=== PATIENT | male | born 1935 | race Caucasian/White ===

== ENCOUNTER 2017-06-04 10:44 | Inpatient (IN) | payer MEDICARE, OTHER ==
[~2017-06-04] VITALS: Ht 172.7 cm; Wt 92.5 kg
[~2017-06-04 10:44] MED LIST: ASPIRIN81 MG PO; ATENOLOL100 MG PO; ATENOLOL50 MG; ATORVASTATIN CA20 MG PO; BYSTOLIC10 MG PO; CARTIA XT180 MG PO; COUMADIN3 MG PO; DICLOFENAC PO; FINASTERIDE5 MG PO; FLUOXETINE HCL20 MG PO; HYDRALAZINE HCL25 MG PO; LISINOPRIL20 MG PO; PANTOPRAZOLE SO40 MG PO; SENEKOT PO; TAMSULOSIN HCL0.4 MG PO; TRIAMTERENE-HCTZ1 EA PO; VERAPAMIL ER240 MG PO
[2017-06-04] MEDS ORDERED: ALBUTEROL SULF 0.083% NEB SOLN 3 ML NEB NEB STA (10:45)
[2017-06-04] MEDS ORDERED: IPRATROPIUM BROMIDE 0.02% 2.5 ML NEB NEB STA (10:45)
--- OUTSIDE RECORDS SUMMARY | 2017-06-04 10:46 | XMS REPORT | Clinical Summary ---
Author Author LOVE [facility]We[facility] HospitalAcumatica Organization [facility] CenterRefinder by [facility] Address Unknown Phone Unavailable Care Team Providers Care Hydrostatic Tubing Tester Name Role Phone PCP Unavailable Allergies Active Allergy Reactions Severity Noted Date Comments Furosemide 01/22/2016 query Current Medications Prescription Sig. Disp. Refills Start End Date Status Date melatonin 3 mg Tab Take 1 tablet (3 mg 30 tablet 0 02/23/20 Active total) by mouth nightly. 16 nebivolol (BYSTOLIC) 5 MG Take 1 tablet (5 mg 30 tablet 0 02/22/20 Active tablet total) by mouth daily. 16 pantoprazole (PROTONIX) Take 1 tablet (40 mg 30 tablet 0 20 Active 40 MG tablet total) by mouth daily. 16 tamsulosin (FLOMAX) 0.4 Take 1 capsule (0.4 mg 30 capsule 0 20 Active mg Cp24 24 hr capsule total) by mouth daily. 16 aspirin 81 MG chewable Take 1 tablet (81 mg 30 tablet 0 20/20 12/ 20/20 tablet total) by mouth daily. 16 17 atorvastatin (LIPITOR) 20 Take 1 tablet (20 mg 30 tablet 0 02/22/20 2020 MG tablet total) by mouth daily. 16 17 diltiazem (CARDIZEM CD) Take 1 capsule (180 mg 30 capsule 0 20/20 12/20/20 180 MG 24 hr capsule total) by mouth daily. 16 17 finasteride (PROSCAR) 5 Take 1 tablet (5 mg 30 tablet 0 02/22/20 / 20/20 mg tablet total) by mouth daily. 16 17 fLUoxetine (PROZAC) 20 MG Take 1 capsule (20 mg 30 capsule 0 02/22/20 12/2020 capsule total) by mouth daily. 16 17 senna-docusate (SENOKOT Take 2 tablets by mouth 60 tablet 0 02/23/20 02/23/20 S) 8.6-50 mg per tablet daily before lunch. 16 17 triamterene-hydrochloroth Take 1 capsule by mouth 30 capsule 0 02/23/20 iazide (DYAZIDE) 37.5-25 daily. 16 17 mg per capsule Active Problems Problem Noted Date MARISELA (acute kidney injury) (FORMERLY [facility]) 02/09/2016 Leukocytosis 02/09/2016 Penile swelling 02/09/2016 Diabetes mellitus, type 2 (FORM[facility]LY [facility]) 01/29/2016 Hx of pulmonary embolus 01/26/2016 Atrial fibrillation ([facility]) 01/24/2016 Urinary tract infection 01/24/2016 ICH (intracerebral hemorrhage) (FORM[facility]LY [facility]) 01/22/2016 Social History Tobacco Use Types Packs/Day Years Used Date Never Smoker 1.5 15 Alcohol Use Drinks/Week oz/Week Comments No Sex Assigned at Date Recorded Not on file Last Filed Vital Signs Not on file Plan of Treatment Not on file Results Not on fileafter 06/03/2016
[2017-06-04] MEDS ORDERED: ALBUTEROL SULF 0.083% NEB SOLN 3 ML NEB NEB ONE (11:00)
[2017-06-04] MEDS ORDERED: BYSTOLIC10 MG PO (11:27)
[2017-06-04] MEDS ORDERED: GLIMEPIRIDE2 MG PO (11:27)
[2017-06-04] MEDS ORDERED: ASPIRIN 81 MG CHEW TAB PO ONE (11:30)
--- NOTE | 2017-06-04 11:43 | Diagnostic Imaging Report ---
EXAMINATION: CHEST SINGLE (PORTABLE) INDICATION: Shortness of breath. \S\ERMD ORDER \[id number] \S\1100 \S\Y COMPARISON: Chest CT dated 06/07/2016 FINDINGS: AP view TUBES and LINES: None. LUNGS: Lungs are well inflated. Left mid to inferior lung field opacification. Mild central vascular congestion. Questionable right lower lung field nodular density, measuring approximately 7 mm. PLEURA: No pneumothorax. HEART AND MEDIASTINUM: The cardiac silhouette is obscured. BONES AND SOFT TISSUES: No acute osseous lesion. Right humeral head anchor screw. Soft tissues are unremarkable. UPPER ABDOMEN: No free air under the diaphragm. IMPRESSION: Left mid to inferior lung field opacification, representing moderate size pleural effusion. Underlying atelectasis/pneumonia cannot be entirely excluded. Mild central vascular congestion. Questionable right lower lung field nodular density. Signed by: Dr. Ta Reynaga MD on 06/04/2017 11:39 AM
[2017-06-04 11:48] LABS: BASOPHILS # (AUTO) 0.1 (0.0-0.1); BASOPHILS % 0.5 % (0.0-1.0); EOSINOPHILS # (AUTO) 0.2 (0.0-0.4); HEMATOCRIT 44.2 % (38.2-49.6); HEMOGLOBIN 13.5 g/dL (14.0-18.0); LYMPHOCYTES # (AUTO) 2.5 (1.0-3.2); LYMPHOCYTES % 26.4 % (18.0-39.1); MEAN CORPUSCULAR HEMOGLOBIN 26.3 pg (28-32); MEAN CORPUSCULAR HGB CONC 30.5 g/dL (31-35); MONOCYTES # (AUTO) 0.7 (0.2-0.8); MONOCYTES % 7.7 % (4.4-11.3); NEUTROPHILS # (AUTO) 5.9 (2.1-6.9); PLATELET COUNT 146 x10e3/uL (140-360); RED BLOOD COUNT 5.14 x10e6/uL (4.3-5.7); RED CELL DISTRIBUTION WIDTH 15.9 % (11.7-14.4)
[2017-06-04 11:57] LABS: INR 1.33; PROTHROMBIN TIME 15.5 seconds (11.9-14.5)
[2017-06-04 12:00] LABS: ALANINE AMINOTRANSFERASE 12 IU/L (0-55); ALBUMIN 3.1 g/dL (3.5-5.0); ALBUMIN/GLOBULIN RATIO 0.5 (0.8-2.0); ALKALINE PHOSPHATASE 108 IU/L (40-150); ANION GAP 16.9 mmol/L (8-16); BLOOD UREA NITROGEN 43 mg/dL (7-26); BUN/CREATININE RATIO 20 (6-25); CALCIUM 9.5 mg/dL (8.4-10.2); CARBON DIOXIDE 25 mmol/L (22-29); CHLORIDE 99 mmol/L (98-107); CREATINE KINASE 51 IU/L (30-200); CREATININE, SERUM 2.18 mg/dL (0.72-1.25); EST GLOMERULAR FILTRATION RATE 29 ML/MIN (60-); GLUCOSE 201 mg/dL (74-118); MAGNESIUM 2.2 MG/DL (1.3-2.1); POTASSIUM 4.9 mmol/L (3.5-5.1); SODIUM 136 mmol/L (136-145)
[2017-06-04 12:19] LABS: ABG HCO3 25 mmol/L (23-28); ABG PCO2 38 mmHg (41-51); ABG PH 7.43 (7.31-7.41); ABG PO2 63 mmHg (80-105)
[2017-06-04 12:20] LABS: THYROID STIMULATING HORMONE 1.348 uIU/mL (0.350-4.940)
[2017-06-04 12:43] LABS: CLARITY,URINE CLEAR (CLEAR); COLOR,URINE YELLOW (YELLOW); LEUKOCYTE ESTERASE ,URINE NEGATIVE (NEGATIVE)
[2017-06-04 12:44] LABS: BILIRUBIN,URINE NEGATIVE (NEGATIVE); KETONES,URINE NEGATIVE (NEGATIVE); NITRITE,URINE NEGATIVE (NEGATIVE); PROTEIN,URINE DIPSTICK NEGATIVE (NEGATIVE); URINE UROBILINOGEN 0.2 mg/dL (0.2 - 1)
--- NOTE | 2017-06-04 13:17 | Diagnostic Imaging Report ---
EXAM: CT Chest WITHOUT contrast INDICATION: \S\r/o pna mass \S\[id number] \S\1222 COMPARISON: Chest x-ray of the same date. TECHNIQUE: Chest was scanned utilizing a multidetector helical scanner from the lung apex through the level of the adrenal glands without administration of IV contrast. Absence of intravenous contrast decreases sensitivity for detection of lymphadenopathy and vascular pathology. Coronal and sagittal reformations were obtained. Routine protocol was performed. IV CONTRAST: None COMPLICATIONS: None RADIATION DOSE: Total DLP: 562.04 mGy*cm Estimated effective dose: (DLP x 0.014 x size factor) mSv CTDIvol has been reviewed. It is below the limits set by the Radiation Protocol Committee (RPC). FINDINGS: LINES/ TUBES: None. LUNGS , PLEURA, AND AIRWAYS: Complex appearing left pleural effusion with septations and dense pleural line with adjacent consolidation. Trace right pleural effusion. Left lung multifocal areas of patchy groundglass opacification. Numerous right lower lobe lung nodules measuring up to 0.7 cm. HEART AND MEDIASTINUM: Heterogeneous thyroid gland. Mediastinal lymphadenopathy. For example the largest lymph node in the right paratracheal region measures 1.8 cm. There is also axillary lymphadenopathy, especially on the left side. Calcified left hilar lymph nodes. Heart is borderline enlarged. No pericardial effusion. Atherosclerotic calcification of aorta and coronary arteries. Main pulmonary artery measures 3.2 cm, suggestive of pulmonary hypertension. UPPER ABDOMEN: Hepatic and splenic calcified granulomas. Cholelithiasis. Partially imaged kidneys with bilateral cysts and left superior pole subcentimeter calculus. Conglomerate of periesophageal lymph nodes measuring up to 1.5 cm. There are multiple peripancreatic head lymph nodes as well as 1.5 cm portacaval lymph node (series 2, image 130). BONES: Right humeral head anchor screws. Degenerative changes of the bilateral shoulders, right more than left. SOFT TISSUES: Unremarkable. IMPRESSION: 1. Multifocal areas of right lung patchy groundglass opacification may represent infectious/inflammatory process or asymmetric pulmonary edema. 2. Moderate size complex left pleural effusion, suspicious for malignant effusion or empyema. There is atelectasis of the most of the left lower lobe with left lung volume loss. Left lower lobe pleura is hyperdense and thickened. 3. Numerous right lower lobe nodule nodules, suspicious for metastatic disease. 4. Mediastinal, left axillary, paraesophageal and abdominal lymphadenopathy, suspicious for metastatic disease. 5. Cholelithiasis without CT evidence of cholecystitis. Signed by: Dr. Ta Reynaga MD on 06/04/2017 1:14 PM
[2017-06-04] MEDS ORDERED: DEXTROSE 50% SYRINGE 50 ML IV PRN (14:30)
[2017-06-04] MEDS ORDERED: SODIUM CHLORIDE FLUSH 10 ML SYR INJ PRN (14:30)
--- OUTSIDE RECORDS SUMMARY | 2017-06-04 16:40 | XMS REPORT | Clinical Summary ---
Author Author LOVE PrefundiaSt[facility] Luke'[facility] Meridian Medical CenterTrustPoint International Organization [facility] HospitalFeuerlabsKind[facility] Address Unknown Phone Unavailable Care Team Providers Care Reimbursement Manager Name Role Phone PCP Unavailable Allergies Active [...] Noted Date MARISELA (acute kidney injury) (FORMERLY [facility]) 02/09/2016 Leukocytosis 02/09/2016 Penile swelling 02/09/2016 Diabetes mellitus, type 2 (FORM[facility]LY [facility]) 01/29/2016 Hx of pulmonary embolus 01/26/2016 Atrial fibrillation ([facility]) 01/24/2016 Urinary tract infection 01/24/2016 ICH (intracerebral hemorrhage) ([facility]LY [facility]) 01/22/2016 Social History Tobacco Use Types Packs/Day Years Used Date Never Smoker 1.5 15 Alcohol Use Drinks/Week oz/Week Comments No Sex Assigned at Date Recorded Not on file Last Filed Vital Signs Not on file Plan of Treatment Not on file Results Not on fileafter 06/03/2016
--- OUTSIDE RECORDS SUMMARY | 2017-06-04 16:40 | XMS REPORT ---
Author Author [facility] Address Unknown Phone Unavailable Care Team Providers Care Railway Switch Operator Name Role Phone RAMA SCHULZ Unavailable Unavailable Problems This patient has no known problems. Allergies, Adverse Reactions, Alerts This patient has no known allergies or adverse reactions. Medications This patient has no known medications. Results Test Description Test Time Test Comments Text Results Atomic Results Result Comments CT CHEST WO [place] [address] Patient Name: KANDI MENEZES MR #: [id number] : 1935 Age/Sex: 82/M Req #: [id number] Adm Physician: Ordered by: SHABANA SUBRAMANIAN PICKING BELT OPERATOR Report #: [id number] Location: ER Room/Bed: Procedure: [id number] CT/CT CHEST WO Exam Date: 06/04/17 Exam Time: 1222 REPORT STATUS: Signed EXAM: CT Chest WITHOUT contrast INDICATION : COMPARISON: Chest x-ray of the same date. TECHNIQUE: Chest was scanned utilizing a multidetector helical scanner from the lung apex through the level of the adrenal glands without administration of IV contrast. Absence of intravenous contrast decreases sensitivity for detection of lymphadenopathy and vascular pathology. Coronal and sagittal reformations were obtained. Routine protocol was performed. IV CONTRAST: None COMPLICATIONS: None RADIATION DOSE: Total DLP: 562.04 mGy*cm Estimated effective dose: (DLP x 0.014 x size factor) mSv CTDIvol has been reviewed. It is below the limits set by the Radiation Protocol Committee (RPC). FINDINGS: LINES/ TUBES: None. LUNGS , PLEURA, AND AIRWAYS: Complex appearing left pleural effusion with septations and dense pleural line with adjacent consolidation. Trace right pleural effusion. Left lung multifocal areas of patchy groundglass opacification. Numerous right lower lobe lung nodules measuring up to 0.7 cm. HEART AND MEDIASTINUM: Heterogeneous thyroid gland. Mediastinal lymphadenopathy. For example the largest lymph node in the right paratracheal region measures 1.8 cm. There is also axillary lymphadenopathy, especially on the left side. Calcified left hilar lymph nodes. Heart is borderline enlarged. No pericardial effusion. Atherosclerotic calcification of aorta and coronary arteries. Main pulmonary artery measures 3.2 cm, suggestive of pulmonary hypertension. UPPER ABDOMEN: Hepatic and splenic calcified granulomas. Cholelithiasis. Partially imaged kidneys with bilateral cysts and left superior pole subcentimeter calculus. Conglomerate of periesophageal lymph nodes measuring up to 1.5 cm. There are multiple peripancreatic head lymph nodes as well as 1.5 cm portacaval lymph node (series 2, image 130). BONES: Right humeral head anchor screws. Degenerative changes of the bilateral shoulders, right more than left. SOFT TISSUES: Unremarkable. IMPRESSION: 1. Multifocal areas of right lung patchy groundglass opacification may represent infectious/inflammatory process or asymmetric pulmonary edema. 2. Moderate size complex left pleural effusion, suspicious for malignant effusion or empyema. There is atelectasis of the most of the left lower lobe with left lung volume loss. Left lower lobe pleura is hyperdense and thickened. 3. Numerous right lower lobe nodule nodules, suspicious for metastatic disease. 4. Mediastinal, left axillary, paraesophageal and abdominal lymphadenopathy, suspicious for metastatic disease. 5. Cholelithiasis without CT evidence of cholecystitis. Signed by: Dr. Ta Choudhury MD on 06/04/2017 1:14 PM Dictated By: TA CHOUDHURY MD 1314 Transcribed By : BRINA on 06/04/17 1314 COPY TO: SHABANA SUBRAMANIAN NP CHEST SINGLE (PORTABLE) [place] [address] Patient Name: KANDI MENEZES MR #: [id number] : 1935 Age/Sex: 82/M Req #: [id number] [facility] Physician: Ordered by: SHABANA SUBRAMANIAN PICKING BELT OPERATOR Report #: [id number] Location: ER Room/Bed: Procedure: [id number] DX/CHEST SINGLE (PORTABLE) Exam Date: 06/04/17 Exam Time: 1100 REPORT STATUS: Signed EXAMINATION: CHEST SINGLE (PORTABLE) INDICATION: Shortness of breath. COMPARISON: Chest CT dated 06/07/2016 FINDINGS: AP view TUBES and LINES: None. LUNGS: Lungs are well inflated. Left mid to inferior lung field opacification. Mild central vascular congestion. Questionable right lower lung field nodular density, measuring approximately 7 mm. PLEURA: No pneumothorax. HEART AND MEDIASTINUM: The cardiac silhouette is obscured. BONES AND SOFT TISSUES: No acute osseous lesion. Right humeral head anchor screw. Soft tissues are unremarkable. UPPER ABDOMEN: No free air under the diaphragm. IMPRESSION: Left mid to inferior lung field opacification, representing moderate size pleural effusion. Underlying atelectasis/pneumonia cannot be entirely excluded. Mild central vascular congestion. Questionable right lower lung field nodular density. Signed by: Dr. Ta Choudhury MD on 06/04/2017 11:39 AM Dictated By: TA CHOUDHURY MD 1653 COPY TO: SHABANA SUBRAMANIAN PICKING BELT OPERATOR
[2017-06-04 17:31] VITALS: BP 110/65
[2017-06-04] MEDS: INSULIN REGULAR, HUMAN 100 UNIT/1 ML 3ML VIAL SQ SCH ×2 (17:45→21:14)
[2017-06-04 18:00] VITALS: BP 110/65
[2017-06-04] MEDS ORDERED: SODIUM CHLORIDE 0.9% 250ML 250 ML ONE (18:17)
[2017-06-04] MEDS: PIPERACILLIN/TAZO 2.25 GM 50 ML IV SCH (18:38)
[2017-06-04 19:05] LABS: CREATINE KINASE MB 2.8 ng/mL (0-5.0)
[2017-06-04 19:47] VITALS: BP 110/65
[2017-06-04 20:52] VITALS: BP 103/64
[2017-06-04 21:17] VITALS: BP 103/64
[2017-06-05] VITALS (7 sets, daily range): BP systolic 98–130; BP diastolic 58–70
[2017-06-05] MEDS: PIPERACILLIN/TAZO 2.25 GM 50 ML IV SCH ×5 (00:11→23:02)
[2017-06-05] MEDS: GLIMEPIRIDE 2 MG TAB PO SCH (07:30)
[2017-06-05] MEDS: INSULIN REGULAR, HUMAN 100 UNIT/1 ML 3ML VIAL SQ SCH ×4 (07:30→20:26)
[2017-06-05 07:34] LABS: CREATINE KINASE 40 IU/L (30-200)
[2017-06-05] MEDS: NEBIVOLOL 10 MG TAB PO SCH (09:00)
[2017-06-05] MEDS: TRIAMTERENE/HCTZ 37.5-25 MG TAB PO SCH (09:00)
[2017-06-05] MEDS: FLUOXETINE HCL 20 MG CAP PO SCH (09:00)
[2017-06-05] MEDS: ASPIRIN 81 MG CHEW TAB PO SCH (09:00)
[2017-06-05] MEDS: DILTIAZEM HCL 180 MG CAP CD PO SCH (09:00)
[2017-06-05] MEDS: TAMSULOSIN HCL 0.4 MG CAP PO SCH (09:00)
[2017-06-05] MEDS: PANTOPRAZOLE SOD 40 MG TABEC PO SCH (09:00)
[2017-06-05] MEDS: FINASTERIDE 5 MG TAB PO SCH (09:00)
[2017-06-05] MEDS ORDERED: FENTANYL CITRATE/PF 100MCG/2 ML INJ ONE (13:58)
[2017-06-05] MEDS ORDERED: MIDAZOLAM HCL 2 MG/2 ML VIAL ONE (13:59)
[2017-06-05 14:29] LABS: BODY FLUID APPEARANCE TURBID; BODY FLUID COLOR RED; BODY FLUID TYPE PLEURAL
--- NOTE | 2017-06-05 15:06 | Diagnostic Imaging Report ---
Ultrasound-guided Thoracentesis 06/05/2017 Pre-Procedure Diagnosis: Left pleural effusion Post-procedure Diagnosis:Left pleural effusion Director Of Media: Lopez Navarro Sewer Builder: None Sedation: None. 1% lidocaine local anesthesia. Estimate blood loss: <5 mL Blood administered: None Complications: None Implants/Grafts: None Specimen: 400 mL green, bloody fluid. Procedure: Informed consent was obtained and the patient positioned in a sitting position in the ultrasound suite. A timeout was performed, followed by preliminary ultrasound of the chest. The back was prepped and draped in standard sterile fashion. Using real-time ultrasound guidance a 7-Nepali one-step centesis needle was advanced into the left thoracic cavity. An image was stored in the electronic medical record. 400 mL green, bloody fluid was aspirated. At the end of the procedure the catheter was removed and a sterile dressing applied. The patient tolerated the procedure well. No complications. Findings: Extensively loculated left pleural effusion with pleural thickening. Blue-tinged raised, firm lesion at the right aspect of the back measuring about 3 cm in diameter. This lesion was discussed with the patient and family. Impression: 1. Successful ultrasound-guided left thoracentesis with removal of 400 mL of fluid. Samples were submitted for evaluation if requested by the referring clinician. 2. The pleural effusion is heavily loculated, limiting fluid aspiration. This report was generated with voice-recognition technology. Errors in bottle filler can occur. Please interpret accordingly and contact a radiologist if there are any questions regarding the report. Signed by: Dr. Les Navarro M.D. on 06/05/2017 3:02 PM
--- NOTE | 2017-06-05 15:06 | Diagnostic Imaging Report ---
PROCEDURE:CHEST XRAY POST PROCEDURE TECHNIQUE:Upright AP chest INDICATION:Left thoracentesis COMPARISON:Patients [facility], US, US GUIDANCE FOR THORACENTESIS, 06/05/2017, 13:53. Patients [facility], DX, CHEST SINGLE (PORTABLE), 06/04/2017, 12:06. FINDINGS: See conclusion. CONCLUSION: 1. Interval left thoracentesis with decreased left pleural effusion. No pneumothorax. 2. Persistent loculated left pleural effusion, with associated leftward mediastinal shift in keeping with left lung atelectasis. Left marginal thoracic cavity pleural thickening. 3. Large calcified left hilar lymph node. Enlarged monalisa and superior mediastinum in keeping with lymphadenopathy. 4. Normal heart size for technique. Dictated by: Les Navarro M.D. on 06/05/2017 at 15:07 Electronically approved by: Les Navarro M.D. on 06/05/2017 at 15:07
--- NOTE | 2017-06-05 15:06 | Diagnostic Imaging Report ---
Ultrasound-guided Thoracentesis 06/05/2017 Pre-Procedure Diagnosis: Left pleural effusion Post-procedure Diagnosis:Left pleural effusion Paper Sales Representative: Lopez Navarro Residence Manager: None Sedation: None. 1% lidocaine local anesthesia. Estimate blood loss: <5 mL Blood administered: None Complications: None Implants/Grafts: None Specimen: 400 mL green, bloody fluid. Procedure: Informed consent was obtained and the patient positioned in a sitting position in the ultrasound suite. A timeout was performed, followed by preliminary ultrasound of the chest. The back was prepped and draped in standard sterile fashion. Using real-time ultrasound guidance a 7-Georgian one-step centesis needle was advanced into the left thoracic cavity. An image was stored in the electronic medical record. 400 mL green, bloody fluid was aspirated. At the end of the procedure the catheter was removed and a sterile dressing applied. The patient tolerated the procedure well. No complications. Findings: Extensively loculated left pleural effusion with pleural thickening. Blue-tinged raised, firm lesion at the right aspect of the back measuring about 3 cm in diameter. This lesion was discussed with the patient and family. Impression: 1. Successful ultrasound-guided left thoracentesis with removal of 400 mL of fluid. Samples were submitted for evaluation if requested by the referring clinician. 2. The pleural effusion is heavily loculated, limiting fluid aspiration. This report was generated with voice-recognition technology. Errors in feather drying machine operator can occur. Please interpret accordingly and contact a radiologist if there are any questions regarding the report. Signed by: Dr. Les Navarro M.D. on 06/05/2017 3:02 PM
[2017-06-05 15:45] LABS: RBC,BODY FLUID 30492 cells/uL; WBC,BODY FLUID 0 cells/uL
--- NOTE | 2017-06-05 15:58 | Consultation ---
DATE OF CONSULTATION: June 05, 2017 PULMONARY CONSULTATION REASON FOR CONSULTATION: Abnormal CT of the chest. HPI: Mr. Smiley is an 82-year-old male who was admitted by Dr. Zambrano with the complaint of shortness of breath for 3 days. Daughter is at the bedside, and she told me the patient had an episode of choking a week ago, and since then he was having increasing cough. Lately, she noticed that his oxygen saturation at home is 82% to 85%, so she was very concerned. The patient is a lifelong nonsmoker. However, he has a history of multiple pulmonary emboli 2 years ago. The pulmonary embolism probably was provoked as he was immobile after his 's and was not doing much. He was started on anticoagulation. However, he had an intracranial hemorrhage, and the anticoagulation was stopped. He is just on aspirin now. He has bilateral pedal edema. She told me the patient sees Dr. Nowak as an outpatient. In the record here, the patient had a cath last year on the 01 of July. Patient had both right and left heart cath with the pulmonary wedge pressure of 26 and mean PA pressure of 27. However, the index was preserved at 2.2 L. Left heart catheterization shows 50% proximal LAD stenosis. I do not see an LV-gram in the report. He reports dyspnea on exertion off and on. REVIEW OF SYSTEMS GENERAL: Denies any fever or chills since this problem has happened. HEAD: Denies any head trauma or head injury. ENT: Denies any earache, nosebleed or throat pain. CVS: Denies any chest pain. RESPIRATORY: Shortness of breath. GI: Denies any nausea or vomiting. OTHER: The rest of the review of systems are negative except as in HPI. PAST MEDICAL HISTORY 1. Pulmonary embolism that was diagnosed more than 2 years ago and was likely provoked as he was immobile and not on anticoagulation because of history of intracranial hemorrhage. Currently is on aspirin and has IVC filter. 2. Total knee replacement bilateral. 3. Hypertension. PHYSICAL EXAMINATION VITALS: Temperature 97.6, pulse of 76, blood pressure 114/70. Respiratory rate of 18. O2 sat 96% on room air. SKIN: Warm and dry. GENERAL: He is an elderly male, not in any obvious distress. HEENT: Head is atraumatic and normocephalic. Pupils are reactive. NECK: Supple. CHEST: Decreased air entry on the left side and crackles on the bases. HEART: S1, S2 audible. ABDOMEN: Soft, nontender, nondistended. EXTREMITIES: Bilateral pedal edema 3 to 4+ extending up to the knees. NEUROLOGIC: Awake, alert, oriented. No focal neurological deficit. LABS: White count of 9000, hemoglobin 13.5, platelets 146. Chemistry: Cardiac enzymes have been normal. Sodium 136, potassium 4.9. Creatinine was 2.18. BNP 145. Lactic acid was 29.7 on admission and went down to 19.5. INR is 1.33. CT of the chest: I have reviewed the images. It is showing evidence of large left-sided pleural effusion and atelectasis, possible pneumonia. Mediastinal lymph nodes are enlarged. Paratracheal, subcarinal and hilar lymph nodes are enlarged. Areas of patchy ground glass areas on the right side. ASSESSMENT AND PLAN: Mr. Guadarrama is an 82-year-old male who presented with shortness of breath and large left-sided pleural effusion. CT interestingly showing mediastinal lymphadenopathy, atelectasis and possibility of pneumonia. Given the history of choking and aspiration, all these findings can suggest pneumonia on top of possible fluid overload and decompensated heart failure. The wedge pressure on the last cath was 26, signifying some diastolic dysfunction, all this accompanied with chronic kidney disease and no acute worsening as last creatinine last year was 2.38. IMPRESSION 1. Aspiration pneumonitis along with possible fluid overload and possibility of decompensated heart failure. 2. Lifelong nonsmoker. 3. Chronic kidney disease. 4. History of pulmonary embolism, according to the daughter multiple. Has inferior vena cava filter. Not a candidate for anticoagulation because of history of intracranial hemorrhage. PLAN 1. Thoracentesis has been planned. I will send off LDH, protein, cell count, glucose, pH. 2. Continue the patient on IV Zosyn for possible aspiration pneumonitis. 3. I will start the patient on IV Lasix 40 mg IV for 2 to 3 days. 4. Patient will need a repeat CT chest in 2 to 3 months to document resolution of mediastinal lymph nodes. If persists, may need biopsy of the lymph nodes. This was discussed in detail with patient's daughter at bedside. Job#: [id number]
[2017-06-05] MEDS: ATORVASTATIN 20 MG TAB PO SCH (20:42)
[2017-06-06] VITALS (8 sets, daily range): BP systolic 91–125; BP diastolic 57–80
[2017-06-06] MEDS: PIPERACILLIN/TAZO 2.25 GM 50 ML IV SCH ×3 (05:02→17:37)
[2017-06-06 06:47] LABS: BASOPHILS % 0.5 % (0.0-1.0); EOSINOPHILS # (AUTO) 0.1 (0.0-0.4); EOSINOPHILS % 1.2 % (0.0-6.0); HEMATOCRIT 37.1 % (38.2-49.6); HEMOGLOBIN 11.6 g/dL (14.0-18.0); LYMPHOCYTES # (AUTO) 1.9 (1.0-3.2); LYMPHOCYTES % 23.4 % (18.0-39.1); MEAN CORPUSCULAR HEMOGLOBIN 26.7 pg (28-32); MEAN CORPUSCULAR HGB CONC 31.3 g/dL (31-35); MEAN CORPUSCULAR VOLUME 85.3 fL (81-99); MONOCYTES # (AUTO) 0.9 (0.2-0.8); MONOCYTES % 10.8 % (4.4-11.3); NEUTROPHILS # (AUTO) 5.2 (2.1-6.9); NEUTROPHILS % 63.7 % (38.7-80.0); PLATELET COUNT 218 x10e3/uL (140-360); RED BLOOD COUNT 4.35 x10e6/uL (4.3-5.7)
[2017-06-06 07:20] LABS: ANION GAP 12.3 mmol/L (8-16); CALCIUM 8.7 mg/dL (8.4-10.2); CREATININE, SERUM 1.84 mg/dL (0.72-1.25); POTASSIUM 4.3 mmol/L (3.5-5.1)
[2017-06-06] MEDS: INSULIN REGULAR, HUMAN 100 UNIT/1 ML 3ML VIAL SQ SCH ×4 (07:30→21:00)
[2017-06-06] MEDS: FUROSEMIDE INJ 10 MG/ML 4 ML VIAL IV SCH (10:46)
[2017-06-06] MEDS: NEBIVOLOL 10 MG TAB PO SCH (10:46)
[2017-06-06] MEDS: ASPIRIN 81 MG CHEW TAB PO SCH (10:46)
[2017-06-06] MEDS: GLIMEPIRIDE 2 MG TAB PO SCH (10:46)
[2017-06-06] MEDS: FINASTERIDE 5 MG TAB PO SCH (10:48)
[2017-06-06] MEDS: TRIAMTERENE/HCTZ 37.5-25 MG TAB PO SCH (10:48)
[2017-06-06] MEDS: PANTOPRAZOLE SOD 40 MG TABEC PO SCH (10:48)
[2017-06-06] MEDS: DILTIAZEM HCL 180 MG CAP CD PO SCH (10:48)
[2017-06-06] MEDS: TAMSULOSIN HCL 0.4 MG CAP PO SCH (10:48)
[2017-06-06] MEDS: FLUOXETINE HCL 20 MG CAP PO SCH (10:48)
[2017-06-06] MEDS ORDERED: SODIUM CHLORIDE 0.9% 250ML 250 ML ONE (17:26)
[2017-06-06] MEDS: ATORVASTATIN 20 MG TAB PO SCH (21:00)
[2017-06-07] VITALS: BP 125/59
[2017-06-07] MEDS: PIPERACILLIN/TAZO 2.25 GM 50 ML IV SCH ×4 (00:40→18:08)
[2017-06-07 04:00] VITALS: BP 93/60
[2017-06-07] MEDS: INSULIN REGULAR, HUMAN 100 UNIT/1 ML 3ML VIAL SQ SCH ×4 (07:30→21:00)
[2017-06-07 09:00] VITALS: BP 111/63
[2017-06-07] MEDS: ASPIRIN 81 MG CHEW TAB PO SCH (09:00)
[2017-06-07 09:13] VITALS: BP 111/63
[2017-06-07] MEDS: NEBIVOLOL 10 MG TAB PO SCH (10:31)
[2017-06-07 13:03] VITALS: BP 116/69
[2017-06-07] MEDS ORDERED: LIDOCAINE HCL 4% 50 ML BTL ONE (14:34)
[2017-06-07] MEDS ORDERED: OXYMETAZOLINE HCL 0.05% NAS 1 SPRAY BTL ONE (14:34)
[2017-06-07] MEDS ORDERED: LIDOCAINE JELLY 2% 10ML URO-JET ONE (14:34)
[2017-06-07] MEDS ORDERED: EPINEPHRINE HCL INJ 1 MG/ML AMP ONE (14:38)
[2017-06-07] MEDS ORDERED: LIDOCAINE HCL 2% 30 ML TUBE ONE (14:38)
--- NOTE | 2017-06-07 15:52 | Diagnostic Imaging Report ---
PROCEDURE: A single AP view of the chest. COMPARISON: Patients [facility], DX, CHEST XRAY POST PROCEDURE, 06/05/2017, 15:25. INDICATIONS: Moderate left pleural effusion. Postprocedure. FINDINGS: See impression. IMPRESSION: 1. no significant interval change in loculated left pleural effusion and mild leftward mediastinal shift. Stable left lateral pleural thickening. 2. No pneumothorax is identified. 3. Stable calcified left hilar node. 4. Right lung is grossly clear. Cardiac silhouette is obscured. Matteo Lara M.D. Dictated by: Matteo Lara M.D. on 06/07/2017 at 15:52 Electronically approved by: Matteo Lara M.D. on 06/07/2017 at 15:52
--- NOTE | 2017-06-07 16:47 | Operative Report ---
DATE OF PROCEDURE: PROCEDURE PERFORMED: Bronchoscopy with transbronchial lung biopsy. PRE-PROCEDURE DIAGNOSIS 1. Left-sided pleural effusion. 2. Left lower lobe atelectasis. 3. Left-sided pleural thickening and mediastinal lymphadenopathy. POST-PROCEDURE DIAGNOSIS: Normal endobronchial airways, no endobronchial lesion. PROCEDURE DETAIL: Bronchoscope was advanced through the LMA. Tejal was identified. Both lungs were examined until segmental level. Right upper lobe, lower lobe and middle lobe were examined. They were within normal limits. Left upper lobe appeared normal. Left lower lobe segments appeared narrowed from external compression. No endobronchial lesion was seen. Transbronchial lung biopsy was done from left lower lobe. BAL was done from left lower lobe as well. Samples were sent for pathology, AFB, fungus, and Gram stain. Patient tolerated the procedure well. Post-procedure chest x-ray is pending. Job#: [id number] EV
[2017-06-07] MEDS: FUROSEMIDE INJ 10 MG/ML 4 ML VIAL IV SCH (18:07)
[2017-06-07] MEDS: GLIMEPIRIDE 2 MG TAB PO SCH (18:07)
[2017-06-07] MEDS: DILTIAZEM HCL 180 MG CAP CD PO SCH (18:07)
[2017-06-07] MEDS: PANTOPRAZOLE SOD 40 MG TABEC PO SCH (18:08)
[2017-06-07] MEDS: FINASTERIDE 5 MG TAB PO SCH (18:08)
[2017-06-07] MEDS: FLUOXETINE HCL 20 MG CAP PO SCH (18:08)
[2017-06-07] MEDS: TAMSULOSIN HCL 0.4 MG CAP PO SCH (18:08)
[2017-06-07] MEDS: TRIAMTERENE/HCTZ 37.5-25 MG TAB PO SCH (18:08)
[2017-06-07] MEDS ORDERED: PROPOFOL IV EMULSION 10 MG/ML 20 ML VIAL ONE (19:34)
[2017-06-07] MEDS ORDERED: LIDOCAINE HCL 2% LOCAL INJ 5 ML SDV VIAL INJ ONE (19:34)
[2017-06-07 20:00] VITALS: BP 100/62
[2017-06-07] MEDS: ATORVASTATIN 20 MG TAB PO SCH (21:46)
[2017-06-08] VITALS: BP 106/65
[2017-06-08] MEDS: PIPERACILLIN/TAZO 2.25 GM 50 ML IV SCH ×2 (00:04→06:50)
[2017-06-08 04:00] VITALS: BP 116/66
[2017-06-08] MEDS: INSULIN REGULAR, HUMAN 100 UNIT/1 ML 3ML VIAL SQ SCH (07:30)
[2017-06-08] MEDS: TRIAMTERENE/HCTZ 37.5-25 MG TAB PO SCH (08:50)
[2017-06-08] MEDS: FINASTERIDE 5 MG TAB PO SCH (08:50)
[2017-06-08] MEDS: NEBIVOLOL 10 MG TAB PO SCH (08:50)
[2017-06-08] MEDS: PANTOPRAZOLE SOD 40 MG TABEC PO SCH (08:50)
[2017-06-08] MEDS: FUROSEMIDE INJ 10 MG/ML 4 ML VIAL IV SCH (08:50)
[2017-06-08] MEDS: ASPIRIN 81 MG CHEW TAB PO SCH (08:50)
[2017-06-08] MEDS: TAMSULOSIN HCL 0.4 MG CAP PO SCH (08:50)
[2017-06-08] MEDS: FLUOXETINE HCL 20 MG CAP PO SCH (08:50)
[2017-06-08] MEDS: DILTIAZEM HCL 180 MG CAP CD PO SCH (08:50)
[2017-06-08] MEDS: GLIMEPIRIDE 2 MG TAB PO SCH (08:50)
[2017-06-08 09:11] VITALS: BP 117/68
[2017-06-08 10:32] VITALS: BP 117/68
== END 2017-06-08 10:54 | disposition home or self-care (01) | DRG 167 ==
LOC: ER 10:44 → ERHOLD 16:35 → IMCU 16:38 → OBSVTOIN 06-06 05:44 → MED/SURG 06-06 15:06
PROVIDERS: ADMIT Internal Medicine; ATTEND Internal Medicine
PROC: 0W9B3ZX Drainage of Left Pleural Cavity, Percutaneous Approach, Diagnostic (ICD-10-PCS; 2017-06-05)
PROC: 0B9B8ZX Drainage of Left Lower Lobe Bronchus, Via Natural or Artificial Opening Endoscopic, Diagnostic (ICD-10-PCS; principal; 2017-06-06)
PROC: 0BBJ8ZX Excision of Left Lower Lung Lobe, Via Natural or Artificial Opening Endoscopic, Diagnostic (ICD-10-PCS; 2017-06-06)
DX: J69.0 Pneumonitis due to inhalation of food and vomit (principal); J90 Pleural effusion, not elsewhere classified; N18.3 Chronic kidney disease, stage 3 (moderate); E11.9 Type 2 diabetes mellitus without complications; I12.9 Hypertensive chronic kidney disease with stage 1 through stage 4 chronic kidney disease, or unspecified chronic kidney disease; Z86.711 Personal history of pulmonary embolism; Z79.01 Long term (current) use of anticoagulants; F17.210 Nicotine dependence, cigarettes, uncomplicated; R59.0 Localized enlarged lymph nodes; I25.10 Atherosclerotic heart disease of native coronary artery without angina pectoris
CPT/HCPCS: 32555; 36415; 36600; 71045; 71250; 74470; 76000; 80048; 80053; 81001; 82150; 82550; 82553; 82805; 82945; 82948; 83605; 83615; 83735; 83880; 83986; 84157; 84443; 84478; 84484; 85025; 85610; 85730; 87040; 87070; 87086; 87102; 87116; 87186; 87205; 87206; 87335; 87400; 88112; 88304; 88305; 88313; 89051; 93005; 93306; 96372; 99284; G0378; J0171; J1940; J2001; J2250; J2543; J7050

== ENCOUNTER 2017-06-29 07:32 | Emergency (ER) | payer MEDICARE, OTHER ==
[~2017-06-29] VITALS: Ht 172.7 cm; Wt 92.5 kg
[~2017-06-29 07:32] MED LIST changes: +GLIMEPIRIDE2 MG PO
[2017-06-29] MEDS ORDERED: SODIUM CHLORIDE 0.9% 1000ML 1,000 ML IV STA (07:34)
[2017-06-29] MEDS ORDERED: ONDANSETRON HCL INJ 2 MG/ML VIAL IV STA (07:34)
--- OUTSIDE RECORDS SUMMARY | 2017-06-29 07:35 | XMS REPORT | Continuity of Care Document ---
Author Author [facility] Organization [facility] Address [address] [place] [address] Phone Unavailable Care Team Providers Care Credit Control Manager Name Role Phone IRASEMA EGAN MD PCP Insurance Providers Guarantor Kandi Smiley Address [address] [place] [address] Email NONE Payer [facility] Policy Number [id number] Subscriber's Name Kandi Smiley Relationship 18 Self / Same As Patient Group Number [id number] Group Name [facility] Effective Date 11 Payer Medicare A & B Policy Number [id number] Subscriber's Name Kandi Smiley Relationship 18 Self / Same As Patient Group Number [id number] Group Name [facility] Effective Date 00 Advance Directives Directive Response Recorded Date/Time Does the patient have an advance directive? No 06/04/17 5:55pm If yes, is advance directive on file with [facility]? No 06/04/17 5:55pm If not on file with [facility] will patient provide a copy? No 06/04/17 5:55pm Do you have a Directive to Physician? No 06/04/17 12:46pm Do you have a Medical Power of [place]? No 06/04/17 12:46pm Do you have an out of hospital Do Not Resuscitate Order? No 06/04/17 12:46pm Do you have any special needs we should be aware of? No 06/04/17 12:46pm Do you have a support person here with you today? Yes 06/04/17 12:46pm Did patient receive Notice of Privacy Practices? Yes 06/04/17 12:46pm Did patient receive patient rights and responsibilities? Yes 06/04/17 12:46pm Problems No problem information available. Medications Current Home Medications Medication Dose Units Route Directions Days Qty Instructions Start Date Aspirin 81 Mg Tab.chew 81 Mg Oral Daily Atorvastatin Calcium 20 Mg Tablet 20 Mg Oral Today At 9:00PM Diltiazem Hcl (Cartia Xt) 180 Mg Cap.er.24h 180 Mg Oral Daily Finasteride 5 Mg Tablet 5 Mg Oral Daily 30 Tab Fluoxetine Hcl 20 Mg Capsule 20 Mg Oral Daily 30 Cap Glimepiride 2 Mg Tablet 2 Mg Oral Daily Nebivolol Hcl (Bystolic) 10 Mg Tablet 5 Mg Oral Daily Pantoprazole Sodium (Protonix) 40 Mg Tablet.dr 40 Mg Oral Daily Tamsulosin Hcl 0.4 Mg Cap.er.24h 0.4 Mg Oral Daily Triamterene/Hctz (Triamterene-Hctz 37.5-25 Mg Tb) 1 Ea Tab 1 Each Oral Daily Past Home Medications Medication Directions Ordered Status Atenolol 50 Mg Tablet, Twice A Day Discontinued Atenolol 100 Mg Tablet, 100 Mg Oral Twice A Day Discontinued Atorvastatin Calcium 20 Mg Tablet, 20 Mg Oral Qhs Discontinued Diclofenac Er , 100 Mg Oral Twice A Day Discontinued Hydralazine Hcl 25 Mg Tab, 25 Mg Oral Four Times Daily Discontinued Lisinopril (Prinavil / Zestril) 20 Mg Tablet, 20 Mg Oral Daily Discontinued Nebivolol Hcl (Bystolic) 10 Mg Tablet, 10 Mg Oral Daily Discontinued Senekot , 8.6-50 Mg Oral Daily Discontinued Verapamil Hcl (Verapamil Er) 240 Mg Tabsr, 240 Mg Oral Twice A Day Discontinued Warfarin Sodium (Coumadin*) 3 Mg Tablet, 3 Mg Oral Today At 5:00PM Discontinued Social History Social History Problem Response Recorded Date/Time Onset Date Status Hx Psychiatric Problems No 06/04/2017 5:55pm Not Applicable Not Applicable Hx Substance Use Disorder No 06/04/2017 5:55pm Not Applicable Not Applicable Hx Alcohol Use No 06/04/2017 5:55pm Not Applicable Not Applicable Smoking Status Start Date Stop Date Never Smoker Hospital Discharge Instructions No hospital discharge instruction information available. Plan of Care Discharge Date 06/08/17 10:54am Disposition HOME, SELF-CARE Instructions/Education Provided Pleural Effusion Prescriptions See Medication Section Referrals IRASEMA EGAN MD (Internal Medicine) Order Date: 3 Weeks Entered Date: 06/08/2017 10:37am Address: [address] [place] [id number] CATALINA EVANS MD (Pulmonary) Order Date: 3 Weeks Entered Date: 06/08/2017 10:37am Address: [address] [place] [id number] Additional Instructions/Education FOLLOW UP WITH DR EVANS IN 4 WEEKS DIABETIC DIET TO CONTINUE ACTIVITY TOLERATED FOLLOW UP WITH DR EGAN IN 3 TO 4 WEEKS Functional Status Query Response Date Recorded Assistive Devices Straight Cane Rolling Walker June 04, 2017 6:00pm Ambulation Ability Independent June 04, 2017 6:00pm Toileting Ability Minimum Assistance June 06, 2017 6:20pm Allergies, Adverse Reactions, Alerts Allergen Type Severity Reaction Status Last Updated No Known Drug Allergies Allergy Unknown Active 06/04/17 Immunizations No immunization information available. Vital Signs Acute Vital Signs Vital Response Date/Time Temperature (Fahrenheit) 97.0 degrees F (97.6 - 99.5) 06/08/2017 10:32am Pulse Pulse Rate (adult) 80 bpm (60 - 90) 06/08/2017 10:32am Respiratory Rate 20 bpm (12 - 24) 06/08/2017 10:32am Blood Pressure 117/68 mm Hg 06/08/2017 10:32am Height 5 ft 8 in 06/04/2017 5:32pm Weight 204.01 lb 06/06/2017 8:13am Body Mass Index 31.0 kg/m^2 06/06/2017 8:13am Results Laboratory Results Test Name Result Units Flags Reference Collection Date/Time Result Date/ Time Comments White Blood Count 8.13 x10e3/uL 4.8-10.8 06/06/2017 6:15am 06/06/2017 6 :58am Red Blood Count 4.35 x10e6/uL 4.3-5.7 06/06/2017 6:15am 06/06/2017 6: 58am Hemoglobin 11.6 g/dL L 14.0-18.0 06/06/2017 6:15am 06/06/2017 6:58am Hematocrit 37.1 % L 38.2-49.6 06/06/2017 6:15am 06/06/2017 6:58am Mean Corpuscular Volume 85.3 fL 81-99 06/06/2017 6:15am 06/06/2017 6: 58am Mean Corpuscular Hemoglobin 26.7 pg L 28-32 06/06/2017 6:15am 2017 6:58am Mean Corpuscular Hemoglobin Concent 31.3 g/dL 31-35 06/06/2017 6:15am 06/06/2017 6:58am Red Cell Distribution Width 16.0 % H 11.7-14.4 06/06/2017 6:15am 2017 6:58am Platelet Count 218 x10e3/uL 140-360 06/06/2017 6:15am 06/06/2017 6: 58am Neutrophils (%) (Auto) 63.7 % 38.7-80.0 06/06/2017 6:15am 06/06/2017 6: 58am Lymphocytes (%) (Auto) 23.4 % 18.0-39.1 06/06/2017 6:15am 06/06/2017 6: 58am Monocytes (%) (Auto) 10.8 % 4.4-11.3 06/06/2017 6:15am 06/06/2017 6: 58am Eosinophils (%) (Auto) 1.2 % 0.0-6.0 06/06/2017 6:15am 06/06/2017 6: 58am Basophils (%) (Auto) 0.5 % 0.0-1.0 06/06/2017 6:15am 06/06/2017 6:58am IM GRANULOCYTES % 0.4 % 0.0-1.0 06/06/2017 6:15am 06/06/2017 6:58am Neutrophils # (Auto) 5.2 2.1-6.9 06/06/2017 6:15am 06/06/2017 6:58am Lymphocytes # (Auto) 1.9 1.0-3.2 06/06/2017 6:15am 06/06/2017 6:58am Monocytes # (Auto) 0.9 H 0.2-0.8 06/06/2017 6:15am 06/06/2017 6:58am Eosinophils # (Auto) 0.1 0.0-0.4 06/06/2017 6:15am 06/06/2017 6:58am Basophils # (Auto) 0.0 0.0-0.1 06/06/2017 6:15am 06/06/2017 6:58am Absolute Immature Granulocyte (auto 0.03 x10e3/uL 0-0.1 06/06/2017 6: 15am 06/06/2017 6:58am Prothrombin Time 15.5 seconds H 11.9-14.5 06/04/2017 10:54am 06/04/2017 12:01pm Prothromb Time International Ratio 1.33 06/04/2017 10:54am 2017 12:01pm Oral Anticoagulant Therapy INR Values: 1. Low Intensity Therapy 1.5 - 2.0 2. Moderate Intensity Therapy 2.0 - 3.0 3. High Intensity Therapy(1) 2.5 - 3.5 4. High Intensity Therapy(2) 3.0 - 4.0 5. Panic Value INR > 5.0 Activated Partial Thromboplast Time 19.0 seconds L 23.8-35.5 06/04/2017 10:54am 06/04/2017 12:01pm Urine Color YELLOW YELLOW 06/04/2017 11:50am 06/04/2017 12:52pm Urine Clarity CLEAR CLEAR 06/04/2017 11:50am 06/04/2017 12:52pm Urine Specific [place] 1.010 1.010-1.025 06/04/2017 11:50am 2017 12:52pm Urine pH 5 5 - 7 06/04/2017 11:50am 06/04/2017 12:52pm Urine Leukocyte Esterase NEGATIVE NEGATIVE 06/04/2017 11:50am 2017 12:52pm Urine Nitrite NEGATIVE NEGATIVE 06/04/2017 11:50am 06/04/2017 12: 52pm Urine Protein NEGATIVE NEGATIVE 06/04/2017 11:50am 06/04/2017 12: 52pm Urine Glucose (UA) NEGATIVE NEGATIVE 06/04/2017 11:50am 06/04/2017 12 :52pm Urine Ketones NEGATIVE NEGATIVE 06/04/2017 11:50am 06/04/2017 12: 52pm Urine Urobilinogen 0.2 mg/dL 0.2 - 1 06/04/2017 11:50am 06/04/2017 12: 52pm Urine Bilirubin NEGATIVE NEGATIVE 06/04/2017 11:50am 06/04/2017 12: 52pm Urine Blood NEGATIVE NEGATIVE 06/04/2017 11:50am 06/04/2017 12:52pm Urine WBC NONE /HPF 0-5 06/04/2017 11:50am 06/04/2017 1:08pm Urine RBC NONE /HPF 0-5 06/04/2017 11:50am 06/04/2017 1:08pm Urine Bacteria NONE /HPF NONE 06/04/2017 11:50am 06/04/2017 1:08pm Urine Epithelial Cells NONE /LPF NONE 06/04/2017 11:50am 06/04/2017 1: 08pm Sodium Level 143 mmol/L # 136-145 06/06/2017 6:15am 06/06/2017 7:21am Potassium Level 4.3 mmol/L 3.5-5.1 06/06/2017 6:15am 06/06/2017 7:21am Chloride Level 105 mmol/L 98-107 06/06/2017 6:15am 06/06/2017 7:21am Influenza Virus Types A,B Antigen NEGATIVE NEGATIVE 06/04/2017 11: 43am 06/04/2017 12:53pm Carbon Dioxide Level 30 mmol/L H 22-06/06/2017 6:15am 06/06/2017 7: 21am Anion Gap 12.3 mmol/L 8-16 06/06/2017 6:15am 06/06/2017 7:21am Blood Urea Nitrogen 36 mg/dL H 7-06/06/2017 6:15am 06/06/2017 7:21am Creatinine 1.84 mg/dL H 0.72-1.25 06/06/2017 6:15am 06/06/2017 7:21am BUN/Creatinine Ratio 20 6-25 06/06/2017 6:15am 06/06/2017 7:21am Estimat Glomerular Filtration Rate 35 ML/MIN L 60- 06/06/2017 6:15am 05/2017 7:21am Ranges were taken from the National Kidney Disease Education Program and the National Kidney Foundation literature. Reference ranges: 60 or greater: Normal 16-59 (for 3 consecutive months): Chronic kidney disease 15 or less: Kidney failure Glucose Level 136 mg/dL H 74-118 06/06/2017 6:15am 06/06/2017 7:21am Calcium Level 8.7 mg/dL 8.4-10.2 06/06/2017 6:15am 06/06/2017 7:21am Bedside Glucose 137 mg/dL H 70-120 06/08/2017 7:55am 06/08/2017 10:36am Meter ID: [id number] Lactic Acid Level 19.5 MG/DL 4.5-19.8 06/04/2017 4:30pm 06/04/2017 4: 52pm Magnesium Level 2.2 MG/DL H 1.3-2.1 06/04/2017 10:54am 06/04/2017 12: 01pm Total Bilirubin 0.7 mg/dL 0.2-1.2 06/04/2017 10:54am 06/04/2017 12: 01pm Aspartate Amino Transf (AST/SGOT) 20 IU/L 5-34 06/04/2017 10:54am 06/04 12:01pm Alanine Aminotransferase (ALT/SGPT) 12 IU/L 0-55 06/04/2017 10:54am 03/2017 12:01pm Total Protein 9.4 g/dL H 6.5-8.1 06/04/2017 10:54am 06/04/2017 12:01pm Albumin 3.1 g/dL L 3.5-5.0 06/04/2017 10:54am 06/04/2017 12:01pm Globulin 6.3 g/dL H 2.3-3.5 06/04/2017 10:54am 06/04/2017 12:01pm Albumin/Globulin Ratio 0.5 L 0.8-2.0 06/04/2017 10:54am 06/04/2017 12: 01pm Alkaline Phosphatase 108 IU/L 40-150 06/04/2017 10:54am 06/04/2017 12: 01pm B-Type Natriuretic Peptide 145.0 pg/mL H 0-100 06/04/2017 11:00am 2017 12:27pm Creatine Kinase 40 IU/L 30-200 06/05/2017 6:30am 06/05/2017 7:40am Creatine Kinase MB 2.10 ng/mL 0-5.0 06/05/2017 6:30am 06/05/2017 7: 48am Troponin I < 0.001 ng/mL 0-0.300 06/05/2017 6:30am 06/05/2017 7:48am Thyroid Stimulating Hormone (TSH) 1.348 uIU/mL 0.350-4.940 06/04/2017 10 :54am 06/04/2017 12:27pm Body Fluid Type PLEURAL 06/05/2017 2:10pm 06/05/2017 2:29pm Body Fluid Color RED 06/05/2017 2:10pm 06/05/2017 2:29pm Body Fluid Appearance TURBID 06/05/2017 2:10pm 06/05/2017 2:29pm Body Fluid WBC 0 cells/uL 06/05/2017 2:10pm 06/05/2017 3:47pm Body Fluid RBC 59203 cells/uL 06/05/2017 2:10pm 06/05/2017 3:47pm Body Fluid Comment SEE COMMENT 06/05/2017 2:10pm 06/05/2017 3:47pm BF CELL COUNT SHOWED 0 WBC , THEREFORE PHYLLIS DIFF NOT PERFORMED Body Fluid Glucose 84 mg/dL 06/05/2017 2:10pm 06/05/2017 3:32pm Body Fluid Total Protein 3.6 g/dL 06/05/2017 2:10pm 06/05/2017 3: 34pm Body Fluid Lactate Dehydrogenase 707 IU/L 06/05/2017 2:10pm 2017 3:34pm No reference range has been established for this specimen type. Body Fluid Amylase 6 06/05/2017 2:12pm 06/06/2017 11:32am No reference range has been established for this specimen type. Arterial Blood pH 7.43 H 7.31-7.41 06/04/2017 11:55am 06/04/2017 12: 19pm Arterial Blood Partial Pressure CO2 38 mmHg L 41-51 06/04/2017 11:55am 06/04/2017 12:19pm Arterial Blood Partial Pressure O2 63 mmHg L 80-105 06/04/2017 11:55am 06/04/2017 12:19pm Arterial Blood HCO3 25 mmol/L 23-28 06/04/2017 11:55am 06/04/2017 12: 19pm Arterial Blood Base Excess 1.0 mmol/L -2 - 3 06/04/2017 11:55am 2017 12:19pm Arterial Blood Oxygen Saturation 93.0 % L 95-98 06/04/2017 11:55am 06/04 12:19pm Body Fluid pH 7.8 06/05/2017 2:10pm 06/07/2017 9:53am Reference Range: Not Estab. Disclaimer: This test was developed and its performance characteristics determined by [employer]. It has not been cleared or approved by the Food and Drug Administration. Testing performed by: [id number] [id number] Dir. Tor Navarro MD Microbiology Results Procedure Source Organism/Result Collection Date/Time Result Date/Time Result Status Urine Culture Urine,Random PROTEUS MIRABILIS 06/04/2017 11:50am 2017 7:45am Final Blood Culture Blood NO GROWTH AFTER 72 HOURS 11:00am 06/07/2017 11:12am Preliminary Procedures Procedure Status Date Provider(s) Bronchoscopy with biopsy Completed 06/07/17 CATALINA EVANS MD Computed tomography of chest without contrast Active 06/04/17 SHABANA SUBRAMANIAN NP Thoracentesis with ultrasound guidance Active 06/05/17 RAMA SCHULZ MD Encounters Encounter Location Arrival/Admit Date Discharge/Depart Date Attending Provider Discharged Inpatient [facility] 06/06/17 5:44am 06/08/17 10:54am IRASEMA EGAN MD
--- OUTSIDE RECORDS SUMMARY | 2017-06-29 07:35 | XMS REPORT | Clinical Summary ---
Author Author [facility] Hospital[facility] Organization [facility] Address Unknown Phone Unavailable Care Team Providers Care Booster Pump Oiler Name Role Phone PCP Unavailable Allergies Active [...] tablet (20 mg 30 tablet 0 02/22/20 20/20 MG tablet total) by mouth daily. 16 [...] Problem Noted Date MARISELA (acute kidney injury) ([facility]) 02/09/2016 Leukocytosis 02/09/2016 Penile swelling 02/09/2016 Diabetes mellitus, type 2 ([facility]) 01/29/2016 Hx of pulmonary embolus 01/26/2016 Atrial fibrillation ([facility]) 01/24/2016 Urinary tract infection 01/24/2016 ICH (intracerebral hemorrhage) ([facility]) 01/22/2016 Social History Tobacco Use Types Packs/Day Years Used Date Never Smoker 1.5 15 Alcohol Use Drinks/Week oz/Week Comments No Sex Assigned at Date Recorded Not on file Last Filed Vital Signs Not on file Plan of Treatment Not on file Results Not on fileafter 06/28/2016
[2017-06-29] MEDS ORDERED: ONDANSETRON HCL 4 MG ORAL DISINTEGRATING TAB ONE ×2 (07:59→10:29)
[2017-06-29] MEDS ORDERED: SODIUM CHLORIDE 0.9% 1000ML 1,000 ML ONE (08:00)
[2017-06-29 08:05] LABS: BASOPHILS % 0.4 % (0.0-1.0); EOSINOPHILS % 0.4 % (0.0-6.0); HEMATOCRIT 40.6 % (38.2-49.6); HEMOGLOBIN 13.1 g/dL (14.0-18.0); LYMPHOCYTES # (AUTO) 2.6 (1.0-3.2); LYMPHOCYTES % 25.9 % (18.0-39.1); MEAN CORPUSCULAR HEMOGLOBIN 26.6 pg (28-32); MEAN CORPUSCULAR HGB CONC 32.3 g/dL (31-35); MEAN CORPUSCULAR VOLUME 82.5 fL (81-99); MONOCYTES % 10.2 % (4.4-11.3); NEUTROPHILS # (AUTO) 6.3 (2.1-6.9); NEUTROPHILS % 62.8 % (38.7-80.0); PLATELET COUNT 197 x10e3/uL (140-360); RED BLOOD COUNT 4.92 x10e6/uL (4.3-5.7); RED CELL DISTRIBUTION WIDTH 16.9 % (11.7-14.4)
[2017-06-29 08:15] LABS: INR 1.31; PROTHROMBIN TIME 15.3 seconds (11.9-14.5)
[2017-06-29 08:16] LABS: PARTIAL THROMBOPLASTIN TIME 29.9 seconds (23.8-35.5)
[2017-06-29 08:32] LABS: ALANINE AMINOTRANSFERASE 13 IU/L (0-55); ALBUMIN 3.1 g/dL (3.5-5.0); ALBUMIN/GLOBULIN RATIO 0.5 (0.8-2.0); ALKALINE PHOSPHATASE 106 IU/L (40-150); ANION GAP 17.7 mmol/L (8-16); BLOOD UREA NITROGEN 43 mg/dL (7-26); BUN/CREATININE RATIO 20 (6-25); CALCIUM 9.4 mg/dL (8.4-10.2); CARBON DIOXIDE 22 mmol/L (22-29); CHLORIDE 102 mmol/L (98-107); CREATINE KINASE 58 IU/L (30-200); CREATININE, SERUM 2.15 mg/dL (0.72-1.25); EST GLOMERULAR FILTRATION RATE 30 ML/MIN (60-); GLUCOSE 152 mg/dL (74-118); POTASSIUM 4.7 mmol/L (3.5-5.1); SODIUM 137 mmol/L (136-145)
--- NOTE | 2017-06-29 09:42 | Diagnostic Imaging Report ---
PROCEDURE: CT CHEST ABDOMEN AND PELVIS WITHOUT CONTRAST CT scan of the chest abdomen and pelvis WITHOUT intravenous contrast, using standard protocol. TECHNIQUE: The chest was scanned utilizing a multidetector helical scanner from the apex to the level of the adrenal glands. No IV contrast was administered because of referring physician request. Coronal and sagittal multiplanar reformations were obtained. COMPARISON: 06/04/2017. INDICATIONS: POST FALL. HEMATOMA TO RIGHT FLANK. RULE OUT FRACTURE/BLEED FINDINGS: Lines/tubes: None. Lungs and Airways: Unchanged complex left pleural effusion with associated pleural thickening. No right pleural effusion. Multiple right lower lobe pulmonary nodules are unchanged. Patchy groundglass opacities in the left lung are also unchanged. Left hemithoracic volume loss. Patchy areas of hyperlucency in the right lung are unchanged and may reflect foci of air-trapping. Pleura: As above. Heart and mediastinum: Heterogeneous thyroid gland. Stable mediastinal lymphadenopathy. Large calcified left hilar lymph node complex is unchanged. No pericardial effusion. No ectasia or aneurysmal dilatation of the thoracic aorta. Atherosclerotic aortic arch and coronary artery calcifications. Pulmonary outflow tract at the upper limits of normal, measuring 3.3 cm in caliber. Soft tissues: Soft tissue stranding and muscular thickening along the right posterolateral thoracic wall. No organized hematoma. Enlarged bilateral lower cervical lymph nodes left greater than right unchanged. Abdomen/Pelvis: Hepatic and splenic calcified granulomata. Multiple renal cysts. No hydronephrosis. Enlarged paraesophageal lymph nodes are unchanged. Cholelithiasis without gallbladder wall thickening. Large bowel shows no distention or wall thickening. Scattered diverticula without evidence of diverticulitis. No small bowel dilatation to suggest obstruction. Duodenal diverticulum. No pelvic sidewall or retroperitoneal lymphadenopathy. Atherosclerotic calcification of the abdominal aorta and major branch vessels without aneurysmal dilatation. IVC filter in place with diminutive inferior vena cava. Urinary bladder is poorly distended but otherwise unremarkable. Lucency in the proximal left femoral diaphysis partially visualized and likely related to prior surgical hardware. No ascites. No pneumoperitoneum. Bones: Acute minimally displaced fracture of the posterolateral right 10th rib. Acute nondisplaced fracture of the right 11th rib at the costovertebral junction. Acute mildly displaced fracture of the right 12th rib at the costovertebral junction. Multilevel degenerative disc changes and facet arthropathy. IMPRESSION: Acute minimally displaced fractures of the posterior right 10th, 11th, and 12th ribs with associated soft tissue contusion. No pneumothorax, hemothorax, or organized hematoma. No hemoperitoneum or right retroperitoneal hematoma. Unchanged chronic left pleural effusion with associated pleural thickening, volume loss, and ipsilateral hilar and mediastinal lymphadenopathy. Unchanged right lower lobe pulmonary nodules. Cholelithiasis. For further details refer also to the report for CT scan of the chest 06/04/2017. Dictated by: Caden Glaser M.D. on 06/29/2017 at 9:44 Electronically approved by: Caden Glaser M.D. on 06/29/2017 at 9:44
--- NOTE | 2017-06-29 09:43 | Diagnostic Imaging Report ---
PROCEDURE: CT ABDOMEN AND PELVIS WITHOUT CONTRAST COMPARISON: None. INDICATIONS: POST FALL. HEMATOMA TO RIGHT FLANK. RULE OUT FRACTURE/BLEED FINDINGS: See impression IMPRESSION: For full dictated report refer to CT chest without contrast also 06/29/2017. Dictated by: Caden Glaser M.D. on 06/29/2017 at 9:45 Electronically approved by: Caden Glaser M.D. on 06/29/2017 at 9:45
--- NOTE | 2017-06-29 09:56 | Diagnostic Imaging Report ---
Exam: Head CT without contrast History: Trauma, fall Comparison studies: Head CT 01/22/2016. Technique: Axial images were obtained from the skull base to the vertex. Coronal and sagittal images reconstructed from the axial data. Intravenous contrast: None Findings: Scalp: No abnormalities. Bones: No fractures, blastic or lytic lesions. Brain sulci: Mildly prominent. Ventricles: Mild compensatory dilatation. No hydrocephalus. Previous periventricular hemorrhage has resolved. Extra-axial spaces: No masses, no fluid collection. Parenchyma: No mass, acute hemorrhage or acute cortical vascular insults. Previous left striatocapsular hemorrhage has resolved. A few scattered hypodensities in the supratentorial white matter are nonspecific but most compatible with chronic small vessel ischemic changes. Sellar/suprasellar region: No abnormalities. Craniocervical junction: Patent foramen magnum. No Chiari one malformation. Incidental findings: Atherosclerotic calcifications in the carotid siphons. Intraocular lens replacements related to previous scattered surgery. IMPRESSION: 1. No acute intracranial abnormalities. 2. Previous intracranial hemorrhage (acute in 2016) has resolved. 3. No other changes from the previous head CT 01/22/2016. 4. Unchanged mild generalized volume loss with mild chronic microvascular ischemic changes. Signed by: Dr. Caden Diana M.D. on 06/29/2017 9:52 AM
[2017-06-29] MEDS ORDERED: MORPHINE SULFATE 2 MG/ML SYR ONE (10:29)
[2017-06-29] MEDS ORDERED: MORPHINE SULFATE 4 MG/ML SYR IV PRN (10:30)
[2017-06-29] MEDS ORDERED: ONDANSETRON HCL 4 MG ORAL DISINTEGRATING TAB PO ONE (10:30)
[2017-06-29] MEDS ORDERED: MORPHINE SULFATE 2 MG/ML SYR IV SCH (10:30)
[2017-06-29 10:36] LABS: CLARITY,URINE CLEAR (CLEAR); COLOR,URINE YELLOW (YELLOW)
[2017-06-29 10:37] LABS: BILIRUBIN,URINE NEGATIVE (NEGATIVE); KETONES,URINE NEGATIVE (NEGATIVE); LEUKOCYTE ESTERASE ,URINE NEGATIVE (NEGATIVE); NITRITE,URINE NEGATIVE (NEGATIVE); PROTEIN,URINE DIPSTICK NEGATIVE (NEGATIVE); URINE UROBILINOGEN 0.2 mg/dL (0.2 - 1)
[2017-06-29 10:52] LABS: BACTERIA,URINE RARE /HPF; EPITHELIAL CELLS,URINE RARE /LPF; RBC,URINE 0-5 /HPF (0-5)
[2017-06-29] MEDS ORDERED: TYLENOL WITH C1 EACH PO (10:54)
[2017-06-29] MEDS ORDERED: ULTRAM50 MG PO (10:56)
== END 2017-06-29 11:58 | disposition home or self-care (01) ==
LOC: ER 07:32
DX: S22.41XA Multiple fractures of ribs, right side, initial encounter for closed fracture (principal); W01.0XXA Fall on same level from slipping, tripping and stumbling without subsequent striking against object, initial encounter; Y93.89 Activity, other specified; Y92.019 Unspecified place in single-family (private) house as the place of occurrence of the external cause; S20.211A Contusion of right front wall of thorax, initial encounter; S30.1XXA Contusion of abdominal wall, initial encounter
CPT/HCPCS: 36415; 70450; 71250; 74176; 80053; 81001; 82550; 82553; 83880; 84484; 85025; 85610; 85730; 93005; 99284; J2270; J7030

== ENCOUNTER 2018-03-20 10:06 | Inpatient (IN) | payer MEDICARE, OTHER ==
[~2018-03-20] VITALS: Ht 172.7 cm; Wt 98.4 kg
[~2018-03-20 10:06] MED LIST changes: +TYLENOL WITH C1 EACH PO; +ULTRAM50 MG PO
--- OUTSIDE RECORDS SUMMARY | 2018-03-20 10:07 | XMS REPORT | Clinical Summary ---
Author Author [facility] HospitalSports MatchMaker [facility] Organization [facility] Address Unknown Phone Unavailable Care Team Providers Care Auditing Manager Name Role Phone Sharpless PCP Allergies Comments Active Allergy Reactions Severity Noted Date query Furosemide 01/22/2016 Medications End Date Status Medication Sig Dispensed Refills Start Date Active melatonin 3 mg Tab Take 1 tablet 30 tablet 0 (3 mg total) 6 by mouth nightly. Active nebivolol (BYSTOLIC) 5 MG Take 1 tablet 30 tablet 0 tablet (5 mg total) 6 by mouth daily. Active pantoprazole (PROTONIX) Take 1 tablet 30 tablet 0 201 40 MG tablet (40 mg total) 6 by mouth daily. Active tamsulosin (FLOMAX) 0.4 Take 1 30 capsule 0 02/22/201 mg Cp24 24 hr capsule capsule (0.4 6 mg total) by mouth daily. Active Problems Problem Noted Date MARISELA (acute kidney injury) 02/09/2016 Leukocytosis 02/09/2016 Penile swelling 02/09/2016 Diabetes mellitus, type 2 01/29/2016 Hx of pulmonary embolus 01/26/2016 Atrial fibrillation 01/24/2016 Urinary tract infection 01/24/2016 ICH (intracerebral hemorrhage) 01/22/2016 Social History Date Tobacco Use Types Packs/Day Years Used Never Smoker 1.5 15 Alcohol Use Drinks/Week oz/Week Comments No Sex Assigned at Date Recorded Not on file Industry Job Start Date Occupation Not on file Not on file Not on file Travel End Travel History Travel Start No recent travel history available. Last Filed Vital Signs Not on file Plan of Treatment Not on file Results Not on fileafter 03/19/2017 Insurance Payer Benefit Subscriber ID Type Phone Address Plan / Group MEDICARE MEDICARE A xxxxxxxxxx Medicare B CIGNA - MGD CARE CIGNA xxxxxxxxxxx HMO/POS HMO/POS/OP EN ACCESS Advance Directives For more information, please contact: [facility] [address] [place] [address] Date Inactivated Comments Code Status Date Activated 02/24/2016 11:52 AM Full Code 02/01/2016 5:35 PM This code status was determined by: Patient 02/01/2016 5:35 PM Full Code 02/01/2016 5:32 PM This code status was determined by: Patient 02/01/2016 5:32 PM Full Code 01/22/2016 9:39 PM This code status was determined by: Patient
--- OUTSIDE RECORDS SUMMARY | 2018-03-20 10:08 | XMS REPORT | Continuity of Care Document ---
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 [facility] ACUTE RENAL FAILURE, CHEST PAIN, DYSPNEA Active 08/20/2015 [facility] SOB Active 08/20/2015 [facility] HTN (<span [id number]">Confirmed</span>) Resolved Problem 06/05/2016 [facility] Hyperlipemia Resolved Problem 06/05/2016 [facility] UNSPECIFIED KIDNEY FAILURE Active [facility] Medications Medication Details Route Status Patient Instructions Ordering Provider Order Date Source warfarin 3 mg oral tablet 3 mg=1 tab, PO, Daily, # 30 tab, 0 Refill(s) Active 08/25/2015 [facility] temazepam 15 mg oral capsule 15 mg=1 cap, PO, Bedtime, X 30 day, # 30 cap, 0 Refill(s) Active 08/25/2015 [facility] levofloxacin 750 mg oral tablet 750 mg=1 tab, PO, Daily, X 7 day, # 7 tab, 0 Refill(s) Active 08/25/2015 [facility] Nebulizer Mask Adult Misc/Other 1 ea, MISC, PRN, PRN As directed by physician, # 1 ea, 0 Refill(s) Active 08/25/2015 [facility] Nebulizer 1 ea, MISC, ONCALL, # 1 ea, 0 Refill(s) Active 08/25/2015 [facility] Albuterol 0.83 MG/ML Inhalant Solution 2.5 mg=3 mL, NEB, RQ4H, PRN as needed for shortness of breath, Pediatric Dosing, # 180 mL, 0 Refill(s) Active 08/25/2015 [facility] Atenolol 50 MG Oral Tablet 50 mg=1 tab, PO, BID, # 60 tab, 0 Refill(s) Active 08/25/2015 [facility] Coumadin 3 mg, 3 tab, Route: PO, Drug form: TAB, ONCE, Dosing Weight 94.2, kg, Start date: 08/24/15 13:35:00 CDT, Stop date: 08/24/15 13:35:00 CDTNotes: Nurse to ensure documentation of patient education per ant icoagulation policy. Avoid large intake of vitamin-K containing foods diet. (Same As: Coumadin) WASTE: F/P - P Waste Black; E - P Waste Black Inactive 08/24/2015 [facility] nitroglycerin 0.4 mg sublingual tablet 0.4 mg, 1 tab, Route: SL, Drug form: TAB, Q5Min, PRN Chest Pain, Start date: 08/23/15 21:11:00 CDT, Duration: 30 day, Stop date: 09/22/15 21:10:00 CDTNotes: (Same as:Nitroquick, Nitrostat) "Do Not Crush" Sublingual tablet No Longer Active 08/24/2015 [facility] atropine 0.5 mg, 5 mL, Route: IVP, Drug form: INJ, PRN, PRN Bradycardia, Start date: 08/23/15 21:10:00 CDT, Duration: 30 day, Stop date: 09/22/15 21:09:00 CDT No Longer Active 08/24/2015 [facility] Warfarin 3 mg, 3 tab, Route: PO, Drug form: TAB, Q5PM, Dosing Weight 94.2, kg, Start date: 08/23/15 17:00:00 CDT, Duration: 1 doses or times, Stop date: 08/23/15 17:00:00 CDTNotes: Nurse to ensure documentation of patient education per anticoagulation policy. Avoid large intake of vitamin-K containing foods diet. (Same As: Coumadin) WASTE: F/P - P Waste Black; E - P Waste Black Inactive 08/23/2015 [facility] Hydralazine Hydrochloride 25 MG Oral Tablet 25 mg, 1 tab, Route: PO, Drug form: TAB, Q4H, Dosing Weight 94.2, kg, PRN Elevated BP, Start date: 08/23/15 14:18:00 CDT, Duration: 30 day, Stop date: 09/22/15 14:17:00 CDTNotes: (Same as: Apresoline) May interfere w/enteral feedings Take With Food. No Longer Active 08/23/2015 [facility] Atenolol 50 MG Oral Tablet 50 mg, 1 tab, Route: PO, Drug form: TAB, BID, Dosing Weight 94.2, kg, Priority: NOW, Start date: 08/23/15 14:17:00 CDT, Duration: 30 day, Stop date: 09/22/15 9:00:00 CDTNotes: (Same As:Tenormin) No Longer Active 08/23/2015 [facility] Warfarin 7.5 mg, 1 tab, Route: PO, Drug form: TAB, Q5PM, Dosing Weight 94.2, kg, Start date: 08/22/15 17:00:00 CDT, Duration: 14 day, Stop date: 09/04/15 17:00:00 CDTNotes: Nurse to ensure documentation of patient education per anticoagulation policy. Avoid large intake of vitamin-K containing foods diet. WASTE: F/P - P Waste Black; E - P Waste Black (Same As: Coumadin) No Longer Active 08/22/2015 [facility] Lovenox 90 mg, 0.9 mL, Route: SUB-Q, Drug form: INJ, [id number], Dosing Weight 90.909, kg, Start date: 08/21/15 21:00:00 CDT, Duration: 30 day, Stop date: 09/19/15 21:00:00 CDTNotes: Nurse to ensure documentation of patient education per anticoagulation policy. (Same as: Lovenox) Inactive 08/22/2015 [facility] heparin additive 25,000 unit [18 unit/kg/hr] + Premix Diluent Dextrose 5% 500 mL 500 mL, Rate: 28.33 ml/hr, Infuse over: 17.6 hr, Route: IV, Dosing Weight 78.7 kg, Total Volume: 500 mL, Start date: 08/21/15 18:09:00 CDT, Duration: 30 day, Stop date: 09/20/15 18:08:00 CDT No Longer Active 08/21/2015 [facility] Heparin 80 unit/kg Bolus (Heparin Dosing Weight) Route: IVP, PRN, 6,300 unit, 6.3 mL, Drug form: INJ, PRN, Heparin Protocol, Start date: 08/21/15 18:09:00 CDT Stop date: 09/20/15 18:08:00 CDT, 30 day No Longer Active 08/21/2015 [facility] Heparin 40 unit/kg Bolus (Heparin Dosing Weight) Route: IVP, PRN, 3,100 unit, 3.1 mL, Drug form: INJ, PRN, Heparin Protocol, Start date: 08/21/15 18:09:00 CDT Stop date: 09/20/15 18:08:00 CDT, 30 day No Longer Active 08/21/2015 [facility] Heparin - one time bolus for DVT/PE Route: IV, Drug form: INJ, ONCE, Dosing Weight 90.909, kg, Priority: STAT, Start date: 08/21/15 17:59:00 CDT, Stop date: 08/21/15 17:59:00 CDT Inactive 08/21/2015 [facility] Heparin 80 unit/kg Bolus (Heparin Dosing Weight) Pharmacy To Manage, Route: IVP, PRN, Drug form: INJ, PRN, Heparin Protocol, Start date: 08/21/15 17:59:00 CDT Stop date: 09/20/15 17:58:00 CDT, 30 day Inactive 08/21/2015 [facility] Coumadin 7.5 mg, 1 tab, Route: PO, Drug form: TAB, Q5PM, Dosing Weight 90.909, kg, Start date: 08/21/15 17:00:00 CDT, Duration: 1 doses or times, Stop date: 08/21/15 17:00:00 CDTNotes: Nurse to ensure documentation of patient education per anticoagulation policy. Avoid large intake of vitamin-K containing foods diet. WASTE: F/P - P Waste Black; E - P Waste Black (Same As: Coumadin) Inactive 08/21/2015 [facility] Protonix 40 mg, 1 tab, Route: PO, Drug form: ECTAB, Before Dinner, Dosing Weight 90.909, kg, Start date: 08/21/15 16:30:00 CDT, Duration: 30 day, Stop date: 09/19/15 16:30:00 CDTNotes: Tablet should not be chewed or crushed. (Same as: Protonix) No Longer Active 08/21/2015 [facility] sodium chloride 0.9% 1000 ml INJ 1,000 mL 1,000 mL, Rate: 50 ml/hr, Infuse over: 20 hr, Route: IV, Dosing Weight 90.909 kg, Total Volume: 1,000, Start date: 08/21/15 15:00:00 CDT, Duration: 30 day, Stop date: 09/20/15 14:59:00 CDT No Longer Active 08/21/2015 [facility] Atenolol 100 MG Oral Tablet 100 mg, Route: PO, Drug form: TAB, BID, Dosing Weight 90.909, kg, Start date: 08/21/15 9:00:00 CDT, Duration: 30 day, Stop date: 09/19/15 21:00:00 CDT No Longer Active 08/21/2015 [facility] Verapamil 240 mg, 1 tab, Route: PO, Drug form: ERTAB, Daily, Dosing Weight 90.909, kg, Start date: 08/21/15 9:00:00 CDT, Duration: 30 day, Stop date: 09/19/15 9:00:00 CDTNotes: Do not crush or chew.; "Avoid grapefruit and grapefruit juice" (Same As: Calan SR, Isoptin SR) No Longer Active 08/21/2015 [facility] Lisinopril 20 mg, 1 tab, Route: PO, Drug form: TAB, Daily, Dosing Weight 90.909, kg, Start date: 08/21/15 9:00:00 CDT, Duration: 30 day, Stop date: 09/19/15 9:00:00 CDTNotes: (Same as: Prinivil, Zestril) No Longer Active 08/21/2015 [facility] Miralax 17 gm, 1 pkt, Route: PO, Drug form: PWDR, Daily, Dosing Weight 90.909, kg, Start date: 08/21/15 9:00:00 CDT, Duration: 30 day, Stop date: 09/19/15 9:00:00 CDTNotes: Dissolve in 8 oz of water or juice. (Same as: Miralax) No Longer Active 08/21/2015 [facility] Sodium Chloride 0.154 MEQ/ML Injectable Solution 1,000 mL, Rate: 100 ml/hr, Infuse over: 10 hr, Route: IV, Dosing Weight 90.909 kg, Total Volume: 1,000, Start date: 08/21/15 5:11:00 CDT, Duration: 1 doses or times, Stop date: 08/21/15 15:10:00 CDT Inactive 08/21/2015 [facility] Lactulose 1,000 ml, Route: SD, Drug Form: MUNIRA, Dosing Weight 90.909, kg, ONCE, PRN Constipation, Start date: 08/21/15 3:29:00 CDT, Duration: 1 doses or times, Stop date: Limited # of times, 300 mL lactulose + 70 0 mL waterNotes: Lactulose 300ml, Water for Irrigation 700ml - total [id number] Inactive 08/21/2015 [facility] Norepinephrine 8 mg, 8 mL, Rate: Titrate, Start Dose: 3 Milliunit/kg/min, Titration: to keep sbp greater than 90, Goal(s): controll b/p, Route: IV, Dosing Weight 90.909 kg, Total Volume: 250, Start date: 08/20/15 23:56:00 CDT, Duration: 30 day, Stop date: 09/19/15 2...Notes: Not for direct administration - DILUTE. Protect from light. (Same as:Levophed). Administer by either central venous catheter or peripherally-inserted central catheter (PICC) line. No Longer Active 08/21/2015 [facility] Flurazepam 30 mg, Route: PO, Drug form: CAP, Bedtime, Dosing Weight 90.909, kg, Start date: 08/20/15 21:00:00 CDT, Duration: 30 day, Stop date: 09/18/15 21:00:00 CDT Inactive 08/21/2015 [facility] Atenolol 100 MG Oral Tablet 100 mg, 2 tab, Route: PO, Drug form: TAB, BID, Dosing Weight 90.909, kg, Start date: 08/20/15 21:00:00 CDT, Duration: 30 day, Stop date: 09/19/15 9:00:00 CDTNotes: (Same As:Tenormin) Inactive 08/21/2015 [facility] Restoril 15 mg, 1 cap, Route: PO, Drug form: CAP, Bedtime, Start date: 08/20/15 21:00:00 CDT, Duration: 30 day, Stop date: 09/18/15 21:00:00 CDTNotes: (Same As: Restoril) No Longer Active 08/21/2015 [facility] Lasix 40 mg, 4 mL, Route: IVP, Drug form: INJ, ONCE, Dosing Weight 90.909, kg, Priority: NOW, Start date: 08/20/15 20:12:00 CDT, Stop date: 08/20/15 20:12:00 CDTNotes: (Same as: Lasix) MEDICATION WASTE Product Size: 40 mg Product Wasted: ___ mg Inactive 08/21/2015 [facility] Lovenox 60 mg, 0.6 mL, Route: SUB-Q, Drug form: INJ, ONCE, Dosing Weight 90.909, kg, Priority: STAT, Start date: 08/20/15 20:11:00 CDT, Stop date: 08/20/15 20:11:00 CDTNotes: Nurse to ensure documentation of patient education per anticoagulation policy. (Same as: Lovenox) Inactive 08/21/2015 [facility] Albuterol 0.83 MG/ML Inhalant Solution 2.49 mg, 3 mL, Route: NEB, Drug form: SOLN, RQ4H, Dosing Weight 90.909, kg, Start date: 08/20/15 19:00:00 CDT, Duration: 30 day, Stop date: 09/19/15 15:00:00 CDT, Pediatric DosingNotes: SEE RT DOCUMENTATION (Same as: Proventil) No Longer Active 08/21/2015 [facility] magnesium citrate 150 ml, Route: PO, Drug Form: LIQ, Dosing Weight 90.909, kg, Daily, PRN Constipation, Start date: 08/20/15 18:33:00 CDT, Duration: 30 day, Stop date: 09/19/15 18:32:00 CDTNotes: (Same as: Citrate of Magnesia) No Longer Active 08/20/2015 [facility] Milk of Magnesia 30 ml, Route: PO, Drug Form: SUSP, Dosing Weight 90.909, kg, Q6H, PRN Constipation, Start date: 08/20/15 18:33:00 CDT, Duration: 30 day, Stop date: 09/19/15 18:32:00 CDTNotes: (Same as: Milk of Magne mir, MOM) No Longer Active 08/20/2015 [facility] sodium chloride 0.9% 1000 ml INJ 1,000 mL 1,000 mL, Rate: 25 ml/hr, Infuse over: 40 hr, Route: IV, Dosing Weight 90.909 kg, Total Volume: 1,000, Start date: 08/20/15 18:05:00 CDT, Duration: 30 day, Stop date: 09/19/15 18:04:00 CDT Inactive 08/20/2015 [facility] Azithromycin 500 mg, Route: IVPB, [id number], Dosing Weight 90.909, kg, Priority: STAT, Start date: 08/20/15 17:08:00 CDT, Duration: 30 day, Stop date: 09/18/15 18:00:00 CDTNotes: (Same As: Zithromax IV) No Longer Active 08/20/2015 [facility] Ceftriaxone 1 gm, Route: IVPB, Q24H, Dosing Weight 90.909, kg, Priority: STAT, Start date: 08/20/15 17:08:00 CDT, Duration: 30 day, Stop date: 09/18/15 17:00:00 CDTNotes: (Same As: Rocephin). Use with 100 mL NS and infuse over 30 min MEDICATION WASTE Product Size: 1000 mg Product Wasted: ___ mg No Longer Active 08/20/2015 [facility] Albuterol 0.833 MG/ML / Ipratropium Caruthers 0.167 MG/ML Inhalant Solution [DuoNeb] 3 ml, Route: INHALATION, Drug Form: SOLN, Dosing Weight 90.909, kg, PRN, PRN Respiratory Protocol, Start date: 08/20/15 17:08:00 CDT, Duration: 30 day, Stop date: 09/19/15 17:07:00 CDTNotes: (Same as: Duoneb) No Longer Active 08/20/2015 [facility] Ondansetron 4 mg, 2 mL, Route: IVP, Drug form: INJ, Q6H, Dosing Weight 90.909, kg, PRN Nausea & Vomiting, Start date: 08/20/15 17:08:00 CDT, Duration: 30 day, Stop date: 09/19/15 17:07:00 CDTNotes: (Same as: Zofran) MEDICATION WASTE Product Size: 4 mg Product Wasted: ___ mg No Longer Active 08/20/2015 [facility] Docusate 100 mg, 1 cap, Route: PO, Drug form: CAP, BID, Dosing Weight 90.909, kg, PRN Constipation, Start date: 08/20/15 17:08:00 CDT, Duration: 30 day, Stop date: 09/19/15 17:07:00 CDTNotes: (Same as: Colace) (Do Not Crush) No Longer Active 08/20/2015 [facility] Morphine 2 mg, 1 mL, Route: IVP, Drug form: INJ, Q4H, Dosing Weight 90.909, kg, PRN Pain Score 7-10, Start date: 08/20/15 17:08:00 CDT, Duration: 30 day, Stop date: 09/19/15 17:07:00 CDTNotes: (Same as:MORPhine Sulfate) No Longer Active 08/20/2015 [facility] Acetaminophen 650 mg, 2 tab, Route: PLEURODESIS, Drug form: TAB, Q4H, Dosing Weight 90.909, kg, PRN Pain 1-3/Temp > 100.4 F, Start date: 08/20/15 17:08:00 CDT, Duration: 30 day, Stop date: 09/19/15 17:07:00 CDTNotes: Do not exceed 4 gm/day. (Same as: Tylenol) No Longer Active 08/20/2015 [facility] Enoxaparin 30 mg, 0.3 mL, Route: SUB-Q, Drug form: INJ, [id number], Dosing Weight 90.909, kg, Start date: 08/20/15 17:00:00 CDT, Duration: 30 day, Stop date: 09/18/15 17:00:00 CDTNotes: (Same as: Lovenox) Inactive 08/20/2015 [facility] Protonix 40 mg, PO, Daily, # 30 tab, 0 Refill(s) Active 08/20/2015 [facility] lisinopril 20 mg oral tablet 20 mg=1 tab, PO, Daily, # 30 tab, 0 Refill(s) No Longer Active 08/20/2015 [facility] Atenolol 100 MG Oral Tablet 100 mg=1 tab, PO, BID, 0 Refill(s) No Longer Active 08/20/2015 [facility] diclofenac sodium 100 mg oral tablet, extended release 100 mg=1 tab, PO, Daily, # 30 tab, 0 Refill(s) No Longer Active 08/20/2015 [facility] verapamil 240 mg oral tablet, extended release 240 mg=1 tab, PO, Daily, # 30 tab, 0 Refill(s) No Longer Active 08/20/2015 [facility] atorvastatin 20 mg oral tablet 20 mg=1 tab, PO, Bedtime, # 30 tab, 0 Refill(s) Active 08/20/2015 [facility] Saline Flush 0.9% 10 mL, Route: IVP, Drug Form: INJ, Dosing Weight 90.909, kg, PRN, PRN Line Flush, Start date: 08/20/15 14:16:00 CDT, Duration: 30 day, Stop date: 09/19/15 14:15:00 CDTNotes: (Same as: BD Posiflush) No Longer Active 08/20/2015 [facility] Allergies, Adverse Reactions, Alerts Substance Category Reaction Severity Reaction type Status Date Reported Comments Source Immunizations Immunization Date Given Site Status Last Updated Comments Source Results Order Name Results Value Reference Range Date Interpretation Comments Source HEMATOLOGY INR 2.50 0.85 - 1.17 08/25/2015 [facility] HEMATOLOGY PT 27.3 s 12.0 - 14.7 08/25/2015 [facility] HEMATOLOGY PT 26.9 s 12.0 - 14.7 08/24/2015 [facility] HEMATOLOGY INR 2.45 0.85 - 1.17 08/24/2015 [facility] CHEM PANEL B/C Ratio 22 6 - 25 08/23/2015 [facility] CHEM PANEL Globulin 4.2 g/dL 2.0 - 4.0 08/23/2015 [facility] CHEM PANEL A/G Ratio 0.8 0.7 - 1.6 08/23/2015 [facility] CHEM PANEL AGAP 15.5 meq/L 10.0 - 20.0 08/23/2015 [facility] CHEM PANEL Alk Phos 86 unit/L 39 - 136 08/23/2015 [facility] CHEM PANEL Bili Total 0.4 mg/dL 0.2 - 1.3 08/23/2015 [facility] CHEM PANEL eGFR 30 mL/min/1.73m2 08/23/2015 Result Comment: The eGFR is calculated using the CKD-EPI formula. In most young, healthy individuals the eGFR will be >90 mL/min/1.73m2. The eGFR declines with age. An eGFR of 60-89 may be normal in some populations, particularly the elderly, for whom the CKD-EPI formula has not been extensively validated. Use of the eGFR is not recommended in the following populations: Individuals with unstable creatinine concentrations, including patients and those with serious co-morbid conditions. Patients with extremes in muscle mass or diet. The data above are obtained from the National Kidney Disease Education Program (NKDEP) which additionally recommends that when the eGFR is used in patients with extremes of body mass index for purposes of drug dosing, the eGFR should be multiplied by the estimated BMI. [facility] CHEM PANEL Potassium Lvl 4.5 meq/L 3.5 - 5.1 08/23/2015 [facility] CHEM PANEL Chloride Lvl 108 meq/L 95 - 109 08/23/2015 [facility] CHEM PANEL CO2 22 meq/L 24 - 32 08/23/2015 [facility] CHEM PANEL BUN 44 mg/dL 7 - 22 08/23/2015 [facility] CHEM PANEL Creatinine Lvl 2.03 mg/dL 0.50 - 1.40 08/23/2015 [facility] CHEM PANEL Sodium Lvl 141 meq/L 135 - 145 08/23/2015 [facility] CHEM PANEL ALT 125 unit/L 0 - 65 08/23/2015 [facility] CHEM PANEL AST 46 unit/L 0 - 37 08/23/2015 [facility] CHEM PANEL Calcium Lvl 8.4 mg/dL 8.5 - 10.5 08/23/2015 [facility] CHEM PANEL Total Protein 7.5 g/dL 6.4 - 8.4 08/23/2015 [facility] CHEM PANEL Albumin Lvl 3.3 g/dL 3.5 - 5.0 08/23/2015 [facility] CHEM PANEL Glucose Lvl 184 mg/dL 70 - 99 08/23/2015 [facility] HEMATOLOGY PTT 87.2 s 22.9 - 35.8 08/23/2015 [facility] HEMATOLOGY Basophils # 0.1 K/CMM 0.0 - 0.2 08/23/2015 [facility] HEMATOLOGY Monocytes 8.8 % 2.0 - 12.0 08/23/2015 [facility] HEMATOLOGY Lymphocytes 32.4 % 20.0 - 40.0 08/23/2015 [facility] HEMATOLOGY Segs-Bands # 8.1 K/CMM 1.5 - 8.1 08/23/2015 [facility] HEMATOLOGY Segs 57.5 % 45.0 - 75.0 08/23/2015 [facility] HEMATOLOGY Basophils 0.6 % 0.0 - 1.0 08/23/2015 [facility] Eosinophils 0.7 % 0.0 - 4.0 08/23/2015 [facility] HEMATOLOGY Eosinophils # 0.1 K/CMM 0.0 - 0.5 08/23/2015 [facility] HEMATOLOGY Monocytes # 1.2 K/CMM 0.0 - 0.8 08/23/2015 [facility] HEMATOLOGY Lymphocytes # 4.6 K/CMM 1.0 - 5.5 08/23/2015 [facility] MCH 27.9 pg 27.0 - 31.0 08/23/2015 [facility] Platelet 129 K/CMM 133 - 450 08/23/2015 [facility] MCHC 31.4 g/dL 32.0 - 36.0 08/23/2015 [facility] MPV 9.4 fL 7.4 - 10.4 08/23/2015 [facility] RDW 15.4 % 11.5 - 14.5 08/23/2015 [facility] Hgb 15.6 g/dL 14.0 - 18.0 08/23/2015 [facility] WBC 14.1 K/CMM 3.7 - 10.4 08/23/2015 [facility] RBC 5.59 M/CMM 4.70 - 6.10 08/23/2015 [facility] Hct 49.6 % 42.0 - 54.0 08/23/2015 [facility] MCV 88.7 fL 80.0 - 94.0 08/23/2015 [facility] HEMATOLOGY INR 2.06 0.85 - 1.17 08/23/2015 [facility] HEMATOLOGY PT 23.5 s 12.0 - 14.7 08/23/2015 [facility] HEMATOLOGY PTT 68.3 s 22.9 - 35.8 08/23/2015 [facility] HEMATOLOGY PTT 103.1 s 22.9 - 35.8 08/22/2015 Result Comment: Critical Result(s) called to Alicia Mcclain at 08/22/2015 18:22 by Alicia Omer. Read back OK. [facility] CHEM PANEL eGFR 24 mL/min/1.73m2 08/22/2015 Result Comment: The eGFR is calculated using the CKD-EPI formula. In most young, healthy individuals the eGFR will be >90 mL/min/1.73m2. The eGFR declines with age. An eGFR of 60-89 may be normal in some populations, particularly the elderly, for whom the CKD-EPI formula has not been extensively validated. Use of the eGFR is not recommended in the following populations: Individuals with unstable creatinine concentrations, including patients and those with serious co-morbid conditions. Patients with extremes in muscle mass or diet. The data above are obtained from the National Kidney Disease Education Program (NKDEP) which additionally recommends that when the eGFR is used in patients with extremes of body mass index for purposes of drug dosing, the eGFR should be multiplied by the estimated BMI. [facility] CHEM PANEL Bili Total 0.3 mg/dL 0.2 - 1.3 08/22/2015 [facility] CHEM PANEL Alk Phos 82 unit/L 39 - 136 08/22/2015 [facility] CHEM PANEL Sodium Lvl 137 meq/L 135 - 145 08/22/2015 [facility] CHEM PANEL Potassium Lvl 4.4 meq/L 3.5 - 5.1 08/22/2015 [facility] CHEM PANEL BUN 47 mg/dL 7 - 22 08/22/2015 [facility] CHEM PANEL Creatinine Lvl 2.46 mg/dL 0.50 - 1.40 08/22/2015 [facility] CHEM PANEL Glucose Lvl 198 mg/dL 70 - 99 08/22/2015 [facility] CHEM PANEL Calcium Lvl 7.8 mg/dL 8.5 - 10.5 08/22/2015 [facility] CHEM PANEL B/C Ratio 19 6 - 25 08/22/2015 [facility] CHEM PANEL CO2 19 meq/L 24 - 32 08/22/2015 [facility] CHEM PANEL AGAP 14.4 meq/L 10.0 - 20.0 08/22/2015 [facility] CHEM PANEL Chloride Lvl 108 meq/L 95 - 109 08/22/2015 [facility] CHEM PANEL ALT 122 unit/L 0 - 65 08/22/2015 [facility] CHEM PANEL AST 93 unit/L 0 - 37 08/22/2015 [facility] CHEM PANEL Globulin 3.8 g/dL 2.0 - 4.0 08/22/2015 [facility] CHEM PANEL A/G Ratio 0.8 0.7 - 1.6 08/22/2015 [facility] CHEM PANEL Total Protein 6.7 g/dL 6.4 - 8.4 08/22/2015 [facility] CHEM PANEL Albumin Lvl 2.9 g/dL 3.5 - 5.0 08/22/2015 [facility] HEMATOLOGY Monocytes # 1.6 K/CMM 0.0 - 0.8 08/22/2015 [facility] Segs-Bands # 7.8 K/CMM 1.5 - 8.1 08/22/2015 [facility] Lymphocytes # 5.7 K/CMM 1.0 - 5.5 08/22/2015 [facility] HEMATOLOGY Basophils 0.9 % 0.0 - 1.0 08/22/2015 [facility] Basophils # 0.1 K/CMM 0.0 - 0.2 08/22/2015 [facility] HEMATOLOGY Eosinophils # 0.1 K/CMM 0.0 - 0.5 08/22/2015 [facility] Segs 50.9 % 45.0 - 75.0 08/22/2015 [facility] Eosinophils 0.5 % 0.0 - 4.0 08/22/2015 [facility] Monocytes 10.5 % 2.0 - 12.0 08/22/2015 [facility] Lymphocytes 37.2 % 20.0 - 40.0 08/22/2015 [facility] MPV 9.2 fL 7.4 - 10.4 08/22/2015 [facility] MCH 28.0 pg 27.0 - 31.0 08/22/2015 [facility] MCHC 31.4 g/dL 32.0 - 36.0 08/22/2015 [facility] RDW 15.3 % 11.5 - 14.5 08/22/2015 [facility] Platelet 107 K/CMM 133 - 450 08/22/2015 [facility] RBC 5.69 M/CMM 4.70 - 6.10 08/22/2015 [facility] Hgb 16.0 g/dL 14.0 - 18.0 08/22/2015 [facility] Hct 50.9 % 42.0 - 54.0 08/22/2015 [facility] MCV 89.4 fL 80.0 - 94.0 08/22/2015 [facility] WBC 15.3 K/CMM 3.7 - 10.4 08/22/2015 [facility] Chest 1view DX Chest 1view DX Study: Chest 1view DX Clinical Indication: Abnormal chest sounds Comparison: 08/21/2015 FINDINGS: Cardiac silhouette is mildly prominent. Mild right basilar atelectasis is seen. There is no pleural effusion or pneumothorax. Osseous structures are stable. IMPRESSION: No acute cardiopulmonary disease. SL: [id number] 08/22/2015 - - Read by: Tim Coppola MD Dictated Date/time: 08/22/15 07:27 Electronically Signed by: Tim Coppola MD 08/22/15 07:28 FINAL REPORT [facility] Basophils 0.3 % 0.0 - 1.0 08/22/2015 [facility] Eosinophils 0.1 % 0.0 - 4.0 08/22/2015 [facility] Lymphocytes # 4.7 K/CMM 1.0 - 5.5 08/22/2015 [facility] Segs-Bands # 11.5 K/CMM 1.5 - 8.1 08/22/2015 [facility] Monocytes # 1.8 K/CMM 0.0 - 0.8 08/22/2015 [facility] Basophils # 0.1 K/CMM 0.0 - 0.2 08/22/2015 [facility] Monocytes 9.8 % 2.0 - 12.0 08/22/2015 [facility] Lymphocytes 26.2 % 20.0 - 40.0 08/22/2015 [facility] Segs 63.6 % 45.0 - 75.0 08/22/2015 [facility] RDW 15.0 % 11.5 - 14.5 08/22/2015 [facility] [facility] [place] Platelet 148 K/CMM 133 - 450 08/22/2015 [facility] [place] MPV 9.2 fL 7.4 - 10.4 08/22/2015 [facility] [place] RBC 5.88 M/CMM 4.70 - 6.10 08/22/2015 [facility] [place] Hgb 16.4 g/dL 14.0 - 18.0 08/22/2015 [facility] [place] WBC 18.1 K/CMM 3.7 - 10.4 08/22/2015 [facility] [place] Hct 52.2 % 42.0 - 54.0 08/22/2015 [facility] [place] MCV 88.7 fL 80.0 - 94.0 08/22/2015 [facility] [place] MCHC 31.5 g/dL 32.0 - 36.0 08/22/2015 [facility] HEMATOLOGY MCH 27.9 pg 27.0 - 31.0 08/22/2015 [facility] Lung ventilation/perfusion scan NM Lung ventilation/perfusion scan NM Lung ventilation/perfusion scan NM CLINICAL HX: Dyspnea on exertion. COMPARISON: Chest x-ray 08/21/2015 TECHNIQUE: 10 millicuries of Xenon 133 were administered for the ventilation study and images obtained in the posterior projection. 6 millicuries of Technetium 99m MAA were administered for the perfusion study and images obtained in multiple projections. FINDINGS: Tracer activity is physiologic in distribution on the ventilation images. Normal ventilation is noted on the initial breath and equilibrium phases. There is no significant delay in washout of tracer. The perfusion images demonstrate multiple perfusion defects in both lungs. IMPRESSION: High probability for acute pulmonary emboli. NOTE: Findings telephoned to the unit nurse, Tammy, on 08/21/2015 1:01 PM CDT. SL: [id number] 08/21/2015 - - Read by: Roger Hoyt MD Dictated Date/time: 08/21/15 13:00 Electronically Signed by: Roger Hoyt MD 08/21/15 13:02 FINAL REPORT [facility] Chest 2 views DX Chest 2 views DX Chest 2 views DX CLINICAL HISTORY:Abnormal chest sounds COMPARISON: none FINDINGS: The lungs are poorly inflated. No infiltrate pleural effusion or pneumothorax otherwise. Heart size top normal. No overt congestive heart failure or pulmonary edema. Calcified lymph nodes are noted within the hilar regions. IMPRESSION: Hypoventilation, poor inspiration. No acute findings, otherwise. SL: [id number] 08/21/2015 - - Read by: Cornelio Gordon MD Dictated Date/time: 08/21/15 10:26 Electronically Signed by: Cornelio Gordon MD 08/21/15 10:27 FINAL REPORT [facility] BACTERIAL - SEROLOGY MRSA by PCR Negative (08/21/15 4:18 AM) 08/21/2015 [facility] Abdomen complete US Abdomen complete US Clinical Indication: Abnormal Lab tests- LFT; Comparison: None Gallbladder: Cholelithiasis. No pathologic wall thickening or para cholecystic fluid. Liver: Hepatic steatosis. No focal mass or duct dilatation. Pancreas: Mainly obscured. Common bile duct 3 mm, normal. Right kidney 13 x 5 x 5 cm. 5 cm and 1.1 cm cysts are noted. No hydronephrosis or solid lesion. Left kidney 12 x 5 x 5 cm. 3.4 and 3.6 cm cysts. No solid mass or hydronephrosis. Spleen 11 cm in length, normal. Aorta: No aneurysm seen. IVC: Visualized portions patent No ascites. IMPRESSION: Cholelithiasis without acute biliary finding or biliary ductal dilatation. Hepatic steatosis. SL: [id number] 08/21/2015 - - Read by: Cornelio Gordon MD Dictated Date/time: 08/21/15 09:27 Electronically Signed by: Cornelio Gordon MD 08/21/15 09:29 FINAL REPORT [facility] CARDIAC ENZYMES CK MB Index 3.7 0.0 - 2.5 08/21/2015 [facility] CARDIAC ENZYMES Total CK 101 unit/L 12 - 191 08/21/2015 [facility] CARDIAC ENZYMES Troponin-I 0.36 ng/mL 0.00 - 0.40 08/21/2015 [facility] CARDIAC ENZYMES CK MB 3.7 ng/mL 0.5 - 3.6 08/21/2015 [facility] CARDIAC ENZYMES BNP 1159 pg/mL <=100 pg/mL 08/21/2015 [facility] CHEM PANEL eGFR 20 mL/min/1.73m2 08/21/2015 Result Comment: The eGFR is calculated using the CKD-EPI formula. In most young, healthy individuals the eGFR will be >90 mL/min/1.73m2. The eGFR declines with age. An eGFR of 60-89 may be normal in some populations, particularly the elderly, for whom the CKD-EPI formula has not been extensively validated. Use of the eGFR is not recommended in the following populations: Individuals with unstable creatinine concentrations, including patients and those with serious co-morbid conditions. Patients with extremes in muscle mass or diet. The data above are obtained from the National Kidney Disease Education Program (NKDEP) which additionally recommends that when the eGFR is used in patients with extremes of body mass index for purposes of drug dosing, the eGFR should be multiplied by the estimated BMI. [facility] CHEM PANEL Calcium Lvl 8.4 mg/dL 8.5 - 10.5 08/21/2015 [facility] CHEM PANEL AST 85 unit/L 0 - 37 08/21/2015 [facility] CHEM PANEL Total Protein 8.4 g/dL 6.4 - 8.4 08/21/2015 [facility] CHEM PANEL Albumin Lvl 3.8 g/dL 3.5 - 5.0 08/21/2015 [facility] CHEM PANEL Alk Phos 103 unit/L 39 - 136 08/21/2015 [facility] CHEM PANEL Bili Total 0.7 mg/dL 0.2 - 1.3 08/21/2015 [facility] CHEM PANEL ALT 95 unit/L 0 - 65 08/21/2015 [facility] CHEM PANEL BUN 36 mg/dL 7 - 22 08/21/2015 [facility] CHEM PANEL Creatinine Lvl 2.92 mg/dL 0.50 - 1.40 08/21/2015 [facility] CHEM PANEL Chloride Lvl 107 meq/L 95 - 109 08/21/2015 [facility] CHEM PANEL CO2 23 meq/L 24 - 32 08/21/2015 [facility] CHEM PANEL Glucose Lvl 213 mg/dL 70 - 99 08/21/2015 [facility] CHEM PANEL Sodium Lvl 139 meq/L 135 - 145 08/21/2015 [facility] CHEM PANEL Potassium Lvl 4.9 meq/L 3.5 - 5.1 08/21/2015 [facility] CHEM PANEL A/G Ratio 0.8 0.7 - 1.6 08/21/2015 [facility] CHEM PANEL Globulin 4.6 g/dL 2.0 - 4.0 08/21/2015 [facility] CHEM PANEL B/C Ratio 12 6 - 25 08/21/2015 [facility] CHEM PANEL AGAP 13.9 meq/L 10.0 - 20.0 08/21/2015 [facility] CHEM PANEL Magnesium Lvl 2.8 mg/dL 1.8 - 2.4 08/21/2015 [facility] CHEM PANEL Phosphorus 2.2 mg/dL 2.5 - 4.5 08/21/2015 [facility] HEMATOLOGY RBC Morph Normal (08/21/15 3:55 AM) 08/21/2015 [facility] HEMATOLOGY Plt Morph Normal (08/21/15 3:55 AM) 08/21/2015 [facility] LIPIDS VLDL 36 08/21/2015 [facility] LIPIDS LDL (Calculated) 101 mg/dL <=99 mg/dL 08/21/2015 [facility] LIPIDS Trig 179 mg/dL <=149 mg/dL 08/21/2015 [facility] LIPIDS HDL 50 mg/dL >=61 mg/dL 08/21/2015 [facility] LIPIDS Chol 187 mg/dL <=199 mg/dL 08/21/2015 [facility] LIPIDS CHD Risk 3.74 4.00 - 7.30 08/21/2015 [facility] CARDIAC ENZYMES CK MB Index 3.2 0.0 - 2.5 08/21/2015 [facility] CARDIAC ENZYMES Troponin-I 0.32 ng/mL 0.00 - 0.40 08/21/2015 [facility] CARDIAC ENZYMES CK MB 3.5 ng/mL 0.5 - 3.6 08/21/2015 [facility] CARDIAC ENZYMES Total CK 110 unit/L 12 - 191 08/21/2015 [facility] Ext Lower Venous Doppler Bilat US Ext Lower Venous Doppler Bilat US Study: Ext Lower Venous Doppler Bilat US Age: 80 years y/o Male Clinical Indication: Pain, Limb; Comparison: None TECHNIQUE: Sonographic evaluation of the bilateral lower extremity veins was performed using high resolution B-mode imaging, along with pulse and color Doppler imaging. FINDINGS: Right lower extremity: The common femoral vein, femoral vein, popliteal vein and visualized posterior tibial/calf veins are patent. There is no echogenic debris to suggest deep venous thrombosis. The saphenofemoral junction is unremarkable. Left lower extremity: The common femoral vein, superficial femoral vein, popliteal vein and visualized posterior tibial/calf veins are examined. All vessels are patent with the exception of the left popliteal vein which is noncompressible and shows low- level internal echoes consistent with thrombosis. The saphenofemoral junction is unremarkable. IMPRESSION: 1. No evidence of deep vein thrombosis on the right. 2. Deep venous thrombosis involving the left popliteal vein. 3. Findings called to the floor. SL: [id number] 08/20/2015 - - Read by: Rolf Vanessa MD Dictated Date/time: 08/20/15 21:14 Electronically Signed by: Rolf Vanessa MD 08/20/15 21:22 FINAL REPORT [facility] CARDIAC ENZYMES CK MB Index 1.7 0.0 - 2.5 08/20/2015 [facility] CARDIAC ENZYMES Total CK 157 unit/L 12 - 191 08/20/2015 [facility] CARDIAC ENZYMES CK MB 2.7 ng/mL 0.5 - 3.6 08/20/2015 [facility] CARDIAC ENZYMES Troponin-I 0.07 ng/mL 0.00 - 0.40 08/20/2015 [facility] HEMATOLOGY Eosinophils # 0.2 K/CMM 0.0 - 0.5 08/20/2015 [facility] Chest 1view DX Chest 1view DX Chest 1view DX CLINICAL HISTORY:Chest pain COMPARISON: 04/01/2011 FINDINGS: Limited AP portable study. Lungs are reasonably well inflated. No consolidation, effusion or pneumothorax. Trachea is midline. Cardiomediastinal silhouette is within normal limits. No pulmonary edema. No significant bony abnormality is noted. Calcified lymph nodes in left hilum as before. IMPRESSION: No acute abnormality is noted in the chest. SL: [id number] 08/20/2015 - - Read by: Cornelio Gordon MD Dictated Date/time: 08/20/15 15:13 Electronically Signed by: Cornelio Gordon MD 08/20/15 15:13 FINAL REPORT [facility] Vital Signs Vital Sign Value Date Comments Source Heart Rate 64 08/25/2015 [facility] Systolic (mm Hg) 142 08/25/2015 [facility] Diastolic (mm Hg) 93 08/25/2015 [facility] Temperature Oral (F) 98.0 F 08/25/2015 [facility] Respitory Rate 18 08/25/2015 [facility] Systolic (mm Hg) 160 08/25/2015 [facility] Diastolic (mm Hg) 93 08/25/2015 [facility] Respitory Rate 18 08/25/2015 [facility] Heart Rate 74 08/25/2015 [facility] Temperature Oral (F) 97.9 F 08/25/2015 [facility] Respitory Rate 18 08/25/2015 [facility] Temperature Oral (F) 97.5 F 08/25/2015 [facility] Systolic (mm Hg) 149 08/25/2015 [facility] Diastolic (mm Hg) 90 08/25/2015 [facility] Heart Rate 61 08/25/2015 [facility] Weight 94.2 08/21/2015 [facility] Height 172.72 cm 08/21/2015 [facility] Weight 90.909 08/21/2015 [facility] BMI Calculated 30.47 08/21/2015 [facility] Height 172.72 cm 08/20/2015 [facility] Weight 90.909 08/20/2015 [facility] BMI Calculated 30.47 08/20/2015 [facility] Encounters Location Location Details Encounter Type Encounter Number Reason For Visit Attending Provider ADM Date DC Date Status Source [facility] [id number] Sandip Timo 08/20/2015 08/25/2015 [facility] [place] [facility] [id number] Miguel DesaiTommagopal 03/08/2016 04/07/2016 [facility] [place] [facility] [id number] Miguel DiTommaso 04/04/2016 05/04/2016 [facility] [place] [facility] [id number] Miguel DiTommaso 05/04/2016 06/03/2016 [facility] Procedures Procedure Code Date Perfomer Comments Source Arthroplasty of knee<sup>1</sup> 62425370 bilateral replacment [facility] Arthroplasty of knee<sup>1</sup> 91040052 bilateral replacment [facility] Arthroplasty of knee<sup>1</sup> [id number] bilateral replacment [facility]
--- OUTSIDE RECORDS SUMMARY | 2018-03-20 10:09 | XMS REPORT | Summary of Care ---
Author Author [facility] Address Unknown Phone Unavailable Encounter HQ Encntr_darius([place]) [id number] Date(s): 04/04/16 - 05/03/16 [facility] Discharge Disposition: Home or Self Care Attending Physician: Miguel Gonzalez MD Vital Signs No data available for this section Problem List Condition Effective Dates Status Health Status Informant HTN Resolved (hypertension)(Confi rmed) Hyperlipemia(Confirm Resolved ed) Allergies, Adverse Reactions, Alerts Substance Reaction Severity Status NKDA Active Medications No data available for this section Results No data available for this section Immunizations No data available for this section Procedures Procedure Date Related Diagnosis Body Site Arthroplasty of knee1 1bilateral replacment Social History Social History Type Response Smoking Status Never smoker; Previous treatment: None; Ready to change: No; Concerns about tobacco use in household: No; Exposure to Tobacco Smoke None; Cigarette Smoking Last 365 Days No; Reg Smoking Cessation Counseling No Assessment and Plan No data available for this section
--- OUTSIDE RECORDS SUMMARY | 2018-03-20 10:09 | XMS REPORT | Summary of Care ---
Author Author [facility] Address Unknown Phone Unavailable Encounter HQ Vicntr_darius([facility]) [id number] Date(s): 04/04/16 - 05/03/16 [facility] Discharge Disposition: Home or Self Care Attending [...]
--- OUTSIDE RECORDS SUMMARY | 2018-03-20 10:09 | XMS REPORT | Summary of Care ---
Author Author [facility] Address Unknown Phone Unavailable Encounter HQ Olga_darius([place]) [id number] Date(s): 03/08/16 - 04/06/16 [facility] Discharge Disposition: Home or Self Care Attending [...]
--- OUTSIDE RECORDS SUMMARY | 2018-03-20 10:09 | XMS REPORT | Summary of Care ---
Author Author [facility] Address Unknown Phone Unavailable Encounter HQ Omkarr_darius([facility]) [id number] Date(s): 05/04/16 - 06/02/16 [facility] Discharge Disposition: Home or Self Care Attending [...]
--- NOTE | 2018-03-20 10:15 | NUR ---
PATIENT CALLED FROM WAITING ROOM, NO RESPONSE
[2018-03-20 12:37] LABS: BASOPHILS # (AUTO) 0.1 (0.0-0.1); BASOPHILS % 0.5 % (0.0-1.0); EOSINOPHILS % 0.2 % (0.0-6.0); HEMATOCRIT 51.2 % (38.2-49.6); HEMOGLOBIN 16.8 g/dL (14.0-18.0); LYMPHOCYTES # (AUTO) 1.9 (1.0-3.2); LYMPHOCYTES % 14.4 % (18.0-39.1); MEAN CORPUSCULAR HEMOGLOBIN 28.9 pg (28-32); MEAN CORPUSCULAR HGB CONC 32.8 g/dL (31-35); MONOCYTES # (AUTO) 1.1 (0.2-0.8); MONOCYTES % 8.4 % (4.4-11.3); NEUTROPHILS # (AUTO) 9.9 (2.1-6.9); NEUTROPHILS % 74.7 % (38.7-80.0); PLATELET COUNT 167 x10e3/uL (140-360); RED BLOOD COUNT 5.82 x10e6/uL (4.3-5.7); RED CELL DISTRIBUTION WIDTH 19.9 % (11.7-14.4)
[2018-03-20 12:52] LABS: INR 1.09; PROTHROMBIN TIME 15.1 seconds (11.9-14.5)
[2018-03-20 12:53] LABS: PARTIAL THROMBOPLASTIN TIME 23.6 seconds (23.8-35.5)
[2018-03-20 12:58] LABS: ALBUMIN 3.6 g/dL (3.5-5.0); ANION GAP 19.5 mmol/L (8-16); CALCIUM 9.4 mg/dL (8.4-10.2); CREATININE, SERUM 2.34 mg/dL (0.72-1.25); POTASSIUM 4.5 mmol/L (3.5-5.1)
[2018-03-20 13:19] LABS: CREATINE KINASE MB 3.4 ng/mL (0-5.0)
[2018-03-20 13:28] LABS: PLATELET ESTIMATE ADEQUATE; RBC MORPHOLOGY COMMENT NORMAL
[2018-03-20 13:29] LABS: PLATELET MORPHOLOGY COMMENT FEW LARGE
[2018-03-20 13:30] LABS: ANISOCYTOSIS SLIGHT
[2018-03-20] MEDS ORDERED: SODIUM CHLORIDE 0.9% 1000ML 1,000 ML IV STA (13:39)
[2018-03-20] MEDS ORDERED: SODIUM CHLORIDE 0.9% 1000ML 1,000 ML ONE (13:43)
--- NOTE | 2018-03-20 14:39 | NUR ---
DR. SCHULZ IN TRIAGE FOR ASSESSMENT
[2018-03-20] MEDS ORDERED: VANCOMYCIN 1GM/NS 250 ML 250 ML IV ONE (14:45)
--- NOTE | 2018-03-20 15:15 | NUR ---
PT BACK TO ROOM 7 AT THIS TIME
--- NOTE | 2018-03-20 15:25 | NUR ---
ECHOVASCULAR AT BEDSIDE FOR L/E U/S AT THIS TIME
[2018-03-20 15:41] LABS: CLARITY,URINE CLEAR (CLEAR); COLOR,URINE YELLOW (YELLOW); LEUKOCYTE ESTERASE ,URINE NEGATIVE (NEGATIVE); NITRITE,URINE NEGATIVE (NEGATIVE); PROTEIN,URINE DIPSTICK NEGATIVE (NEGATIVE)
[2018-03-20 15:42] LABS: BILIRUBIN,URINE NEGATIVE (NEGATIVE); KETONES,URINE NEGATIVE (NEGATIVE); URINE UROBILINOGEN 0.2 mg/dL (0.2 - 1)
[2018-03-20 15:48] LABS: RBC,URINE 0-5 /HPF (0-5); WBC,URINE (MAN) 0-5 /HPF (0-5)
[2018-03-20 15:49] LABS: MUCUS,URINE FEW (RARE)
--- NOTE | 2018-03-20 16:08 | NUR ---
X-RAY AT BEDSIDE FOR IMAGING OF RT FOOT AT THIS TIME
--- NOTE | 2018-03-20 16:29 | Diagnostic Imaging Report ---
Exam: Right foot 3 views History: Pain, ulceration Comparison: None. Findings: Ulceration of the hallux. No osteomyelitis. Diffuse soft tissue swelling of the foot. Multifocal degenerative arthrosis of the foot. Dorsal and plantar calcaneal enthesophytes. Impression: Extensive soft tissue swelling. Hallux ulceration without osteomyelitis. Signed by: Dr. Sam Solares M.D. on 03/20/2018 4:25 PM
[2018-03-20] MEDS ORDERED: DEXTROSE 50% SYRINGE 50 ML IV PRN (17:00)
[2018-03-20] MEDS ORDERED: ONDANSETRON HCL INJ 2MG/ML 2ML 2 MG/ML VIAL IV PRN (17:00)
--- OUTSIDE RECORDS SUMMARY | 2018-03-20 17:12 | XMS REPORT | Clinical Summary ---
Author Author [facility] [employer] [facility] Address Unknown Phone Unavailable Care Team Providers Care Assistant Family Teacher Name Role Phone Sharpless PCP Allergies Comments [...] Advance Directives For more information, please contact: [facility] [address] [place] [address] Date Inactivated Comments Code Status Date Activated 02/24/2016 11:52 AM Full Code 02/01/2016 5:35 PM This code status was determined by: Patient 02/01/2016 5:35 PM Full Code 02/01/2016 5:32 PM This code status was determined by: Patient 02/01/2016 5:32 PM Full Code 01/22/2016 9:39 PM This code status was determined by: Patient
[2018-03-20] MEDS: SODIUM CHLORIDE 0.9% 1000ML 1,000 ML IV SCH ×2 (17:18→22:08)
[2018-03-20 20:36] VITALS: BP 120/67
--- NOTE | 2018-03-20 20:37 | NUR ---
Patient arrived on the unit as new admit from ED. Patient admitted to Rm 289 for dx of right foot cellulitis. Patient alert and oriented x3. Both legs and both feet with 4+ pitting edema. Both legs elevated with pillows. On IVF (NS @ 100ml/hr). Patient denies pain or discomfort. Right big toenail appear ripped with dried blood and covered with gauze and yuly bandage. Call esparza within reach. Will monitor closely.
[2018-03-20] MEDS: INSULIN REGULAR, HUMAN 100 UNIT/1 ML 3ML VIAL SQ SCH (22:06)
[2018-03-21] VITALS (7 sets, daily range): BP systolic 101–138; BP diastolic 56–82
[2018-03-21] MEDS: SODIUM CHLORIDE 0.9% 1000ML 1,000 ML IV SCH ×2 (04:50→17:30)
--- NOTE | 2018-03-21 05:15 | NUR ---
Dr. Zambrano came and visited patient. MD aware of patient condition. MD ordered to restart home medications. New consult orders were placed (Dr. Omalley - re: epistaxis, Dr. De La O - re: right big toenail problem). Patient resting in bed comfortably.
[2018-03-21] MEDS ORDERED: TRAMADOL HCL 50 MG TAB PO PRN (05:30)
[2018-03-21] MEDS ORDERED: ACETAMINOPHEN/CODEINE 300MG - 30MG TAB PO PRN (05:30)
[2018-03-21] MEDS ORDERED: CEFEPIME HCL 1 GM VIAL IV SCH (05:45)
[2018-03-21] MEDS ORDERED: CEFEPIME 1GM/NS 0.9% 50 ML 50 ML IV SCH (06:23)
--- NOTE | 2018-03-21 06:30 | NUR ---
Called and spoke with Dr. Dilip Omalley to inform him that he is newly consulted by Dr. Zambrano re: epistaxis. Dr. Omalley aware and will see patient today.
--- NOTE | 2018-03-21 06:34 | NUR ---
Called and spoke with answering service (Marc) to inform Dr. Tomer De La O that he is newly consulted to see patient re: Right Big toenail problem. Informed that ordering doctor was Dr. Zambrano.
[2018-03-21] MEDS: INSULIN REGULAR, HUMAN 100 UNIT/1 ML 3ML VIAL SQ SCH ×4 (07:30→21:00)
[2018-03-21] MEDS: FLUOXETINE HCL 20 MG CAP PO SCH (09:20)
[2018-03-21] MEDS: TRIAMTERENE/HCTZ 37.5-25 MG TAB PO SCH (09:20)
[2018-03-21] MEDS: FINASTERIDE 5 MG TAB PO SCH (09:20)
[2018-03-21] MEDS: PANTOPRAZOLE SOD 40 MG TABEC PO SCH (09:20)
[2018-03-21] MEDS: NEBIVOLOL 10 MG TAB PO SCH (09:20)
[2018-03-21] MEDS: GLIMEPIRIDE 2 MG TAB PO SCH (09:20)
[2018-03-21] MEDS: ASPIRIN 81 MG CHEW TAB PO SCH (09:20)
[2018-03-21] MEDS: TAMSULOSIN HCL 0.4 MG CAP PO SCH (09:20)
[2018-03-21] MEDS: DILTIAZEM HCL 180 MG CAP ER PO SCH (09:20)
[2018-03-21] MEDS: NEOMYCIN/POLYMYXIN/BACITRACIN 15 GM TUBE TOP SCH ×3 (10:26→22:01)
[2018-03-21] MEDS: VANCOMYCIN 1GM/NS 250 ML 250 ML IV SCH (10:26)
[2018-03-21] MEDS: SALINE 0.65% NAS SOLN 1 SPRAY BTL SCH ×4 (10:26→22:01)
--- NOTE | 2018-03-21 10:35 | Consultation ---
DATE OF CONSULTATION: March 21, 2018 HOSPITAL CONSULTATION HISTORY OF PRESENT ILLNESS: I was kindly asked to see this pleasant 83-year-old man for evaluation of left-sided epistaxis. Patient reports a roughly 2-week history of intermittent left-sided epistaxis, which he reports is related to a scab forming on the left side of his nose. The patient has symptoms of nasal congestion and removes the scab, and has subsequent bleeding. The bleeding only lasts for a few seconds and occurs several times per day. He has a history of nasal airway obstruction, which has been present for greater than 1 year, and has a roughly 2-month history of near daily Afrin nasal spray use, which he reports he stopped using 2-3 weeks ago. He is admitted for bleeding from his great toe. PAST MEDICAL HISTORY/PAST SURGICAL HISTORY: Otherwise reviewed in detail in the chart. PHYSICAL EXAMINATION HEENT: The tympanic membranes and external auditory canals are normal. Has a moderate nasal septal deviation, which he states the edema started as no significant edema of the nasal mucosa. He has fresh blood and clotted blood along the anterior portion of the left nasal septum. Pharyngeal examination shows no evidence of bleeding and no other clinically significant abnormalities. He has no palpable cervical adenopathy. ASSESSMENT 1. Left anterior nasal septum source for epistaxis. 2. Nasal septal deviation . 3. No evidence of coagulopathy. PLAN 1. Hardy nasal spray 2 puffs each side of the nose q.4 h. while awake. 2. Bacitracin ointment to each nostril t.i.d. I will continue to follow with you and consider silver nitrate and cautery of the nasal septum based on clinical course. Job#: [id number] DC
--- NOTE | 2018-03-21 19:15 | NUR ---
PATIENT IS RESTING IN BED- IN STABLE CONDITION WITH NO S/S OF RESPIRATORY DISTRESS. NO PAIN VOICED. IV FLUIDS INFUSING. DRESSING TO RIGHT GREAT TOE INTACT. BED ALARM ON. CALL LIGHT IS WITHIN REACH, INSTRUCTED TO CALL FOR ASSISTANCE NEEDED. REPORT GIVEN TO ONCOMING NURSE.
[2018-03-21] MEDS ORDERED: POVIDONE IODINE 10% 120 ML BTL EXT PRN (19:30)
--- NOTE | 2018-03-21 19:35 | NUR ---
PT IS RESTING IN BED. NO RESPIRATORY DISTRESS NOTED. BED IN LOWEST POSITION, LOCKED, BED ALARM ON, AND CALL LIGHT WITHIN REACH. WILL CONTINUE TO MONITOR.
--- NOTE | 2018-03-21 21:22 | Consultation ---
DATE OF CONSULTATION: CHIEF COMPLAINT AND HISTORY OF THE CHIEF COMPLAINT: Mr. Smiley is a most pleasant 83-year-old gentleman with pain, swelling, and bleeding in the right lower extremity, particularly severe on the right hallux. He stated this started 1 week ago and is still bleeding. Review of systems is otherwise negative. He has a history of diabetes. PREVIOUS MEDICAL HISTORY: He has a history of diabetes. MEDICATIONS: Well documented elsewhere within the chart. ALLERGIES: NO KNOWN DRUG ALLERGIES. PHYSICAL EVALUATION OF LOWER EXTREMITIES: VASCULAR STATUS: Patient has nonpalpable pedal pulses dorsalis pedis or posterior tibial. Skin temperature is cool to touch. NEUROLOGICAL: There is a loss of protective sensation on the plantar aspect of the foot. DERMATOLOGICAL: Onychomycosis x10 with the right hallux nail and contusion creating a chronic bleeding with diabetic ulceration, in need of debridement on the right lower extremity. The radiographs are negative for osteomyelitis, but do show extensive soft tissue edema and chronic ulceration. At this point, I would recommend continued IV antibiotics and a debridement of the right foot wound with total nail avulsion of the right foot. Betadine wet-to-dry on the right hallux in the interim. Job#: [id number]
[2018-03-21] MEDS: CEFEPIME 1GM/NS 0.9% 50 ML 50 ML IV SCH (22:01)
[2018-03-21] MEDS: ATORVASTATIN 20 MG TAB PO SCH (22:01)
[2018-03-22] VITALS (8 sets, daily range): BP systolic 101–111; BP diastolic 56–72
[2018-03-22] MEDS: SODIUM CHLORIDE 0.9% 1000ML 1,000 ML IV SCH (03:54)
--- NOTE | 2018-03-22 05:59 | NUR ---
PER DR EGAN SALINE LOCK PT.
[2018-03-22] MEDS: SALINE 0.65% NAS SOLN 1 SPRAY BTL SCH ×5 (06:00→22:13)
--- NOTE | 2018-03-22 07:16 | NUR ---
PATIENT IS AWAKE AND IN STABLE CONDITION WITH NO S/S OF RESPIRATORY DISTRESS. NO PAIN VOICED. RIGHT GREAT TOE OPEN TO AIR. REDNESS NOTED TO BILATERAL BUTTOCK AREA- ALL OF AREA IS BLANCHABLE. CALL LIGHT IS WITHIN REACH, INSTRUCTED TO CALL FOR ASSISTANCE NEEDED. BED ALARM APPLIED.
[2018-03-22] MEDS: INSULIN REGULAR, HUMAN 100 UNIT/1 ML 3ML VIAL SQ SCH ×4 (07:30→21:00)
--- NOTE | 2018-03-22 07:56 | NUR ---
CALL PLACED OUT TO DR. PEDRAZA TO CLARIFY DIET ORDER FOR PATIENT. PATIENT IS SCHEDULE TO HAVE PROCEDURE TODAY WITH DR. PEDRAZA. AWAITING CALLBACK.
--- NOTE | 2018-03-22 08:53 | NUR ---
CALLED DOWN TO THE OR TO SEE IF PATIENT IS SCHEDULED TO HAVE PROCEDURE IN THE OPERATING ROOM OR AT BEDSIDE AND TO CLARIFY DIET ORDER. [facility] RN WAS NOTIFIED BY RN IN THE OR THAT THE PROCEDURE WAS RESCHEDULED FOR TOMORROW.
[2018-03-22] MEDS: NEOMYCIN/POLYMYXIN/BACITRACIN 15 GM TUBE TOP SCH ×3 (09:17→22:13)
[2018-03-22] MEDS: CEFEPIME 1GM/NS 0.9% 50 ML 50 ML IV SCH ×2 (09:17→22:13)
[2018-03-22] MEDS: FINASTERIDE 5 MG TAB PO SCH (09:54)
[2018-03-22] MEDS: TAMSULOSIN HCL 0.4 MG CAP PO SCH (09:54)
[2018-03-22] MEDS: TRIAMTERENE/HCTZ 37.5-25 MG TAB PO SCH (09:54)
[2018-03-22] MEDS: PANTOPRAZOLE SOD 40 MG TABEC PO SCH (09:54)
[2018-03-22] MEDS: FLUOXETINE HCL 20 MG CAP PO SCH (09:54)
[2018-03-22] MEDS: NEBIVOLOL 10 MG TAB PO SCH (09:55)
[2018-03-22] MEDS: DILTIAZEM HCL 180 MG CAP ER PO SCH (09:55)
[2018-03-22] MEDS: GLIMEPIRIDE 2 MG TAB PO SCH (09:55)
[2018-03-22] MEDS: ASPIRIN 81 MG CHEW TAB PO SCH (09:55)
[2018-03-22] MEDS: VANCOMYCIN 1GM/NS 250 ML 250 ML IV SCH (10:21)
--- NOTE | 2018-03-22 11:26 | NUR ---
DR. PEDRAZA ON THE UNIT- SPOKE TO DR. PEDRAZA REGARDING PATIENT'S PROCEDURE. PROCEDURE HAS BEEN RESCHEDULED FOR TOMORROW. PATIENT TO BE NPO AFTER MIDNIGHT. PER DR. PEDRAZA, PATIENT IS ABLE TO TAKE BP MEDICATION IN THE MORNING TOMORROW, 03/23/18- ALL OTHER MEDICATIONS ARE TO BE HELD UNTIL AFTER THE PROCEDURE.
--- NOTE | 2018-03-22 13:49 | Progress Note ---
DATE: Patient's condition today is basically unchanged. There is improved reduction in cellulitis of the right lower extremity due to IV antibiotics. There continues bleeding and draining mycotic infected right hallux nail. The remaining nails are also mycotic, but not ulcerated or traumatized. The patient's review of systems and previous medical history are otherwise well documented elsewhere in the chart and unchanged. He is resting and sitting comfortably today. Communicative with his caregiver at his bedside. I recommend deeper debridement of the right hallux ulcer with electrocautery of arterial bleed or venous oozing in the morning. Total nail avulsion will be performed as well. Patient consented appropriately, and is to remain n.p.o. midnight tonight. Job#: [id number] LYNN
--- NOTE | 2018-03-22 16:31 | NUR ---
WOUND CARE CONSULTATION - INITIAL EVALUATION Patient Admitted to ER for bleeding of right halux >1wk on ambulation. Dr De La O DPM on board for care of Right Hallux. Pending Debridement and Nail Evulsion for tomorrow. Betadine and Dressing PRN. Patient on IV ABX ( Vancomycin) for Right Foot Cellulitis. LABS: WBC13.21 HGB16.8 HCT51.2 NEUT%74.7 GSV020 ALB3.6 WOUND CARE CONSULTED FOR ATIF GLUTEAL REDNESS VISIT: - Patent Calm in bed with family at bedside, AAOX3. -Patient unable to recall how his toe began to worsen or how it started. -Patient in bed, Ambulates to restroom PRN. - Noted BLE Edema +3. Unable to palpate pedal pulses. - States good appetite. on ADA Diet - Able to turn self. Walker at bedside. -Diapered - Son at bedside states has history of diaper rashes due to incontinence. - Ángel Score 19 IMPRESSION: 1. Bilateral Gluteal - Discoloration consistent to prior adult diaper rash. Skin intact but can benefit from good barrier cream. 2. Right Hallux - Ingrown toenail with Diagnosed Cellulitis by Dr. De La O. RECOMMENDATION: 1. Bilateral Gluteal - - Wash area with mild soap and water then pat dry thoroughly. - Lantiseptic Cream twice a day and PRN Soiling 2. Right Hallux - Continue Betadine Dressings as Prescribed by Dr. De La O DPM. Thank you for the consultation. Addendum: 03/22/18 at 1645 by Carmine Borden RN Amended: Links added.
[2018-03-22] MEDS: LANOLIN 4.5 OZ OINT TP SCH (17:56)
--- NOTE | 2018-03-22 19:05 | NUR ---
PATIENT IS IN STABLE CONDITION WITH NO S/S OF RESPIRATORY DISTRESS. NO PAIN VOICED. BETADINE DRESSING APPLIED TO RIGHT GREAT TOE; WOUND CARE PROVIDED TO BILATERAL BUTTOCKS AND CREAM APPLIED. PATIENT TURNED ON HIS RIGHT SIDE. GRANDSONS PRESENT IN ROOM. BED ALARM ON. CALL LIGHT IS WITHIN REACH, INSTRUCTED TO CALL FOR ASSISTANCE NEEDED. REPORT GIVEN TO ONCOMING NURSE.
--- NOTE | 2018-03-22 19:26 | NUR ---
PT IS RESTING IN BED VISITING WITH HIS GRANDSONS. NO RESPIRATORY DISTRESS NOTED. BED IN LOWEST POSITION, LOCKED, BED ALARM ON, AND CALL LIGHT WITHIN REACH. WILL CONTINUE TO MONITOR.
[2018-03-22] MEDS: ATORVASTATIN 20 MG TAB PO SCH (22:13)
[2018-03-23] VITALS: BP 110/75
[2018-03-23 04:00] VITALS: BP 101/64
[2018-03-23] MEDS: SALINE 0.65% NAS SOLN 1 SPRAY BTL SCH ×2 (05:51→12:00)
[2018-03-23 06:11] LABS: HEMATOCRIT 44.1 % (38.2-49.6); HEMOGLOBIN 14.2 g/dL (14.0-18.0); MEAN CORPUSCULAR HEMOGLOBIN 28.3 pg (28-32); MEAN CORPUSCULAR HGB CONC 32.2 g/dL (31-35); PLATELET COUNT 131 x10e3/uL (140-360); RED BLOOD COUNT 5.01 x10e6/uL (4.3-5.7); RED CELL DISTRIBUTION WIDTH 19.5 % (11.7-14.4)
[2018-03-23 06:30] LABS: CALCIUM 8.7 mg/dL (8.4-10.2); CREATININE, SERUM 1.56 mg/dL (0.72-1.25)
[2018-03-23] MEDS: INSULIN REGULAR, HUMAN 100 UNIT/1 ML 3ML VIAL SQ SCH ×2 (07:30→12:01)
[2018-03-23 08:29] VITALS: BP 119/80
[2018-03-23] MEDS: CEFEPIME 1GM/NS 0.9% 50 ML 50 ML IV SCH (08:35)
[2018-03-23 09:00] VITALS: BP 119/80
--- NOTE | 2018-03-23 09:00 | NUR ---
Pt received resting in bed with family at bedside. Noted with right foot great toe wound with dressing clean, dry and intact. Pt for NPO for Removal & debridement of the affected area. Alert and oriented x4. Oriented to staff and surroundings. Encouraged to press call esparza if help needed. Call esparza within reach. All meds given as ordered. Will monitor
[2018-03-23] MEDS ORDERED: BACITRACIN 50,000 UNIT VIAL ONE (09:49)
[2018-03-23] MEDS ORDERED: LIDOCAINE HCL 2% LOCAL INJ 5 ML SDV VIAL INJ ONE (10:21)
[2018-03-23] MEDS ORDERED: ONDANSETRON HCL INJ 2MG/ML 2ML 2 MG/ML VIAL ONE (10:21)
[2018-03-23] MEDS ORDERED: DESFLURANE 240 ML BTL INH ONE (10:21)
[2018-03-23] MEDS ORDERED: PROPOFOL IV EMULSION 10 MG/ML 20 ML VIAL ONE (10:21)
[2018-03-23 10:26] LABS: ANISOCYTOSIS SLIGHT; EOSINOPHILS % (MANUAL) 1 % (0-7); LYMPHOCYTES % (MANUAL) 23 % (19-48); METAMYELOCYTES % (MANUAL) 1 % (0-0); MONOCYTES % (MANUAL) 2 % (3.4-9.0); NEUTROPHILS % (MANUAL) 73 % (40-74); PLATELET ESTIMATE SLIGHTLY DECREASED; PLATELET MORPHOLOGY COMMENT NORMAL; RBC MORPHOLOGY COMMENT NORMAL
--- NOTE | 2018-03-23 11:15 | NUR ---
Pt returned from OR. Right foot great toenail removed. Emotional support given. Call esparza within reach. Will monitor
[2018-03-23 11:47] VITALS: BP 111/67
[2018-03-23] MEDS ORDERED: NEOSTIGMINE 1 MG/ML 10ML VIAL ONE (11:57)
[2018-03-23] MEDS: PANTOPRAZOLE SOD 40 MG TABEC PO SCH (12:00)
[2018-03-23] MEDS: VANCOMYCIN 1GM/NS 250 ML 250 ML IV SCH (12:00)
[2018-03-23] MEDS: TAMSULOSIN HCL 0.4 MG CAP PO SCH (12:00)
[2018-03-23] MEDS: LANOLIN 4.5 OZ OINT TP SCH (12:00)
[2018-03-23] MEDS: ASPIRIN 81 MG CHEW TAB PO SCH (12:00)
[2018-03-23] MEDS: NEOMYCIN/POLYMYXIN/BACITRACIN 15 GM TUBE TOP SCH (12:00)
[2018-03-23] MEDS: FLUOXETINE HCL 20 MG CAP PO SCH (12:00)
[2018-03-23] MEDS: GLIMEPIRIDE 2 MG TAB PO SCH (12:00)
[2018-03-23] MEDS: FINASTERIDE 5 MG TAB PO SCH (12:01)
[2018-03-23] MEDS ORDERED: LEVAQUIN500 MG PO (14:17)
--- NOTE | 2018-03-23 15:13 | NUR ---
Pt and family given discharge instructions regarding meds, diet, activities, and follow up appointment. Pt left unit in wheelchair to son's car
--- NOTE | 2018-03-23 15:24 | NUR ---
PT LIVES WITH SUPPORTIVE HAS A ROLLING WALKER PCP DR Randolph EGAN IMM SIGNED AND ON CHART COPY TO PT
[2018-03-23] MEDS ORDERED: FENTANYL CITRATE/PF 100MCG/2 ML INJ ONE (16:09)
--- NOTE | 2018-03-25 22:57 | Operative Report ---
DATE OF PROCEDURE: March 23, 2018 PREOPERATIVE DIAGNOSES: 1. Chronic ulceration, distal aspect of the right hallux. 2. Dystrophic traumatized right hallux nail. 3. Deep tissue bleeder, right foot. POSTOPERATIVE DIAGNOSES: 1. Chronic ulceration, distal aspect of the right hallux. 2. Dystrophic traumatized right hallux nail. 3. Deep tissue bleeder, right foot. TITLE OF THE OPERATIONS: 1. Debridement of the wound on the right hallux, full thickness, through skin and subcutaneous tissue. 2. Total nail avulsion of the right hallux. 3. Electrocautery of deep tissue bleeder. PROCEDURE IN DETAIL: The patient was taken to the operating room in a mildly sedated state and placed upon the operating room table in supine position. Following induction of general anesthetic, the right lower extremity was elevated to 60 degrees to exsanguinate before inflating the pneumatic thigh tourniquet to 350 mmHg to good hemostasis. Right lower extremity was placed upon the operating room table prior to performing the following procedure: PROCEDURE #1: Avulsion of the nail, right foot. Utilizing a [place] elevator and a hemostat, the dystrophic right hallux nail was completely avulsed. Underlying tissue included a large diabetic ulceration which was debrided full thickness through skin, subcutaneous tissue, and muscle on the dorsal aspect of the right foot. After debridement and irrigation with copious amounts of sterile bacitracin solution, electrocautery was performed of the deep bleeder which had been bleeding for several weeks according to the patient. The area was then dressed with appropriate mildly compressive dressings utilizing a nonadhesive gauze and Bactroban ointment. Patient tolerated the procedure well. Release of pneumatic thigh tourniquet showed a normal hyperemic flush to all digits of the right foot, and the patient left the operating room with vital signs stable, in apparent satisfactory condition after having tolerated both the anesthetic and procedure very well. He is okay to discharge home after returning to his room pending evaluation and release by his other consultants and medical doctor. He is placed on Levaquin 500 mg p.o. after his last dose of IV antibiotic today postoperatively. Job#: [id number]
== END 2018-03-23 15:12 | disposition home or self-care (01) | DRG 854 ==
LOC: ER 10:06 → ERHOLD 16:46 → MED/SURG3 20:23
PROVIDERS: ADMIT Internal Medicine; ATTEND Internal Medicine
PROC: 0HDRXZZ Extraction of Toe Nail, External Approach (ICD-10-PCS; 2018-03-23)
PROC: 0J5Q0ZZ Destruction of Right Foot Subcutaneous Tissue and Fascia, Open Approach (ICD-10-PCS; 2018-03-23)
PROC: 0KBV0ZZ Excision of Right Foot Muscle, Open Approach (ICD-10-PCS; principal; 2018-03-23 09:58)
DX: A41.9 Sepsis, unspecified organism (principal); L97.516 Non-pressure chronic ulcer of other part of right foot with bone involvement without evidence of necrosis; E11.69 Type 2 diabetes mellitus with other specified complication; E11.621 Type 2 diabetes mellitus with foot ulcer; Z79.4 Long term (current) use of insulin; R04.0 Epistaxis; J34.2 Deviated nasal septum; Z86.73 Personal history of transient ischemic attack (TIA), and cerebral infarction without residual deficits; I12.9 Hypertensive chronic kidney disease with stage 1 through stage 4 chronic kidney disease, or unspecified chronic kidney disease; E11.22 Type 2 diabetes mellitus with diabetic chronic kidney disease; N18.3 Chronic kidney disease, stage 3 (moderate); I48.91 Unspecified atrial fibrillation
CPT/HCPCS: 36415; 80048; 80053; 80202; 81001; 82550; 82553; 82948; 83605; 83880; 84484; 85007; 85025; 85027; 85610; 85730; 87040; 87102; 87206; 93005; 93926; 99284; J0692; J2001; J2405; J2710; J3370; J7030

== ENCOUNTER 2018-04-01 12:31 | Inpatient (IN) | payer MEDICARE, OTHER ==
[~2018-04-01] VITALS: Ht 172.7 cm; Wt 90.8 kg
[~2018-04-01 12:31] MED LIST changes: +LEVAQUIN500 MG PO
--- OUTSIDE RECORDS SUMMARY | 2018-04-01 12:34 | XMS REPORT | Clinical Summary ---
Author Author LOVE [employer] AnalyticsE[facility] CenterSD[facility] [employer] [facility] Organization [facility] Address Unknown Phone Unavailable Care Team Providers Care Signalman Name Role Phone Sharpless PCP Allergies Comments [...] Not on file Results Not on fileafter 03/31/2017 Insurance Payer Benefit Subscriber ID Type Phone Address Plan / Group MEDICARE MEDICARE A xxxxxxxxxx Medicare B CIGNA - MGD CARE CIGNA xxxxxxxxxxx HMO/POS HMO/POS/OP EN ACCESS Advance Directives For more information, please contact: [facility] [address] [place] [address] Date Inactivated Comments Code Status Date Activated 02/24/2016 11:52 AM Full Code 02/01/2016 5:35 PM This code status was determined by: Patient 02/01/2016 5:35 PM Full Code 02/01/2016 5:32 PM This code status was determined by: Patient 02/01/2016 5:32 PM Full Code 01/22/2016 9:39 PM This code status was determined by: Patient
[2018-04-01 14:20] LABS: BASOPHILS # (AUTO) 0.1 (0.0-0.1); BASOPHILS % 0.6 % (0.0-1.0); EOSINOPHILS # (AUTO) 0.1 (0.0-0.4); EOSINOPHILS % 0.6 % (0.0-6.0); HEMATOCRIT 46.7 % (38.2-49.6); HEMOGLOBIN 16.2 g/dL (14.0-18.0); LYMPHOCYTES # (AUTO) 1.8 (1.0-3.2); LYMPHOCYTES % 17.3 % (18.0-39.1); MEAN CORPUSCULAR HEMOGLOBIN 30.5 pg (28-32); MEAN CORPUSCULAR HGB CONC 34.7 g/dL (31-35); MEAN CORPUSCULAR VOLUME 87.9 fL (81-99); MONOCYTES # (AUTO) 0.9 (0.2-0.8); MONOCYTES % 8.3 % (4.4-11.3); NEUTROPHILS # (AUTO) 7.7 (2.1-6.9); NEUTROPHILS % 71.9 % (38.7-80.0); PLATELET COUNT 141 x10e3/uL (140-360); RED BLOOD COUNT 5.31 x10e6/uL (4.3-5.7); RED CELL DISTRIBUTION WIDTH 20.5 % (11.7-14.4)
[2018-04-01 14:25] LABS: INR 1.07; PARTIAL THROMBOPLASTIN TIME 24.5 seconds (23.8-35.5); PROTHROMBIN TIME 14.9 seconds (11.9-14.5)
[2018-04-01 14:34] LABS: ALBUMIN 3.6 g/dL (3.5-5.0); ALBUMIN/GLOBULIN RATIO 1.1 (0.8-2.0); ANION GAP 20.1 mmol/L (8-16); CALCIUM 9.5 mg/dL (8.4-10.2); CREATININE, SERUM 1.78 mg/dL (0.72-1.25); POTASSIUM 4.1 mmol/L (3.5-5.1)
[2018-04-01 14:41] LABS: CREATINE KINASE MB 1.6 ng/mL (0-5.0)
[2018-04-01] MEDS ORDERED: SODIUM CHLORIDE FLUSH 10 ML SYR INJ PRN (17:00)
[2018-04-01] MEDS ORDERED: DEXTROSE 50% SYRINGE 50 ML IV PRN (17:15)
--- OUTSIDE RECORDS SUMMARY | 2018-04-01 17:18 | XMS REPORT | Clinical Summary ---
Author Author [employer] [facility] Organization [facility] Address Unknown Phone Unavailable Care Team Providers Care Geology Teacher Name Role Phone Sharpless PCP Allergies [...] Advance Directives For more information, please contact: [facility] [address] [place] [address] Date Inactivated Comments Code Status Date Activated 02/24/2016 11:52 AM Full Code 02/01/2016 5:35 PM This code status was determined by: Patient 02/01/2016 5:35 PM Full Code 02/01/2016 5:32 PM This code status was determined by: Patient 02/01/2016 5:32 PM Full Code 01/22/2016 9:39 PM This code status was determined by: Patient
--- NOTE | 2018-04-01 19:18 | Diagnostic Imaging Report ---
[id number] EXAMINATION: 2 view chest x-ray INDICATION: Shortness of breath. COMPARISON: Chest CT dated 06/29/2017 FINDINGS: PA and lateral views TUBES and LINES: None. LUNGS and PLEURA: Lungs are well inflated. Left lower lung field opacification. Calcified left hilar lymph nodes. Right lung is clear. PLEURA: No pleural effusion or pneumothorax. HEART AND MEDIASTINUM: The cardiomediastinal silhouette is unremarkable. BONES AND SOFT TISSUES: No acute osseous lesion. Right humeral head anchor screws. Soft tissues are unremarkable. UPPER ABDOMEN: No free air under the diaphragm. IMPRESSION: Left lower lung field opacification, representing moderate size pleural effusion. Underlying atelectasis/infiltrate cannot be excluded. Signed by: Dr. aT Reynaga MD on 04/01/2018 7:15 PM
[2018-04-01 20:09] VITALS: BP 108/67
[2018-04-01] MEDS: INSULIN REGULAR, HUMAN 100 UNIT/1 ML 3ML VIAL SQ SCH (20:52)
[2018-04-01 22:37] VITALS: BP 108/67
[2018-04-02] VITALS (8 sets, daily range): BP systolic 112–135; BP diastolic 58–86
[2018-04-02] MEDS ORDERED: ACETAMINOPHEN/CODEINE 300MG - 30MG TAB PO PRN (04:30)
[2018-04-02] MEDS ORDERED: TRAMADOL HCL 50 MG TAB PO PRN (04:30)
[2018-04-02 05:18] LABS: BASOPHILS % 0.5 % (0.0-1.0); EOSINOPHILS # (AUTO) 0.1 (0.0-0.4); EOSINOPHILS % 0.9 % (0.0-6.0); HEMATOCRIT 41.9 % (38.2-49.6); HEMOGLOBIN 15.2 g/dL (14.0-18.0); LYMPHOCYTES % 23.2 % (18.0-39.1); MEAN CORPUSCULAR HEMOGLOBIN 31.1 pg (28-32); MEAN CORPUSCULAR HGB CONC 36.3 g/dL (31-35); MEAN CORPUSCULAR VOLUME 85.7 fL (81-99); MONOCYTES # (AUTO) 0.8 (0.2-0.8); MONOCYTES % 8.6 % (4.4-11.3); NEUTROPHILS # (AUTO) 5.7 (2.1-6.9); NEUTROPHILS % 65.2 % (38.7-80.0); PLATELET COUNT 123 x10e3/uL (140-360); RED BLOOD COUNT 4.89 x10e6/uL (4.3-5.7); RED CELL DISTRIBUTION WIDTH 20.2 % (11.7-14.4)
[2018-04-02 05:42] LABS: ANION GAP 18.4 mmol/L (8-16); CALCIUM 9.1 mg/dL (8.4-10.2); CREATININE, SERUM 1.76 mg/dL (0.72-1.25); POTASSIUM 4.4 mmol/L (3.5-5.1)
[2018-04-02] MEDS: FUROSEMIDE INJ 10 MG/ML 4 ML VIAL IV SCH ×3 (09:33→16:43)
[2018-04-02] MEDS: TAMSULOSIN HCL 0.4 MG CAP PO SCH (09:33)
[2018-04-02] MEDS: DILTIAZEM HCL 180 MG CAP ER PO SCH (09:33)
[2018-04-02] MEDS: PANTOPRAZOLE SOD 40 MG TABEC PO SCH (09:33)
[2018-04-02] MEDS: TRIAMTERENE/HCTZ 37.5-25 MG TAB PO SCH (09:33)
[2018-04-02] MEDS: GLIMEPIRIDE 2 MG TAB PO SCH (09:33)
[2018-04-02] MEDS: INSULIN REGULAR, HUMAN 100 UNIT/1 ML 3ML VIAL SQ SCH ×4 (09:33→21:00)
[2018-04-02] MEDS: FINASTERIDE 5 MG TAB PO SCH (09:33)
[2018-04-02] MEDS: NEBIVOLOL 10 MG TAB PO SCH (09:33)
[2018-04-02] MEDS: ASPIRIN 81 MG CHEW TAB PO SCH (09:33)
[2018-04-02] MEDS: LEVOFLOXACIN 500 MG TAB PO SCH (09:33)
[2018-04-02] MEDS: FLUOXETINE HCL 20 MG CAP PO SCH (09:34)
--- NOTE | 2018-04-02 09:40 | Diagnostic Imaging Report ---
Examination: Thoracic ultrasound. Clinical indication: Left pleural effusion. Comparison examination: 04/01/2018 chest radiograph; CT chest without contrast 06/29/2017 Findings: Sonographic evaluation of the left hemithorax shows no sizable simple pleural effusion. Impression: No simple left pleural effusion amenable to ultrasound-guided thoracentesis. Given patient history of complex left pleural effusion/empyema seen on CT scan of the chest 06/29/2017, repeat CT scan of the chest may be considered for further evaluation. Signed by: Dr. Caden Glaser M.D. on 04/02/2018 9:36 AM
--- NOTE | 2018-04-02 13:06 | Consultation ---
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 He has had an IVC filter placed and total knee replacements, right and left. NO KNOWN ALLERGIES. His medications include aspirin, Tylenol No. 3, Lipitor, Cardizem, finasteride, fluoxetine, Amaryl, Bystolic, Flomax, Dyazide and Protonix. He was born in [place], [place]. Family history is noncontributory. He has good social support at home. PHYSICAL EXAMINATION GENERAL: He is a well-developed white male sitting on a commode, cordial. VITALS: Temperature 97.2, pulse 84, respirations 16, blood pressure 128/58. HEAD: Normocephalic and atraumatic. LUNGS: Diminished breath sounds, left base. HEART: Regular rhythm. ABDOMEN: Nontender. EXTREMITIES: Scars on both knees. Edema of both lower extremities. IMPRESSION 1. Heart failure. 2. Anasarca. 3. Chronic kidney disease. 4. History of pulmonary embolism PLAN: Diuresis. Possible thoracentesis. Check ultrasound of legs. 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 Thank you for this kind referral. Job#: [id number]
--- NOTE | 2018-04-02 16:09 | Consultation ---
DATE OF CONSULTATION: April 02, 2018 CARDIOLOGY CONSULTATION REQUESTING PHYSICIAN: Dr. Giancarlo Zambrano. REASON FOR CONSULTATION: CHF. HISTORY OF PRESENT ILLNESS: This is an 83-year-old man with history of hypertension, hyperlipidemia, diabetes mellitus, atrial fibrillation, history of PE, history of hemorrhagic CVA and chronic kidney disease, who presents with complaints of worsening lower extremity swelling. Patient indicates he has had swelling for the last two months that has worsened in the last two days. He endorses dyspnea on exertion at approximately 20 feet but denies chest pain, palpitations, orthopnea or PND. Of note, he does report a recent procedure on his great toe. REVIEW OF SYSTEMS: Negative except as per HPI. PAST MEDICAL HISTORY 1. Hypertension. 2. Hyperlipidemia. 3. Diabetes mellitus. 4. Atrial fibrillation. 5. History of PE. 6. History of hemorrhagic CVA. 7. Chronic kidney disease. 8. Right ventricular dysfunction. PAST SURGICAL HISTORY 1. IVC filter placement. 2. Bilateral knee surgery. 3. Hernia surgery. 4. Recent toe surgery. ALLERGIES: PLEASE SEE EMR. MEDICATIONS: Please see medication list. SOCIAL HISTORY: Denies tobacco, alcohol or illicit drugs. FAMILY HISTORY: Noncontributory to current illness. PHYSICAL EXAMINATION VITAL SIGNS: Temperature 97.2 degrees, pulse 84, respiratory rate 16, blood pressure 128/86, oxygen saturation 95% on room air. GENERAL: Awake, alert, in no acute distress. HEENT: Normocephalic, atraumatic. Pupils equal, no scleral icterus. NECK: Supple. No thyromegaly or cervical lymphadenopathy, no carotid bruits. LUNGS: Clear to auscultation bilaterally. No wheezes or crackles. CARDIOVASCULAR: Irregularly irregular, normal rate. No murmur. Normal S1 and S2. ABDOMEN: Soft, nontender. EXTREMITIES: 2+ pitting edema bilaterally. CARDIAC MEDICATIONS 1. Furosemide 40 mg IV b.i.d. 2. Nebivolol 5 mg p.o. daily. 3. Diltiazem 180 mg p.o. daily. 4. Aspirin 81 mg p.o. daily. 5. Atorvastatin 20 mg p.o. nightly. LABS: WBC 8.72, hemoglobin 15.2, hematocrit 41.9, platelets 123. Sodium 142, potassium 4.4, chloride 105, CO2 23, BUN 41, creatinine 1.76. Troponin 0.001. BNP 209.7. ELECTROCARDIOGRAM: AFib. Cannot rule out anterior infarct, age undetermined. CHEST X-RAY: Left lower lung field opacification representing moderate-sized pleural effusion. Underlying atelectasis/infiltrate cannot be excluded. ULTRASOUND OF CHEST: No simple left pleural effusion amenable to ultrasound-guided thoracentesis. IMPRESSION 1. Lower extremity edema. 2. Hypertension. 3. Hyperlipidemia. 4. Atrial fibrillation. 5. History of pulmonary embolism. 6. History of hemorrhagic cerebrovascular accident. 7. Diabetes mellitus. 8. Chronic kidney disease. RECOMMENDATIONS: Obtain echocardiogram. Agree with trial of IV Lasix. Given recent procedure, we will obtain bilateral transvenous Doppler to rule out DVT. Continue home cardiac medications otherwise. Monitor patient on telemetry. Thank you for this consult. We will continue to follow. Job#: [id number] EV
[2018-04-02] MEDS: ATORVASTATIN 20 MG TAB PO SCH (20:55)
[2018-04-03] VITALS (7 sets, daily range): BP systolic 110–135; BP diastolic 57–79
[2018-04-03] MEDS: INSULIN REGULAR, HUMAN 100 UNIT/1 ML 3ML VIAL SQ SCH ×4 (07:30→20:56)
[2018-04-03] MEDS: FLUOXETINE HCL 20 MG CAP PO SCH (08:51)
[2018-04-03] MEDS: FINASTERIDE 5 MG TAB PO SCH (08:51)
[2018-04-03] MEDS: GLIMEPIRIDE 2 MG TAB PO SCH (08:51)
[2018-04-03] MEDS: ASPIRIN 81 MG CHEW TAB PO SCH (08:51)
[2018-04-03] MEDS: TAMSULOSIN HCL 0.4 MG CAP PO SCH (08:51)
[2018-04-03] MEDS: PANTOPRAZOLE SOD 40 MG TABEC PO SCH (08:51)
[2018-04-03] MEDS: NEBIVOLOL 10 MG TAB PO SCH (08:51)
[2018-04-03] MEDS: DILTIAZEM HCL 180 MG CAP ER PO SCH (08:51)
[2018-04-03] MEDS: TRIAMTERENE/HCTZ 37.5-25 MG TAB PO SCH (08:51)
[2018-04-03] MEDS: LEVOFLOXACIN 500 MG TAB PO SCH (08:51)
[2018-04-03 09:35] LABS: ANION GAP 19.1 mmol/L (8-16); CALCIUM 9.6 mg/dL (8.4-10.2); CREATININE, SERUM 2.15 mg/dL (0.72-1.25); POTASSIUM 4.1 mmol/L (3.5-5.1)
[2018-04-03] MEDS: FUROSEMIDE INJ 10 MG/ML 4 ML VIAL IV SCH ×2 (09:42→16:26)
--- NOTE | 2018-04-03 10:32 | Progress Note ---
DATE: April 03, 2018 CARDIOLOGY PROGRESS NOTE SUBJECTIVE: Patient denies chest pain or shortness of breath. OBJECTIVE VITALS: Temperature 95.5 degrees, pulse 87, respiratory rate 18, blood pressure 124/76, oxygen saturation 96% on room air. GENERAL: Awake, alert and in no acute distress. LUNGS: Clear to auscultation bilaterally. No wheezes or crackles. CARDIOVASCULAR: Irregularly irregular. Normal rate. No murmur. Normal S1 and S2. ABDOMEN: Soft and nontender. EXTREMITIES: Two plus pitting edema bilaterally. CARDIAC MEDICATIONS 1. Furosemide 40 mg IV b.i.d. 2. Nebivolol 5 mg p.o. daily. 3. Diltiazem 180 mg p.o. daily. 4. Aspirin 81 mg p.o. daily. 5. Atorvastatin 20 mg p.o. at bedtime. LABS: WBC 8.72, hemoglobin 15.2, hematocrit 41.9, and platelets 123,000. Sodium 141, potassium 4.1, chloride 99, CO2 27, BUN 52, creatinine 2.15. Telemetry is atrial fibrillation with PVCs. IMPRESSION 1. Lower extremity edema. 2. Hypertension. 3. Hyperlipidemia. 4. Atrial fibrillation. 5. History of pulmonary embolism. 6. History of hemorrhagic cerebrovascular accident. 7. Diabetes mellitus. 8. Chronic kidney disease. RECOMMENDATIONS: Bilateral lower extremity venous Doppler without evidence of deep venous thrombosis, although the exam was technically difficult. Echocardiogram demonstrated impaired RV function. Continue IV Lasix. Monitor creatinine closely. We will increase diuretics to 60 mg b.i.d. Records from the office were reviewed. 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 Family reports the patient previously had an IVC filter placed that was not removed. We will check KUB to confirm. Compression and elevation of lower extremities. Thank you for this consult. We will continue to follow. Job#: [id number]
--- NOTE | 2018-04-03 11:19 | Diagnostic Imaging Report ---
Exam: KUB - 1 view Clinical History: Confirm IVC filter. Comparison: None. Findings: Limited portable radiograph. IVC filter projects slightly right of midline at the level of the lower L1 through upper L3 vertebral bodies. No evidence of tilting. Partially seen device projecting over the left upper quadrant. Nonspecific bowel gas pattern. Degenerative changes of the visualized spine without evidence of acute bony abnormality. Impression: Limited radiograph demonstrating IVC filter projecting at the lower L1 through upper L3 vertebral levels. Signed by: Dr. Dario Mendoza MD on 04/03/2018 11:15 AM
[2018-04-03] MEDS: MUPIROCIN 2% OINT 22 GM TUBE TOP SCH (14:06)
[2018-04-03] MEDS: ATORVASTATIN 20 MG TAB PO SCH (20:43)
[2018-04-04] VITALS (8 sets, daily range): BP systolic 101–120; BP diastolic 61–73
[2018-04-04 06:53] LABS: ANION GAP 17.4 mmol/L (8-16); CALCIUM 9.1 mg/dL (8.4-10.2); CREATININE, SERUM 2.12 mg/dL (0.72-1.25); POTASSIUM 3.4 mmol/L (3.5-5.1)
[2018-04-04] MEDS: INSULIN REGULAR, HUMAN 100 UNIT/1 ML 3ML VIAL SQ SCH ×4 (07:30→20:33)
[2018-04-04] MEDS ORDERED: POTASSIUM CHLORIDE 20 MEQ TAB CR PO ONE (08:00)
[2018-04-04] MEDS: NEBIVOLOL 10 MG TAB PO SCH (08:30)
[2018-04-04] MEDS: DILTIAZEM HCL 180 MG CAP ER PO SCH (08:41)
[2018-04-04] MEDS: ASPIRIN 81 MG CHEW TAB PO SCH (08:41)
[2018-04-04] MEDS: GLIMEPIRIDE 2 MG TAB PO SCH (08:41)
[2018-04-04] MEDS: FLUOXETINE HCL 20 MG CAP PO SCH (08:42)
[2018-04-04] MEDS: FINASTERIDE 5 MG TAB PO SCH (08:42)
[2018-04-04] MEDS: PANTOPRAZOLE SOD 40 MG TABEC PO SCH (08:42)
[2018-04-04] MEDS: TRIAMTERENE/HCTZ 37.5-25 MG TAB PO SCH (08:42)
[2018-04-04] MEDS: LEVOFLOXACIN 500 MG TAB PO SCH (08:42)
[2018-04-04] MEDS: TAMSULOSIN HCL 0.4 MG CAP PO SCH (08:42)
[2018-04-04] MEDS: FUROSEMIDE INJ 10 MG/ML 4 ML VIAL IV SCH ×2 (08:46→16:40)
[2018-04-04] MEDS ORDERED: CITRATE OF MAGNESIA 300ML BOTTLE PO PRN (09:45)
[2018-04-04] MEDS ORDERED: MAGNESIUM HYDROXIDE 30 ML UDC PO PRN (09:45)
[2018-04-04] MEDS ORDERED: BISACODYL 5 MG TAB EC PO PRN (10:15)
[2018-04-04] MEDS: MUPIROCIN 2% OINT 22 GM TUBE TOP SCH (15:30)
--- NOTE | 2018-04-04 16:21 | Progress Note ---
DATE: April 04, 2018 CARDIOLOGY PROGRESS NOTE SUBJECTIVE: The patient denies chest pain or shortness of breath. OBJECTIVE VITALS: Temperature 96 degrees, pulse 88, respiratory rate 19, blood pressure 104/72, oxygen saturation 96% on room air. GENERAL: Awake, alert and in no acute distress. LUNGS: Clear to auscultation bilaterally. No wheezes or crackles. CARDIOVASCULAR: Irregularly irregular. Normal rate. No murmur. Normal S1 and S2. ABDOMEN: Soft and nontender. EXTREMITIES: Two plus pitting edema bilaterally. CARDIAC MEDICATIONS 1. Furosemide 60 mg IV b.i.d. 2. Aspirin 81 mg p.o. daily. 3. Diltiazem 180 mg p.o. daily. 4. Atorvastatin 20 mg p.o. daily. 5. Nebivolol 5 mg p.o. daily. LABS: Sodium 139, potassium 3.4, chloride 99, CO2 26, BUN 58, creatinine 2.12. Telemetry is atrial fibrillation, rate controlled. IMPRESSION 1. Lower extremity edema. 2. Occluded infrarenal inferior vena cava. 3. [id number]-[id number] right ventricular systolic heart failure. 4. Hypertension. 5. Hyperlipidemia. 6. Atrial fibrillation. 7. History of pulmonary embolism. 8. History of hemorrhagic cerebrovascular accident. 9. Diabetes mellitus. 10. Chronic kidney disease. RECOMMENDATIONS: Bilateral lower extremity venous Doppler without evidence of deep venous thrombosis, although the exam was technically difficult. Continue IV Lasix. Creatinine has been stable. Continue compression and elevation of lower extremities. Continue current cardiac medications otherwise. Thank you for this consult. We will continue to follow. Job#: [id number] [id number]
[2018-04-04] MEDS: DOCUSATE SODIUM 100 MG CAP PO SCH (16:40)
[2018-04-04] MEDS ORDERED: DOCUSATE SODIUM LIQD 100 MG/10 ML UDC NG SCH (17:00)
[2018-04-04] MEDS: ATORVASTATIN 20 MG TAB PO SCH (20:33)
[2018-04-05 01:27] VITALS: BP 107/66
[2018-04-05 06:45] VITALS: BP 114/70
[2018-04-05] MEDS: GLIMEPIRIDE 2 MG TAB PO SCH (07:30)
[2018-04-05 07:58] VITALS: BP 112/66
[2018-04-05] MEDS: DILTIAZEM HCL 180 MG CAP ER PO SCH (09:00)
[2018-04-05] MEDS: FLUOXETINE HCL 20 MG CAP PO SCH (09:00)
[2018-04-05] MEDS: TAMSULOSIN HCL 0.4 MG CAP PO SCH (09:00)
[2018-04-05] MEDS: DOCUSATE SODIUM 100 MG CAP PO SCH (09:00)
[2018-04-05] MEDS: LEVOFLOXACIN 500 MG TAB PO SCH (09:00)
[2018-04-05] MEDS: ASPIRIN 81 MG CHEW TAB PO SCH (09:00)
[2018-04-05] MEDS: FINASTERIDE 5 MG TAB PO SCH (09:00)
[2018-04-05] MEDS: TRIAMTERENE/HCTZ 37.5-25 MG TAB PO SCH (09:00)
[2018-04-05] MEDS: PANTOPRAZOLE SOD 40 MG TABEC PO SCH (09:00)
[2018-04-05] MEDS: NEBIVOLOL 10 MG TAB PO SCH (09:00)
[2018-04-05] MEDS: FUROSEMIDE INJ 10 MG/ML 4 ML VIAL IV SCH (09:00)
[2018-04-05] MEDS: INSULIN REGULAR, HUMAN 100 UNIT/1 ML 3ML VIAL SQ SCH ×2 (09:26→13:54)
--- NOTE | 2018-04-05 11:17 | Progress Note ---
DATE: April 05, 2018 CARDIOLOGY PROGRESS NOTE SUBJECTIVE: The patient denies chest pain or shortness of breath. OBJECTIVE VITALS: Temperature 97 degrees, pulse 90, respiratory rate 18, blood pressure 112/66, oxygen saturation 94% on room air. GENERAL: Awake, alert and in no acute distress. LUNGS: Clear to auscultation bilaterally. No wheezes or crackles. CARDIOVASCULAR: Irregularly irregular. Normal rate. No murmur. Normal S1 and S2. ABDOMEN: Soft and nontender. EXTREMITIES: 2+ pitting edema bilaterally. Compression stockings are in place. CARDIAC MEDICATIONS 1. Furosemide 60 mg IV b.i.d. 2. Triamterene/hydrochlorothiazide daily. 3. Nebivolol 5 mg p.o. daily. 4. Diltiazem 180 mg p.o. daily. 5. Aspirin 81 mg p.o. daily. 6. Atorvastatin 20 mg p.o. nightly. LABS: None today. TELEMETRY: Atrial fibrillation. IMPRESSION 1. Lower extremity edema. 2. Occluded infrarenal inferior vena cava. 3. Jlzss-sd-coamapp right ventricular systolic heart failure. 4. Hypertension. 5. Hyperlipidemia. 6. Atrial fibrillation. 7. History of pulmonary embolism. 8. History of hemorrhagic cerebrovascular accident. 9. Diabetes mellitus. 10. Chronic kidney disease. RECOMMENDATIONS: Bilateral lower extremity venous Dopplers without evidence of venous thrombosis, although exam was technically difficult. Check labs today. Continue current cardiac medications. Continue compression and elevation of lower extremities. Unclear why the patient is not on anticoagulation given his history of atrial fibrillation. We will discuss with the patient and family. Continue current cardiac medications. Thank you for this consult. We will continue to follow. Job#: [id number]
[2018-04-05 11:26] LABS: ANION GAP 18.4 mmol/L (8-16); CALCIUM 9.1 mg/dL (8.4-10.2); CREATININE, SERUM 2.38 mg/dL (0.72-1.25); POTASSIUM 3.4 mmol/L (3.5-5.1)
[2018-04-05 11:56] VITALS: BP 110/65
== END 2018-04-05 19:00 | disposition home health service (06) | DRG 291 ==
LOC: ER 12:31 → ERHOLD 17:16 → MED/SURG2 18:19 → OBSVTOIN 04-03 15:04
PROVIDERS: ADMIT Internal Medicine; ATTEND Internal Medicine
DX: I13.0 Hypertensive heart and chronic kidney disease with heart failure and stage 1 through stage 4 chronic kidney disease, or unspecified chronic kidney disease (principal); I50.23 Acute on chronic systolic (congestive) heart failure; N18.9 Chronic kidney disease, unspecified; I48.91 Unspecified atrial fibrillation; E11.22 Type 2 diabetes mellitus with diabetic chronic kidney disease; E78.5 Hyperlipidemia, unspecified; Z86.711 Personal history of pulmonary embolism; Z79.84 Long term (current) use of oral hypoglycemic drugs; Z86.73 Personal history of transient ischemic attack (TIA), and cerebral infarction without residual deficits; Z79.82 Long term (current) use of aspirin
CPT/HCPCS: 36415; 71046; 74018; 76604; 80048; 80053; 82550; 82553; 82948; 83880; 84484; 85025; 85379; 85610; 85730; 93005; 93306; 93970; 99284; G0378; J1940

== ENCOUNTER 2018-05-19 16:35 | Inpatient (IN) | payer MEDICARE, OTHER ==
[~2018-05-19] VITALS: Ht 176.5 cm; Wt 95.6 kg
--- OUTSIDE RECORDS SUMMARY | 2018-05-19 16:38 | XMS REPORT | Clinical Summary ---
Author Author LOVE [facility] Organization [facility] Address Unknown Phone Unavailable Care Team Providers Care After School Tutor Name Role Phone Sharpless PCP Allergies Comments [...] Not on file Results Not on fileafter 05/18/2017 Insurance Payer Benefit Subscriber ID Type Phone Address Plan / Group MEDICARE MEDICARE A xxxxxxxxxx Medicare B CIGNA - MGD CARE CIGNA xxxxxxxxxxx HMO/POS HMO/POS/OP EN ACCESS Advance Directives For more information, please contact: [facility] [address] [place] [address] Date Inactivated Comments Code Status Date Activated 02/24/2016 11:52 AM Full Code 02/01/2016 5:35 PM This code status was determined by: Patient 02/01/2016 5:35 PM Full Code 02/01/2016 5:32 PM This code status was determined by: Patient 02/01/2016 5:32 PM Full Code 01/22/2016 9:39 PM This code status was determined by: Patient
--- OUTSIDE RECORDS SUMMARY | 2018-05-19 16:39 | XMS REPORT | Continuity of Care Document ---
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 [facility] ACUTE RENAL FAILURE, CHEST PAIN, DYSPNEA Active 08/20/2015 [facility] SOB Active 08/20/2015 [facility] HTN (<span ID="[id number]">Confirmed</span>) Resolved Problem 06/05/2016 [facility] Hyperlipemia Resolved Problem 06/05/2016 [facility] UNSPECIFIED KIDNEY FAILURE Active [facility] Medications Medication Details Route Status Patient Instructions Ordering Provider Order Date Source warfarin 3 mg oral tablet 3 mg=1 tab, PO, Daily, # 30 tab, 0 Refill(s) Active 08/25/2015 [facility] temazepam 15 mg oral capsule 15 mg=1 cap, PO, Bedtime, X 30 day, # 30 cap, 0 Refill(s) Active 08/25/2015 [facility] levofloxacin 750 mg oral tablet 750 mg=1 tab, PO, Daily, X 7 day, # 7 tab, 0 Refill(s) Active 08/25/2015 [facility] Nebulizer Mask Adult Misc/Other 1 ea, MISC, PRN, PRN As directed by physician, # 1 ea, 0 Refill(s) Active 08/25/2015 [facility] Nebulizer 1 ea, MISC, ONCALL, # 1 ea, 0 Refill(s) Active 08/25/2015 [facility] Albuterol 0.83 MG/ML Inhalant Solution 2.5 mg=3 mL, NEB, RQ4H, PRN as needed for shortness of breath, Pediatric Dosing, # 180 mL, 0 Refill(s) Active 08/25/2015 [facility] Atenolol 50 MG Oral Tablet 50 mg=1 tab, PO, BID, # 60 tab, 0 Refill(s) Active 08/25/2015 [facility] Coumadin 3 mg, 3 tab, Route: PO, Drug form: TAB, ONCE, Dosing Weight 94.2, kg, Start date: 08/24/15 13:35:00 CDT, Stop date: 08/24/15 13:35:00 CDTNotes: Nurse to ensure documentation of patient education per ant icoagulation policy. Avoid large intake of vitamin-K containing foods diet. (Same As: Coumadin) WASTE: F/P - P Waste Black; E - P Waste Black Inactive 08/24/2015 [facility] nitroglycerin 0.4 mg sublingual tablet 0.4 mg, 1 tab, Route: SL, Drug form: TAB, Q5Min, PRN Chest Pain, Start date: 08/23/15 21:11:00 CDT, Duration: 30 day, Stop date: 09/22/15 21:10:00 CDTNotes: (Same as:Nitroquick, Nitrostat) "Do Not Crush" Sublingual tablet No Longer Active 08/24/2015 [facility] atropine 0.5 mg, 5 mL, Route: IVP, Drug form: INJ, PRN, PRN Bradycardia, Start date: 08/23/15 21:10:00 CDT, Duration: 30 day, Stop date: 09/22/15 21:09:00 CDT No Longer Active 08/24/2015 [facility] Warfarin 3 mg, 3 tab, Route: [...] E - P Waste Black Inactive 08/23/2015 [facility] Hydralazine Hydrochloride 25 MG Oral Tablet 25 mg, 1 tab, Route: PO, Drug form: TAB, Q4H, Dosing Weight 94.2, kg, PRN Elevated BP, Start date: 08/23/15 14:18:00 CDT, Duration: 30 day, Stop date: 09/22/15 14:17:00 CDTNotes: (Same as: Apresoline) May interfere w/enteral feedings Take With Food. No Longer Active 08/23/2015 [facility] Atenolol 50 MG Oral Tablet 50 mg, 1 tab, Route: PO, Drug form: TAB, BID, Dosing Weight 94.2, kg, Priority: NOW, Start date: 08/23/15 14:17:00 CDT, Duration: 30 day, Stop date: 09/22/15 9:00:00 CDTNotes: (Same As:Tenormin) No Longer Active 08/23/2015 [facility] Warfarin 7.5 mg, 1 tab, Route: [...] (Same As: Coumadin) No Longer Active 08/22/2015 [facility] Lovenox 90 mg, 0.9 mL, Route: SUB-Q, Drug form: INJ, [id number], Dosing Weight 90.909, kg, Start date: 08/21/15 21:00:00 CDT, Duration: 30 day, Stop date: 09/19/15 21:00:00 CDTNotes: Nurse to ensure documentation of patient education per anticoagulation policy. (Same as: Lovenox) Inactive 08/22/2015 [facility] heparin additive 25,000 unit [18 unit/kg/hr] + Premix Diluent Dextrose 5% 500 mL 500 mL, Rate: 28.33 ml/hr, Infuse over: 17.6 hr, Route: IV, Dosing Weight 78.7 kg, Total Volume: 500 mL, Start date: 08/21/15 18:09:00 CDT, Duration: 30 day, Stop date: 09/20/15 18:08:00 CDT No Longer Active 08/21/2015 [facility] Heparin 80 unit/kg Bolus (Heparin Dosing Weight) Route: IVP, PRN, 6,300 unit, 6.3 mL, Drug form: INJ, PRN, Heparin Protocol, Start date: 08/21/15 18:09:00 CDT Stop date: 09/20/15 18:08:00 CDT, 30 day No Longer Active 08/21/2015 [facility] Heparin 40 unit/kg Bolus (Heparin Dosing Weight) Route: IVP, PRN, 3,100 unit, 3.1 mL, Drug form: INJ, PRN, Heparin Protocol, Start date: 08/21/15 18:09:00 CDT Stop date: 09/20/15 18:08:00 CDT, 30 day No Longer Active 08/21/2015 [facility] Heparin - one time bolus for DVT/PE Route: IV, Drug form: INJ, ONCE, Dosing Weight 90.909, kg, Priority: STAT, Start date: 08/21/15 17:59:00 CDT, Stop date: 08/21/15 17:59:00 CDT Inactive 08/21/2015 [facility] Heparin 80 unit/kg Bolus (Heparin Dosing Weight) Pharmacy To Manage, Route: IVP, PRN, Drug form: INJ, PRN, Heparin Protocol, Start date: 08/21/15 17:59:00 CDT Stop date: 09/20/15 17:58:00 CDT, 30 day Inactive 08/21/2015 [facility] Coumadin 7.5 mg, 1 tab, Route: [...] Waste Black (Same As: Coumadin) Inactive 08/21/2015 [facility] Protonix 40 mg, 1 tab, Route: PO, Drug form: ECTAB, Before Dinner, Dosing Weight 90.909, kg, Start date: 08/21/15 16:30:00 CDT, Duration: 30 day, Stop date: 09/19/15 16:30:00 CDTNotes: Tablet should not be chewed or crushed. (Same as: Protonix) No Longer Active 08/21/2015 [facility] sodium chloride 0.9% 1000 ml INJ 1,000 mL 1,000 mL, Rate: 50 ml/hr, Infuse over: 20 hr, Route: IV, Dosing Weight 90.909 kg, Total Volume: 1,000, Start date: 08/21/15 15:00:00 CDT, Duration: 30 day, Stop date: 09/20/15 14:59:00 CDT No Longer Active 08/21/2015 [facility] Atenolol 100 MG Oral Tablet 100 mg, Route: PO, Drug form: TAB, BID, Dosing Weight 90.909, kg, Start date: 08/21/15 9:00:00 CDT, Duration: 30 day, Stop date: 09/19/15 21:00:00 CDT No Longer Active 08/21/2015 [facility] Verapamil 240 mg, 1 tab, Route: PO, Drug form: ERTAB, Daily, Dosing Weight 90.909, kg, Start date: 08/21/15 9:00:00 CDT, Duration: 30 day, Stop date: 09/19/15 9:00:00 CDTNotes: Do not crush or chew.; "Avoid grapefruit and grapefruit juice" (Same As: Calan SR, Isoptin SR) No Longer Active 08/21/2015 [facility] Lisinopril 20 mg, 1 tab, Route: PO, Drug form: TAB, Daily, Dosing Weight 90.909, kg, Start date: 08/21/15 9:00:00 CDT, Duration: 30 day, Stop date: 09/19/15 9:00:00 CDTNotes: (Same as: Prinivil, Zestril) No Longer Active 08/21/2015 [facility] Miralax 17 gm, 1 pkt, Route: PO, Drug form: PWDR, Daily, Dosing Weight 90.909, kg, Start date: 08/21/15 9:00:00 CDT, Duration: 30 day, Stop date: 09/19/15 9:00:00 CDTNotes: Dissolve in 8 oz of water or juice. (Same as: Miralax) No Longer Active 08/21/2015 [facility] Sodium Chloride 0.154 MEQ/ML Injectable Solution 1,000 mL, Rate: 100 ml/hr, Infuse over: 10 hr, Route: IV, Dosing Weight 90.909 kg, Total Volume: 1,000, Start date: 08/21/15 5:11:00 CDT, Duration: 1 doses or times, Stop date: 08/21/15 15:10:00 CDT Inactive 08/21/2015 [facility] Lactulose 1,000 ml, Route: ME, Drug Form: MUNIRA, Dosing Weight 90.909, kg, ONCE, PRN Constipation, Start date: 08/21/15 3:29:00 CDT, Duration: 1 doses or times, Stop date: Limited # of times, 300 mL lactulose + 70 0 mL waterNotes: Lactulose 300ml, Water for Irrigation 700ml - total [id number] Inactive 08/21/2015 [facility] Norepinephrine 8 mg, 8 mL, Rate: [...] catheter (PICC) line. No Longer Active 08/21/2015 [facility] Flurazepam 30 mg, Route: PO, Drug form: CAP, Bedtime, Dosing Weight 90.909, kg, Start date: 08/20/15 21:00:00 CDT, Duration: 30 day, Stop date: 09/18/15 21:00:00 CDT Inactive 08/21/2015 [facility] Atenolol 100 MG Oral Tablet 100 mg, 2 tab, Route: PO, Drug form: TAB, BID, Dosing Weight 90.909, kg, Start date: 08/20/15 21:00:00 CDT, Duration: 30 day, Stop date: 09/19/15 9:00:00 CDTNotes: (Same As:Tenormin) Inactive 08/21/2015 [facility] Restoril 15 mg, 1 cap, Route: PO, Drug form: CAP, Bedtime, Start date: 08/20/15 21:00:00 CDT, Duration: 30 day, Stop date: 09/18/15 21:00:00 CDTNotes: (Same As: Restoril) No Longer Active 08/21/2015 [facility] Lasix 40 mg, 4 mL, Route: IVP, Drug form: INJ, ONCE, Dosing Weight 90.909, kg, Priority: NOW, Start date: 08/20/15 20:12:00 CDT, Stop date: 08/20/15 20:12:00 CDTNotes: (Same as: Lasix) MEDICATION WASTE Product Size: 40 mg Product Wasted: ___ mg Inactive 08/21/2015 [facility] Lovenox 60 mg, 0.6 mL, Route: SUB-Q, Drug form: INJ, ONCE, Dosing Weight 90.909, kg, Priority: STAT, Start date: 08/20/15 20:11:00 CDT, Stop date: 08/20/15 20:11:00 CDTNotes: Nurse to ensure documentation of patient education per anticoagulation policy. (Same as: Lovenox) Inactive 08/21/2015 [facility] Albuterol 0.83 MG/ML Inhalant Solution 2.49 mg, 3 mL, Route: NEB, Drug form: SOLN, RQ4H, Dosing Weight 90.909, kg, Start date: 08/20/15 19:00:00 CDT, Duration: 30 day, Stop date: 09/19/15 15:00:00 CDT, Pediatric DosingNotes: SEE RT DOCUMENTATION (Same as: Proventil) No Longer Active 08/21/2015 [facility] magnesium citrate 150 ml, Route: PO, Drug Form: LIQ, Dosing Weight 90.909, kg, Daily, PRN Constipation, Start date: 08/20/15 18:33:00 CDT, Duration: 30 day, Stop date: 09/19/15 18:32:00 CDTNotes: (Same as: Citrate of Magnesia) No Longer Active 08/20/2015 [facility] Milk of Magnesia 30 ml, Route: PO, Drug Form: SUSP, Dosing Weight 90.909, kg, Q6H, PRN Constipation, Start date: 08/20/15 18:33:00 CDT, Duration: 30 day, Stop date: 09/19/15 18:32:00 CDTNotes: (Same as: Milk of Magne mir, MOM) No Longer Active 08/20/2015 [facility] sodium chloride 0.9% 1000 ml INJ 1,000 mL 1,000 mL, Rate: 25 ml/hr, Infuse over: 40 hr, Route: IV, Dosing Weight 90.909 kg, Total Volume: 1,000, Start date: 08/20/15 18:05:00 CDT, Duration: 30 day, Stop date: 09/19/15 18:04:00 CDT Inactive 08/20/2015 [facility] Azithromycin 500 mg, Route: IVPB, [id number], Dosing Weight 90.909, kg, Priority: STAT, Start date: 08/20/15 17:08:00 CDT, Duration: 30 day, Stop date: 09/18/15 18:00:00 CDTNotes: (Same As: Zithromax IV) No Longer Active 08/20/2015 [facility] Ceftriaxone 1 gm, Route: IVPB, Q24H, Dosing Weight 90.909, kg, Priority: STAT, Start date: 08/20/15 17:08:00 CDT, Duration: 30 day, Stop date: 09/18/15 17:00:00 CDTNotes: (Same As: Rocephin). Use with 100 mL NS and infuse over 30 min MEDICATION WASTE Product Size: 1000 mg Product Wasted: ___ mg No Longer Active 08/20/2015 [facility] Albuterol 0.833 MG/ML / Ipratropium [place] 0.167 MG/ML Inhalant Solution [DuoNeb] 3 ml, Route: INHALATION, Drug Form: SOLN, Dosing Weight 90.909, kg, PRN, PRN Respiratory Protocol, Start date: 08/20/15 17:08:00 CDT, Duration: 30 day, Stop date: 09/19/15 17:07:00 CDTNotes: (Same as: Duoneb) No Longer Active 08/20/2015 [facility] Ondansetron 4 mg, 2 mL, Route: IVP, Drug form: INJ, Q6H, Dosing Weight 90.909, kg, PRN Nausea & Vomiting, Start date: 08/20/15 17:08:00 CDT, Duration: 30 day, Stop date: 09/19/15 17:07:00 CDTNotes: (Same as: Zofran) MEDICATION WASTE Product Size: 4 mg Product Wasted: ___ mg No Longer Active 08/20/2015 [facility] Docusate 100 mg, 1 cap, Route: PO, Drug form: CAP, BID, Dosing Weight 90.909, kg, PRN Constipation, Start date: 08/20/15 17:08:00 CDT, Duration: 30 day, Stop date: 09/19/15 17:07:00 CDTNotes: (Same as: Colace) (Do Not Crush) No Longer Active 08/20/2015 [facility] Morphine 2 mg, 1 mL, Route: IVP, Drug form: INJ, Q4H, Dosing Weight 90.909, kg, PRN Pain Score 7-10, Start date: 08/20/15 17:08:00 CDT, Duration: 30 day, Stop date: 09/19/15 17:07:00 CDTNotes: (Same as:MORPhine Sulfate) No Longer Active 08/20/2015 [facility] Acetaminophen 650 mg, 2 tab, Route: PLEURODESIS, Drug form: TAB, Q4H, Dosing Weight 90.909, kg, PRN Pain 1-3/Temp > 100.4 F, Start date: 08/20/15 17:08:00 CDT, Duration: 30 day, Stop date: 09/19/15 17:07:00 CDTNotes: Do not exceed 4 gm/day. (Same as: Tylenol) No Longer Active 08/20/2015 [facility] Enoxaparin 30 mg, 0.3 mL, Route: SUB-Q, Drug form: INJ, [id number], Dosing Weight 90.909, kg, Start date: 08/20/15 17:00:00 CDT, Duration: 30 day, Stop date: 09/18/15 17:00:00 CDTNotes: (Same as: Lovenox) Inactive 08/20/2015 [facility] Protonix 40 mg, PO, Daily, # 30 tab, 0 Refill(s) Active 08/20/2015 [facility] lisinopril 20 mg oral tablet 20 mg=1 tab, PO, Daily, # 30 tab, 0 Refill(s) No Longer Active 08/20/2015 [facility] Atenolol 100 MG Oral Tablet 100 mg=1 tab, PO, BID, 0 Refill(s) No Longer Active 08/20/2015 [facility] diclofenac sodium 100 mg oral tablet, extended release 100 mg=1 tab, PO, Daily, # 30 tab, 0 Refill(s) No Longer Active 08/20/2015 [facility] verapamil 240 mg oral tablet, extended release 240 mg=1 tab, PO, Daily, # 30 tab, 0 Refill(s) No Longer Active 08/20/2015 [facility] atorvastatin 20 mg oral tablet 20 mg=1 tab, PO, Bedtime, # 30 tab, 0 Refill(s) Active 08/20/2015 [facility] Saline Flush 0.9% 10 mL, Route: IVP, Drug Form: INJ, Dosing Weight 90.909, kg, PRN, PRN Line Flush, Start date: 08/20/15 14:16:00 CDT, Duration: 30 day, Stop date: 09/19/15 14:15:00 CDTNotes: (Same as: BD Posiflush) No Longer Active 08/20/2015 [facility] Allergies, Adverse Reactions, Alerts Substance Category Reaction Severity Reaction type Status Date Reported Comments Source Immunizations Immunization Date Given Site Status Last Updated Comments Source Results Order Name Results Value Reference Range Date Interpretation Comments Source HEMATOLOGY INR 2.50 0.85 - 1.17 08/25/2015 [facility] HEMATOLOGY PT 27.3 s 12.0 - 14.7 08/25/2015 [facility] HEMATOLOGY PT 26.9 s 12.0 - 14.7 08/24/2015 [facility] HEMATOLOGY INR 2.45 0.85 - 1.17 08/24/2015 [facility] CHEM PANEL B/C Ratio 22 6 - 25 08/23/2015 [facility] CHEM PANEL Globulin 4.2 g/dL 2.0 - 4.0 08/23/2015 [facility] CHEM PANEL A/G Ratio 0.8 0.7 - 1.6 08/23/2015 [facility] CHEM PANEL AGAP 15.5 meq/L 10.0 - 20.0 08/23/2015 [facility] CHEM PANEL Alk Phos 86 unit/L 39 - 136 08/23/2015 [facility] CHEM PANEL Bili Total 0.4 mg/dL 0.2 - 1.3 08/23/2015 [facility] CHEM PANEL eGFR 30 mL/min/1.73m2 08/23/2015 [...] should be multiplied by the estimated BMI. [facility] CHEM PANEL Potassium Lvl 4.5 meq/L 3.5 - 5.1 08/23/2015 [facility] CHEM PANEL Chloride Lvl 108 meq/L 95 - 109 08/23/2015 [facility] CHEM PANEL CO2 22 meq/L 24 - 32 08/23/2015 [facility] CHEM PANEL BUN 44 mg/dL 7 - 22 08/23/2015 [facility] CHEM PANEL Creatinine Lvl 2.03 mg/dL 0.50 - 1.40 08/23/2015 [facility] CHEM PANEL Sodium Lvl 141 meq/L 135 - 145 08/23/2015 [facility] CHEM PANEL ALT 125 unit/L 0 - 65 08/23/2015 [facility] CHEM PANEL AST 46 unit/L 0 - 37 08/23/2015 [facility] CHEM PANEL Calcium Lvl 8.4 mg/dL 8.5 - 10.5 08/23/2015 [facility] CHEM PANEL Total Protein 7.5 g/dL 6.4 - 8.4 08/23/2015 [facility] CHEM PANEL Albumin Lvl 3.3 g/dL 3.5 - 5.0 08/23/2015 [facility] CHEM PANEL Glucose Lvl 184 mg/dL 70 - 99 08/23/2015 [facility] HEMATOLOGY PTT 87.2 s 22.9 - 35.8 08/23/2015 [facility] HEMATOLOGY Basophils # 0.1 K/CMM 0.0 - 0.2 08/23/2015 [facility] HEMATOLOGY Monocytes 8.8 % 2.0 - 12.0 08/23/2015 [facility] HEMATOLOGY Lymphocytes 32.4 % 20.0 - 40.0 08/23/2015 [facility] HEMATOLOGY Segs-Bands # 8.1 K/CMM 1.5 - 8.1 08/23/2015 [facility] HEMATOLOGY Segs 57.5 % 45.0 - 75.0 08/23/2015 [facility] HEMATOLOGY Basophils 0.6 % 0.0 - 1.0 08/23/2015 [facility] Eosinophils 0.7 % 0.0 - 4.0 08/23/2015 [facility] HEMATOLOGY Eosinophils # 0.1 K/CMM 0.0 - 0.5 08/23/2015 [facility] HEMATOLOGY Monocytes # 1.2 K/CMM 0.0 - 0.8 08/23/2015 [facility] HEMATOLOGY Lymphocytes # 4.6 K/CMM 1.0 - 5.5 08/23/2015 [facility] MCH 27.9 pg 27.0 - 31.0 08/23/2015 [facility] Platelet 129 K/CMM 133 - 450 08/23/2015 [facility] MCHC 31.4 g/dL 32.0 - 36.0 08/23/2015 [facility] MPV 9.4 fL 7.4 - 10.4 08/23/2015 [facility] RDW 15.4 % 11.5 - 14.5 08/23/2015 [facility] Hgb 15.6 g/dL 14.0 - 18.0 08/23/2015 [facility] WBC 14.1 K/CMM 3.7 - 10.4 08/23/2015 [facility] RBC 5.59 M/CMM 4.70 - 6.10 08/23/2015 [facility] Hct 49.6 % 42.0 - 54.0 08/23/2015 [facility] MCV 88.7 fL 80.0 - 94.0 08/23/2015 [facility] HEMATOLOGY INR 2.06 0.85 - 1.17 08/23/2015 [facility] HEMATOLOGY PT 23.5 s 12.0 - 14.7 08/23/2015 [facility] HEMATOLOGY PTT 68.3 s 22.9 - 35.8 08/23/2015 [facility] HEMATOLOGY PTT 103.1 s 22.9 - 35.8 08/22/2015 Result Comment: Critical Result(s) called to Alicia Mcclain at 08/22/2015 18:22 by Alicia Omer. Read back OK. [facility] CHEM PANEL eGFR 24 mL/min/1.73m2 08/22/2015 [...] should be multiplied by the estimated BMI. [facility] CHEM PANEL Bili Total 0.3 mg/dL 0.2 - 1.3 08/22/2015 [facility] CHEM PANEL Alk Phos 82 unit/L [...] Lvl 198 mg/dL 70 - 99 08/22/2015 [facility] CHEM PANEL Calcium Lvl 7.8 mg/dL 8.5 - 10.5 08/22/2015 [facility] CHEM PANEL B/C Ratio 19 6 - 25 08/22/2015 [facility] CHEM PANEL CO2 19 meq/L 24 - 32 08/22/2015 [facility] CHEM PANEL AGAP 14.4 meq/L 10.0 - 20.0 08/22/2015 [facility] CHEM PANEL Chloride Lvl 108 meq/L 95 - 109 08/22/2015 [facility] CHEM PANEL ALT 122 unit/L 0 - 65 08/22/2015 [facility] CHEM PANEL AST 93 unit/L 0 - 37 08/22/2015 [facility] CHEM PANEL Globulin 3.8 g/dL 2.0 - 4.0 08/22/2015 [facility] CHEM PANEL A/G Ratio 0.8 0.7 - 1.6 08/22/2015 [facility] CHEM PANEL Total Protein 6.7 g/dL 6.4 - 8.4 08/22/2015 [facility] CHEM PANEL Albumin Lvl 2.9 g/dL 3.5 - 5.0 08/22/2015 [facility] HEMATOLOGY Monocytes # 1.6 K/CMM 0.0 - 0.8 08/22/2015 [facility] HEMATOLOGY Segs-Bands # 7.8 K/CMM 1.5 - 8.1 08/22/2015 [facility] HEMATOLOGY Lymphocytes # 5.7 K/CMM 1.0 - 5.5 08/22/2015 [facility] HEMATOLOGY Basophils 0.9 % 0.0 - 1.0 08/22/2015 [facility] HEMATOLOGY Basophils # 0.1 K/CMM 0.0 - 0.2 08/22/2015 [facility] HEMATOLOGY Eosinophils # 0.1 K/CMM 0.0 - 0.5 08/22/2015 [facility] Segs 50.9 % 45.0 - 75.0 08/22/2015 [facility] Eosinophils 0.5 % 0.0 - 4.0 08/22/2015 [facility] Monocytes 10.5 % 2.0 - 12.0 08/22/2015 [facility] Lymphocytes 37.2 % 20.0 - 40.0 08/22/2015 [facility] MPV 9.2 fL 7.4 - 10.4 08/22/2015 [facility] MCH 28.0 pg 27.0 - 31.0 08/22/2015 [facility] MCHC 31.4 g/dL 32.0 - 36.0 08/22/2015 [facility] RDW 15.3 % 11.5 - 14.5 08/22/2015 [facility] Platelet 107 K/CMM 133 - 450 08/22/2015 [facility] RBC 5.69 M/CMM 4.70 - 6.10 08/22/2015 [facility] Hgb 16.0 g/dL 14.0 - 18.0 08/22/2015 [facility] Hct 50.9 % 42.0 - 54.0 08/22/2015 [facility] HEMATOLOGY MCV 89.4 fL 80.0 - 94.0 08/22/2015 [facility] HEMATOLOGY WBC 15.3 K/CMM 3.7 - 10.4 08/22/2015 [facility] Chest 1view DX Chest 1view DX Study: Chest 1view DX Clinical Indication: Abnormal chest sounds Comparison: 08/21/2015 FINDINGS: Cardiac silhouette is mildly prominent. Mild right basilar atelectasis is seen. There is no pleural effusion or pneumothorax. Osseous structures are stable. IMPRESSION: No acute cardiopulmonary disease. SL: [id number] 08/22/2015 - - Read by: Tim Coppola MD Dictated Date/time: 08/22/15 07:27 Electronically Signed by: Tim Coppola MD 08/22/15 07:28 FINAL REPORT [facility] Basophils 0.3 % 0.0 - 1.0 08/22/2015 [facility] Eosinophils 0.1 % 0.0 - 4.0 08/22/2015 [facility] Lymphocytes # 4.7 K/CMM 1.0 - 5.5 08/22/2015 [facility] Segs-Bands # 11.5 K/CMM 1.5 - 8.1 08/22/2015 [facility] Monocytes # 1.8 K/CMM 0.0 - 0.8 08/22/2015 [facility] Basophils # 0.1 K/CMM 0.0 - 0.2 08/22/2015 [facility] Monocytes 9.8 % 2.0 - 12.0 08/22/2015 [facility] Lymphocytes 26.2 % 20.0 - 40.0 08/22/2015 [facility] Segs 63.6 % 45.0 - 75.0 08/22/2015 [facility] RDW 15.0 % 11.5 - 14.5 08/22/2015 [facility] Platelet 148 K/CMM 133 - 450 08/22/2015 [facility] MPV 9.2 fL 7.4 - 10.4 08/22/2015 [facility] RBC 5.88 M/CMM 4.70 - 6.10 08/22/2015 [facility] Hgb 16.4 g/dL 14.0 - 18.0 08/22/2015 [facility] WBC 18.1 K/CMM 3.7 - 10.4 08/22/2015 [facility] Hct 52.2 % 42.0 - 54.0 08/22/2015 [facility] MCV 88.7 fL 80.0 - 94.0 08/22/2015 [facility] MCHC 31.5 g/dL 32.0 - 36.0 08/22/2015 [facility] HEMATOLOGY MCH 27.9 pg 27.0 - 31.0 08/22/2015 [facility] Lung ventilation/perfusion scan NM Lung ventilation/perfusion [...] Tammy, on 08/21/2015 1:01 PM CDT. SL: [id number] 08/21/2015 - - Read by: Roger Hoyt MD Dictated Date/time: 08/21/15 13:00 Electronically Signed by: Roger Hoyt MD 08/21/15 13:02 FINAL REPORT [facility] Chest 2 views DX Chest 2 views DX Chest 2 views DX CLINICAL HISTORY:Abnormal chest sounds COMPARISON: none FINDINGS: The lungs are poorly inflated. No infiltrate pleural effusion or pneumothorax otherwise. Heart size top normal. No overt congestive heart failure or pulmonary edema. Calcified lymph nodes are noted within the hilar regions. IMPRESSION: Hypoventilation, poor inspiration. No acute findings, otherwise. SL: [id number] 08/21/2015 - - Read by: Cornelio Gordon MD Dictated Date/time: 08/21/15 10:26 Electronically Signed by: Cornelio Gordon MD 08/21/15 10:27 FINAL REPORT [facility] BACTERIAL - SEROLOGY MRSA by PCR Negative (08/21/15 4:18 AM) 08/21/2015 [facility] Abdomen complete US Abdomen complete US [...] or biliary ductal dilatation. Hepatic steatosis. SL: [id number] 08/21/2015 - - Read by: Cornelio Gordon MD Dictated Date/time: 08/21/15 09:27 Electronically Signed by: Cornelio Gordon MD 08/21/15 09:29 FINAL REPORT [facility] CARDIAC ENZYMES CK MB Index 3.7 0.0 - 2.5 08/21/2015 [facility] CARDIAC ENZYMES Total CK 101 unit/L 12 - 191 08/21/2015 [facility] CARDIAC ENZYMES Troponin-I 0.36 ng/mL 0.00 - 0.40 08/21/2015 [facility] CARDIAC ENZYMES CK MB 3.7 ng/mL 0.5 - 3.6 08/21/2015 [facility] CARDIAC ENZYMES BNP 1159 pg/mL <=100 pg/mL 08/21/2015 [facility] CHEM PANEL eGFR 20 mL/min/1.73m2 08/21/2015 [...] should be multiplied by the estimated BMI. [facility] CHEM PANEL Calcium Lvl 8.4 mg/dL 8.5 - 10.5 08/21/2015 [facility] CHEM PANEL AST 85 unit/L 0 - 37 08/21/2015 [facility] CHEM PANEL Total Protein 8.4 g/dL 6.4 - 8.4 08/21/2015 [facility] CHEM PANEL Albumin Lvl 3.8 g/dL 3.5 - 5.0 08/21/2015 [facility] CHEM PANEL Alk Phos 103 unit/L 39 - 136 08/21/2015 [facility] CHEM PANEL Bili Total 0.7 mg/dL 0.2 - 1.3 08/21/2015 [facility] CHEM PANEL ALT 95 unit/L 0 - 65 08/21/2015 [facility] CHEM PANEL BUN 36 mg/dL 7 - 22 08/21/2015 [facility] CHEM PANEL Creatinine Lvl 2.92 mg/dL 0.50 - 1.40 08/21/2015 [facility] CHEM PANEL Chloride Lvl 107 meq/L 95 - 109 08/21/2015 [facility] CHEM PANEL CO2 23 meq/L 24 - 32 08/21/2015 [facility] CHEM PANEL Glucose Lvl 213 mg/dL 70 - 99 08/21/2015 [facility] CHEM PANEL Sodium Lvl 139 meq/L 135 - 145 08/21/2015 [facility] CHEM PANEL Potassium Lvl 4.9 meq/L 3.5 - 5.1 08/21/2015 [facility] CHEM PANEL A/G Ratio 0.8 0.7 - 1.6 08/21/2015 [facility] CHEM PANEL Globulin 4.6 g/dL 2.0 - 4.0 08/21/2015 [facility] CHEM PANEL B/C Ratio 12 6 - 25 08/21/2015 [facility] CHEM PANEL AGAP 13.9 meq/L 10.0 - 20.0 08/21/2015 [facility] CHEM PANEL Magnesium Lvl 2.8 mg/dL 1.8 - 2.4 08/21/2015 [facility] CHEM PANEL Phosphorus 2.2 mg/dL 2.5 - 4.5 08/21/2015 [facility] HEMATOLOGY RBC Morph Normal (08/21/15 3:55 AM) 08/21/2015 [facility] HEMATOLOGY Plt Morph Normal (08/21/15 3:55 AM) 08/21/2015 [facility] LIPIDS VLDL 36 08/21/2015 [facility] LIPIDS LDL (Calculated) 101 mg/dL <=99 mg/dL 08/21/2015 [facility] LIPIDS Trig 179 mg/dL <=149 mg/dL 08/21/2015 [facility] LIPIDS HDL 50 mg/dL >=61 mg/dL 08/21/2015 [facility] LIPIDS Chol 187 mg/dL <=199 mg/dL 08/21/2015 [facility] LIPIDS CHD Risk 3.74 4.00 - 7.30 08/21/2015 [facility] CARDIAC ENZYMES CK MB Index 3.2 0.0 - 2.5 08/21/2015 [facility] CARDIAC ENZYMES Troponin-I 0.32 ng/mL 0.00 - 0.40 08/21/2015 [facility] CARDIAC ENZYMES CK MB 3.5 ng/mL 0.5 - 3.6 08/21/2015 [facility] CARDIAC ENZYMES Total CK 110 unit/L 12 - 191 08/21/2015 [facility] Ext Lower Venous Doppler Bilat US [...] Rolf Vanessa MD 08/20/15 21:22 FINAL REPORT [facility] CARDIAC ENZYMES CK MB Index 1.7 0.0 - 2.5 08/20/2015 [facility] CARDIAC ENZYMES Total CK 157 unit/L 12 - 191 08/20/2015 [facility] CARDIAC ENZYMES CK MB 2.7 ng/mL 0.5 - 3.6 08/20/2015 [facility] CARDIAC ENZYMES Troponin-I 0.07 ng/mL 0.00 - 0.40 08/20/2015 [facility] HEMATOLOGY Eosinophils # 0.2 K/CMM 0.0 - 0.5 08/20/2015 [facility] Chest 1view DX Chest 1view DX [...] abnormality is noted in the chest. SL: [id number] 08/20/2015 - - Read by: Cornelio Gordon MD Dictated Date/time: 08/20/15 15:13 Electronically Signed by: Cornelio Gordon MD 08/20/15 15:13 FINAL REPORT [facility] Vital Signs Vital Sign Value Date Comments Source Heart Rate 64 08/25/2015 [facility] Systolic (mm Hg) 142 08/25/2015 [facility] Diastolic (mm Hg) 93 08/25/2015 [facility] Temperature Oral (F) 98.0 F 08/25/2015 [facility] Respitory Rate 18 08/25/2015 [facility] Systolic (mm Hg) 160 08/25/2015 [facility] Diastolic (mm Hg) 93 08/25/2015 [facility] Respitory Rate 18 08/25/2015 [facility] Heart Rate 74 08/25/2015 [facility] Temperature Oral (F) 97.9 F 08/25/2015 [facility] Respitory Rate 18 08/25/2015 [facility] Temperature Oral (F) 97.5 F 08/25/2015 [facility] Systolic (mm Hg) 149 08/25/2015 [facility] Diastolic (mm Hg) 90 08/25/2015 [facility] Heart Rate 61 08/25/2015 [facility] Weight 94.2 08/21/2015 [facility] Height 172.72 cm 08/21/2015 [facility] Weight 90.909 08/21/2015 [facility] BMI Calculated 30.47 08/21/2015 [facility] Height 172.72 cm 08/20/2015 [facility] Weight 90.909 08/20/2015 [facility] BMI Calculated 30.47 08/20/2015 [facility] Encounters Location Location Details Encounter Type Encounter Number Reason For Visit Attending Provider ADM Date DC Date Status Source [facility] Inpatient [id number] Sandip Greenwood 08/20/2015 08/25/2015 [facility] Patients [id number] Miguel Diormmagopal 03/08/2016 04/07/2016 [facility] [place] [facility] [id number] Miguel DiTommaso 04/04/2016 05/04/2016 [facility] [place] [facility] Patients [id number] Miguel DiTommaso 05/04/2016 06/03/2016 [facility] [place] Procedures Procedure Code Date Perfomer Comments Source Arthroplasty of knee<sup>1</sup> 12837786 bilateral replacment [facility] Arthroplasty of knee<sup>1</sup> [id number] bilateral replacment [facility] Arthroplasty of knee<sup>1</sup> [id number] bilateral replacment [facility]
--- OUTSIDE RECORDS SUMMARY | 2018-05-19 16:46 | XMS REPORT | Clinical Summary ---
Author Author LOVE [facility] Organization [facility] Address Unknown Phone Unavailable Care Team Providers Care Local Sales Manager Name Role Phone Sharpless PCP Allergies [...] Advance Directives For more information, please contact: [facility] [address] [place] [address] Date Inactivated Comments Code Status Date Activated 02/24/2016 11:52 AM Full Code 02/01/2016 5:35 PM This code status was determined by: Patient 02/01/2016 5:35 PM Full Code 02/01/2016 5:32 PM This code status was determined by: Patient 02/01/2016 5:32 PM Full Code 01/22/2016 9:39 PM This code status was determined by: Patient
[2018-05-19 17:21] LABS: BASOPHILS % 0.1 % (0.0-1.0); HEMATOCRIT 47.1 % (38.2-49.6); HEMOGLOBIN 15.4 g/dL (14.0-18.0); LYMPHOCYTES # (AUTO) 1.1 (1.0-3.2); MEAN CORPUSCULAR HEMOGLOBIN 30.4 pg (28-32); MEAN CORPUSCULAR HGB CONC 32.7 g/dL (31-35); MEAN CORPUSCULAR VOLUME 92.9 fL (81-99); MONOCYTES # (AUTO) 0.8 (0.2-0.8); MONOCYTES % 4.3 % (4.4-11.3); NEUTROPHILS # (AUTO) 16.7 (2.1-6.9); NEUTROPHILS % 88.9 % (38.7-80.0); PLATELET COUNT 143 x10e3/uL (140-360); RED BLOOD COUNT 5.07 x10e6/uL (4.3-5.7); RED CELL DISTRIBUTION WIDTH 15.2 % (11.7-14.4)
[2018-05-19 17:45] LABS: ALBUMIN/GLOBULIN RATIO 0.7 (0.8-2.0); ANION GAP 19.2 mmol/L (8-16); CALCIUM 8.9 mg/dL (8.4-10.2); CREATININE, SERUM 2.42 mg/dL (0.72-1.25); POTASSIUM 4.2 mmol/L (3.5-5.1)
--- NOTE | 2018-05-19 17:45 | NUR ---
ANNE FROM LAB CALLED TO REPORT CRITICAL LACTIC ACID 33.7. LOYD LLANES RN PRIMARY NURSE WELL DR. BEAVER.
[2018-05-19] MEDS ORDERED: SODIUM CHLORIDE 0.9% 1000ML 1,000 ML IV ONE ×2 (18:30→20:00)
[2018-05-19 18:44] LABS: INR 1.16; PROTHROMBIN TIME 15.4 seconds (11.9-14.5)
[2018-05-19 18:45] LABS: PARTIAL THROMBOPLASTIN TIME 31.1 seconds (23.8-35.5)
[2018-05-19] MEDS: PIPERACILLIN/TAZO 2.25 GM 50 ML IV SCH (18:45)
[2018-05-19 18:53] LABS: MAGNESIUM 2.1 MG/DL (1.3-2.1)
--- NOTE | 2018-05-19 18:57 | Diagnostic Imaging Report ---
EXAMINATION: CHEST SINGLE (PORTABLE) INDICATION: ^SEPSIS ^[id number] ^[id number] ^Y COMPARISON: 04/01/2018 FINDINGS: AP view TUBES and LINES: None. LUNGS: Low lung volumes. Left mid to lower lung field opacification. PLEURA: No pneumothorax. HEART AND MEDIASTINUM: The cardiomediastinal silhouette is enlarged and partially obscured. BONES AND SOFT TISSUES: No acute osseous lesion. Soft tissues are unremarkable. UPPER ABDOMEN: No free air under the diaphragm. IMPRESSION: Left mid to lower lung field opacification, representing pneumonia or moderate size pleural effusion/atelectasis. Signed by: Dr. Ta Reynaga MD on 05/19/2018 6:53 PM
[2018-05-19 18:59] LABS: CREATINE KINASE MB 0.8 ng/mL (0-5.0)
--- NOTE | 2018-05-19 19:18 | NUR ---
KASIA DONALD AND DR. BEAVER MADE AWARE OF BLOOD SUGAR 301. NO ORDERS RECEIVED AT THIS TIME.
[2018-05-19] MEDS ORDERED: HEPARIN SOD (PORCINE) 5,000 UNIT/ML VIAL IV ONE (19:30)
[2018-05-19] MEDS ORDERED: VANCOMYCIN 1GM/NS 250 ML 250 ML IV ONE (19:30)
[2018-05-19] MEDS ORDERED: HEPARIN 25,000U/0.45% NS 250ML 900 UNIT in Premix Bag 250 ML IV SCH (19:30)
--- NOTE | 2018-05-19 19:45 | NUR ---
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
[2018-05-19] MEDS ORDERED: HYDROCODONE/APAP 5MG-325MG TAB PO PRN (20:00)
[2018-05-19] MEDS ORDERED: DEXTROSE 50% SYRINGE 50 ML IV PRN (20:00)
[2018-05-19] MEDS ORDERED: ONDANSETRON HCL INJ 2MG/ML 2ML 2 MG/ML VIAL IV PRN (20:00)
--- OUTSIDE RECORDS SUMMARY | 2018-05-19 20:12 | XMS REPORT | Clinical Summary ---
Author Author LOVE [facility] Center[facility] Organization [facility] Address Unknown Phone Unavailable Care Team Providers Care Attache Name Role Phone Sharpless PCP Allergies Comments [...] Advance Directives For more information, please contact: [facility] [address] [place] [address] Date Inactivated Comments Code Status Date Activated 02/24/2016 11:52 AM Full Code 02/01/2016 5:35 PM This code status was determined by: Patient 02/01/2016 5:35 PM Full Code 02/01/2016 5:32 PM This code status was determined by: Patient 02/01/2016 5:32 PM Full Code 01/22/2016 9:39 PM This code status was determined by: Patient
[2018-05-19] MEDS ORDERED: [UNRECOGNIZED DRUG - OTHER] IV SCH (20:30)
[2018-05-19] MEDS ORDERED: HEPARIN IV SCH ×2 (20:30)
[2018-05-19] MEDS ORDERED: [UNRECOGNIZED DRUG - OTHER] IV SCH (20:30)
[2018-05-19] MEDS: LEVOFLOXACIN 250MG/D5W 50ML 50 ML IV SCH (20:51)
--- NOTE | 2018-05-19 21:25 | NUR ---
Patient arrived to the unit via stretcher bed from ED dept to Rm 289. Daughter at bedside. Pt alert and oriented x3. Patient on diaper due to incontinence. Right leg with notable rashes, warm and tender to touch. Pt scheduled for ultrasound of right leg tonight. Pt on frequent pain to right leg and left shoulder. Pt to be started on Heparin drip per protocol (A-fib).Accucheck to be checked. Call esparza within reach. Will monitor closely.
[2018-05-19 21:50] VITALS: BP 119/76
[2018-05-19 21:51] VITALS: BP 119/76
[2018-05-19 22:00] VITALS: BP 119/76
[2018-05-19] MEDS ORDERED: HEPARIN 25,000 UNIT/D5W 250ML 250 ML IV SCH (22:15)
--- NOTE | 2018-05-19 22:32 | NUR ---
Spoke with Dr. Saldana over the phone and notified him of patient's high blood glucose (fingerstick) of 458. MD ordered to give patient total of 25 units Humalog. MD aware latest ultrasound report was positive for DVT on right leg. MD aware pt to be started on heparin drip per protocol (A-fib) and to be titrated. MD consented pt to have Temazepam 30mg PO tonight per pt request.
[2018-05-19] MEDS ORDERED: TEMAZEPAM 15 MG CAP PO PRN (22:45)
[2018-05-19] MEDS ORDERED: INSULIN LISPRO 100 UNIT/1 ML 3ML VIAL SQ ONE (22:45)
[2018-05-19] MEDS: INSULIN LISPRO 100 UNIT/1 ML 3ML VIAL SQ SCH (22:52)
[2018-05-20] VITALS (28 sets, daily range): BP systolic 81–108; BP diastolic 50–79
[2018-05-20 00:48] LABS: BILIRUBIN,URINE NEGATIVE (NEGATIVE); CLARITY,URINE CLEAR (CLEAR); COLOR,URINE YELLOW (YELLOW); KETONES,URINE NEGATIVE (NEGATIVE); LEUKOCYTE ESTERASE ,URINE NEGATIVE (NEGATIVE); NITRITE,URINE NEGATIVE (NEGATIVE); PROTEIN,URINE DIPSTICK TRACE (NEGATIVE); URINE UROBILINOGEN 0.2 mg/dL (0.2 - 1); WBC,URINE (MAN) 0-5 /HPF (0-5)
[2018-05-20 00:50] LABS: BACTERIA,URINE RARE /HPF; EPITHELIAL CELLS,URINE FEW /LPF
[2018-05-20] MEDS: PIPERACILLIN/TAZO 2.25 GM 50 ML IV SCH ×5 (06:04→23:55)
--- NOTE | 2018-05-20 06:20 | NUR ---
Received call from telemetry office (Aminah) and was informed pt has 7 beats of V-tach but quickly went back to Afib with HR on the 80s. Patient asymptomatic and denies any discomfort or pain at this time. Will report to incoming day nurse and to Dr. Saldana during AM rounds.
[2018-05-20 06:39] LABS: BASOPHILS % 0.1 % (0.0-1.0); EOSINOPHILS % 0.1 % (0.0-6.0); HEMATOCRIT 34.4 % (38.2-49.6); HEMOGLOBIN 10.9 g/dL (14.0-18.0); LYMPHOCYTES # (AUTO) 0.9 (1.0-3.2); LYMPHOCYTES % 8.1 % (18.0-39.1); MEAN CORPUSCULAR HEMOGLOBIN 30.3 pg (28-32); MEAN CORPUSCULAR HGB CONC 31.7 g/dL (31-35); MEAN CORPUSCULAR VOLUME 95.6 fL (81-99); MONOCYTES # (AUTO) 0.8 (0.2-0.8); MONOCYTES % 7.3 % (4.4-11.3); NEUTROPHILS # (AUTO) 9.1 (2.1-6.9); NEUTROPHILS % 83.4 % (38.7-80.0); PLATELET COUNT 94 x10e3/uL (140-360); RED CELL DISTRIBUTION WIDTH 15.2 % (11.7-14.4)
[2018-05-20] MEDS: INSULIN LISPRO 100 UNIT/1 ML 3ML VIAL SQ SCH ×4 (07:30→21:28)
[2018-05-20] MEDS ORDERED: TRAMADOL HCL 50 MG TAB PO PRN (08:00)
[2018-05-20 08:14] LABS: CREATINE KINASE MB 0.8 ng/mL (0-5.0)
[2018-05-20 08:22] LABS: BASOPHILS % 0.2 % (0.0-1.0); EOSINOPHILS % 0.1 % (0.0-6.0); HEMATOCRIT 40.6 % (38.2-49.6); HEMOGLOBIN 12.8 g/dL (14.0-18.0); LYMPHOCYTES % 7.1 % (18.0-39.1); MEAN CORPUSCULAR HEMOGLOBIN 30.3 pg (28-32); MEAN CORPUSCULAR HGB CONC 31.5 g/dL (31-35); MONOCYTES % 7.4 % (4.4-11.3); NEUTROPHILS # (AUTO) 11.5 (2.1-6.9); NEUTROPHILS % 84.5 % (38.7-80.0); PLATELET COUNT 108 x10e3/uL (140-360); RED BLOOD COUNT 4.23 x10e6/uL (4.3-5.7); RED CELL DISTRIBUTION WIDTH 15.2 % (11.7-14.4)
[2018-05-20 08:29] LABS: ALBUMIN 2.5 g/dL (3.5-5.0); ALBUMIN/GLOBULIN RATIO 0.6 (0.8-2.0); ANION GAP 15.9 mmol/L (8-16); CALCIUM 8.2 mg/dL (8.4-10.2); CREATININE, SERUM 2.04 mg/dL (0.72-1.25); POTASSIUM 3.9 mmol/L (3.5-5.1)
[2018-05-20] MEDS: PANTOPRAZOLE SOD 40 MG TABEC PO SCH (08:30)
[2018-05-20 08:35] LABS: CHOL/HDL RATIO 2.2 (3.9-4.7)
[2018-05-20 08:52] LABS: FREE THYROXINE INDEX 1.2578 (1.4-3.8); THYROID STIMULATING HORMONE 0.308 uIU/mL (0.350-4.940)
[2018-05-20] MEDS: FINASTERIDE 5 MG TAB PO SCH (09:00)
[2018-05-20] MEDS: ACETAMINOPHEN/CODEINE 300MG - 30MG TAB PO SCH ×3 (09:00→21:28)
[2018-05-20] MEDS: LEVOFLOXACIN 250MG/D5W 50ML 50 ML IV SCH (09:00)
[2018-05-20] MEDS: NEBIVOLOL 10 MG TAB PO SCH (09:00)
[2018-05-20] MEDS: TAMSULOSIN HCL 0.4 MG CAP PO SCH (09:00)
[2018-05-20] MEDS: FUROSEMIDE INJ 10 MG/ML 4 ML VIAL IV SCH ×2 (09:00→21:28)
[2018-05-20] MEDS: FLUOXETINE HCL 20 MG CAP PO SCH (09:00)
[2018-05-20] MEDS: DILTIAZEM HCL 180 MG CAP ER PO SCH (09:00)
--- NOTE | 2018-05-20 11:30 | History and Physical ---
HISTORY OF PRESENT ILLNESS: This patient came in here yesterday with swelling of the lower extremities, some shortness of breath, and also complaints of difficulty walking and left shoulder pain. Symptoms are better today. The patient is admitted for atrial fibrillation with rapid ventricular response and also elevated lactic acid and sepsis. PAST MEDICAL HISTORY: History of hypertension, history of diabetes mellitus, history of congestive heart failure, history of CVA, history of AFib, history of chronic kidney disease, history of osteoarthritis. PAST SURGICAL HISTORY: History of herniorrhaphy, history of IVC filters, abdominal surgery, right foot surgery, and knee surgery. MEDICATIONS: Medications he takes at home include acetaminophen with codeine, aspirin 81 mg, atorvastatin 20 mg, Cartia 180 mg, finasteride 5 mg, fluoxetine 20 mg daily, glimepiride 2 mg, and pantoprazole 40 mg daily. The patient is also on tamsulosin 0.4 mg and tramadol as needed. Dyazide is also included. ALLERGIES: NO DRUG ALLERGIES NOTED. REVIEW OF SYSTEMS: Negative for chest pain. Positive for some shortness of breath. No orthopnea. No PND. No nausea, vomiting, or diarrhea. No constipation. No rectal bleeding. No hematochezia. No hematemesis. SOCIAL HISTORY: History of smoking. No EtOH. No IV drug abuse. FAMILY HISTORY: Contributory for CAD and diabetes in the family. PHYSICAL EXAMINATION: VITAL SIGNS: Temperature is 97.2, pulse of 108, respirations of 18, blood pressure is 119/76. HEENT: Normocephalic, atraumatic. CVS: S1, S2. Irregularly irregular. The patient has a small ejection systolic murmur. ABDOMEN: Nontender, nondistended. EXTREMITIES: Positive for 2+ edema. LUNGS: Decreased air entry into left lung base. Positive for crackles in lower bases too. LABORATORY DATA: The patient's white count was 18,000, trended down to 10.93; left shift present. Chemistries; initial sodium was 134, potassium 4.2, BUN of 62, creatinine of 2.42, EGFR of 26. Coags, INR is 1.6. Urine shows negative leukocyte estrace and protein positive. The patient's initial lactic acid was elevated at 33.7. Glucose is 301. Troponins, first set have been negative. Cardiac enzymes are negative. IMAGING STUDIES: Chest x-ray shows left mid to lower lung field opacification pneumonia, moderate-size effusion. MICROBIOLOGY: Blood cultures and urine cultures are pending. ASSESSMENT: 1. Left-sided pleural effusion. The patient has been having left-sided pleural effusion for the last admission too. A bronchoscopy was done by Dr. Jacobsen and was transudative in nature. 2. Sepsis. The patient is on antibiotics at this time, currently on Zosyn and for atypical coverage, he is on Levaquin. 3. Atrial fibrillation with rapid ventricular response. Unclear why the patient is not on anticoagulation at this time, but faint history of intracranial hemorrhage has been noted in the previous histories. 4. Diabetes mellitus. We will continue on insulin sliding scale. Need to initiate insulin at this time with high A1c probability. 5. The patient also has history of smoking. Smoking cessation has been advised. 6. History of remote IVC filter placement. Unsure if that has been removed or not. The patient is not clear with that history. Further recommendations and clinical course, we will go ahead and start the patient on IV Lasix 40 mg twice a day, anticoagulation with heparin at this time. We will discuss with family reason for stopping anticoagulation. Continue with insulin for diabetes mellitus. Continue with Zosyn for sepsis in lieu of his high lactic acid, although chest x-ray is looking more towards pleural effusion rather than pneumonia. Consultants added will be Dr. Jacobsen for Pulmonology and Dr. Nowak for Cardiology. MD LEROY Rome/MODL /[id number]
--- NOTE | 2018-05-20 14:30 | Consultation ---
DATE OF CONSULTATION: Cardiology Consultation REASON FOR CONSULTATION: Atrial fibrillation. HISTORY OF PRESENT ILLNESS: Mr. 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 He presented to the ER after two days of severe pain in the right lower extremity and swelling. Preliminary ultrasound has found DVT in the right lower extremity. He reports at this time that he has noticed over the last few weeks his shortness of breath has worsened and the shortness of breath is worse with minimal exertion. He also endorses being less physically active at home after he was discharged from this hospital around April 03, 2018. At the present time, he denies any chest pain, palpitation, orthopnea, fever, chills, or syncope. REVIEW OF SYSTEMS: Negative except as mentioned above. PAST MEDICAL HISTORY: Hypertension, hyperlipidemia, diabetes mellitus, atrial fibrillation, history of PE, history of hemorrhagic CVA, chronic kidney disease and right ventricular dysfunction. PAST SURGICAL HISTORY: IVC filter placement. IVC filter is reported to be clogged and nonfunctional. Has been in for few years per family. Bilateral knee surgery, hernia surgery and throat surgery. SOCIAL HISTORY: Denies any tobacco, alcohol, or illicit drug use. FAMILY HISTORY: Noncontributory to current course of illness. PHYSICAL EXAMINATION: VITAL SIGNS: Temperature 96.1, pulse 95, respiratory rate 20, blood pressure 107/79, oxygen saturation 97% on 2 L nasal cannula. GENERAL: Alert and oriented x3. Resting comfortably in bed. Does not appear to be in any acute distress. LUNGS: Diminished breath sounds anterior lower lobe, otherwise clear to auscultation. No wheezing. No rhonchi or crackles. CARDIOVASCULAR: Irregular rate and rhythm. Normal S1, S2. ABDOMEN: Round, soft, nontender. LOWER EXTREMITIES: 2+ pitting edema, right lower extremity red and warm to the touch. CARDIAC MEDICATIONS: Bystolic 5 mg p.o. daily, diltiazem 180 mg p.o. daily, heparin IV titrate, atorvastatin 20 mg p.o. at bedtime. LABORATORY DATA: WBC 13.57, hemoglobin 12.8, hematocrit 40.6, platelets 108. Sodium 138, potassium 3.9, BUN 58, creatinine 2.04, magnesium 8.2, PTT 49.6. TELEMETRY: Atrial fibrillation. IMPRESSION: 1. Right lower extremity deep venous thrombosis. 2. Cellulitis. 3. Atrial fibrillation. 4. History of pulmonary emboli. 5. History of hemorrhagic cerebrovascular accident while on warfarin. 6. Diabetes mellitus. 7. Chronic kidney disease. RECOMMENDATION: Continue the above-listed cardiac medications at this time. Anticoagulation is contraindicated given hemorrhagic CVA while on warfarin. Discontinue heparin, initiate aspirin for now. We are still evaluating what to do in regard to DVT at this time. Complex medical management given above-listed medical conditions. Monitor this patient very closely. Dictated by Cass Hong, HOOD Timothy Nowak MD [facility]/ATAL /[id number]
--- NOTE | 2018-05-20 16:09 | NUR ---
Dr. Saldana made aware of BP manual 90/62; 88/50 with MAP 62 on automatic machine. Orders rec'd to hold all BP meds, tonights dose of Lasix, and bolus 500mL NS.
[2018-05-20] MEDS ORDERED: SODIUM CHLORIDE 0.9% 500ML 500 ML IV ONE (16:15)
--- NOTE | 2018-05-20 17:40 | NUR ---
bolus complete. Reassessed BP, see chart. Will reassess in 30 min.
--- NOTE | 2018-05-20 17:59 | NUR ---
CASE MANAGEMENT INITIAL ASSESSMENT Java Lead Engineer to bedside to discuss plan of care with patient/family. CM/SW role and care transitions discussed. Anticipated discharge plan discussed along with duration of care. CM/SW discussed patients right to make decisions in care. CM/SW work hours given. Patient lives: DAUGHTER; AMY BALLARD Admit/Transfer: ER Hospital/ER visits since last admit:0 POA/Emergency contact: AMY BALLARD DTR [phone] Current/Previous Home Health: HAS HOME HEALTH BUT DOESN'T REMEMBER NAME AND DOESN'T WANT THEM BACK TO HIS HOUSE PCP/Follow-up Care: DR EGAN Current/Previous DME: [facility] Medications (referring to index hospitalization or the first time you were in the hospital) a. Were changes made in your medications when you were in the hospital on [date of index hospitalization]? Yes No Not sure Explain: Note: If no or not sure, please skip to question d b. Did you understand the changes? Yes No Explain: c. Were you able to obtain your new medications right away? Yes No n/a SNF only Explain: d. Were you able to take your medications like the doctor wanted you to? Yes No Explain: e. Did the hospital give you an accurate, easy to understand list of medications when you left? Yes No n/a SNF only Explain: Scale of 1-10 how comfortable does patient feel with disease management in outpatient settin Other Services: LIVES WITH SON IN LAW AND DAUGHTER, HAS A NEXT DOOR NEIGHBOR, KEYANNA WHO TAKES CARE OF HIM DURING THE DAY Employment Status: RETIRED Areas of Concerns: NONE Referral Needs: NONE Education Needs: NA AND FLUID RESTRICTIONS; PROVIDER KEYANNA STATES THEY ARE VERY EDUCATED ON THIS IMM/LUO given and signed (if applicable): IMM ON ADMIT Goal for discharge:BACK HOME WITH FAMILY AND PROVIDER SOON POSSIBLE CM/SW left business card at the bedside with contact information. Name and number was also written on the patients whiteboard. Patient verbalized understanding of discussion. CM will follow-up with ongoing discharge and transition of care needs.
--- NOTE | 2018-05-20 18:34 | NUR ---
BP continues to be low. MAP is 60. Dr. Saldana made aware. Orders rec'd to transfer to ICU for higher level of care. Family made aware. Report called to ICU.
--- NOTE | 2018-05-20 18:48 | NUR ---
Called Dr. Nowak, orders rec'd to titrate BP. Pt transferred to ICU. Family escorted to waiting area. Pulmonary consult made aware of pt transfer. All personal belongings with patient.
--- NOTE | 2018-05-20 19:00 | NUR ---
received patient to icu, patient is aao3, bp 83/55 pulse is irregular 90. dr. sage calls, states we need a central line, because this patient is likely to need vasopressors, so ir consult entered and dopamine order switched to levophed
[2018-05-20] MEDS ORDERED: NOREPINEPHRINE 8 MG/D5W 250 ML 250 ML IV PRN (19:30)
--- NOTE | 2018-05-20 20:00 | NUR ---
Per report from off-going nurse Patient has orders for CT of Chest, Central Line Placement, US Chest and Thoracentesis. Patient's son and daughter at the bedside. Discussed these orders with the patient and family, all in agreement and were informed prior to my arrival. Consents obtained and radiology informed to call MD to place central line.
--- NOTE | 2018-05-20 20:22 | Consultation ---
DATE OF CONSULTATION: Pulmonary Consultation REASON FOR THE CONSULT: Pleural effusion. HISTORY OF PRESENT ILLNESS: Mr. Smiley is an 83-year-old male, known to me from previous admission here. He was here in June 2017, when I saw him with left-sided pleural effusion and it was a loculated effusion with pleural thickening at that time and bronchoscopy showed no endobronchial obstruction. He was advised to come to follow up with me to see if it persists, then may need a pleural biopsy versus EBUS because at that time the lymph nodes were enlarged as well. He has a significant history of asbestos exposure in the past. At this time, he came in with shortness of breath and leg swelling. The patient was found to have large DVT in the leg. He has IVC filter, which is removed and he is not anticoagulation candidate because he has a history of hemorrhagic stroke that was back in 2017. The CT is in the records here and that is why he was taken off Coumadin. He follows up with Dr. Nowak. I had a discussion with Dr. Timothy Nowak's nurse practitioner and the patient's echo is also showing RV dilatation which signifies he may have an acute PE versus he has chronic right-sided heart failure. REVIEW OF SYSTEMS: GENERAL: Denies any fever or chills. HEAD: Denies any head trauma. ENT: Denies any earache. CVS: Denies any chest pain. RESPIRATORY: Shortness of breath. GI: Denies any nausea or vomiting. The rest of the review of systems are negative except as in HPI. PAST MEDICAL HISTORY: Hypertension; hyperlipidemia; history of herniorrhaphy; history of hemorrhagic stroke and was taken off Coumadin because of hemorrhagic stroke, this was almost 2 years ago; history of atrial fibrillation; osteoarthritis; chronic kidney disease. FAMILY AND SOCIAL HISTORY: His daughter primarily takes care of his appointment. Does not smoke. Does not drink. 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 PHYSICAL EXAMINATION: VITAL SIGNS: Temperature 96.1, pulse of 95, blood pressure 107/79, respiratory rate of 18, O2 saturation 97% on 2 L. HEENT: Head is atraumatic, normocephalic. NECK: Supple. CHEST: There is decreased air entry on the left side with possibility of bronchial sound as well. HEART: S1, S2 audible. ABDOMEN: Soft, nontender, nondistended. EXTREMITIES: Bilateral pedal edema, 3+. NEUROLOGIC: Awake, alert. No focal neurologic deficits. LABORATORY DATA: White count of 13,000, hemoglobin 12.8, platelets 108. Chemistry; sodium 138, potassium 3.9, chloride 101, BUN 58, creatinine 2.04. Creatinine was 2.42 when he came in; in March when he was discharged, it was 2.38; in 2016, it was 2.35. The patient's TSH is 0.308 and thyroid hormone is 2.39. His pleural effusion, which was drained in June 2017 was highly exudative. Chest CT images from 2018 reviewed and loculated left-sided pleural effusion with pleural thickening and bronchoscopy in 2018 showed no endobronchial lesion. ASSESSMENT/PLAN: An 83-year-old male came in with shortness of breath, leg swelling from DVT, cannot have anticoagulation because of history of hemorrhagic stroke in the past, bilateral leg edema, congestive heart failure, right-sided heart strain as well. Chest x-ray showing chronic left-sided pleural effusion 1. Left-sided pleural effusion is chronic. Previously, it was drained and it was highly exudative. He has history of asbestos exposure and he has pleural thickening with this type of effusion. The last one was in June 2007, almost a year ago. These findings can be due to asbestos exposure causing pleural thickening and benign asbestos pleural effusion versus mesothelioma if it has been chronic. There is no CT scan done after the June and he did not follow up with me as an outpatient. I had a discussion with the daughter over the phone today and she remembers about my discussion in June about following up. He had lymphadenopathy at that time as well. I will repeat a CAT scan and follow up the results. If he still has these findings, then I will have a discussion with the patient and the daughter further proceeding about pleural biopsies, video-assisted thoracoscopic biopsies versus EBUS and trans-endobronchial ultrasound and transbronchial needle aspiration if there are lymph nodes; however, I am unsure if the family or the patient wants to do these aggressive measures as he already has history of CVA, hemorrhagic stroke, and PEs, which cannot be anticoagulated and overall comorbidities, quality of life, and age may preclude being this aggressive. I will also order ultrasound of the left chest and thoracentesis at this time as well to see what the pleural fluid is showing. Last time, the pleural fluid pathology was negative for any malignant cells. Another cytology will help to strengthen the case that it may be a benign asbestos pleural effusion. 2. Pulmonary embolism, DVT, right heart strain on echo. Unfortunately, not a candidate for anticoagulation because of history of hemorrhagic stroke. The brain CT that is showing evidence of hemorrhagic stroke was done in January 2016. 3. Severe hypothyroidism. I will check a free T4 and free T3 and start the patient on levothyroxine as well. 4. Chronic kidney disease, which the creatinine is now near baseline after diuresis. I think bilateral leg edema is likely due to the DVT and relative immobility. 5. Continue the patient on IV Zosyn for possible underlying pneumonia versus cellulitis as the patient's blood cultures have been positive for gram-positive bacteria in both bottles, identification is still pending. The patient has received a dose of vancomycin yesterday, levels need to be checked before re-dosing because of his chronic kidney disease. Thank you for this interesting consult. MD GEOVANNI Courtney/SOBEIDA /[id number]
[2018-05-20] MEDS: ATORVASTATIN 20 MG TAB PO SCH (21:28)
[2018-05-20] MEDS ORDERED: ACETAMINOPHEN/CODEINE 300MG - 30MG TAB ONE (21:29)
--- NOTE | 2018-05-20 22:30 | NUR ---
Dr. Christen Mendoza arrived at approximately 2205 to insert central line. Time out performed at bedside with MD and tech present. Rt IJ TLC inserted without complication and patient s/s distress. Post X-ray obtained and read by Dr. Mendoza. Verbal order received, Ok to use.
--- NOTE | 2018-05-20 22:51 | Diagnostic Imaging Report ---
ADDENDUM #1 Please refer to report of ultrasound of chest performed on the same day which demonstrated no significant pleural effusion. However, pleural effusion was present on the prior CT examination of 2018. Consider follow-up CT chest with contrast. Signed by: Dr. Dallas Harding M.D. on 05/20/2018 10:54 PM ORIGINAL REPORT EXAMINATION: CHEST XRAY LINE PLACEMENT INDICATION: Central Line Placement COMPARISON: 05/19/2018. FINDINGS: TUBES and LINES: Interval placement of a right sided central venous catheter with the distal tip projected on the cavoatrial junction. LUNGS AND PLEURA: Left pleural effusion and left basilar atelectasis versus consolidation again observed. No pneumothorax. HEART AND MEDIASTINUM: The cardiomediastinal silhouette is unremarkable. BONES AND SOFT TISSUES: No acute osseous lesion. Soft tissues are unremarkable. UPPER ABDOMEN: No free air under the diaphragm. IMPRESSION: Interval placement of a right sided venous catheter with distal tip projected in the cavoatrial junction. Otherwise no significant change. Signed by: Dr. Dallsa Harding M.D. on 05/20/2018 10:47 PM
--- NOTE | 2018-05-20 22:55 | Diagnostic Imaging Report ---
Exam: Ultrasound of chest Clinical history: Pleural effusion. Technique: Using a curved array transducer, real-time imaging of the bilateral hemithorax was performed with images saved in sagittal and transverse planes. Discussion: There is no significant pleural effusion bilaterally. No fluid collections. Impression: No pleural effusion, particularly on the left as suspected on the recent radiographs. Increased density in the lower left hemithorax may reflect mostly consolidation. Signed by: Dr. Dallas Harding M.D. on 05/20/2018 10:52 PM
--- NOTE | 2018-05-20 23:45 | Diagnostic Imaging Report ---
EXAM: CT Chest WITHOUT contrast INDICATION: Abnormal chest x-ray. COMPARISON: 06/04/17. TECHNIQUE: Chest was scanned utilizing a multidetector helical scanner from the lung apex through the level of the adrenal glands without administration of IV contrast. Absence of intravenous contrast decreases sensitivity for detection of lymphadenopathy and vascular pathology. Coronal and sagittal reformations were obtained. Routine protocol was performed. IV CONTRAST: None COMPLICATIONS: None RADIATION DOSE: Total DLP: 511.72 mGy*cm Estimated effective dose: (DLP x 0.014 x size factor) mSv CTDIvol has been reviewed. It is below the limits set by the Radiation Protocol Committee (RPC). FINDINGS: LINES/ TUBES: Right neck central venous catheter with distal tip in the cavoatrial junction. LUNGS , PLEURA, AND AIRWAYS: Redemonstration of a complex small volume left pleural effusion with thickened pleura in split pleura sign, unchanged. There is left lower lobe atelectasis and/or scarring, with calcified granuloma, unchanged. Trace right pleural effusion. Bibasilar dependent atelectasis. Subtle nodular densities in the posterior lower lobes bilaterally have decreased. . HEART AND MEDIASTINUM: Heterogeneous thyroid gland. Mediastinal lymphadenopathy. Prominent mediastinal lymph nodes, the largest in the precarinal location measuring 1.2 cm on image 40 series 2, unchanged. Calcified left hilar lymph nodes. Heart is borderline enlarged. No pericardial effusion. Atherosclerotic calcification of aorta and coronary arteries. Main pulmonary artery is enlarged, measuring 3.7 cm in diameter, again suggestive of pulmonary hypertension. Multivessel coronary artery calcifications. Calcifications of the thoracic aorta without aneurysmal dilatation. UPPER ABDOMEN: Hepatic and splenic calcified granulomas. Cholelithiasis. Partially imaged kidneys with bilateral cysts. BONES: Right humeral head anchor screws. Degenerative changes of the bilateral shoulders, right more than left. Degenerative changes of the thoracic spine. Remote healed rib fractures. SOFT TISSUES: Unremarkable. IMPRESSION: 1. Stable, chronic small complex loculated left pleural effusion associated with left lower lobe atelectasis/scarring. 2. Stable mild mediastinal lymphadenopathy. Signed by: Dr. Dallas Harding M.D. on 05/20/2018 11:42 PM
[2018-05-21] VITALS (41 sets, daily range): BP systolic 80–103; BP diastolic 50–72
[2018-05-21] MEDS ORDERED: SODIUM CHLORIDE 0.9% 1000ML 1,000 ML, SODIUM CHLORIDE 0.9% 1000ML 1,000 ML IV ONE ×3
[2018-05-21 05:15] LABS: BASOPHILS % 0.1 % (0.0-1.0); EOSINOPHILS % 0.2 % (0.0-6.0); HEMATOCRIT 38.9 % (38.2-49.6); HEMOGLOBIN 12.7 g/dL (14.0-18.0); LYMPHOCYTES # (AUTO) 0.9 (1.0-3.2); LYMPHOCYTES % 7.6 % (18.0-39.1); MEAN CORPUSCULAR HEMOGLOBIN 30.3 pg (28-32); MEAN CORPUSCULAR HGB CONC 32.6 g/dL (31-35); MEAN CORPUSCULAR VOLUME 92.8 fL (81-99); MONOCYTES # (AUTO) 0.9 (0.2-0.8); MONOCYTES % 7.4 % (4.4-11.3); NEUTROPHILS # (AUTO) 9.9 (2.1-6.9); PLATELET COUNT 115 x10e3/uL (140-360); RED BLOOD COUNT 4.19 x10e6/uL (4.3-5.7); RED CELL DISTRIBUTION WIDTH 14.9 % (11.7-14.4)
[2018-05-21] MEDS ORDERED: SODIUM CHLORIDE 0.9% 1000ML 1,000 ML ONE (05:27)
[2018-05-21] MEDS: LEVOTHYROXINE SODIUM 50 MCG TAB PO SCH (05:30)
[2018-05-21] MEDS: PIPERACILLIN/TAZO 2.25 GM 50 ML IV SCH (05:30)
[2018-05-21 05:40] LABS: ANION GAP 13.2 mmol/L (8-16); CALCIUM 7.8 mg/dL (8.4-10.2); CREATININE, SERUM 1.76 mg/dL (0.72-1.25); MAGNESIUM 1.5 MG/DL (1.3-2.1); POTASSIUM 3.2 mmol/L (3.5-5.1)
[2018-05-21] MEDS ORDERED: SODIUM CHLORIDE 0.9% 1000ML 2,000 ML ONE (06:27)
[2018-05-21] MEDS: INSULIN LISPRO 100 UNIT/1 ML 3ML VIAL SQ SCH ×4 (07:30→21:48)
[2018-05-21] MEDS ORDERED: VANCOMYCIN 1GM/NS 250 ML 250 ML IV SCH (09:00)
[2018-05-21] MEDS: ACETAMINOPHEN/CODEINE 300MG - 30MG TAB PO SCH ×3 (09:00→21:00)
[2018-05-21] MEDS: NEBIVOLOL 10 MG TAB PO SCH (09:00)
[2018-05-21] MEDS: DILTIAZEM HCL 180 MG CAP ER PO SCH (09:00)
[2018-05-21] MEDS: PANTOPRAZOLE SOD 40 MG TABEC PO SCH (09:41)
[2018-05-21] MEDS: FUROSEMIDE INJ 10 MG/ML 4 ML VIAL IV SCH (09:41)
[2018-05-21] MEDS: FLUOXETINE HCL 20 MG CAP PO SCH (09:41)
[2018-05-21] MEDS: TAMSULOSIN HCL 0.4 MG CAP PO SCH (09:41)
[2018-05-21] MEDS: FINASTERIDE 5 MG TAB PO SCH (09:45)
--- NOTE | 2018-05-21 10:47 | NUR ---
WOUND CARE CONSULTATION: THIS IS AN 83 YEAR OLD MALE PATIENT ADMITTED TO [facility] FOR ATRIAL FIBRILLATION, CELLULITIS, AND PNEUMONIA. PATIENT HAS A HISTORY OF HTN, DIABETES MELLITUS TYPE 2, CHF, CVA, CHRONIC KIDNEY DISEASE AND OSTEOARTHRITIS. HEAD TO TOE SKIN ASSESSMENT PERFORMED. PATIENT HAS A STAGE 2 PRESSURE ULCER TO THE RIGHT BUTTOCKS, MEASURING 2X0.8X0.1CM. FAMILY AT BEDSIDE SAID PATIENT HAD TO ULCER PRIOR TO ADMISSION AND THAT IT GOES AWAY AND COMES BACK AT TIMES. 4+ PITTING EDEMA NOTED TO BILATERAL LOWER EXTRIMITIES; PATIENT IS POSITIVE FOR DVT TO RIGHT CALF, REDNESS AND SWELLING NOTED, SKIN IS WARM TO TOUCH. PATIENT ALSO HAS BILATERAL UPPER ARM BRUISING FROM VENOUS STICKS AND BLOOD LAB DRAWS. 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 LABS: WBC11.91 ALB2.5 [id number] MEDICATIONS: VANCOMYCIN ZOSYN RECOMMENDATION: -CONTINUE WITH ALTERNATING PRESSURE RELIEF MATTRESS. -APPLY BILATERAL HEEL PROTECTORS WITH PILLOW SUSPENSION. -NURSING TO CLEAN STAGE 2 RIGHT BUTTOCKS PRESSURE ULCER WITH NORMAL SALINE, PAT DRY, APPLY VENELEX AND COVER WITH ALLEVYN FOAM DRESSING; CHANGE DAILY AND PRN. -NURSING TO CONTINUE TO MONITOR REDNESS TO RIGHT CALF SITE OF DVT FOR SIGNS OF CHANGES IN INCREASED REDNESS, FEVER, INCREASED SWELLING AND INCREASED EDEMA. -NURSING TO CLEAN LEFT SCAPULA WOUND WITH NORMAL SALINE, PAT DRY, APPLY FIBRACOL TO SIZE OF WOUND, COVER WITH NS MOISTENED GAUZE AND SECURE WITH TAPE; CHANGE DRESSING EVERY OTHER DAY AND PRN. THANK YOU FOR THIS WOUND CARE CONSULT. Addendum: 05/21/18 at 1106 by Nany Porter RN Amended: Links added.
--- NOTE | 2018-05-21 10:51 | NUR ---
consult called to -neurology per cardiology request. to evaluate potential to start patient on anticoagulant therapy as pt has had a hemoraghic event in past and dvt's.
[2018-05-21] MEDS ORDERED: POTASSIUM CHLORIDE 20 MEQ TAB CR PO STA (12:29)
--- NOTE | 2018-05-21 13:10 | Progress Note ---
DATE: 05/21/2018 Cardiology Progress Note SUBJECTIVE: The patient denies chest pain or shortness of breath. OBJECTIVE: VITAL SIGNS: Temperature 97.9 degrees, pulse 80, respiratory rate 16, blood pressure 96/64, oxygen saturation 99% on 2 L nasal cannula. GENERAL: Elderly man, in no acute distress, awake and alert. LUNGS: Clear to auscultation bilaterally. No wheezes or crackles. CARDIOVASCULAR: Normal rate, irregularly irregular. No murmur. Normal S1, S2. ABDOMEN: Soft, nontender. EXTREMITIES: 2+ pitting edema bilaterally. CARDIAC MEDICATIONS: Furosemide 40 mg IV q.12 hours, levothyroxine 50 mcg p.o. daily, atorvastatin 20 mg p.o. at bedtime, nebivolol 5 mg p.o. daily, and diltiazem 180 mg p.o. daily. LABORATORY DATA: WBC 11.91, hemoglobin 12.7, hematocrit 38.5, platelets 115. Sodium 139, potassium 3.2, chloride 103, CO2 of 26, BUN 53, creatinine 1.76. TELEMETRY: Atrial fibrillation. IMPRESSION: 1. Right lower extremity deep venous thrombosis. 2. Atrial fibrillation. 3. Acute kidney injury on chronic kidney disease, improved. 4. Hypothyroidism. 5. Left pleural effusion. 6. Chronic right ventricular systolic heart failure. 7. Occluded infrarenal IVC. 8. Hypertension. 9. Hyperlipidemia. 10. History of pulmonary embolism. 11. History of hemorrhagic cerebrovascular accident. 12. Diabetes mellitus. RECOMMENDATIONS: The patient's lower extremity venous Doppler revealed right lower extremity DVT; however, the patient cannot be anticoagulated due to his history of hemorrhagic CVA. Continue current cardiac medications. We have asked Neurology consultation to assess the patient's risk of anticoagulation. Continue to monitor the patient closely on telemetry. Prognosis is guarded. Continue antibiotics as the patient's blood cultures are growing gram-variable rods and gram-positive cocci in chains. Thank you for this consult. We will continue to follow. Randee Mendoza MD ABS/MODL /[id number]
--- NOTE | 2018-05-21 16:23 | NUR ---
Nutrition Screen Note RD Recommendation for Physician: - Continue 1800 ADA diet Plan of Care: RD following, monitoring for tolerance and adequacy Nutrition reason for involvement: Nutrition Risk Trigger- MST2 Primary Diagnose(s): Afib, cellulitis, swelling of BLE, PNA PMH: HTN, DM, CHF, CVA, Afib, CKD, OA Ht: 69.5 in Wt: 190 lb BMI: 27.7 kg/m2 IBW: [address] Assessment: (05/21) 83 YOM admitted for swelling of BLE with possible DVT. Pt seen today per MST score. Pt discussed during ICU rounds, pt not a candidate for anticoagulant therapy per RN. Pt was NPO for possible procedure this am. 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 Pt and pt's family report no GI distress and state that the pt has been wt stable. Pt follows a "no sugar and no added salt diet" at home. Chart reviewed. Labs and meds reviewed. Will monitor and continue to follow. Current Diet: 1800 ADA Malnutrition Evaluation (05/21/18) The patient does not meet criteria for a specified degree of malnutrition at this time. Will re-evaluate at follow-up as appropriate. Diet Education Needs Assessment: Diet education not indicated. Nutrition Care Level: Low Signed: Lisa San RD, LD, [facility]
[2018-05-21] MEDS: CEFTRIAXONE SOD 1 GM/NS 50 ML 50 ML IV SCH (18:44)
--- NOTE | 2018-05-21 19:37 | NUR ---
gi consult called. vital signs in chart manager night nursing report given
[2018-05-21] MEDS: ATORVASTATIN 20 MG TAB PO SCH (21:57)
[2018-05-21] MEDS ORDERED: POLYETHYLENE GLYCOL 3350 17 GM PACK PO ONE (22:00)
[2018-05-21] MEDS ORDERED: SENNA-S TABLET PO ONE (22:00)
[2018-05-22] VITALS (18 sets, daily range): BP systolic 92–115; BP diastolic 57–77
--- NOTE | 2018-05-22 01:48 | Consultation ---
DATE OF CONSULTATION: REASON FOR CONSULTATION: The patient has bacteremia and sepsis, recommendation of antibiotic. HISTORY OF PRESENT ILLNESS: This patient is an 83-year-old white male, who has history of hypertension, diabetes mellitus, congestive heart failure, CVA, atrial fibrillation, chronic kidney disease, and osteoarthritis. The patient comes into the emergency room here. The patient was consented because of shortness of breath, not feeling well for one day. The patient comes in the emergency room, where he was evaluated. He is telling me when he first came here, he thought he had a spider bite to his leg because his right leg was red and swollen. The patient denies any history of specific trauma. A blood culture was obtained, which is growing Streptococcus burden. Infectious Disease was asked to see him. When I saw the patient, he is complaining of swelling in his legs, but also he is having difficulty swallowing when I was reviewing the system with him. He said the food gets stuck in his throat whether it is chicken, sandwich or water. The patient who is currently otherwise in ICU, but he is lying comfortably. I reviewed his chart since admission, all the consults. PAST MEDICAL HISTORY: Hypertension, diabetes mellitus, heart failure, CVA with residual chronic disease. PAST SURGICAL HISTORY: He had herniorrhaphy, IVC filter, abdominal surgery, right foot surgery, and right knee surgery. ALLERGIES: NKA. SOCIAL HISTORY: There is no smoking, drug abuse, or alcohol abuse. He has a history of smoking, but not recently, he quit. FAMILY HISTORY: Hypertension. REVIEW OF SYSTEMS: At the present time: HEENT: There is no headache or visual change or hearing changes. GI: There is no nausea, no vomiting, no diarrhea, but the food gets stuck in the mid throat. : Negative. SKIN: There is only erythema and warm on the right leg, otherwise denies. The patient's joint has chronic aches and pains, but there is no acute finding. All other symptoms are within normal limit. The patient came here. He had a Doppler of lower extremities, found DVT in the right lower extremity. He was seen by Cardiology. Echocardiogram was ordered, but I do not see the result. He apparently has history of pulmonary embolism, history of hemorrhagic CVA while he was on Coumadin, and history of chronic kidney disease. He was seen by Pulmonary. He was seen by Cardiology. I am asked to see him today. Currently, he had left side pleural effusion, which was chronic. It was drained. It was highly exudative. He had history of asbestos exposure. He has pleural thickening. Currently, the patient is lying in bed comfortably. PHYSICAL EXAMINATION: GENERAL: He is currently alert, oriented, does not seem to be in acute distress. VITAL SIGNS: Stable. Afebrile. HEENT: He is not icteric. NECK: Supple. CHEST: Clear bilateral. HEART: S1, S2. No S3, S4, murmur. ABDOMEN: Soft. Bowel sound present. EXTREMITIES: No edema. SKIN: No rashes at the present time. IMPRESSION: 1. Bacteremia of sepsis on admission with Streptococcus burden, source is unclear. I would recommend to do a colonoscopy, CT of the abdomen and pelvis, and CT of chest. We will put him on Rocephin 1 g q.12h. Echocardiogram is ordered. I do not have the result. We will discuss with the Cardiology about the finding. 2. Right lower extremity DVT. I do not think he has cellulitis of his leg. I think it is from his DVT. 3. Atrial fibrillation. 4. Acute kidney injury on chronic kidney disease. 5. History of hypothyroidism. 6. History of left pleural effusion, old. 7. History of right ventricular systolic congestive heart failure, history of hypertension, history of hyperlipidemia, history of pulmonary embolism, history of hemorrhagic CVA, and history of diabetes mellitus, all seem to be stable. I would recommend to recheck blood cultures and recheck CBC. Follow up on his kidney function. I would recommend GI evaluation to assess for difficulty with swallowing. He will need EGD and colonoscopy. We will follow with you. Discussed with Internal Medicine. Discussed with the nurse. Discussed with the patient. MD YENIFER Sandoval/SOBEIDA /[id number]
--- NOTE | 2018-05-22 03:09 | Consultation ---
DATE OF CONSULTATION: 05/21/2018 GI Consult Note. REASON FOR CONSULT: 1. Evaluation for colonoscopy as the patient's blood culture is growing Streptococcus viridans. 2. Nonprogressive dysphagia mainly to liquid, oropharyngeal phase for more than 6 to 8 months. HISTORY OF PRESENT ILLNESS: An 83-year-old very pleasant white male with past medical history of hemorraghic stroke, DVT (not a candidate for anticoagulation due to previous history of hemorraghic stroke). He has had IVC filter, which was recently removed. He is having gram-positive septicemia with Streptococcus viridans. ID is following the patient. GI has been consulted for considering colonoscopy, as the possibility of the source of Streptococcus viridans is mostly in the GI tract. He also has intermittently persistent nonprogressive dysphagia mainly to liquids, especially water. He describes that often he thinks that water gets hung up into upper esophagus and in the throat. Denies any choking or coughing. Not sure if he has ever had any upper endoscopy or colonoscopy. REVIEW OF SYSTEMS: A 12-point system reviewed. Symptomatology is limited as per HPI. He has severe pleural effusion, congestive heart failure resulting into generalized anasarca. PAST MEDICAL HISTORY: Hypertension, hyperlipidemia, hemorrhagic stroke. PAST SURGICAL HISTORY: IVC filter placement that was subsequently removed. FAMILY HISTORY: Noncontributory. SOCIAL HISTORY: No smoking, alcohol, or any illicit drug use. ALLERGIES: NO KNOWN DRUG ALLERGIES. HOME MEDICATIONS: Acetaminophen with codeine, aspirin 81 mg daily, atorvastatin 20 mg daily, diltiazem XT 180 mg daily, finasteride 5 mg daily, fluoxetine 20 mg, glimepiride 2 mg daily, levofloxacin 500 mg daily for 10 days, nebivolol 5 mg daily, pantoprazole 40 mg, tamsulosin 0.4 mg, tramadol 50 mg twice daily as needed. INPATIENT MEDICATIONS: List reviewed. The patient is on intravenous ceftriaxone along with other outpatient medications. PHYSICAL EXAMINATION: VITAL SIGNS: Temperature 98.1, pulse 87, respirations 20, blood pressure 90/68, oxygen saturation 95% on 2 L of nasal cannula. GENERAL: Not in acute distress. Oral mucosa is moist. Anicteric sclerae. CVS: S1 and S2 regular. LUNGS: Bilaterally grossly clear with decreased breath sounds at both bases, predominantly quite diminished on the left side. ABDOMEN: Obese, soft. No abdominal tenderness. No rebound, rigidity, or guarding. Positive bowel sounds. EXTREMITIES: 2+ bilateral pitting leg edema. LABORATORY DATA: WBC 11.91, hemoglobin 12.7, hematocrit 38.9, MCV 92.8, platelet count 115. Sodium 139, potassium 3.2, chloride 103, bicarb 26, BUN 53, creatinine 1.76, glucose 157. PT 15.4, INR 1.16. CT chest showed: 1. A stable chronic small complex loculated left pleural effusion associated with a left lower lobe atelectasis/scarring. 2. Stable mild mediastinal lymphadenopathy. IMPRESSION: 1. Streptococcus viridans septicemia, being treated with intravenous ceftriaxone. 2. Oropharyngeal dysphagia mainly for liquids, predominantly for water. 3. Slow transit constipation. PLAN: I do not see the need for colonoscopy for Streptococcus viridans septicemia. The yield of colonoscopy is going to be very, very low. Patient is also high risk for any invasive procedure and concious sedation If at all an intraabdominal sepsis is concerned for the source of bacteremia, then consider CT of the abdomen and pelvis with at least oral contrast. Oropharyngeal dysphagia mainly for liquids needs to be evaluated with the speech and swallow service. Bowel regimen for constipation. I thank Dr. Fatima for allowing me to participate in the care of this patient. Estrada Flores MD SA/SOBEIDA /[id number] MTDD
--- NOTE | 2018-05-22 04:14 | Consultation ---
DATE OF CONSULTATION: 05/21/2018 Neurology Consult Note HISTORY OF PRESENT ILLNESS: Mr. Smiley is an 83-year-old hiedo-dboi-brsuynhy man with an extensive past medical history, admitted to [facility] on May 19, 2018, with a right lower extremity deep venous thrombosis, possible pneumonia, and possible cellulitis of the right leg. Mr. Smiley does have a history of paroxysmal atrial fibrillation as well as a prior pulmonary embolus. Mr. Smiley has previously had a deep venous thrombosis in his left leg. He has undergone IVC filter placement x2. However, both filters are "clogged." A neurological consultation is requested to determine whether or not the patient may be anticoagulated. In addition to the above past medical history, Mr. Smiley experienced two hemorrhagic strokes approximately 1 to 2 years ago. According to the patient, the hemorrhagic strokes were by approximately two weeks. At the time of his first hemorrhagic stroke, the patient was taking warfarin for anticoagulation for his known history of paroxysmal atrial fibrillation, prior pulmonary embolus, prior lower extremity deep venous thromboses, etc. Mr. Smiley does not know whether or not he was therapeutic or supratherapeutic on warfarin at the time of his first hemorrhagic stroke. However, according to the petroleum production engineer, Dr. Mendoza, the patient was therapeutic on warfarin. Mr. Smiley cannot state whether or not he was severely hypertensive at the time of either hemorrhagic stroke. He does not know the location of either stroke (i.e., near the cortex versus near the ventricles). The patient is only able to say the hemorrhagic strokes occurred on the left side of the brain because he had right-sided deficits. At present, Mr. Smiley does not report any clear deficits from his prior hemorrhagic strokes. The patient does take aspirin 81 mg by mouth daily as a "blood thinner" for the aforementioned diagnoses. Mr. Smiley reports his mother at the age of 49 from a stroke. Otherwise, there is no known significant family history of clotting disorders. Specifically, there are no other family members who had heart attacks or strokes at young age. There are no family members who have experienced multiple deep venous thromboses or pulmonary emboli. There are no women who have experienced multiple miscarriages. REVIEW OF SYSTEMS: Shortness of breath, dyspnea on exertion, mild depression, impairment of balance and gait, right leg pain and swelling. Otherwise, a 12-point review of systems is negative. PAST MEDICAL HISTORY: Hypertension, hyperlipidemia, diabetes mellitus, paroxysmal atrial fibrillation, osteoarthritis, chronic kidney disease stage IIIB. History of gastroesophageal reflux disease, two prior hemorrhagic strokes with unclear residual deficits, prior pulmonary embolus, and bilateral deep venous thromboses. PAST SURGICAL HISTORY: IVC filter placement x2, procedure on the right great toe, bilateral knee replacements, multiple hernia repairs, and bilateral cataracts removal. PAST HOSPITALIZATIONS: Surgeries/procedures as listed, multiple hospitalizations for various infections, blood clots, etc. FAMILY MEDICAL HISTORY: Mr. Smiley reports multiple family members have hypertension. The patient's paternal and maternal grandparents are . Their medical histories are unknown. The patient's father is from congestive heart failure. Mr. Smiley's mother is at the age of 49 years from a stroke. The patient had two brothers, and one sister, all of whom are . One brother is from a complication from a procedure. One brother is as a result of a motor vehicle accident. The sister's medical history and cause of is unknown. Mr. Smiley has four children, three sons and one daughter, all of whom are alive and healthy. SOCIAL HISTORY: The patient is . He is retired. Mr. Smiley does not report current or prior tobacco, alcohol, or recreational drug use. HOME MEDICATIONS: Aspirin 81 mg by mouth daily, diltiazem 180 mg by mouth daily, nebivolol 5 mg by mouth daily, triamterene/ hydrochlorothiazide 37.5/25 mg one tablet by mouth daily, atorvastatin 20 mg by mouth at bedtime daily, glimepiride 2 mg by mouth daily, pantoprazole 40 mg by mouth daily, tamsulosin 0.4 mg by mouth daily, acetaminophen with codeine 300 mg by mouth three times daily, tramadol 50 mg by mouth twice daily as needed for pain, finasteride 5 mg by mouth daily, and levofloxacin 500 mg by mouth daily. HOSPITAL MEDICATIONS: Tylenol No. 3, atorvastatin, ceftriaxone, dextrose, diltiazem, dopamine/dextrose, finasteride, fluoxetine, furosemide, hydrocodone/acetaminophen, insulin lispro, levothyroxine, nebivolol, norepinephrine, ondansetron, pantoprazole, tamsulosin, temazepam, and tramadol. ALLERGIES: NO KNOWN DRUG ALLERGIES. NO KNOWN FOOD ALLERGIES. NO KNOWN ALLERGIES TO LATEX. NO KNOWN ALLERGIES TO IODINE OR OTHER CONTRAST MATERIALS. PHYSICAL EXAMINATION: VITAL SIGNS: Height 69.5 inches, weight 190 pounds, BMI 27.7 kg/m2, blood pressure 90/68 mmHg, pulse 87 beats per minute, respiratory rate 20 breaths per minute, and oxygen saturation 95% on room air. GENERAL: The patient is awake and alert, does not appear distressed. HEENT: Normocephalic, atraumatic. Pupils are surgical. Moist mucous membranes. NECK: Supple. No appreciable thyromegaly. No appreciable carotid bruits. CARDIOVASCULAR: S1, S2, regular rate, irregular rhythm. No murmurs, rubs, or gallops. RESPIRATORY: Clear to auscultation bilaterally. No wheezes, rhonchi, or rales. EXTREMITIES: The skin is warm and dry. No clubbing or cyanosis. There is 3+ pretibial pitting edema present. The posterior tibial and dorsalis pedis pulses are 1+ and symmetric. SKIN: The right foreleg is erythematous and warm to the touch. NEUROLOGIC: Memory/Attention: The patient is awake and alert, oriented to person, place, time, and situation. Cranial Nerves: Cranial nerve I - not tested. Cranial nerves II, III, IV, and - pupils are surgical. Extraocular movements intact. No nystagmus. Cranial nerve V - sensation to light touch is intact in the bilateral V1 through V3 distributions. Strength in the temporalis and masseter muscles are within normal limits. Cranial nerve VII - the face is symmetric as are all facial movements. Strength is within normal limits. Cranial nerve VIII - hearing is diminished to finger rub bilaterally. Cranial nerves IX, X - the soft palate elevates equally and symmetrically. Cranial nerve XI - normal strength of the bilateral sternocleidomastoid and trapezius muscles. Cranial nerve XII - the tongue protrudes to midline and moves symmetrically from sddc-ab-sgns. Strength: Bulk is normal. Strength is 5/5 in the bilateral deltoids, biceps, triceps, wrist flexors and extensors, finger flexors and extensors, intrinsic hand muscles, hip flexors, knee flexors and extensors, ankle dorsiflexion and plantar flexion, and intrinsic foot muscles except as follows: The lower extremity flexors are 4 to 4+ out of 5. Tone is normal. DTRs: Deep tendon reflexes are 1+ and symmetric at the triceps, biceps, and brachioradialis. Deep tendon reflexes are absent and symmetric at the patellas and Achilles. Sensation: Sensation is intact to light touch in both arms and both legs. Cerebellar: Fkinsa-aacl-iefljg and heel-muro movements are intact without dysmetria or other impairment. Gait: Deferred. Speech: Spontaneous speech is mildly dysarthric without appreciable aphasia. Repetition is intact. Involuntary Movements: None. Pronator Drift: None. LABORATORY DATA: The most recent basic metabolic panel is significant for a potassium of 3.2, BUN of 53, creatinine of 1.76, estimated GFR of 37, FIG-dd-fpiqiziqli ratio of 30, glucose of 157, and calcium of 7.8. Cardiac enzymes are negative x3. Lactic acid 33.7. A liver function panel collected on May 20, 2018, is significant for an albumin of 2.5 and a globulin of 4.1. Hemoglobin A1c 9.0. Total cholesterol 84, triglycerides 52, LDL cholesterol 35, HDL cholesterol 39. TSH 0.308, free T4 index 1.2578, thyroxine (T4) 2.39, T3 uptake 52.63. The most recent CBC with differential and platelets reveals a white blood cell count of 11.91 with a left shift with 83.0% neutrophils, 7.6% lymphocytes, 7.4% monocytes, 0.2% eosinophils, and 0.1% basophils. The hemoglobin and hematocrit are 12.7 and 38.9, respectively. The platelet count is 115. PT 15.4. INR 1.16. PTT 31.1, 96.4, and 49.6. A urinalysis collected on May 20, 2018, was significant for trace protein, 1+ glucose, 1+ blood, and 6-10 red blood cells. Blood cultures collected on May 19, 2018, grew Streptococcus viridans. A urine culture collected on May 20, 2018, reveals no growth at 18-24 hours. DIAGNOSTIC STUDIES: Electrocardiogram on 05/19/2018: Atrial fibrillation with rapid ventricular response at 110 beats per minute. Chest x-ray on 05/19/2018: Left mid to lower lung field opacification, representing pneumonia or moderate-sized pleural effusion/atelectasis. Lower extremity venous Doppler on 05/19/2018: There is acute, partially occlusive deep vein thrombosis noted in the proximal segment of the right femoral vein. Chest ultrasounds on 05/20/2018: No pleural effusion, particularly on the left as suspected on the recent radiographs. Increased density in the left lower hemithorax may reflect mostly consolidation. CT of the chest on 05/20/2018: 1. Stable, chronic small complex loculated left pleural effusion associated with left lower lobe atelectasis/scarring. 2. Stable mild mediastinal lymphadenopathy. Echocardiogram on 05/20/2018: Ejection fraction 50% to 55%. Left ventricular hypertrophy. Left atrial enlargement. Trace aortic insufficiency, mitral regurgitation, tricuspid regurgitation, and pulmonic insufficiency. Mr. Smiley is an 83-year-old zedhq-hmao-rajfbnrc man with an extensive past medical history as detailed, admitted to [facility] on May 19, 2018, with a right lower extremity deep venous thrombosis, possible pneumonia, and possible cellulitis of the right leg. The patient's neurological examination is nonfocal. His laboratory data and other diagnostic studies have been reviewed. IMPRESSION: Mr. Smiley has paroxysmal atrial fibrillation, a current right lower extremity deep venous thrombosis, a prior pulmonary embolus, and other prior deep venous thromboses. Anticoagulation as treatment for the aforementioned diagnoses is appropriate. However, the patient has a prior history of two hemorrhagic strokes, the etiology of which is unclear. A neurological consultation is requested to determine whether or not the patient may be safely anticoagulated. As stated above, the etiology of the prior hemorrhagic strokes is unclear at present. Possible causes for the patient's prior strokes include: A supratherapeutic INR while on Coumadin. However, the patient's petroleum production engineer, Dr. Mendoza, reports the patient was therapeutic on Coumadin at the time of his initial hemorrhagic stroke. Other possible causes of an intraparenchymal hemorrhage include severe hypertension which would cause a bleed towards the midline of the brain (i.e., closer to the ventricles). Another possibility, especially given the occurrence of two intracerebral hemorrhages within a period of two weeks, is amyloid angiopathy. The deposition of amyloid protein in the reed of the patient's blood vessels would put him at a much higher risk for hemorrhagic events. In this case, treatment with anti-platelet and anticoagulant medication should be avoided. RECOMMENDATIONS: As follows: 1. A CT of the brain without contrast will be ordered. Hopefully, this study will reveal the presence of the prior intracerebral hemorrhages. The location of these hemorrhages should give some idea as to their cause and whether or not Mr. Smiley may be safely anticoagulated. 2. Defer treatment of the remaining medical comorbidities to the primary and other services following the patient. Thank you for this consultation. I will continue to follow the patient while he remains in the hospital. Time spent: 50 minutes. Jennifer Eugene MD CP/SOBEIDA /[id number]
[2018-05-22 05:05] LABS: BASOPHILS % 0.2 % (0.0-1.0); EOSINOPHILS % 0.2 % (0.0-6.0); HEMATOCRIT 39.6 % (38.2-49.6); HEMOGLOBIN 12.9 g/dL (14.0-18.0); LYMPHOCYTES # (AUTO) 0.8 (1.0-3.2); LYMPHOCYTES % 7.1 % (18.0-39.1); MEAN CORPUSCULAR HEMOGLOBIN 29.8 pg (28-32); MEAN CORPUSCULAR HGB CONC 32.6 g/dL (31-35); MEAN CORPUSCULAR VOLUME 91.5 fL (81-99); MONOCYTES % 9.1 % (4.4-11.3); NEUTROPHILS # (AUTO) 9.1 (2.1-6.9); NEUTROPHILS % 81.9 % (38.7-80.0); PLATELET COUNT 160 x10e3/uL (140-360); RED BLOOD COUNT 4.33 x10e6/uL (4.3-5.7); RED CELL DISTRIBUTION WIDTH 14.8 % (11.7-14.4)
[2018-05-22 05:24] LABS: ANION GAP 13.2 mmol/L (8-16); CALCIUM 8.7 mg/dL (8.4-10.2); CREATININE, SERUM 1.87 mg/dL (0.72-1.25); POTASSIUM 3.2 mmol/L (3.5-5.1)
[2018-05-22] MEDS ORDERED: POTASSIUM CHLORIDE 20 MEQ TAB CR PO STA (05:37)
[2018-05-22] MEDS: CEFTRIAXONE SOD 1 GM/NS 50 ML 50 ML IV SCH ×2 (05:45→18:02)
[2018-05-22] MEDS: LEVOTHYROXINE SODIUM 50 MCG TAB PO SCH (05:45)
[2018-05-22] MEDS: INSULIN LISPRO 100 UNIT/1 ML 3ML VIAL SQ SCH ×4 (08:36→20:53)
[2018-05-22] MEDS: POLYETHYLENE GLYCOL 3350 17 GM PACK PO SCH ×2 (08:57→17:30)
[2018-05-22] MEDS: FLUOXETINE HCL 20 MG CAP PO SCH (08:57)
[2018-05-22] MEDS: TAMSULOSIN HCL 0.4 MG CAP PO SCH (08:57)
[2018-05-22] MEDS: FINASTERIDE 5 MG TAB PO SCH (08:57)
[2018-05-22] MEDS: ACETAMINOPHEN/CODEINE 300MG - 30MG TAB PO SCH ×3 (08:57→21:00)
[2018-05-22] MEDS: BALSAM PERU/CASTOR OIL 60 GM OINT...G. TP SCH (08:57)
[2018-05-22] MEDS: NEBIVOLOL 10 MG TAB PO SCH (08:58)
[2018-05-22] MEDS: DILTIAZEM HCL 180 MG CAP ER PO SCH (08:58)
[2018-05-22] MEDS: PANTOPRAZOLE SOD 40 MG TABEC PO SCH (08:58)
--- NOTE | 2018-05-22 10:23 | NUR ---
CT brain completed with no issues.
--- NOTE | 2018-05-22 10:55 | Diagnostic Imaging Report ---
Examination: CT head without contrast Clinical Indication: CVA.. Technique: Transaxial noncontrast images from the skull base through the vertex were obtained. Sagittal and coronal reformatted images were done. Dose modulation, iterative reconstruction, and/or weight based adjustment of the mA/kV was utilized to reduce the radiation dose to as low as reasonably achievable. Comparison: Head CT performed June 29, 2017. Findings: Scalp: No abnormalities. Bones: Intact. No fractures. No blastic or lytic lesions. Brain sulci: Mild volume loss for patient's age. Ventricles: Ex vacuo dilatation. No hydrocephalus. Extra-axial space: No abnormalities. Parenchyma: There are mild confluent areas of low-attenuation within subcortical and periventricular white matter, nonspecific, but could represent microvascular ischemic disease. No masses, hemorrhage, or acute or chronic cortical based vascular insults. Suprasellar region: No abnormalities. Craniocervical junction: The foramen magnum is patent. No Chiari one malformation. Incidental findings: Atherosclerotic calcification of the cavernous and supraclinoid internal carotid arteries. Intraocular lens replacements related to previous surgery. Impression: 1. No acute intracranial finding when compared to prior head CT performed June 29, 2017. 2. Unchanged mild chronic microvascular ischemic change and volume loss. Signed by: Dr. Bouchra Jones M.D. on 05/22/2018 10:51 AM
--- NOTE | 2018-05-22 11:20 | Progress Note ---
DATE: 05/22/2018 SUBJECTIVE: The patient reports no bowel movement today. No abdominal discomfort. Ate breakfast, finished all his plate. REVIEW OF SYSTEMS: GENERAL: No fever or chills. CVS: No chest pain or palpitation. RESPIRATORY: No cough or expectoration. INPATIENT MEDICATIONS: List reviewed. OBJECTIVE: VITAL SIGNS: Temperature 97.6, pulse 94, respirations 21, blood pressure 112/70, oxygen saturation 100% on room air. GENERAL: Not in any acute distress. HEENT: Oral mucosa is moist. Anicteric sclerae. ABDOMEN: Soft, nondistended, nontender. No palpable mass or hernia. Bowel sounds present, but hypoactive. IMPRESSION: 1. Slow transit constipation, also this has further worsened with use of Tylenol No. 3. 2. Oropharyngeal dysphagia mainly for liquids. Speech and swallow evaluation pending. PLAN: Continue daily bowel regimen. Follow up with speech and swallow evaluation report. We will add Relistor today to negate the effect of [place] on GI tract. Estrada Flores MD SA/SOBEIDA /[id number]
[2018-05-22] MEDS: METHYLNALTREXONE BROMIDE 12 MG/0.6 ML VIAL SQ SCH (11:33)
--- NOTE | 2018-05-22 14:26 | NUR ---
speech therapy completed bedside swallow evaluation. recommended MBS which is now completed. speech therapy recommending NMES, nectar thick liquids. per GI Dr. Flores, plan of care okay and new orders written. patient and caregiver updated as well and agree with plan of care.
[2018-05-22] MEDS ORDERED: HEPARIN 25,000U/0.45% NS 250ML 900 UNIT in Premix Bag 250 ML IV SCH (17:30)
--- NOTE | 2018-05-22 18:00 | NUR ---
PATIENT RECEIVED FROM ICU PER STRETCHER. ALERT AND VERBALLY RESPONSIVE, DENIED PAIN AT THIS TIME. + 3 EDEMA NOTED TO LOWER EXTREMITIES; REDNESS TO RIGHT FOOT. TELEMETRY BOX IN PLACE. BRUISES TO BOTH ARMS, CONDOM CATHETER IN PLACE DRAINING YELLOW URINE. REPOSITIONED IN BED. CALL LIGHT AT REACH. INSTRUCTED TO CALL FOR ASSISTANCE NEEDED.
--- NOTE | 2018-05-22 18:03 | NUR ---
patient transferred to room 299 without difficulty. pt in no distress. nursing report given to Gennaro KATHLEEN who met us at bedside upon arrival. pt awake calm and following commands. denies pain. correa catheter removed and placed condom catheter. DTV [id number]
--- NOTE | 2018-05-22 19:05 | NUR ---
PT IS RESTING IN BED WITH WITH FAMILY AT BEDSIDE. NO RESPIRATORY DISTRESS NOTED. BED IN THE LOWEST POSITION, LOCKED AND CALL LIGHT WITHIN REACH. WILL CONTINUE TO MONITOR.
--- NOTE | 2018-05-22 20:34 | Progress Note ---
DATE: 05/22/2018 Cardiology Progress Note. SUBJECTIVE: The patient denies chest pain or shortness of breath. OBJECTIVE: VITAL SIGNS: Temperature 98.2 degrees, pulse 87, respiratory rate 22, blood pressure 101/67, oxygen saturation 97% on room air. GENERAL: An elderly man, in no acute distress. Awake and alert. LUNGS: Clear to auscultation bilaterally. No wheezes or crackles. CARDIOVASCULAR: Normal rate, irregularly irregular. No murmur. Normal S1, S2. ABDOMEN: Soft, nontender. EXTREMITIES: 2+ pitting edema bilaterally. CARDIAC MEDICATIONS: Nebivolol 5 mg p.o. daily, diltiazem 180 mg p.o. daily, levothyroxine 50 mcg p.o. daily, atorvastatin 20 mg p.o. at bedtime. LABORATORY DATA: 1. WBC 11.15, hemoglobin 12.9, hematocrit 39.6, platelets 160. Sodium 140, potassium 3.2, chloride 104, CO2 is 26, BUN 57, creatinine 1.87. 2. Blood cultures, Streptococcus viridans x2. IMPRESSION: 1. Acute right lower extremity deep vein thrombosis. 2. Streptococcus viridans bacteremia. 3. Pvmjl-dk-nskybcs kidney disease. 4. Atrial fibrillation. 5. Left pleural effusion. 6. Chronic right ventricular systolic heart failure. 7. Occluded infrarenal IVC. 8. Hypertension. 9. Hyperlipidemia. 10. History of pulmonary embolism. 11. History of hemorrhagic CVA. 12. Diabetes mellitus. RECOMMENDATIONS: Appreciate Neurology assistance regarding the patient's prior hemorrhagic strokes. Per discussion with Neurology based on CT findings, the risks of anticoagulation likely outweigh the benefits. This has been discussed with family, who are agreeable. We will start anticoagulation. Continue current cardiac medications otherwise. Monitor the patient closely on telemetry. Antibiotics per Infectious Disease. Given the patient's Streptococcus viridans bacteremia, evaluation of source is in process. We will review his echo images to assess for any valvular vegetations. Thank you for this consult. We will continue to follow. Randee Mendoza MD ABS/MODL /[id number]
[2018-05-22] MEDS: HEPARIN 25,000 UNIT/D5W 250ML 250 ML IV SCH (20:42)
[2018-05-22] MEDS: SENNA-S TABLET PO SCH (20:53)
[2018-05-22] MEDS: ATORVASTATIN 20 MG TAB PO SCH (20:53)
--- NOTE | 2018-05-22 22:26 | Diagnostic Imaging Report ---
EXAM: Modified barium swallow INDICATION: Suspected aspiration. COMPARISON: None FINDINGS: This examination was conducted in conjunction with speech pathologist. Patient was given, by mouth, liquids and solids of various consistencies. Examination showed premature spillage to the vallecula with all trials. Laryngeal penetration was noted immediately within liquids. Immediate silent ivania aspiration was seen with small cup sip thin liquids Mild base of tongue residue was noted after the swallow. Fluoro time: 1:49 minutes IMPRESSION: <Mild pharyngeal dysphagia. Silent ivania aspiration was seen with small cups of thin liquids. Please see speech pathology report for detailed description and recommendations.> Signed by: Dr. Matteo Lara M.D. on 05/22/2018 10:22 PM
[2018-05-23] VITALS: BP 108/67
[2018-05-23 02:58] LABS: BASOPHILS % 0.3 % (0.0-1.0); EOSINOPHILS % 0.3 % (0.0-6.0); HEMATOCRIT 38.5 % (38.2-49.6); HEMOGLOBIN 12.6 g/dL (14.0-18.0); LYMPHOCYTES # (AUTO) 1.1 (1.0-3.2); LYMPHOCYTES % 9.5 % (18.0-39.1); MEAN CORPUSCULAR HEMOGLOBIN 30.2 pg (28-32); MEAN CORPUSCULAR HGB CONC 32.7 g/dL (31-35); MEAN CORPUSCULAR VOLUME 92.3 fL (81-99); MONOCYTES # (AUTO) 1.2 (0.2-0.8); MONOCYTES % 10.1 % (4.4-11.3); NEUTROPHILS # (AUTO) 8.9 (2.1-6.9); PLATELET COUNT 168 x10e3/uL (140-360); RED BLOOD COUNT 4.17 x10e6/uL (4.3-5.7); RED CELL DISTRIBUTION WIDTH 14.8 % (11.7-14.4)
[2018-05-23 03:11] LABS: ANION GAP 14.8 mmol/L (8-16); CALCIUM 8.9 mg/dL (8.4-10.2); CREATININE, SERUM 1.67 mg/dL (0.72-1.25); POTASSIUM 3.8 mmol/L (3.5-5.1)
[2018-05-23 04:01] VITALS: BP 104/69
[2018-05-23] MEDS ORDERED: SODIUM CHLORIDE 0.9% 250ML 250 ML ONE (05:16)
[2018-05-23] MEDS: LEVOTHYROXINE SODIUM 50 MCG TAB PO SCH (05:31)
[2018-05-23] MEDS: CEFTRIAXONE SOD 1 GM/NS 50 ML 50 ML IV SCH ×2 (05:31→17:30)
--- NOTE | 2018-05-23 07:29 | Diagnostic Imaging Report ---
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 Dario Mendoza Pre-operative diagnosis: Requiring central venous access for pressors Post-operative diagnosis: Status post central venous access Sedation: Local Additional Medications: Lidocaine 1% for local anesthesia Estimated blood loss: None Specimens: None Implants: 7 Fr x 16 cm triple lumen non-tunneled central venous catheter TECHNIQUE/FINDINGS: Informed consent was obtained from the patient and documented in the medical record after discussion of risks and benefits. The patient was placed in the supine position. Preliminary sonographic evaluation of the right neck confirmed a patent and compressible right internal jugular vein. A permanent sonographic image was stored for the medical record. The neck was then prepped and draped in a standard sterile fashion. Subsequently, 1% lidocaine was infiltrated into the skin and subcutaneous tissues for local anesthesia. Then under continuous sonographic guidance, a 21 gauge needle was advanced into the right internal jugular vein and an .018'' wire was placed. A 5 Fr micropuncture sheath was placed and the existing wire was exchanged for an .035'' wire. The tract was dilated. Then, a 7 Fr x 16 cm triple lumen non-tunneled central venous catheter was advanced. The wire was then removed. Each lumen was tested and showed adequate bidirectional flow. The catheter was secured to the skin with Monocryl, flushed with saline, and covered by a sterile dressing. No evidence of immediate complication. IMPRESSION: Placement of a right IJ non-tunneled triple lumen central venous catheter with ultrasound guidance as above. Signed by: Dr. Dario Mendoza MD on 05/23/2018 7:26 AM
[2018-05-23 08:00] VITALS: BP 112/77
[2018-05-23] MEDS: PANTOPRAZOLE SOD 40 MG TABEC PO SCH (08:58)
[2018-05-23] MEDS: TAMSULOSIN HCL 0.4 MG CAP PO SCH (08:59)
[2018-05-23] MEDS: FINASTERIDE 5 MG TAB PO SCH (08:59)
[2018-05-23] MEDS: DILTIAZEM HCL 180 MG CAP ER PO SCH (08:59)
[2018-05-23] MEDS: FLUOXETINE HCL 20 MG CAP PO SCH (08:59)
[2018-05-23] MEDS: NEBIVOLOL 10 MG TAB PO SCH (08:59)
[2018-05-23] MEDS: POLYETHYLENE GLYCOL 3350 17 GM PACK PO SCH ×2 (09:00→17:00)
[2018-05-23] MEDS: BALSAM PERU/CASTOR OIL 60 GM OINT...G. TP SCH (09:00)
[2018-05-23] MEDS: ACETAMINOPHEN/CODEINE 300MG - 30MG TAB PO SCH ×3 (09:00→21:00)
[2018-05-23] MEDS: INSULIN LISPRO 100 UNIT/1 ML 3ML VIAL SQ SCH ×4 (09:11→21:37)
[2018-05-23] MEDS: HEPARIN 25,000 UNIT/D5W 250ML 250 ML IV SCH (10:54)
[2018-05-23 12:00] VITALS: BP 92/53
--- NOTE | 2018-05-23 14:09 | Progress Note ---
DATE: 05/23/2018 Cardiology Progress Note SUBJECTIVE: The patient denies chest pain or shortness of breath. OBJECTIVE: VITAL SIGNS: Temperature 96.4 degrees, pulse 95, respiratory rate 20, blood pressure 112/77, and oxygen saturation 92% on room air. GENERAL: Awake, alert, in no acute distress, elderly man. LUNGS: Clear to auscultation bilaterally. No wheezes or crackles. CARDIOVASCULAR: Normal rate, irregularly irregular. No murmur. Normal S1, S2. ABDOMEN: Soft, nontender. EXTREMITIES: 2+ pitting edema bilaterally. CARDIAC MEDICATIONS: 1. Heparin drip. 2. Nebivolol 5 mg p.o. daily. 3. Diltiazem 180 mg p.o. daily. 4. Levothyroxine 50 mcg p.o. daily. 5. Atorvastatin 20 mg p.o. at bedtime. LABORATORY DATA: WBC 11.43, hemoglobin 12.6, hematocrit 38.5, platelets 168. Sodium 137, potassium 3.8, chloride 103, CO2 of 23, BUN 54, creatinine 1.67. TELEMETRY: Atrial fibrillation. IMPRESSION: 1. Acute right lower extremity deep venous thrombosis. 2. Streptococcus viridans bacteremia. 3. Acute on chronic kidney disease. 4. Atrial fibrillation. 5. Left pleural effusion. 6. Chronic right ventricular systolic heart failure. 7. Occluded infrarenal IVC. 8. Hypertension. 9. Hyperlipidemia. 10. History of pulmonary embolism. 11. History of hemorrhagic cerebrovascular accident. 12. Diabetes mellitus. RECOMMENDATIONS: Appreciate Neurology assistance. Risk and benefits of anticoagulation were discussed with the patient and his daughter. Given findings on CT brain, the benefits of anticoagulation likely outweigh the risks. The patient has been started on heparin drip at this time. If no procedures are planned, we will discuss with the patient and daughter initiation of warfarin versus DOAC. Continue current cardiac medications for now. Antibiotics per Infectious Disease. We will review the patient's echo images to assess for any valvular vegetations. Thank you for this consult. We will continue to follow. Randee Mendoza MD ABS/MODL /[id number]
[2018-05-23 16:00] VITALS: BP 104/62
--- NOTE | 2018-05-23 19:20 | NUR ---
Patient visited in room during nursing rounds. Patient alert and oriented x 3. Patient on heparin drip (per A-fib and DVT protocol) at 10ml/hr to right IJ line. Right buttocks with stage 2 ulcer and covered with Allevyn dressing (C/D/I). Patient denies pain at this time. Call esparza within reach. Will monitor closely.
[2018-05-23 20:00] VITALS: BP 103/71
[2018-05-23] MEDS: SENNA-S TABLET PO SCH (21:00)
[2018-05-23] MEDS: ATORVASTATIN 20 MG TAB PO SCH (21:31)
[2018-05-24] VITALS: BP 113/71
--- NOTE | 2018-05-24 00:35 | Progress Note ---
DATE: 05/23/2018 GI Progress Report SUBJECTIVE: The patient reports no trouble swallowing. However, speech and swallow evaluation with modified barium swallow revealed silent aspiration from thin liquid. The patient has been advised to be on a modified diet. He is tolerating the modified diet very well. No choking or coughing. He has had a bowel movement almost on a regular basis. Denies any constipation. He remains afebrile. REVIEW OF SYSTEMS: GENERAL: No fever or chills. CVS: No chest pain or palpitations. RESPIRATORY: No cough or expectoration. MEDICATIONS: Inpatient medication list is reviewed. PHYSICAL EXAMINATION: VITAL SIGNS: Temperature 98.8, pulse 66, respiration 21, blood pressure 103/71, and oxygen saturation 95% on room air. GENERAL: Not in any acute distress. HEENT: Oral mucosa is moist. Anicteric sclerae. ABDOMEN: Soft, nondistended, and nontender. No palpable mass or hernia. Positive bowel sound. LABORATORY DATA: WBC 11.43, hemoglobin 12.6, hematocrit 38.5, and platelet count 168. Sodium 137, potassium 3.8, chloride 103, bicarb 23, BUN 54, creatinine 1.67, and glucose 216. Modified barium swallow showed mild pharyngeal dysphagia. Silent ivania aspiration was seen with small cups of thin liquid. Please see speech pathology report for detailed description and recommendations. IMPRESSION: 1. Oropharyngeal dysphagia with thin liquid. The patient is on modified diet as per the speech and swallow recommendation. He is tolerating this very well. 2. Slow transit constipation, improved with bowel regimen. 3. Streptococcus viridans septicemia, currently being treated with ceftriaxone. No abdominal symptoms. PLAN: I spoke to Dr. Fatima and conveyed it to him that colonoscopy is going to be of very low yield. He can get colonoscopy done electively as an outpatient. Continue modified diet. Estrada Flores MD SA/SOBEIDA /[id number]
--- NOTE | 2018-05-24 03:59 | NUR ---
Spoke to patient and educated importance of being turned in bed. But patient still refused to be turned and states he feels very comfortable on his back at this time.
[2018-05-24 06:10] LABS: BASOPHILS # (AUTO) 0.1 (0.0-0.1); BASOPHILS % 0.6 % (0.0-1.0); EOSINOPHILS # (AUTO) 0.1 (0.0-0.4); EOSINOPHILS % 0.5 % (0.0-6.0); HEMATOCRIT 39.5 % (38.2-49.6); HEMOGLOBIN 12.6 g/dL (14.0-18.0); LYMPHOCYTES # (AUTO) 1.2 (1.0-3.2); LYMPHOCYTES % 10.8 % (18.0-39.1); MEAN CORPUSCULAR HEMOGLOBIN 29.4 pg (28-32); MEAN CORPUSCULAR HGB CONC 31.9 g/dL (31-35); MEAN CORPUSCULAR VOLUME 92.3 fL (81-99); MONOCYTES % 9.3 % (4.4-11.3); NEUTROPHILS # (AUTO) 8.2 (2.1-6.9); NEUTROPHILS % 75.1 % (38.7-80.0); PLATELET COUNT 203 x10e3/uL (140-360); RED BLOOD COUNT 4.28 x10e6/uL (4.3-5.7); RED CELL DISTRIBUTION WIDTH 14.8 % (11.7-14.4)
[2018-05-24] MEDS: LEVOTHYROXINE SODIUM 50 MCG TAB PO SCH (06:12)
[2018-05-24] MEDS: CEFTRIAXONE SOD 1 GM/NS 50 ML 50 ML IV SCH ×2 (06:12→17:09)
[2018-05-24] MEDS: PANTOPRAZOLE SOD 40 MG TABEC PO SCH (06:12)
[2018-05-24 06:34] LABS: ANION GAP 14.7 mmol/L (8-16); CREATININE, SERUM 1.42 mg/dL (0.72-1.25); POTASSIUM 3.7 mmol/L (3.5-5.1)
[2018-05-24 07:59] VITALS: BP 102/68
[2018-05-24 08:00] VITALS: BP 102/68
[2018-05-24] MEDS: DILTIAZEM HCL 180 MG CAP ER PO SCH (09:00)
[2018-05-24] MEDS: NEBIVOLOL 10 MG TAB PO SCH (09:00)
[2018-05-24] MEDS: TAMSULOSIN HCL 0.4 MG CAP PO SCH (09:00)
[2018-05-24] MEDS: FUROSEMIDE 40 MG TAB PO SCH (09:00)
[2018-05-24] MEDS: ACETAMINOPHEN/CODEINE 300MG - 30MG TAB PO SCH ×3 (09:01→21:00)
[2018-05-24] MEDS: FINASTERIDE 5 MG TAB PO SCH (09:01)
[2018-05-24] MEDS: FLUOXETINE HCL 20 MG CAP PO SCH (09:01)
[2018-05-24] MEDS: BALSAM PERU/CASTOR OIL 60 GM OINT...G. TP SCH (09:08)
[2018-05-24] MEDS: POLYETHYLENE GLYCOL 3350 17 GM PACK PO SCH ×2 (09:08→17:00)
[2018-05-24] MEDS: INSULIN LISPRO 100 UNIT/1 ML 3ML VIAL SQ SCH ×4 (09:09→21:53)
--- NOTE | 2018-05-24 11:01 | Progress Note ---
DATE: 05/24/2018 SUBJECTIVE: The patient has no new complaints, feels okay. OBJECTIVE: VITAL SIGNS: Temperature is 97.3, pulse 84, blood pressure 113/71, and sats 93%. GENERAL: No apparent distress. LUNGS: Clear to auscultation bilaterally. CARDIOVASCULAR: Regular rate and rhythm. NEUROLOGIC: Nonfocal. ABDOMEN: Good bowel sounds. Soft, nontender. EXTREMITIES: No clubbing or cyanosis. ASSESSMENT AND PLAN: 1. Deep vein thrombosis. Continue with anticoagulant. 2. Anxiety. Continue with his medication. 3. Reflux disease. Continue with his medication. 4. Sepsis. Continue with the antibiotics per Dr. Fatima. 5. Hypothyroidism. Continue with his medication. 6. Benign prostatic hypertrophy. Continue with his medication. 7. Chronic kidney disease stage 3. Continue to monitor. 8. Diabetes. Continue to monitor. Please see hospital chart for details. MD NATY Mcdonald/SOBEIDA /[id number]
[2018-05-24 11:53] VITALS: BP 104/57
[2018-05-24] MEDS: METHYLNALTREXONE BROMIDE 12 MG/0.6 ML VIAL SQ SCH (12:28)
--- NOTE | 2018-05-24 13:16 | Progress Note ---
DATE: 05/24/2018 Cardiology Progress Note SUBJECTIVE: The patient denies chest pain. He does report he had shortness of breath last night. OBJECTIVE: VITAL SIGNS: Temperature 97.9 degrees, pulse 87, respiratory rate 18, blood pressure 102/68, and oxygen saturation 92% on room air. GENERAL: Awake, alert, in no acute distress, elderly man. LUNGS: Clear to auscultation bilaterally. No wheezes or crackles. CARDIOVASCULAR: Normal rate, irregularly irregular. No murmur. Normal S1, S2. ABDOMEN: Soft, nontender. EXTREMITIES: 2+ pitting edema bilaterally. CARDIAC MEDICATIONS: Furosemide 40 mg p.o. daily, diltiazem 180 mg p.o. daily, levothyroxine 50 mcg p.o. daily, atorvastatin 20 mg p.o. at bedtime, heparin drip, and nebivolol 5 mg p.o. daily. LABORATORY DATA: WBC 10.91, hemoglobin 12.6, hematocrit 39.5, platelets 203. Sodium 138, potassium 3.7, chloride 103, CO2 of 24, BUN 47, creatinine 1.42. TELEMETRY: Atrial fibrillation, rate controlled. IMPRESSION: 1. Acute right lower extremity deep venous thrombosis. 2. Streptococcus viridans bacteremia. 3. Acute on chronic kidney disease. 4. Atrial fibrillation. 5. Left pleural effusion. 6. Chronic right ventricular systolic heart failure. 7. Occluded infrarenal IVC. 8. Hypertension. 9. Hyperlipidemia. 10. History of pulmonary embolism. 11. History of hemorrhagic cerebrovascular accident. 12. Diabetes mellitus. RECOMMENDATIONS: Appreciate Neurology assistance. Risks and benefits of anticoagulation were discussed with the patient and his daughter. Given findings on CT brain, the benefits of anticoagulation likely outweigh the risks. The patient has been started on heparin drip and has been tolerating. Discussed with the patient warfarin versus the DOAC for long-term anticoagulation, he wishes to discuss with his family. Continue current cardiac medications for now. Antibiotics per Infectious Disease. We will review the patient's echocardiogram. Thank you for this consult. We will continue to follow. Randee Mendoza MD ABS/MODL /[id number]
[2018-05-24 16:09] VITALS: BP 110/62
[2018-05-24] MEDS: HEPARIN 25,000 UNIT/D5W 250ML 250 ML IV SCH (19:19)
--- NOTE | 2018-05-24 19:45 | NUR ---
Patient visited in room during nursing rounds. Patient alert and oriented x 3. Patient on heparin drip (per A-fib and DVT protocol) at 14ml/hr to right IJ line. Right buttocks with stage 2 ulcer and covered with Allevyn dressing (C/D/I). Patient denies pain at this time. Call esparza within reach. Will monitor closely.
[2018-05-24 20:00] VITALS: BP 106/69
--- NOTE | 2018-05-24 20:08 | Progress Note ---
DATE: SUBJECTIVE: Mr. Smiley is doing better. No new complaints. REVIEW OF SYSTEMS: HEENT: Negative. PULMONARY: Negative. CARDIAC: Negative. : Negative. SKIN: There is no rash. PHYSICAL EXAMINATION: GENERAL: He is currently alert, oriented, does not seem to be in acute distress. VITAL SIGNS: Stable. Afebrile. HEENT: He is not icteric. NECK: Supple. CHEST: Clear. HEART: S1, S2. No S3, S4, or murmur. ABDOMEN: Soft. Bowel sounds present. No tenderness. No hepatosplenomegaly. EXTREMITIES: No edema. SKIN: No rash. IMPRESSION AND PLAN: 1. Status post Streptococcus viridans bacteremia and sepsis, on Rocephin to finish in 14 days. 2. History of deep vein thrombosis, on anticoagulation. Discussed with GI. The patient is at high risk for EGD and colonoscopy, could be done as an outpatient. 3. Chronic kidney disease. 4. Debility. 5. Continue with the same for now. If he continued to improve, probably can switch to oral antibiotic to finish the course of treatment. We will follow with you. Thank you for asking me to see this patient. MD YENIFER Sandoval/SOBEIDA /[id number]
[2018-05-24] MEDS: SENNA-S TABLET PO SCH (21:00)
[2018-05-24] MEDS: ATORVASTATIN 20 MG TAB PO SCH (21:53)
[2018-05-25] VITALS (7 sets, daily range): BP systolic 108–129; BP diastolic 73–81
[2018-05-25] MEDS: LEVOTHYROXINE SODIUM 50 MCG TAB PO SCH (06:24)
[2018-05-25] MEDS: CEFTRIAXONE SOD 1 GM/NS 50 ML 50 ML IV SCH ×2 (06:24→17:32)
[2018-05-25] MEDS: PANTOPRAZOLE SOD 40 MG TABEC PO SCH (06:24)
[2018-05-25] MEDS: INSULIN LISPRO 100 UNIT/1 ML 3ML VIAL SQ SCH ×4 (07:30→21:00)
--- NOTE | 2018-05-25 07:40 | NUR ---
PATIENT IS AWAKE AND IN STABLE CONDITION WITH NO S/S OF RESPIRATORY DISTRESS. NO PAIN VOICED. DIAPER APPLIED. IV HEPARIN INFUSING. 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 CALL LIGHT IS WITHIN REACH, INSTRUCTED TO CALL FOR ASSISTANCE NEEDED.
[2018-05-25] MEDS: BALSAM PERU/CASTOR OIL 60 GM OINT...G. TP SCH (08:00)
[2018-05-25] MEDS: DILTIAZEM HCL 180 MG CAP ER PO SCH (09:24)
[2018-05-25] MEDS: POLYETHYLENE GLYCOL 3350 17 GM PACK PO SCH ×2 (09:24→17:00)
[2018-05-25] MEDS: NEBIVOLOL 10 MG TAB PO SCH (09:24)
[2018-05-25] MEDS: TAMSULOSIN HCL 0.4 MG CAP PO SCH (09:24)
[2018-05-25] MEDS: FLUOXETINE HCL 20 MG CAP PO SCH (09:24)
[2018-05-25] MEDS: FUROSEMIDE 40 MG TAB PO SCH (09:24)
[2018-05-25] MEDS: FINASTERIDE 5 MG TAB PO SCH (09:24)
[2018-05-25] MEDS: ACETAMINOPHEN/CODEINE 300MG - 30MG TAB PO SCH ×3 (09:25→21:00)
--- NOTE | 2018-05-25 10:54 | NUR ---
EDUCATED ABOUT IMM, SIGNED, FILED IN CHART, WITH COPY LEFT WITH FAMILY AT BEDSIDE.
[2018-05-25 13:05] LABS: INR 1.18; PROTHROMBIN TIME 15.6 seconds (11.9-14.5)
--- NOTE | 2018-05-25 14:07 | Progress Note ---
DATE: 05/25/2018 Cardiology Progress Note SUBJECTIVE: The patient denies chest pain or shortness of breath. OBJECTIVE: VITAL SIGNS: Temperature 96.3 degrees, pulse 86, respiratory rate 20, blood pressure 117/73, and oxygen saturation 92% on room air. GENERAL: Awake, alert, in no acute distress. LUNGS: Clear to auscultation bilaterally. No wheeze or crackles. CARDIOVASCULAR: Normal rate, irregularly irregular. No murmur. Normal S1, S2. ABDOMEN: Soft, nontender. EXTREMITIES: 2+ pitting edema bilaterally. CARDIAC MEDICATIONS: Furosemide 40 mg p.o. daily, nebivolol 5 mg p.o. daily, diltiazem 180 mg p.o. daily, levothyroxine 50 mcg p.o. daily, atorvastatin 20 mg p.o. at bedtime, and heparin drip. LABORATORY DATA: Reviewed. TELEMETRY: Atrial fibrillation. IMPRESSION: 1. Acute right lower extremity deep vein thrombosis. 2. Streptococcus viridans bacteremia. 3. Acute on chronic kidney disease. 4. Atrial fibrillation. 5. Left pleural effusion. 6. Chronic right ventricular systolic heart failure. 7. Occluded infrarenal IVC. 8. Hypertension. 9. Hyperlipidemia. 10. History of pulmonary embolism. 11. History of hemorrhagic cerebrovascular accident. 12. Diabetes mellitus. RECOMMENDATIONS: Appreciate Neurology assistance. Risks and benefits of anticoagulation were discussed with the patient. Given findings of CT brain, the benefits of anticoagulation likely outweigh the risks. The patient has been started on heparin drip and has been tolerating this without events. Discussed with the patient warfarin versus DOAC for long-term anticoagulation. We will start the patient on warfarin given ease of reversibility. Discussed dietary consistency and low vitamin K diet. Continue current cardiac medications for now. Antibiotics per Infectious Disease. Echocardiogram was reviewed, no vegetations were noted. If clinically indicated, recommend LASHAWN for further evaluation. Thank you for this consult. We will continue to follow. Randee Mendoza MD ABS/MODL /[id number]
--- NOTE | 2018-05-25 15:03 | NUR ---
UPON CHANGING THE PATIENT'S DIAPER- SWELLING WAS NOTED ON THE BOTTOM SECTION OF THE PATIENT'S PENIS WELL SWELLING AND REDNESS NOTED TO THE PATIENT'S TESTICULAR AREA. DIAPER CHANGED AND TESTICULAR/PENIS ELEVATED WITH PILLOW. DR. EGAN INFORMED AND AWAITING RESPONSE.
--- NOTE | 2018-05-25 16:04 | NUR ---
RECEIVED ORDERS FROM DR. EGAN TO INFORM CARDIOLOGY ABOUT PATIENT'S PENIS AND TESTICULAR SWELLING. RECEIVED OKAY FOR NYSTATIN CREAM FOR RIGHT GROIN AREA REDNESS/RASH. CALL PLACED OUT TO DR. JAVIER REGARDING PATIENT'S SWELLING- AWAITING CALLBACK.
--- NOTE | 2018-05-25 16:52 | NUR ---
DR. CARSON ON THE UNIT AND INFORMED ON PATIENT'S SWELLING IN THE PENIS AND TESTICULAR AREA. DR. CARSON SAW THE PATIENT'S SWELLING AND STATED HIS ANTIBIOTIC WILL ASSIST THE PATIENT. NO NEW ORDERS RECEIVED.
--- NOTE | 2018-05-25 17:03 | NUR ---
RECEIVED CALLBACK FROM DR. JAVIER REGARDING PATIENT'S SWELLING IN PENIS AND TESTICLE AREA. DR. JAVIER INFORMED THAT DR. CARSON IS ON THE UNIT AND HAS SEEN THE SWOLLEN AREAS. NO NEW ORDER RECEIVED FROM DR. JAVIER REGARDING PATIENT'S SWELLING. NEW ORDER RECEIVED FROM DR. JAVIER FOR BNP FOR TODAY AND INR FOR TOMORROW, 05/26/18.
[2018-05-25] MEDS: WARFARIN SOD 5 MG TAB PO SCH (17:32)
--- NOTE | 2018-05-25 19:00 | NUR ---
patient received awake, alert, lying quietly in bed. no c/o pain noted. iv heparin continues to infuse without difficulty at 1200 units hr. pm assessment complete. patient instructed to call for assistance when needed
--- NOTE | 2018-05-25 19:09 | NUR ---
PATIENT RESTING IN BED- IN STABLE CONDITION WITH NO S/S OF RESPIRATORY DISTRESS. NO PAIN INDICATED. IV HEPARIN INFUSING. DIAPER APPLIED. HEELS ELEVATED ON PILLOWS. BED ALARM ON. CALL LIGHT IS WITHIN REACH, INSTRUCTED TO CALL FOR ASSISTANCE NEEDED. BEDSIDE REPORT GIVEN TO ONCOMING NURSE.
[2018-05-25] MEDS: NYSTATIN/TRIAMCINOLONE 15 GM CR TOP SCH (21:00)
[2018-05-25] MEDS: SENNA-S TABLET PO SCH (21:00)
[2018-05-25] MEDS: ATORVASTATIN 20 MG TAB PO SCH (21:00)
[2018-05-26] VITALS (7 sets, daily range): BP systolic 95–117; BP diastolic 55–80
[2018-05-26] MEDS: CEFTRIAXONE SOD 1 GM/NS 50 ML 50 ML IV SCH ×2 (06:00→17:13)
[2018-05-26] MEDS: LEVOTHYROXINE SODIUM 50 MCG TAB PO SCH (06:00)
[2018-05-26 06:55] LABS: INR 1.22
[2018-05-26] MEDS: INSULIN LISPRO 100 UNIT/1 ML 3ML VIAL SQ SCH ×4 (07:30→21:00)
[2018-05-26] MEDS: POLYETHYLENE GLYCOL 3350 17 GM PACK PO SCH ×2 (08:33→17:00)
[2018-05-26] MEDS: ACETAMINOPHEN/CODEINE 300MG - 30MG TAB PO SCH ×3 (08:33→21:00)
[2018-05-26] MEDS: PANTOPRAZOLE SOD 40 MG TABEC PO SCH (08:46)
[2018-05-26] MEDS: NEBIVOLOL 10 MG TAB PO SCH (08:46)
[2018-05-26] MEDS: TAMSULOSIN HCL 0.4 MG CAP PO SCH (08:47)
[2018-05-26] MEDS: DILTIAZEM HCL 180 MG CAP ER PO SCH (08:47)
[2018-05-26] MEDS: FINASTERIDE 5 MG TAB PO SCH (08:47)
[2018-05-26] MEDS: FUROSEMIDE 40 MG TAB PO SCH (08:47)
[2018-05-26] MEDS: FLUOXETINE HCL 20 MG CAP PO SCH (08:47)
[2018-05-26] MEDS: BALSAM PERU/CASTOR OIL 60 GM OINT...G. TP SCH (08:47)
[2018-05-26] MEDS: NYSTATIN/TRIAMCINOLONE 15 GM CR TOP SCH ×2 (08:47→21:00)
[2018-05-26] MEDS: METHYLNALTREXONE BROMIDE 12 MG/0.6 ML VIAL SQ SCH (11:10)
[2018-05-26] MEDS: HEPARIN IV SCH (11:36)
[2018-05-26] MEDS: [UNRECOGNIZED DRUG - OTHER] IV SCH (11:36)
--- NOTE | 2018-05-26 11:52 | NUR ---
SPOKE WITH DR. Asa CALL REGARDING CLEARANCE FOR PATIENT TO WORK WITH PHYSICAL THERAPY. RECEIVED CLEARANCE FOR PATIENT TO WORK WITH PT. PT AWARE OF CLEARANCE.
--- NOTE | 2018-05-26 13:37 | NUR ---
nurse asked PT to hold on pt until she can confirm that dvt is clear for the pt to get oob...1045 am, will f/u Addendum: 05/26/18 at 1338 by Abad Ledezma PTA Amended: Links added.
--- NOTE | 2018-05-26 13:39 | NUR ---
1255 pt is refusing due to nausea and was vomiting... Addendum: 05/26/18 at 1340 by Abad Ledezma PTA Amended: Links added.
[2018-05-26] MEDS: WARFARIN SOD 5 MG TAB PO SCH (17:13)
--- NOTE | 2018-05-26 17:53 | Progress Note ---
DATE: 05/26/2018 SUBJECTIVE: No major events overnight. OBJECTIVE: VITAL SIGNS: Temperature afebrile, pulse 87, respiratory rate 16, blood pressure 112/72, saturating 98% on room air. GENERAL: Elderly man, in no acute distress. CARDIOVASCULAR: Irregular rate and rhythm. No murmurs, rubs, or gallops. LUNGS: Clear to auscultation bilaterally. ABDOMEN: Soft, nontender, and nondistended. NEURO AND PSYCH: Alert and oriented to person, place, and time. Normal affect. CARDIOVASCULAR MEDICATIONS: Reviewed. LABORATORY DATA: Reviewed. TELEMETRY DATA: Shows atrial fibrillation, rate controlled. ASSESSMENT AND PLAN: 1. Acute right lower extremity deep vein thrombosis. 2. Strep viridans bacteremia. 3. Acute on chronic kidney disease. 4. Atrial fibrillation, rate controlled. 5. Left pleural effusion. 6. Chronic right ventricular systolic heart failure. 7. Occluded infrarenal IVC. 8. Hypertension. 9. Hyperlipidemia. 10. History of pulmonary embolism. 11. History of hemorrhagic cerebrovascular accident. 12. Diabetes. RECOMMENDATIONS: Given previous risk of intracranial hemorrhage, discussed the risk of restarting warfarin with Neurology. After this discussion and reviewing the findings of the CT brain as well as the risks of PE from his massive DVT, decision was made that the benefits of anticoagulation outweigh the risks. Continue IV heparin. Continue Coumadin with a goal INR between 2 and 3. Antibiotics per primary team. Thank you for this consult. We will continue to follow. MD TOMASZ Kurtz/MODL /[id number]
--- NOTE | 2018-05-26 18:52 | NUR ---
PATIENT IS IN STABLE CONDITION WITH NO S/S OF RESPIRATORY DISTRESS. NO PAIN VOICED. IV HEPARIN INFUSING. DIAPER APPLIED. PATIENT HAD A BOWEL MOVEMENT TODAY. BED ALARM ON. CALL LIGHT IS WITHIN REACH, PATIENT INSTRUCTED TO CALL FOR ASSISTANCE NEEDED. BEDSIDE REPORT GIVEN TO ONCOMING NURSE.
--- NOTE | 2018-05-26 19:15 | NUR ---
patient received awake, alert, lying quietly in bed. respirations even and unlabored. patient denies pain at this time. iv heparin continues to infuse without difficulty. patient repositioned for comfort. pm assessment complete. patient instructed to call for assistance when needed.
[2018-05-26] MEDS: ATORVASTATIN 20 MG TAB PO SCH (21:00)
[2018-05-26] MEDS: SENNA-S TABLET PO SCH (21:00)
[2018-05-27] VITALS (7 sets, daily range): BP systolic 97–163; BP diastolic 62–68
[2018-05-27] MEDS: LEVOTHYROXINE SODIUM 50 MCG TAB PO SCH (05:16)
[2018-05-27] MEDS: CEFTRIAXONE SOD 1 GM/NS 50 ML 50 ML IV SCH ×2 (05:16→17:00)
[2018-05-27] MEDS: INSULIN LISPRO 100 UNIT/1 ML 3ML VIAL SQ SCH ×4 (07:30→20:23)
[2018-05-27] MEDS: POLYETHYLENE GLYCOL 3350 17 GM PACK PO SCH ×2 (09:00→17:00)
[2018-05-27] MEDS: [UNRECOGNIZED DRUG - OTHER] IV SCH (09:19)
[2018-05-27] MEDS: HEPARIN IV SCH (09:19)
[2018-05-27] MEDS: DILTIAZEM HCL 180 MG CAP ER PO SCH (09:21)
[2018-05-27] MEDS: NEBIVOLOL 10 MG TAB PO SCH (09:21)
--- NOTE | 2018-05-27 09:21 | NUR ---
PATIENT REFUSED TYLENOL#3- PATIENT DENIES ANY PAIN
[2018-05-27] MEDS: BALSAM PERU/CASTOR OIL 60 GM OINT...G. TP SCH (09:22)
[2018-05-27] MEDS: PANTOPRAZOLE SOD 40 MG TABEC PO SCH (09:22)
[2018-05-27] MEDS: FLUOXETINE HCL 20 MG CAP PO SCH (09:22)
[2018-05-27] MEDS: NYSTATIN/TRIAMCINOLONE 15 GM CR TOP SCH ×2 (09:22→20:26)
[2018-05-27] MEDS: TAMSULOSIN HCL 0.4 MG CAP PO SCH (09:22)
[2018-05-27] MEDS: FUROSEMIDE 40 MG TAB PO SCH (09:22)
[2018-05-27] MEDS: FINASTERIDE 5 MG TAB PO SCH (09:22)
--- NOTE | 2018-05-27 16:08 | NUR ---
CALLED AND SPOKE WITH DR. CALL TO INFORM HIM OF PATIENT'S PTT LEVEL'S AND CURRENT RATE WELL BNP. NO ORDERS. SPOKE WITH DR. CALL REGARDING COUMADIN- ORDER FOR DAILY INR.
[2018-05-27] MEDS: WARFARIN SOD 5 MG TAB PO SCH (17:00)
--- NOTE | 2018-05-27 17:08 | Progress Note ---
DATE: 05/27/2018 Cardiology Progress Note SUBJECTIVE: No major events overnight. OBJECTIVE: VITAL SIGNS: Temperature afebrile, pulse 94, respiratory rate 18, blood pressure 113/63, saturating 96% on room air. GENERAL: Elderly white man, in no acute distress. CARDIOVASCULAR: Irregular rate and rhythm. No murmurs, rubs, or gallops. LUNGS: Clear to auscultation bilaterally. ABDOMEN: Soft, nontender, and nondistended. NEURO AND PSYCH: Alert and oriented to person, place, and time. Normal affect. CARDIOVASCULAR MEDICATIONS: Reviewed. LABORATORY DATA: Reviewed. TELEMETRY DATA: Reviewed, shows AFib, rate controlled. ASSESSMENT: 1. Acute right lower extremity deep venous thrombosis. 2. Strep viridans bacteremia. 3. Acute on chronic kidney disease. 4. Atrial fibrillation, rate controlled. 5. Left pleural effusion. 6. Chronic right ventricular systolic heart failure. 7. Occluded infrarenal IVC filter. 8. Hypertension. 9. Hyperlipidemia. 10. History of pulmonary embolism. 11. History of hemorrhagic cerebrovascular accident. 12. Diabetes. RECOMMENDATIONS: Continue IV heparin, bridge to Coumadin, goal INR is 2-3, check INR daily. Otherwise, continue current cardiovascular medications. Thank you for this consult. We will continue to follow. MD TOMASZ Kurtz/SOBEIDA /[id number]
--- NOTE | 2018-05-27 18:14 | NUR ---
PTT LEVEL IS 88.9 AT 1706- IV HEPARIN RATE CHANGED TO 9MLS/HR.
--- NOTE | 2018-05-27 18:49 | NUR ---
PATIENT IN STABLE CONDITION WITH NO S/S OF RESPIRATORY DISTRESS. NO PAIN VOICED. DIAPER APPLIED. IV HEPARIN INFUSING AT 9MLS/HR. BED ALARM ON. CALL LIGHT IS WITHIN REACH- PATIENT INSTRUCTED TO CALL FOR ASSISTANCE NEEDED. BEDSIDE REPORT GIVEN TO ONCOMING NURSE.
--- NOTE | 2018-05-27 18:50 | NUR ---
patient received awake, alert, lying quietly in bed. no c/o pain noted. iv heparin continues to infuse at 900 units hr without difficulty. ptt due at 2300 per heparin protocol. pm assessment complete. patient instructed to call for assistance when needed.
[2018-05-27] MEDS: SENNA-S TABLET PO SCH (20:23)
[2018-05-27] MEDS: ATORVASTATIN 20 MG TAB PO SCH (20:23)
--- NOTE | 2018-05-27 23:25 | NUR ---
PTT 100.6 Heparin drip held x 30 minutes and then rate decreased by 150 units hr. next ptt ordered for 0600 per protocol.
[2018-05-28] VITALS (7 sets, daily range): BP systolic 106–124; BP diastolic 53–77
--- NOTE | 2018-05-28 | NUR ---
heparin held x 30 minutes and resumed at 0000 at 750 units hr per protocol.
[2018-05-28] MEDS ORDERED: SODIUM CHLORIDE 0.9% 250ML 250 ML ONE (05:21)
[2018-05-28] MEDS: CEFTRIAXONE SOD 1 GM/NS 50 ML 50 ML IV SCH ×2 (05:30→18:00)
[2018-05-28] MEDS: LEVOTHYROXINE SODIUM 50 MCG TAB PO SCH (05:30)
[2018-05-28 06:13] LABS: BASOPHILS # (AUTO) 0.1 (0.0-0.1); BASOPHILS % 0.7 % (0.0-1.0); EOSINOPHILS # (AUTO) 0.1 (0.0-0.4); EOSINOPHILS % 0.9 % (0.0-6.0); HEMOGLOBIN 12.4 g/dL (14.0-18.0); LYMPHOCYTES # (AUTO) 1.5 (1.0-3.2); LYMPHOCYTES % 14.1 % (18.0-39.1); MEAN CORPUSCULAR HEMOGLOBIN 29.7 pg (28-32); MEAN CORPUSCULAR HGB CONC 31.8 g/dL (31-35); MEAN CORPUSCULAR VOLUME 93.3 fL (81-99); MONOCYTES # (AUTO) 0.6 (0.2-0.8); MONOCYTES % 6.2 % (4.4-11.3); NEUTROPHILS # (AUTO) 7.8 (2.1-6.9); PLATELET COUNT 270 x10e3/uL (140-360); RED BLOOD COUNT 4.18 x10e6/uL (4.3-5.7); RED CELL DISTRIBUTION WIDTH 15.1 % (11.7-14.4)
[2018-05-28 06:30] LABS: INR 2.51; PROTHROMBIN TIME 27.8 seconds (11.9-14.5)
[2018-05-28 06:47] LABS: ALBUMIN 1.9 g/dL (3.5-5.0); ALBUMIN/GLOBULIN RATIO 0.4 (0.8-2.0); ANION GAP 13.9 mmol/L (8-16); CALCIUM 9.2 mg/dL (8.4-10.2); CREATININE, SERUM 1.32 mg/dL (0.72-1.25); POTASSIUM 3.9 mmol/L (3.5-5.1)
--- NOTE | 2018-05-28 07:43 | NUR ---
PTT-76.8 NO CHANGE IN RATE .PTT ORDERED FOR 1200.
[2018-05-28] MEDS: INSULIN LISPRO 100 UNIT/1 ML 3ML VIAL SQ SCH ×4 (09:22→20:33)
[2018-05-28] MEDS: NEBIVOLOL 10 MG TAB PO SCH (09:22)
[2018-05-28] MEDS: PANTOPRAZOLE SOD 40 MG TABEC PO SCH (09:22)
[2018-05-28] MEDS: POLYETHYLENE GLYCOL 3350 17 GM PACK PO SCH ×2 (09:23→17:00)
[2018-05-28] MEDS: FUROSEMIDE 40 MG TAB PO SCH (09:23)
[2018-05-28] MEDS: TAMSULOSIN HCL 0.4 MG CAP PO SCH (09:23)
[2018-05-28] MEDS: FLUOXETINE HCL 20 MG CAP PO SCH (09:23)
[2018-05-28] MEDS: FINASTERIDE 5 MG TAB PO SCH (09:23)
[2018-05-28] MEDS: DILTIAZEM HCL 180 MG CAP ER PO SCH (09:23)
[2018-05-28] MEDS: NYSTATIN/TRIAMCINOLONE 15 GM CR TOP SCH ×2 (10:00→20:33)
[2018-05-28] MEDS: BALSAM PERU/CASTOR OIL 60 GM OINT...G. TP SCH (10:00)
[2018-05-28] MEDS: METHYLNALTREXONE BROMIDE 12 MG/0.6 ML VIAL SQ SCH (10:00)
--- NOTE | 2018-05-28 10:00 | NUR ---
PT ASSISTED UP TO CHAIR TOLERATED WELL MIN ASSIST
[2018-05-28 16:17] LABS: EOSINOPHILS % (MANUAL) 1 % (0-7); LYMPHOCYTES % (MANUAL) 5 % (19-48); MONOCYTES % (MANUAL) 7 % (3.4-9.0); NEUTROPHILS % (MANUAL) 82 % (40-74); PLATELET ESTIMATE ADEQUATE; PLATELET MORPHOLOGY COMMENT RARE EDTA CLUMPING; RBC MORPHOLOGY COMMENT NORMAL
[2018-05-28] MEDS: NYSTATIN 15 GM POWDER UD BTL TOP SCH (17:00)
[2018-05-28] MEDS: WARFARIN SOD 5 MG TAB PO SCH (17:00)
--- NOTE | 2018-05-28 18:41 | NUR ---
PT IN BED RESTING NO CHANGE IN STATUS
--- NOTE | 2018-05-28 19:00 | NUR ---
patient received awake, alert, lying quietly in bed. no c/o pain noted. patient turned and repositioned for comfort. pm assessment complete. patient instructed to call for assistance when needed.
[2018-05-28] MEDS: SENNA-S TABLET PO SCH (20:32)
[2018-05-28] MEDS: ATORVASTATIN 20 MG TAB PO SCH (20:32)
--- NOTE | 2018-05-28 21:22 | NUR ---
Follow-up Note RD Recommendation for Physician: - Continue 1800 ADA diet as medically appropriate; diet texture per FINAL ARMATURE TESTER (new order placed based on FINAL ARMATURE TESTER recommendation posted in pts room) - Rec Glucerna BID to promote protein-calorie intake - Assist with feeding as needed Plan of Care: RD following, monitoring for tolerance and adequacy, ONS rec Nutrition reason for involvement: Follow up Primary Diagnose(s): 1. Acute right lower extremity deep venous thrombosis. 2. Strep viridans bacteremia. 3. Acute on chronic kidney disease. PMH: HTN, DM, CHF, CVA, Afib, CKD, OA Ht: 69.5 in Wt: 190 lb BMI: 27.7 kg/m2 IBW: [address] Assessment: (05/28) Visited pt in the room. Pt reported poor appetite. Per family, pt didnt like the thickened liquids so he was not drinking much fluid. FINAL ARMATURE TESTER following for risk of aspiration. Reviewed FINAL ARMATURE TESTER recommendation posted in pts room. Changed diet order based on FINAL ARMATURE TESTER rec. No complains of nausea or vomiting. No recent weight loss reported with UBW ~180-190lbs. RD rec Glucerna; pt was willing to try. Will continue to monitor and follow. (05/21) 83 YOM admitted for swelling of BLE with possible DVT. Pt seen today per MST score. Pt discussed during ICU rounds, pt not a candidate for anticoagulant therapy per RN. Pt was NPO for possible procedure this am. 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 Pt and pt's family report no GI distress and state that the pt has been wt stable. Pt follows a "no sugar and no added salt diet" at home. Chart reviewed. Labs and meds reviewed. Will monitor and continue to follow. Current Diet: 1800 ADA Malnutrition Evaluation (05/21/18) The patient does not meet criteria for a specified degree of malnutrition at this time. Will re-evaluate at follow-up as appropriate. Diet Education Needs Assessment: Diet education not indicated. Nutrition Care Level: Low Signed: Oxana Medina, MS, RD, LD
[2018-05-29] VITALS (9 sets, daily range): BP systolic 102–121; BP diastolic 56–69
--- NOTE | 2018-05-29 00:54 | Progress Note ---
DATE: 05/28/2018 Cardiology Progress Note SUBJECTIVE: No major events overnight. OBJECTIVE: VITAL SIGNS: Temperature afebrile, pulse 86, respiratory rate 18, blood pressure 112/77, and saturating 96% on room air. GENERAL: Elderly white man, in no acute distress. CARDIOVASCULAR: Irregular rate and rhythm. No murmurs, rubs, or gallops. LUNGS: Clear to auscultation bilaterally. ABDOMEN: Soft, nontender, nondistended. NEURO AND PSYCH: Alert and oriented to person, place, and time. Normal affect. CARDIOVASCULAR MEDICATIONS: Reviewed. LABORATORY DATA: Reviewed. TELEMETRY DATA: Reviewed, shows rate controlled AFib. ASSESSMENT AND PLAN: 1. Acute right lower extremity deep venous thrombosis. 2. Streptococcus viridans bacteremia. 3. Ftidw-yu-lvdwlih kidney disease. 4. Atrial fibrillation, rate controlled. 5. Left pleural effusion. 6. Chronic right ventricular systolic heart failure. 7. Occluded infrarenal IVC. 8. Hypertension. 9. Hyperlipidemia. 10. History of pulmonary embolism. 11. History of hemorrhagic cerebrovascular accident. 12. Diabetes. RECOMMENDATIONS: INR is not therapeutic. Okay to stop heparin. Continue other cardiovascular medications, otherwise. MD TOMASZ Kurtz/SOBEIDA /[id number]
--- NOTE | 2018-05-29 05:00 | NUR ---
am labs collected at this time and sent to lab.
[2018-05-29] MEDS: LEVOTHYROXINE SODIUM 50 MCG TAB PO SCH (05:17)
[2018-05-29] MEDS: CEFTRIAXONE SOD 1 GM/NS 50 ML 50 ML IV SCH ×2 (05:17→18:11)
[2018-05-29 06:58] LABS: INR 3.86; PROTHROMBIN TIME 38.7 seconds (11.9-14.5)
[2018-05-29] MEDS: INSULIN LISPRO 100 UNIT/1 ML 3ML VIAL SQ SCH ×4 (08:30→21:01)
[2018-05-29] MEDS: FUROSEMIDE 40 MG TAB PO SCH (09:00)
[2018-05-29] MEDS: POLYETHYLENE GLYCOL 3350 17 GM PACK PO SCH ×2 (09:00→17:00)
[2018-05-29] MEDS: FLUOXETINE HCL 20 MG CAP PO SCH (09:00)
[2018-05-29] MEDS: NEBIVOLOL 10 MG TAB PO SCH (09:00)
[2018-05-29] MEDS: PANTOPRAZOLE SOD 40 MG TABEC PO SCH (09:00)
[2018-05-29] MEDS: TAMSULOSIN HCL 0.4 MG CAP PO SCH (09:00)
[2018-05-29] MEDS: DILTIAZEM HCL 180 MG CAP ER PO SCH (09:00)
[2018-05-29] MEDS: BALSAM PERU/CASTOR OIL 60 GM OINT...G. TP SCH (09:00)
[2018-05-29] MEDS: FINASTERIDE 5 MG TAB PO SCH (09:00)
[2018-05-29] MEDS: NYSTATIN 15 GM POWDER UD BTL TOP SCH ×2 (10:00→17:00)
[2018-05-29] MEDS: WARFARIN SOD 5 MG TAB PO SCH (16:09)
--- NOTE | 2018-05-29 18:15 | NUR ---
PT UP IN BED NO DISTRESS NOTED DENIES PAIN,COUMADIN HELD PER DR EGAN PT-3.85
--- NOTE | 2018-05-29 18:50 | NUR ---
patient received awake, alert, lying quietly in bed. no c/o pain noted. patient repositioned for comfort. pm assessment complete. patient instructed to call for assistance when needed.
--- NOTE | 2018-05-29 19:23 | NUR ---
report on this patient given to Nicholas KATHLEEN at this time.
--- NOTE | 2018-05-29 19:40 | Progress Note ---
DATE: 05/29/2018 Cardiology Progress Note SUBJECTIVE: No major events overnight. OBJECTIVE: VITAL SIGNS: Temperature afebrile, pulse 69, respiratory rate 18, blood pressure 121/69, and saturating 95% on room air. GENERAL: Elderly man, in no acute distress. CARDIOVASCULAR: Regular rate and rhythm. No murmurs, rubs, or gallops. LUNGS: Clear to auscultation bilaterally. ABDOMEN: Soft, nontender, and nondistended. NEURO AND PSYCH: Alert and oriented to person, place, and time. Normal affect. CARDIOVASCULAR MEDICATIONS: Reviewed. LABORATORY DATA: Reviewed. TELEMETRY DATA: Reviewed, rate controlled, atrial fibrillation. ASSESSMENT AND PLAN: 1. Acute right lower extremity deep venous thrombosis. 2. Streptococcus viridans bacteremia. 3. Muihp-pj-rdpktik kidney disease. 4. Atrial fibrillation, rate controlled. 5. Left pleural effusion. 6. Chronic right ventricular systolic heart failure. 7. Occluded infrarenal inferior vena cava filter. 8. Hypertension. 9. Hyperlipidemia. 10. History of pulmonary embolism. 11. History of hemorrhagic cerebrovascular accident. 12. Diabetes. RECOMMENDATIONS: INR is now supratherapeutic, hold warfarin. We will resume once INR drops down below 2.5. Thank you for this consult. We will continue to follow. MD TOMASZ Kurtz/ATAL /[id number]
--- NOTE | 2018-05-29 20:28 | NUR ---
RECEIVED PT IN BED AOX3 RESPIRATIONS ARE EVEN AND UNLABORED .SKIN WARM AND DRY TO TOUCH . SWOLLEN LOWER EXTREMITIES CALL LIGHT WITH IN REACH .CONTINUE TO MONITOR
[2018-05-29] MEDS: SENNA-S TABLET PO SCH ×3 (20:59→22:05)
[2018-05-29] MEDS: ATORVASTATIN 20 MG TAB PO SCH (20:59)
[2018-05-30 04:20] VITALS: BP 102/66
[2018-05-30] MEDS: CEFTRIAXONE SOD 1 GM/NS 50 ML 50 ML IV SCH ×2 (06:03→18:12)
[2018-05-30] MEDS: LEVOTHYROXINE SODIUM 50 MCG TAB PO SCH (06:03)
[2018-05-30 06:21] LABS: INR 3.52; PROTHROMBIN TIME 36.1 seconds (11.9-14.5)
--- NOTE | 2018-05-30 07:00 | NUR ---
BEDSIDE SHIFT REPORT FROM NIGHT RN. PT DENIES NEEDS AT THIS TIME.
--- NOTE | 2018-05-30 07:12 | NUR ---
REPORT GIVEN TO THE ONCOMING NURSE .
[2018-05-30 08:19] VITALS: BP 118/70
[2018-05-30] MEDS: PANTOPRAZOLE SOD 40 MG TABEC PO SCH (08:25)
[2018-05-30] MEDS: FUROSEMIDE 40 MG TAB PO SCH (08:26)
[2018-05-30] MEDS: POLYETHYLENE GLYCOL 3350 17 GM PACK PO SCH ×2 (08:26→17:00)
[2018-05-30] MEDS: TAMSULOSIN HCL 0.4 MG CAP PO SCH (08:26)
[2018-05-30] MEDS: NEBIVOLOL 10 MG TAB PO SCH (08:26)
[2018-05-30] MEDS: DILTIAZEM HCL 180 MG CAP ER PO SCH (08:26)
[2018-05-30] MEDS: BALSAM PERU/CASTOR OIL 60 GM OINT...G. TP SCH (08:26)
[2018-05-30] MEDS: FLUOXETINE HCL 20 MG CAP PO SCH (08:26)
[2018-05-30] MEDS: FINASTERIDE 5 MG TAB PO SCH (08:26)
[2018-05-30] MEDS: NYSTATIN 15 GM POWDER UD BTL TOP SCH ×2 (08:26→17:30)
[2018-05-30] MEDS: INSULIN LISPRO 100 UNIT/1 ML 3ML VIAL SQ SCH ×4 (08:27→21:00)
[2018-05-30 09:00] VITALS: BP 118/70
[2018-05-30 12:00] VITALS: BP 103/66
[2018-05-30] MEDS: METHYLNALTREXONE BROMIDE 12 MG/0.6 ML VIAL SQ SCH (12:27)
--- NOTE | 2018-05-30 13:13 | NUR ---
EXPLAINED IMM LETTER TO PT AND FAMILY MEMBER. VERBALIZED UNDERSTANDING. IMM LETTER SIGNED AND COPY TO PT AND COPY TO CHART.
--- NOTE | 2018-05-30 15:35 | Progress Note ---
DATE: 05/30/2018 Cardiology Progress Note SUBJECTIVE: No major events overnight. OBJECTIVE: VITAL SIGNS: Temperature 98.0, pulse 76, respiratory rate 19, blood pressure 103/66, saturating 96% on room air. GENERAL: Elderly white man, no acute distress. CARDIOVASCULAR: Regular rate and rhythm. No murmurs, rubs, or gallops. LUNGS: Clear to auscultation bilaterally. ABDOMEN: Soft, nontender, nondistended. NEURO AND PSYCH: Alert and oriented to person, place, and time. Normal affect. CARDIOVASCULAR MEDICATIONS: Reviewed. LABORATORY DATA: Reviewed. INR today is 3.5. IMAGING DATA: Reviewed. ASSESSMENT: 1. Acute right lower extremity deep vein thrombosis. 2. Strep viridans bacteremia. 3. Acute on chronic kidney disease. 4. Atrial fibrillation, rate controlled. 5. Left pleural effusion. 6. Chronic right ventricular systolic heart failure. 7. Occluded infrarenal inferior vena cava filter. 8. Hypertension. 9. Hyperlipidemia. 10. History of pulmonary embolism. 11. History of hemorrhagic cerebrovascular accident. 12. Diabetes. RECOMMENDATIONS: INR remains supratherapeutic at 3.5. Continue holding warfarin. Thank you for this consult. We will continue to follow. MD TOMASZ Kurtz/SOBEIDA /[id number]
[2018-05-30 16:36] VITALS: BP 113/55
[2018-05-30] MEDS: WARFARIN SOD 5 MG TAB PO SCH (17:00)
[2018-05-30 20:00] VITALS: BP 120/63
--- NOTE | 2018-05-30 20:08 | NUR ---
RECEIVED PT IN BED AOX3 RESPIRATIONS ARE EVEN AND UNLABORED .. SWOLLEN LOWER EXTREMITIES AND SCROTUM CALL LIGHT WITH IN REACH .CONTINUE TO MONITOR
[2018-05-30] MEDS: ATORVASTATIN 20 MG TAB PO SCH (21:00)
[2018-05-31] VITALS (7 sets, daily range): BP systolic 103–120; BP diastolic 59–73
[2018-05-31] MEDS: LEVOTHYROXINE SODIUM 50 MCG TAB PO SCH (06:00)
[2018-05-31] MEDS: CEFTRIAXONE SOD 1 GM/NS 50 ML 50 ML IV SCH (06:00)
[2018-05-31 06:34] LABS: INR 2.66; PROTHROMBIN TIME 29.1 seconds (11.9-14.5)
--- NOTE | 2018-05-31 06:45 | NUR ---
PT RESTING AND DENIES PAIN .CALL LIGHT WITH IN REACH .CONTINUE TO MONITOR
--- NOTE | 2018-05-31 07:00 | NUR ---
BEDSIDE SHIFT REPORT FROM NIGHT RN. PT DENIES NEEDS AT THIS TIME.
--- NOTE | 2018-05-31 07:00 | NUR ---
BEDSIDE SHIFT REPORT FROM NIGHT RN. PT DENIES NEEDS AT THIS TIME.
--- NOTE | 2018-05-31 07:18 | NUR ---
REPORT GIVEN TO THE ONCOMING NURSE
[2018-05-31] MEDS: PANTOPRAZOLE SOD 40 MG TABEC PO SCH (08:59)
[2018-05-31] MEDS: POLYETHYLENE GLYCOL 3350 17 GM PACK PO SCH (09:00)
[2018-05-31] MEDS: NEBIVOLOL 10 MG TAB PO SCH (09:01)
[2018-05-31] MEDS: DILTIAZEM HCL 180 MG CAP ER PO SCH (09:02)
[2018-05-31] MEDS: FLUOXETINE HCL 20 MG CAP PO SCH (09:02)
[2018-05-31] MEDS: BALSAM PERU/CASTOR OIL 60 GM OINT...G. TP SCH (09:02)
[2018-05-31] MEDS: TAMSULOSIN HCL 0.4 MG CAP PO SCH (09:02)
[2018-05-31] MEDS: NYSTATIN 15 GM POWDER UD BTL TOP SCH (09:02)
[2018-05-31] MEDS: FUROSEMIDE 40 MG TAB PO SCH (09:02)
[2018-05-31] MEDS: FINASTERIDE 5 MG TAB PO SCH (09:02)
[2018-05-31] MEDS: INSULIN LISPRO 100 UNIT/1 ML 3ML VIAL SQ SCH ×3 (09:03→16:55)
[2018-05-31] MEDS ORDERED: CHLORTHALIDONE 25 MG TAB PO ONE (10:15)
[2018-05-31] MEDS ORDERED: WARFARIN SODIUM3 MG PO (16:58)
--- NOTE | 2018-05-31 17:38 | NUR ---
PT GIVEN EDUCATION MATERIAL FOR WARFARIN AND DIET WITH VITAMINE K.
--- NOTE | 2018-05-31 19:42 | Progress Note ---
DATE: 05/31/2018 Cardiology Progress Note SUBJECTIVE: No major events overnight. OBJECTIVE: VITAL SIGNS: Temperature 97.5, pulse 80, respiratory rate 20, blood pressure 109/70, saturating 99%. GENERAL: Elderly white man, in no acute distress. CARDIOVASCULAR: Regular rate and rhythm. No murmurs, rubs, or gallops. LUNGS: Clear to auscultation bilaterally. ABDOMEN: Soft, nontender, nondistended. NEURO AND PSYCH: Alert and oriented to person, place, and time. Normal affect. INPATIENT MEDICATIONS: Reviewed. LABORATORY DATA: Reviewed. INR two days back in the therapeutic window at 2.66. IMAGING DATA: Reviewed. TELEMETRY DATA: Reviewed, shows rate controlled atrial fibrillation. ASSESSMENT: 1. Acute right lower extremity deep venous thrombosis. 2. Strep viridans bacteremia. 3. Acute on chronic kidney disease. 4. Atrial fibrillation, rate controlled. 5. Left pleural effusion. 6. Chronic right ventricular systolic heart failure. 7. Occluded infrarenal inferior vena cava filter. 8. Hypertension. 9. Hyperlipidemia. 10. History of pulmonary embolism. 11. History of hemorrhagic cerebrovascular accident. 12. Diabetes. RECOMMENDATIONS: INR is back in the therapeutic window. Restart warfarin at a lower dose than previously. We will defer to primary physician as he has been managing this. The patient is okay to be discharged on current cardiovascular medications to a [place] [facility] facility. Awaiting transfer. Follow up in 2 weeks post discharge. Thank you for this consult. We will continue to follow. MD TOMASZ Kurtz/ATAL /[id number]
--- NOTE | 2018-06-01 05:34 | Discharge Summary ---
DISCHARGE DIAGNOSES: Deep vein thrombosis of the left leg, chronic kidney disease stage 3, diabetes, hypertension, sepsis secondary to strep viridans. HISTORY OF PRESENT ILLNESS AND HOSPITAL COURSE: Please see hospital chart for full details. The patient is a gentleman who presented with lower extremity swelling and was found to have a significant DVT as well as sepsis secondary to strep viridans. He was seen by Infectious Disease, GI, Cardiology, and Neuro. We felt like due to his prior history of hemorrhagic CVA, it was felt that the benefits of anticoagulation outweigh the risk, so he was restarted on IV heparin and was then transitioned to Coumadin. He already has an IVC filter placed that has clotted off. Once his Coumadin became therapeutic, he was discharged home with Coumadin 3 mg and instructed to follow up in 4 days for another repeat labs with me. The patient tolerated anticoagulation well without any evidence of bleeding. Please see the hospital chart for full details. In outpatient, finished up his IV antibiotic course, so he did not need any further p.o. antibiotics and repeat cultures were negative. Please see hospital chart for full details. MD NATY Mcdonald/SOBEIDA /[id number]
== END 2018-05-31 18:04 | disposition home or self-care (01) | DRG 871 ==
LOC: ER 16:44 → ERHOLD 20:09 → MED/SURG3 21:27 → ICU 05-20 18:53 → MED/SURG3 05-22 17:56
PROVIDERS: ADMIT Internal Medicine; ATTEND Internal Medicine
PROC: 02HV33Z Insertion of Infusion Device into Superior Vena Cava, Percutaneous Approach (ICD-10-PCS; principal; 2018-05-20)
DX: A40.8 Other streptococcal sepsis (principal); I26.99 Other pulmonary embolism without acute cor pulmonale; I50.33 Acute on chronic diastolic (congestive) heart failure; I82.4Z2 Acute embolism and thrombosis of unspecified deep veins of left distal lower extremity; I13.0 Hypertensive heart and chronic kidney disease with heart failure and stage 1 through stage 4 chronic kidney disease, or unspecified chronic kidney disease; E11.22 Type 2 diabetes mellitus with diabetic chronic kidney disease; N18.3 Chronic kidney disease, stage 3 (moderate); Z79.4 Long term (current) use of insulin; Z86.73 Personal history of transient ischemic attack (TIA), and cerebral infarction without residual deficits; I48.91 Unspecified atrial fibrillation; Z79.01 Long term (current) use of anticoagulants; E03.9 Hypothyroidism, unspecified
CPT/HCPCS: 36415; 36556; 70450; 71045; 71250; 74230; 74470; 76604; 76937; 80048; 80053; 80061; 81001; 82550; 82553; 82948; 83036; 83605; 83735; 83880; 84100; 84436; 84443; 84479; 84484; 85025; 85610; 85730; 87040; 87071; 87086; 87186; 87205; 93005; 93306; 93971; 96365; 96366; 96372; 97139; 99285; C1751; J0696; J1644; J1940; J1956; J2405; J2543; J3370; J7030; J7040; J7050

== ENCOUNTER 2018-07-02 10:00 | Outpatient (RCR) | payer MEDICARE, OTHER ==
--- NOTE | 2018-06-13 13:46 | NUR ---
Patient Name: Femi Hare: 1935 Age/Sex: 83/maleOrdering Physician: Giancarlo Zambrano MD Clinical Swallow Evaluation/Initial Treatment Session Patient is a 83 year old male with diagnosis of dysphagia and choking. Patient completed a modified barium swallow (MBS) study on 05/22/2018. Pt presented with moderate pharyngeal dysphagia c/b silent ivania aspiration of thin liquids. Dysphagia was judged to be secondary to, tongue base weakness, and decreased hyo-laryngeal excursion. Recommendation was made for dysphagia therapy to increase strength and coordination of swallow. Patient was seen today in the outpatient clinic for initial treatment of Neuromuscular Electrical Stimulation (NMES) with VitalStim Therapy and traditional dysphagia therapy with pharyngeal exercises. Pt was seen with no family present. Oral motor exam revealed function that was grossly within normal limits. Patient tolerates room air. Hearing appeared to be WFL. Speech and language skills were functional. Patient reported reports using thickener regularly at home. Provided extensive education re: need for therapy, purpose of exercises and NMES, and future plan of care. Pt indicated understanding. Pt was given water and hard candy. Pt was instructed to take small sips and swallow hard, feeling all the muscles in her throat contract. Placement 3b was used to target the mylohyoid muscle, the anterior belly of the digastric muscle, the sternohyoid muscle, the omohyoid muscle, the geniohyoid muscle, and the middle pharyngeal constrictors. Channel 1 of the electrodes was aligned horizontally just above the hyoid bone and channel 2 of the electrodes was aligned horizontally at the level of the thyroid notch. This placement was used to improve base of tongue strength, pharyngeal constriction, and UES function. Pt initially tolerated 4.5 mA, but as the session progressed pt tolerated 19.5 mA. Pt received 52 minutes of stimulation. Cough noted X 0, throat clear X 3. During NMES an exercise program was presented, demonstrated, and discussed. Pt completed the exercises with minimal assistance. A home program was assigned. Pt verbalized understanding of the home exercise program. Education provided as indicated. All questions were answered. Pt/daughter indicated that attending therapy 3x/week would be convenient Impressions: Pt tolerated initial session of NMES well. He continues to report and demonstrate s/s of aspiration during meals which significantly interferes with his quality of life. Pt is an excellent candidate for dysphagia exercises and NMES for improvement of strength and coordination of swallow. Recommendations: 1.Dysphagia therapy to include traditional exercises and NMES 3X/week for 4 weeks for a total of 12 treatment sessions 2.Home exercise program 3.Repeat MBS in 4-6 weeks with new goals to be determined at that time Apprentice Pattern Maker Goal: Pt will tolerate least restrictive diet without s/s of aspiration as judged by an objective evaluation. Short Term Goals: 1.Pt will complete 3 repetitions of a set of dysphagia exercises to improve laryngeal elevation, base of tongue retraction, and laryngeal closure, 10 repetitions per exercise, with minimal cues. 2.Pt will tolerate NMES for 45 60 minutes with no clinical s/s of aspiration to improve strength of pharyngeal constrictors, hyolaryngeal excursion, and safety with po intake. 3.Pt will complete home dysphagia exercise program targeting laryngeal elevation, base of tongue strength, and cricopharyngeal function independently. 4.Pt will follow aspiration precautions with independence. 5.Pt will participate in a repeat Modified Barium Swallow study to objectively re-assess swallow safety and function and determine safest diet. Patricia Acveedo M.S. [facility] Date of Session: 06/13/18 Dysphagia Evaluation and Treatment X 60 minutes Physicians signature below certifies medical necessity for these skilled interventions Physician SignatureDate NOMS Rating for Swallowing: Level 5
--- NOTE | 2018-06-21 09:28 | NUR ---
ST NOTE Pt cx apt for today, no reason given. Will resume services next week and reschedule missed apt.
[~2018-07-02 10:00] MED LIST changes: +WARFARIN SODIUM3 MG PO
== END 2018-07-03 ==
LOC: ST 10:00
PROVIDERS: ATTEND Internal Medicine
DX: R13.13 Dysphagia, pharyngeal phase (principal)

== ENCOUNTER 2018-07-06 09:55 | Outpatient (RCR) | payer MEDICARE, OTHER | END 2018-08-03 | LOC: ST 09:55 | PROVIDERS: ATTEND Internal Medicine | DX: R13.13 Dysphagia, pharyngeal phase (principal); L03.818 Cellulitis of other sites ==

== ENCOUNTER → 2018-07-10 | Outpatient (CLI) | payer MEDICARE, OTHER ==
--- NOTE | 2018-07-11 07:46 | Diagnostic Imaging Report ---
PROCEDURE: X-RAY MODIFIED BARIUM SWALLOW COMPARISON: Modified barium swallow 05/22/18 INDICATION: Dysphagia. Radiation Details: Fluoroscopy time: 0 minutes Cumulative dose: 10.4 mGy DISCUSSION: Fluoroscopic examination was performed in conjunction with speech pathology during swallowing a variety of thin and thick liquid consistencies. Provided images demonstrate no laryngeal penetration or aspiration. There is mild to moderate vallecular residue following thin liquids. CONCLUSION: Modified barium swallow demonstrating resolution of prior laryngeal penetration and aspiration. Please refer to the speech pathology report for further details. Signed by: Dr. Dario Mendoza MD on 07/11/2018 7:42 AM
== END ==
LOC: DX 09:25
PROVIDERS: ATTEND Internal Medicine
DX: I69.398 Other sequelae of cerebral infarction (principal); R13.13 Dysphagia, pharyngeal phase; I10 Essential (primary) hypertension; E78.5 Hyperlipidemia, unspecified; N18.9 Chronic kidney disease, unspecified
CPT/HCPCS: 74230

== ENCOUNTER 2018-10-09 08:09 | Observation (INO) | payer MEDICARE, OTHER ==
[~2018-10-09] VITALS: Ht 174 cm; Wt 87.1 kg
--- OUTSIDE RECORDS SUMMARY | 2018-10-09 08:13 | XMS REPORT | Clinical Summary ---
Author Author LOVE PicseanClearwater [facility] HospitalContactMonkey [facility] Organization [facility]CinetrafficSwed[facility] [place] Address Unknown Phone Unavailable Care Team Providers Care Showplace Manager Name Role Phone Sharpless PCP Allergies [...] Not on file Results Not on fileafter 10/08/2017 Insurance Payer Benefit Subscriber ID Type Phone Address Plan / Group MEDICARE MEDICARE A xxxxxxxxxx Medicare B CIGNA - MGD CARE CIGNA xxxxxxxxxxx HMO/POS HMO/POS/OP EN ACCESS Advance Directives For more information, please contact: [facility] [address] [place] [address] Date Inactivated Comments Code Status Date Activated 02/24/2016 11:52 AM Full Code 02/01/2016 5:35 PM This code status was determined by: Patient 02/01/2016 5:35 PM Full Code 02/01/2016 5:32 PM This code status was determined by: Patient 02/01/2016 5:32 PM Full Code 01/22/2016 9:39 PM This code status was determined by: Patient
--- OUTSIDE RECORDS SUMMARY | 2018-10-09 08:13 | XMS REPORT | Continuity of Care Document ---
Author Author [employer] Address Unknown Phone Unavailable Care Team Providers Care Test Puller Name Role Phone [employer] Unavailable Unavailable Problems Problem Status Onset Date Classification Date Reported Comments Source STROKE Active 02/22/2016 [facility] SOB Active 08/20/2015 [facility] ACUTE RENAL FAILURE, CHEST PAIN, DYSPNEA Active 08/20/2015 [facility] HTN (Confirmed) Resolved Problem 06/05/2016 [facility] Hyperlipemia Resolved Problem 06/05/2016 [facility] UNSPECIFIED KIDNEY FAILURE Active [facility] Medications Medication Details Route Status Patient Instructions Ordering Provider Order Date Source warfarin 3 mg oral tablet 3 mg=1 tab, PO, Daily, # 30 tab, 0 Refill(s) Active 08/25/2015 [facility] temazepam 15 mg oral capsule 15 mg=1 cap, PO, Bedtime, X 30 day, # 30 cap, 0 Refill(s) Active 08/25/2015 [facility] levofloxacin 750 mg oral tablet 750 mg=1 tab, PO, Daily, X 7 day, # 7 tab, 0 Refill(s) Active 08/25/2015 [facility] Nebulizer Mask Adult Misc/Other 1 ea, MISC, PRN, PRN As directed by physician, # 1 ea, 0 Refill(s) Active 08/25/2015 [facility] Nebulizer 1 ea, MISC, ONCALL, # 1 ea, 0 Refill(s) Active 08/25/2015 [facility] Albuterol 0.83 MG/ML Inhalant Solution 2.5 mg=3 mL, NEB, RQ4H, PRN as needed for shortness of breath, Pediatric Dosing, # 180 mL, 0 Refill(s) Active 08/25/2015 [facility] Atenolol 50 MG Oral Tablet 50 mg=1 tab, PO, BID, # 60 tab, 0 Refill(s) Active 08/25/2015 [facility] Coumadin 3 mg, 3 tab, Route: PO, Drug form: TAB, ONCE, Dosing Weight 94.2, kg, Start date: 08/24/15 13:35:00 CDT, Stop date: 08/24/15 13:35:00 CDTNotes: Nurse to ensure documentation of patient education per ant icoagulation policy. Avoid large intake of vitamin-K containing foods diet. (Same As: Coumadin) WASTE: F/P - P Waste Black; E - P Waste Black Inactive 08/24/2015 [facility] nitroglycerin 0.4 mg sublingual tablet 0.4 mg, 1 tab, Route: SL, Drug form: TAB, Q5Min, PRN Chest Pain, Start date: 08/23/15 21:11:00 CDT, Duration: 30 day, Stop date: 09/22/15 21:10:00 CDTNotes: (Same as:Nitroquick, Nitrostat) "Do Not Crush" Sublingual tablet No Longer Active 08/24/2015 [facility] atropine 0.5 mg, 5 mL, Route: IVP, Drug form: INJ, PRN, PRN Bradycardia, Start date: 08/23/15 21:10:00 CDT, Duration: 30 day, Stop date: 09/22/15 21:09:00 CDT No Longer Active 08/24/2015 [facility] Warfarin 3 mg, 3 tab, Route: [...] E - P Waste Black Inactive 08/23/2015 [facility] Hydralazine Hydrochloride 25 MG Oral Tablet 25 mg, 1 tab, Route: PO, Drug form: TAB, Q4H, Dosing Weight 94.2, kg, PRN Elevated BP, Start date: 08/23/15 14:18:00 CDT, Duration: 30 day, Stop date: 09/22/15 14:17:00 CDTNotes: (Same as: Apresoline) May interfere w/enteral feedings Take With Food. No Longer Active 08/23/2015 [facility] Atenolol 50 MG Oral Tablet 50 mg, 1 tab, Route: PO, Drug form: TAB, BID, Dosing Weight 94.2, kg, Priority: NOW, Start date: 08/23/15 14:17:00 CDT, Duration: 30 day, Stop date: 09/22/15 9:00:00 CDTNotes: (Same As:Tenormin) No Longer Active 08/23/2015 [facility] Warfarin 7.5 mg, 1 tab, Route: [...] (Same As: Coumadin) No Longer Active 08/22/2015 [facility] Lovenox 90 mg, 0.9 mL, Route: SUB-Q, Drug form: INJ, [id number], Dosing Weight 90.909, kg, Start date: 08/21/15 21:00:00 CDT, Duration: 30 day, Stop date: 09/19/15 21:00:00 CDTNotes: Nurse to ensure documentation of patient education per anticoagulation policy. (Same as: Lovenox) Inactive 08/22/2015 [facility] heparin additive 25,000 unit [18 unit/kg/hr] + Premix Diluent Dextrose 5% 500 mL 500 mL, Rate: 28.33 ml/hr, Infuse over: 17.6 hr, Route: IV, Dosing Weight 78.7 kg, Total Volume: 500 mL, Start date: 08/21/15 18:09:00 CDT, Duration: 30 day, Stop date: 09/20/15 18:08:00 CDT No Longer Active 08/21/2015 [facility] Heparin 80 unit/kg Bolus (Heparin Dosing Weight) Route: IVP, PRN, 6,300 unit, 6.3 mL, Drug form: INJ, PRN, Heparin Protocol, Start date: 08/21/15 18:09:00 CDT Stop date: 09/20/15 18:08:00 CDT, 30 day No Longer Active 08/21/2015 [facility] Heparin 40 unit/kg Bolus (Heparin Dosing Weight) Route: IVP, PRN, 3,100 unit, 3.1 mL, Drug form: INJ, PRN, Heparin Protocol, Start date: 08/21/15 18:09:00 CDT Stop date: 09/20/15 18:08:00 CDT, 30 day No Longer Active 08/21/2015 [facility] Heparin - one time bolus for DVT/PE Route: IV, Drug form: INJ, ONCE, Dosing Weight 90.909, kg, Priority: STAT, Start date: 08/21/15 17:59:00 CDT, Stop date: 08/21/15 17:59:00 CDT Inactive 08/21/2015 [facility] Heparin 80 unit/kg Bolus (Heparin Dosing Weight) Pharmacy To Manage, Route: IVP, PRN, Drug form: INJ, PRN, Heparin Protocol, Start date: 08/21/15 17:59:00 CDT Stop date: 09/20/15 17:58:00 CDT, 30 day Inactive 08/21/2015 [facility] Coumadin 7.5 mg, 1 tab, Route: [...] Waste Black (Same As: Coumadin) Inactive 08/21/2015 [facility] Protonix 40 mg, 1 tab, Route: PO, Drug form: ECTAB, Before Dinner, Dosing Weight 90.909, kg, Start date: 08/21/15 16:30:00 CDT, Duration: 30 day, Stop date: 09/19/15 16:30:00 CDTNotes: Tablet should not be chewed or crushed. (Same as: Protonix) No Longer Active 08/21/2015 [facility] sodium chloride 0.9% 1000 ml INJ 1,000 mL 1,000 mL, Rate: 50 ml/hr, Infuse over: 20 hr, Route: IV, Dosing Weight 90.909 kg, Total Volume: 1,000, Start date: 08/21/15 15:00:00 CDT, Duration: 30 day, Stop date: 09/20/15 14:59:00 CDT No Longer Active 08/21/2015 [facility] Atenolol 100 MG Oral Tablet 100 mg, Route: PO, Drug form: TAB, BID, Dosing Weight 90.909, kg, Start date: 08/21/15 9:00:00 CDT, Duration: 30 day, Stop date: 09/19/15 21:00:00 CDT No Longer Active 08/21/2015 [facility] Verapamil 240 mg, 1 tab, Route: PO, Drug form: ERTAB, Daily, Dosing Weight 90.909, kg, Start date: 08/21/15 9:00:00 CDT, Duration: 30 day, Stop date: 09/19/15 9:00:00 CDTNotes: Do not crush or chew.; "Avoid grapefruit and grapefruit juice" (Same As: Calan SR, Isoptin SR) No Longer Active 08/21/2015 [facility] Lisinopril 20 mg, 1 tab, Route: PO, Drug form: TAB, Daily, Dosing Weight 90.909, kg, Start date: 08/21/15 9:00:00 CDT, Duration: 30 day, Stop date: 09/19/15 9:00:00 CDTNotes: (Same as: Prinivil, Zestril) No Longer Active 08/21/2015 [facility] Miralax 17 gm, 1 pkt, Route: PO, Drug form: PWDR, Daily, Dosing Weight 90.909, kg, Start date: 08/21/15 9:00:00 CDT, Duration: 30 day, Stop date: 09/19/15 9:00:00 CDTNotes: Dissolve in 8 oz of water or juice. (Same as: Miralax) No Longer Active 08/21/2015 [facility] Sodium Chloride 0.154 MEQ/ML Injectable Solution 1,000 mL, Rate: 100 ml/hr, Infuse over: 10 hr, Route: IV, Dosing Weight 90.909 kg, Total Volume: 1,000, Start date: 08/21/15 5:11:00 CDT, Duration: 1 doses or times, Stop date: 08/21/15 15:10:00 CDT Inactive 08/21/2015 [facility] Lactulose 1,000 ml, Route: AR, Drug Form: MUNIRA, Dosing Weight 90.909, kg, ONCE, PRN Constipation, Start date: 08/21/15 3:29:00 CDT, Duration: 1 doses or times, Stop date: Limited # of times, 300 mL lactulose + 70 0 mL waterNotes: Lactulose 300ml, Water for Irrigation 700ml - total [id number] Inactive 08/21/2015 [facility] Norepinephrine 8 mg, 8 mL, Rate: [...] catheter (PICC) line. No Longer Active 08/21/2015 [facility] Flurazepam 30 mg, Route: PO, Drug form: CAP, Bedtime, Dosing Weight 90.909, kg, Start date: 08/20/15 21:00:00 CDT, Duration: 30 day, Stop date: 09/18/15 21:00:00 CDT Inactive 08/21/2015 [facility] Atenolol 100 MG Oral Tablet 100 mg, 2 tab, Route: PO, Drug form: TAB, BID, Dosing Weight 90.909, kg, Start date: 08/20/15 21:00:00 CDT, Duration: 30 day, Stop date: 09/19/15 9:00:00 CDTNotes: (Same As:Tenormin) Inactive 08/21/2015 [facility] Restoril 15 mg, 1 cap, Route: PO, Drug form: CAP, Bedtime, Start date: 08/20/15 21:00:00 CDT, Duration: 30 day, Stop date: 09/18/15 21:00:00 CDTNotes: (Same As: Restoril) No Longer Active 08/21/2015 [facility] Lasix 40 mg, 4 mL, Route: IVP, Drug form: INJ, ONCE, Dosing Weight 90.909, kg, Priority: NOW, Start date: 08/20/15 20:12:00 CDT, Stop date: 08/20/15 20:12:00 CDTNotes: (Same as: Lasix) MEDICATION WASTE Product Size: 40 mg Product Wasted: ___ mg Inactive 08/21/2015 [facility] Lovenox 60 mg, 0.6 mL, Route: SUB-Q, Drug form: INJ, ONCE, Dosing Weight 90.909, kg, Priority: STAT, Start date: 08/20/15 20:11:00 CDT, Stop date: 08/20/15 20:11:00 CDTNotes: Nurse to ensure documentation of patient education per anticoagulation policy. (Same as: Lovenox) Inactive 08/21/2015 [facility] Albuterol 0.83 MG/ML Inhalant Solution 2.49 mg, 3 mL, Route: NEB, Drug form: SOLN, RQ4H, Dosing Weight 90.909, kg, Start date: 08/20/15 19:00:00 CDT, Duration: 30 day, Stop date: 09/19/15 15:00:00 CDT, Pediatric DosingNotes: SEE RT DOCUMENTATION (Same as: Proventil) No Longer Active 08/21/2015 [facility] magnesium citrate 150 ml, Route: PO, Drug Form: LIQ, Dosing Weight 90.909, kg, Daily, PRN Constipation, Start date: 08/20/15 18:33:00 CDT, Duration: 30 day, Stop date: 09/19/15 18:32:00 CDTNotes: (Same as: Citrate of Magnesia) No Longer Active 08/20/2015 [facility] Milk of Magnesia 30 ml, Route: PO, Drug Form: SUSP, Dosing Weight 90.909, kg, Q6H, PRN Constipation, Start date: 08/20/15 18:33:00 CDT, Duration: 30 day, Stop date: 09/19/15 18:32:00 CDTNotes: (Same as: Milk of Freddie hester, MOM) No Longer Active 08/20/2015 [facility] sodium chloride 0.9% 1000 ml INJ 1,000 mL 1,000 mL, Rate: 25 ml/hr, Infuse over: 40 hr, Route: IV, Dosing Weight 90.909 kg, Total Volume: 1,000, Start date: 08/20/15 18:05:00 CDT, Duration: 30 day, Stop date: 09/19/15 18:04:00 CDT Inactive 08/20/2015 [facility] Azithromycin 500 mg, Route: IVPB, [id number], Dosing Weight 90.909, kg, Priority: STAT, Start date: 08/20/15 17:08:00 CDT, Duration: 30 day, Stop date: 09/18/15 18:00:00 CDTNotes: (Same As: Zithromax IV) No Longer Active 08/20/2015 [facility] Ceftriaxone 1 gm, Route: IVPB, Q24H, Dosing Weight 90.909, kg, Priority: STAT, Start date: 08/20/15 17:08:00 CDT, Duration: 30 day, Stop date: 09/18/15 17:00:00 CDTNotes: (Same As: Rocephin). Use with 100 mL NS and infuse over 30 min MEDICATION WASTE Product Size: 1000 mg Product Wasted: ___ mg No Longer Active 08/20/2015 [facility] Albuterol 0.833 MG/ML / Ipratropium Geff 0.167 MG/ML Inhalant Solution [DuoNeb] 3 ml, Route: INHALATION, Drug Form: SOLN, Dosing Weight 90.909, kg, PRN, PRN Respiratory Protocol, Start date: 08/20/15 17:08:00 CDT, Duration: 30 day, Stop date: 09/19/15 17:07:00 CDTNotes: (Same as: Duoneb) No Longer Active 08/20/2015 [facility] Ondansetron 4 mg, 2 mL, Route: IVP, Drug form: INJ, Q6H, Dosing Weight 90.909, kg, PRN Nausea & Vomiting, Start date: 08/20/15 17:08:00 CDT, Duration: 30 day, Stop date: 09/19/15 17:07:00 CDTNotes: (Same as: Zofran) MEDICATION WASTE Product Size: 4 mg Product Wasted: ___ mg No Longer Active 08/20/2015 [facility] Docusate 100 mg, 1 cap, Route: PO, Drug form: CAP, BID, Dosing Weight 90.909, kg, PRN Constipation, Start date: 08/20/15 17:08:00 CDT, Duration: 30 day, Stop date: 09/19/15 17:07:00 CDTNotes: (Same as: Colace) (Do Not Crush) No Longer Active 08/20/2015 [facility] Morphine 2 mg, 1 mL, Route: IVP, Drug form: INJ, Q4H, Dosing Weight 90.909, kg, PRN Pain Score 7-10, Start date: 08/20/15 17:08:00 CDT, Duration: 30 day, Stop date: 09/19/15 17:07:00 CDTNotes: (Same as:MORPhine Sulfate) No Longer Active 08/20/2015 [facility] Acetaminophen 650 mg, 2 tab, Route: PLEURODESIS, Drug form: TAB, Q4H, Dosing Weight 90.909, kg, PRN Pain 1-3/Temp > 100.4 F, Start date: 08/20/15 17:08:00 CDT, Duration: 30 day, Stop date: 09/19/15 17:07:00 CDTNotes: Do not exceed 4 gm/day. (Same as: Tylenol) No Longer Active 08/20/2015 [facility] Enoxaparin 30 mg, 0.3 mL, Route: SUB-Q, Drug form: INJ, [id number], Dosing Weight 90.909, kg, Start date: 08/20/15 17:00:00 CDT, Duration: 30 day, Stop date: 09/18/15 17:00:00 CDTNotes: (Same as: Lovenox) Inactive 08/20/2015 [facility] Protonix 40 mg, PO, Daily, # 30 tab, 0 Refill(s) Active 08/20/2015 [facility] lisinopril 20 mg oral tablet 20 mg=1 tab, PO, Daily, # 30 tab, 0 Refill(s) No Longer Active 08/20/2015 [facility] Atenolol 100 MG Oral Tablet 100 mg=1 tab, PO, BID, 0 Refill(s) No Longer Active 08/20/2015 [facility] diclofenac sodium 100 mg oral tablet, extended release 100 mg=1 tab, PO, Daily, # 30 tab, 0 Refill(s) No Longer Active 08/20/2015 [facility] verapamil 240 mg oral tablet, extended release 240 mg=1 tab, PO, Daily, # 30 tab, 0 Refill(s) No Longer Active 08/20/2015 [facility] atorvastatin 20 mg oral tablet 20 mg=1 tab, PO, Bedtime, # 30 tab, 0 Refill(s) Active 08/20/2015 [facility] Saline Flush 0.9% 10 mL, Route: IVP, Drug Form: INJ, Dosing Weight 90.909, kg, PRN, PRN Line Flush, Start date: 08/20/15 14:16:00 CDT, Duration: 30 day, Stop date: 09/19/15 14:15:00 CDTNotes: (Same as: BD Posiflush) No Longer Active 08/20/2015 [facility] Allergies, Adverse Reactions, Alerts No Known Medication Allergies Immunizations No Data Provided for This Section Results Order Name Results Value Reference Range Date Interpretation Comments Source HEMATOLOGY INR 2.50 0.85 - 1.17 08/25/2015 [facility] HEMATOLOGY PT 27.3 12.0 - 14.7 08/25/2015 [facility] HEMATOLOGY PT 26.9 12.0 - 14.7 08/24/2015 [facility] HEMATOLOGY INR 2.45 0.85 - 1.17 08/24/2015 [facility] CHEM PANEL B/C Ratio 22 6 - 25 08/23/2015 [facility] CHEM PANEL Globulin 4.2 2.0 - 4.0 08/23/2015 [facility] CHEM PANEL A/G Ratio 0.8 0.7 - 1.6 08/23/2015 [facility] CHEM PANEL AGAP 15.5 10.0 - 20.0 08/23/2015 [facility] CHEM PANEL Alk Phos 86 39 - 136 08/23/2015 [facility] CHEM PANEL Bili Total 0.4 0.2 - 1.3 08/23/2015 [facility] CHEM PANEL eGFR 30 08/23/2015 Result Comment: The eGFR is calculated [...] should be multiplied by the estimated BMI. [facility] CHEM PANEL Potassium Lvl 4.5 3.5 - 5.1 08/23/2015 [facility] CHEM PANEL Chloride Lvl 108 95 - 109 08/23/2015 [facility] CHEM PANEL CO2 22 24 - 32 08/23/2015 [facility] CHEM PANEL BUN 44 7 - 22 08/23/2015 [facility] CHEM PANEL Creatinine Lvl 2.03 0.50 - 1.40 08/23/2015 [facility] CHEM PANEL Sodium Lvl 141 135 - 145 08/23/2015 [facility] CHEM PANEL ALT 125 0 - 65 08/23/2015 [facility] CHEM PANEL AST 46 0 - 37 08/23/2015 [facility] CHEM PANEL Calcium Lvl 8.4 8.5 - 10.5 08/23/2015 [facility] CHEM PANEL Total Protein 7.5 6.4 - 8.4 08/23/2015 [facility] CHEM PANEL Albumin Lvl 3.3 3.5 - 5.0 08/23/2015 [facility] CHEM PANEL Glucose Lvl 184 70 - 99 08/23/2015 [facility] HEMATOLOGY PTT 87.2 22.9 - 35.8 08/23/2015 [facility] HEMATOLOGY Basophils # 0.1 0.0 - 0.2 08/23/2015 [facility] HEMATOLOGY Monocytes 8.8 2.0 - 12.0 08/23/2015 [facility] HEMATOLOGY Lymphocytes 32.4 20.0 - 40.0 08/23/2015 [facility] HEMATOLOGY Segs-Bands # 8.1 1.5 - 8.1 08/23/2015 [facility] HEMATOLOGY Segs 57.5 45.0 - 75.0 08/23/2015 [facility] HEMATOLOGY Basophils 0.6 0.0 - 1.0 08/23/2015 [facility] HEMATOLOGY Eosinophils 0.7 0.0 - 4.0 08/23/2015 [facility] HEMATOLOGY Eosinophils # 0.1 0.0 - 0.5 08/23/2015 [facility] Monocytes # 1.2 0.0 - 0.8 08/23/2015 [facility] Lymphocytes # 4.6 1.0 - 5.5 08/23/2015 [facility] MCH 27.9 27.0 - 31.0 08/23/2015 [facility] Platelet 129 133 - 450 08/23/2015 [facility] MCHC 31.4 32.0 - 36.0 08/23/2015 [facility] MPV 9.4 7.4 - 10.4 08/23/2015 [facility] RDW 15.4 11.5 - 14.5 08/23/2015 [facility] Hgb 15.6 14.0 - 18.0 08/23/2015 [facility] WBC 14.1 3.7 - 10.4 08/23/2015 [facility] RBC 5.59 4.70 - 6.10 08/23/2015 [facility] Hct 49.6 42.0 - 54.0 08/23/2015 [facility] MCV 88.7 80.0 - 94.0 08/23/2015 [facility] INR 2.06 0.85 - 1.17 08/23/2015 [facility] PT 23.5 12.0 - 14.7 08/23/2015 [facility] PTT 68.3 22.9 - 35.8 08/23/2015 [facility] PTT 103.1 22.9 - 35.8 08/22/2015 Result Comment: Critical Result(s) called to Alicia Mcclain at 08/22/2015 18:22 by Alicia Omer. Read back OK. [facility] CHEM PANEL eGFR 24 08/22/2015 Result Comment: The eGFR is calculated [...] should be multiplied by the estimated BMI. [facility] CHEM PANEL Bili Total 0.3 0.2 - 1.3 08/22/2015 [facility] CHEM PANEL Alk Phos 82 39 - 136 08/22/2015 [facility] CHEM PANEL Sodium Lvl 137 135 - 145 08/22/2015 [facility] CHEM PANEL Potassium Lvl 4.4 3.5 - 5.1 08/22/2015 [facility] CHEM PANEL BUN 47 7 - 22 08/22/2015 [facility] CHEM PANEL Creatinine Lvl 2.46 0.50 - 1.40 08/22/2015 [facility] CHEM PANEL Glucose Lvl 198 70 - 99 08/22/2015 [facility] CHEM PANEL Calcium Lvl 7.8 8.5 - 10.5 08/22/2015 [facility] CHEM PANEL B/C Ratio 19 6 - 25 08/22/2015 [facility] CHEM PANEL CO2 19 24 - 32 08/22/2015 [facility] CHEM PANEL AGAP 14.4 10.0 - 20.0 08/22/2015 [facility] CHEM PANEL Chloride Lvl 108 95 - 109 08/22/2015 [facility] CHEM PANEL ALT 122 0 - 65 08/22/2015 [facility] CHEM PANEL AST 93 0 - 37 08/22/2015 [facility] CHEM PANEL Globulin 3.8 2.0 - 4.0 08/22/2015 [facility] CHEM PANEL A/G Ratio 0.8 0.7 - 1.6 08/22/2015 [facility] CHEM PANEL Total Protein 6.7 6.4 - 8.4 08/22/2015 [facility] CHEM PANEL Albumin Lvl 2.9 3.5 - 5.0 08/22/2015 [facility] HEMATOLOGY Monocytes # 1.6 0.0 - 0.8 08/22/2015 [facility] HEMATOLOGY Segs-Bands # 7.8 1.5 - 8.1 08/22/2015 [facility] HEMATOLOGY Lymphocytes # 5.7 1.0 - 5.5 08/22/2015 [facility] HEMATOLOGY Basophils 0.9 0.0 - 1.0 08/22/2015 [facility] HEMATOLOGY Basophils # 0.1 0.0 - 0.2 08/22/2015 [facility] HEMATOLOGY Eosinophils # 0.1 0.0 - 0.5 08/22/2015 [facility] HEMATOLOGY Segs 50.9 45.0 - 75.0 08/22/2015 [facility] HEMATOLOGY Eosinophils 0.5 0.0 - 4.0 08/22/2015 [facility] HEMATOLOGY Monocytes 10.5 2.0 - 12.0 08/22/2015 [facility] HEMATOLOGY Lymphocytes 37.2 20.0 - 40.0 08/22/2015 [facility] HEMATOLOGY MPV 9.2 7.4 - 10.4 08/22/2015 [facility] HEMATOLOGY MCH 28.0 27.0 - 31.0 08/22/2015 [facility] HEMATOLOGY MCHC 31.4 32.0 - 36.0 08/22/2015 [facility] HEMATOLOGY RDW 15.3 11.5 - 14.5 08/22/2015 [facility] HEMATOLOGY Platelet 107 133 - 450 08/22/2015 [facility] HEMATOLOGY RBC 5.69 4.70 - 6.10 08/22/2015 [facility] HEMATOLOGY Hgb 16.0 14.0 - 18.0 08/22/2015 [facility] HEMATOLOGY Hct 50.9 42.0 - 54.0 08/22/2015 [facility] HEMATOLOGY MCV 89.4 80.0 - 94.0 08/22/2015 [facility] HEMATOLOGY WBC 15.3 3.7 - 10.4 08/22/2015 [facility] HEMATOLOGY Basophils 0.3 0.0 - 1.0 08/22/2015 [facility] HEMATOLOGY Eosinophils 0.1 0.0 - 4.0 08/22/2015 [facility] HEMATOLOGY Lymphocytes # 4.7 1.0 - 5.5 08/22/2015 [facility] HEMATOLOGY Segs-Bands # 11.5 1.5 - 8.1 08/22/2015 [facility] HEMATOLOGY Monocytes # 1.8 0.0 - 0.8 08/22/2015 [facility] HEMATOLOGY Basophils # 0.1 0.0 - 0.2 08/22/2015 [facility] HEMATOLOGY Monocytes 9.8 2.0 - 12.0 08/22/2015 [facility] HEMATOLOGY Lymphocytes 26.2 20.0 - 40.0 08/22/2015 [facility] HEMATOLOGY Segs 63.6 45.0 - 75.0 08/22/2015 [facility] RDW 15.0 11.5 - 14.5 08/22/2015 [facility] Platelet 148 133 - 450 08/22/2015 [facility] MPV 9.2 7.4 - 10.4 08/22/2015 [facility] RBC 5.88 4.70 - 6.10 08/22/2015 [facility] Hgb 16.4 14.0 - 18.0 08/22/2015 [facility] WBC 18.1 3.7 - 10.4 08/22/2015 [facility] Hct 52.2 42.0 - 54.0 08/22/2015 [facility] MCV 88.7 80.0 - 94.0 08/22/2015 [facility] MCHC 31.5 32.0 - 36.0 08/22/2015 [facility] MCH 27.9 27.0 - 31.0 08/22/2015 [facility] BACTERIAL - SEROLOGY MRSA by PCR Negative (08/21/15 4:18 AM) 08/21/2015 [facility] CARDIAC ENZYMES CK MB Index 3.7 0.0 - 2.5 08/21/2015 [facility] CARDIAC ENZYMES Total CK 101 12 - 191 08/21/2015 [facility] CARDIAC ENZYMES Troponin-I 0.36 0.00 - 0.40 08/21/2015 [facility] CARDIAC ENZYMES CK MB 3.7 0.5 - 3.6 08/21/2015 [facility] CARDIAC ENZYMES BNP 1159 <=100 pg/mL 08/21/2015 [facility] CHEM PANEL eGFR 20 08/21/2015 Result Comment: The eGFR is calculated [...] should be multiplied by the estimated BMI. [facility] CHEM PANEL Calcium Lvl 8.4 8.5 - 10.5 08/21/2015 [facility] CHEM PANEL AST 85 0 - 37 08/21/2015 [facility] CHEM PANEL Total Protein 8.4 6.4 - 8.4 08/21/2015 [facility] CHEM PANEL Albumin Lvl 3.8 3.5 - 5.0 08/21/2015 [facility] CHEM PANEL Alk Phos 103 39 - 136 08/21/2015 [facility] CHEM PANEL Bili Total 0.7 0.2 - 1.3 08/21/2015 [facility] CHEM PANEL ALT 95 0 - 65 08/21/2015 [facility] CHEM PANEL BUN 36 7 - 22 08/21/2015 [facility] [facility] CHEM PANEL Creatinine Lvl 2.92 0.50 - 1.40 08/21/2015 [facility] CHEM PANEL Chloride Lvl 107 95 - 109 08/21/2015 [facility] CHEM PANEL CO2 23 24 - 32 08/21/2015 [facility] CHEM PANEL Glucose Lvl 213 70 - 99 08/21/2015 [facility] CHEM PANEL Sodium Lvl 139 135 - 145 08/21/2015 [facility] CHEM PANEL Potassium Lvl 4.9 3.5 - 5.1 08/21/2015 [facility] CHEM PANEL A/G Ratio 0.8 0.7 - 1.6 08/21/2015 [facility] CHEM PANEL Globulin 4.6 2.0 - 4.0 08/21/2015 [facility] CHEM PANEL B/C Ratio 12 6 - 25 08/21/2015 [facility] CHEM PANEL AGAP 13.9 10.0 - 20.0 08/21/2015 [facility] CHEM PANEL Magnesium Lvl 2.8 1.8 - 2.4 08/21/2015 [facility] CHEM PANEL Phosphorus 2.2 2.5 - 4.5 08/21/2015 [facility] HEMATOLOGY RBC Morph Normal (08/21/15 3:55 AM) 08/21/2015 [facility] HEMATOLOGY Plt Morph Normal (08/21/15 3:55 AM) 08/21/2015 [facility] LIPIDS VLDL 36 08/21/2015 [facility] LIPIDS LDL (Calculated) 101 <=99 mg/dL 08/21/2015 [facility] LIPIDS Trig 179 <=149 mg/dL 08/21/2015 [facility] LIPIDS HDL 50 >=61 mg/dL 08/21/2015 [facility] LIPIDS Chol 187 <=199 mg/dL 08/21/2015 [facility] LIPIDS CHD Risk 3.74 4.00 - 7.30 08/21/2015 [facility] CARDIAC ENZYMES CK MB Index 3.2 0.0 - 2.5 08/21/2015 [facility] CARDIAC ENZYMES Troponin-I 0.32 0.00 - 0.40 08/21/2015 [facility] CARDIAC ENZYMES CK MB 3.5 0.5 - 3.6 08/21/2015 [facility] CARDIAC ENZYMES Total CK 110 12 - 191 08/21/2015 [facility] CARDIAC ENZYMES CK MB Index 1.7 0.0 - 2.5 08/20/2015 [facility] CARDIAC ENZYMES Total CK 157 12 - 191 08/20/2015 [facility] CARDIAC ENZYMES CK MB 2.7 0.5 - 3.6 08/20/2015 [facility] CARDIAC ENZYMES Troponin-I 0.07 0.00 - 0.40 08/20/2015 [facility] HEMATOLOGY Eosinophils # 0.2 0.0 - 0.5 08/20/2015 [facility] Pathology Reports No Data Provided for This Section Diagnostic Reports Report Value Date Source Chest 1view DX Study: Chest 1view DX Clinical Indication: Abnormal chest sounds Comparison: 08/21/2015 FINDINGS: Cardiac silhouette is mildly prominent. Mild right basilar atelectasis is seen. There is no pleural effusion or pneumothorax. Osseous structures are stable. IMPRESSION: No acute cardiopulmonary disease. SL: [id number] 08/22/2015 [facility] Lung ventilation/perfusion scan MA Lung ventilation/perfusion scan MA CLINICAL HX: Dyspnea on exertion. COMPARISON: Chest [...] Tammy, on 08/21/2015 1:01 PM CDT. SL: [id number] 08/21/2015 [facility] Chest 2 views DX Chest 2 views DX CLINICAL HISTORY:Abnormal chest sounds COMPARISON: none FINDINGS: The lungs are poorly inflated. No infiltrate pleural effusion or pneumothorax otherwise. Heart size top normal. No overt congestive heart failure or pulmonary edema. Calcified lymph nodes are noted within the hilar regions. IMPRESSION: Hypoventilation, poor inspiration. No acute findings, otherwise. SL: [id number] 08/21/2015 [facility] Abdomen complete US Clinical Indication: Abnormal Lab [...] or biliary ductal dilatation. Hepatic steatosis. SL: [id number] 08/21/2015 [facility] Ext Lower Venous Doppler Bilat US Study: [...] 3. Findings called to the floor. SL: [id number] 08/20/2015 [facility] Chest 1view DX Chest 1view DX CLINICAL HISTORY:Chest pain COMPARISON: 04/01/2011 FINDINGS: Limited AP portable study. Lungs are reasonably well inflated. No consolidation, effusion or pneumothorax. Trachea is midline. Cardiomediastinal silhouette is within normal limits. No pulmonary edema. No significant bony abnormality is noted. Calcified lymph nodes in left hilum as before. IMPRESSION: No acute abnormality is noted in the chest. SL: [id number] 08/20/2015 [facility] Consultation Notes No Data Provided for This Section Discharge Summaries No Data Provided for This Section History and Physicals No Data Provided for This Section Vital Signs Vital Sign Value Date Comments Source Heart Rate 64 08/25/2015 [facility] Systolic (mm Hg) 142 08/25/2015 [facility] Diastolic (mm Hg) 93 08/25/2015 [facility] Temperature Oral (F) 98.0 F 08/25/2015 [facility] Respitory Rate 18 08/25/2015 [facility] Systolic (mm Hg) 160 08/25/2015 [facility] Diastolic (mm Hg) 93 08/25/2015 [facility] Respitory Rate 18 08/25/2015 [facility] Heart Rate 74 08/25/2015 [facility] Temperature Oral (F) 97.9 F 08/25/2015 [facility] Respitory Rate 18 08/25/2015 [facility] Temperature Oral (F) 97.5 F 08/25/2015 [facility] Systolic (mm Hg) 149 08/25/2015 [facility] Diastolic (mm Hg) 90 08/25/2015 [facility] Heart Rate 61 08/25/2015 [facility] Weight 94.2 08/21/2015 [facility] Height 172.72 cm 08/21/2015 [facility] Weight 90.909 08/21/2015 [facility] BMI Calculated 30.47 08/21/2015 [facility] Height 172.72 cm 08/20/2015 [facility] Weight 90.909 08/20/2015 [facility] BMI Calculated 30.47 08/20/2015 [facility] Encounters Location Location Details Encounter Type Encounter Number Reason For Visit Attending Provider ADM Date DC Date Status Source [facility] Inpatient [id number] Sandip Timo 08/20/2015 08/25/2015 [facility] [place] [facility] Patients [id number] Miguel DiTommaso 03/08/2016 04/07/2016 [facility] [id number] Miguel DiTommaso 04/04/2016 05/04/2016 [facility] [place] [facility] [place] [facility] [id number] Miguel DiTommaso 05/04/2016 06/03/2016 [facility] [place] Procedures Procedure Code Date Perfomer Comments Source Arthroplasty of knee<sup>1</sup> 76664220 bilateral replacment [facility] [place] Arthroplasty of knee<sup>1</sup> [id number] bilateral replacment [facility] [place] Arthroplasty of knee<sup>1</sup> [id number] bilateral replacment [facility] Assessment and Plan Assessment and Plan Date Source Extracted from:Title: Clinical Document Author: Brianna Bravo NP Date: 08/25/15 Progress Note - Daily [facility] Completed: Aug, 12:04 by Brianna Bravo NP RM: 134 - 2W, SE C1A KANDI MENEZES 80y (: 1935) M Attending: Sandip Greenwood MD Service: Internal Medicine Reason for Admission: ACUTE RENAL FAILURE, CHEST PAIN, DYSPNEA Working DRG: Respiratory signs and symptoms Code status: Full Code [Ordered] Current diet: Isolation: None Documented Allergies: NKDA SUBJECTIVE Pt seen and examined. Sitting up in chair. Worked with PT, no complaints. OBJECTIVE 24hr Labs 08/24 0630 PT 27.3 H INR 2.50 H Hahn still necessary (Yes/No): Line still necessary (Yes/No): Vitals Tmp(F) Pulse BP RR SpO2 FIO2 08/24 09:53 ---- --- ----- -- 91 4.0L/m 08/24 08:00 97.9 74 160/93 18 93 --- 08/24 07:02 ---- --- ----- 18 97 4.0L/m 08/24 06:20 ---- --- ----- -- 97 45% 08/24 02:30 97.5 61 149/90 16 93 --- 24 Hr Tmax: 98.3F (36.83c) at 08/23 16:44 Vital Signs are the last 5 in the past 48 hours. Date Wt(kg) Wt(lb) Ht(cm) Ht(in) Method 08/20 94.20 207.24 Measured 08/19 (initial) 90.91 200.00 Estimated 08/19 172.72 68.00 Stated I&O Record In Out Bal 08/24 24hr Tot 0 0 0 08/23 24hr Tot 350 0 350 Medications (19) Active Scheduled Meds (7): 08/20/15 albuterol (albuterol 0.083% inhalation solution) 2.49 mg NEB RQ4H 08/23/15 atenolol (atenolol 50 mg oral tablet) 50 mg PO BID 08/20/15 azithromycin + sodium chloride 0.9% INJ 250 mL 500 mg IVPB [id number] 166.67 ml/hr 08/20/15 cefTRIAXone + sodium chloride 0.9% INJ 100 mL 1 gm IVPB Q24H 200 ml/hr 08/21/15 pantoprazole (Protonix) 40 mg PO Before Dinner 08/21/15 polyethylene glycol 3350 (MiraLax) 17 gm PO Daily 08/20/15 temazepam (Restoril) 15 mg PO Bedtime Unscheduled Meds: None PRN Meds (11): 08/20/15 acetaminophen 650 mg PLEURODESIS Q4H 08/20/15 albuterol-ipratropium (DuoNeb inhalation solution) 3 ml INHALATION PRN 08/23/15 atropine 0.5 mg IVP PRN 08/20/15 docusate 100 mg PO BID 08/23/15 hydrALAZINE (hydrALAZINE 25 mg oral tablet) 25 mg PO Q4H 08/20/15 magnesium citrate 150 ml PO Daily 08/20/15 magnesium hydroxide (Milk of Magnesia) 30 ml PO Q6H 08/20/15 morphine Sulfate 2 mg IVP Q4H 08/23/15 nitroglycerin (nitroglycerin 0.4 mg sublingual tablet) 0.4 mg SL Q5Min 08/20/15 ondansetron 4 mg IVP Q6H 08/20/15 sodium chloride (Saline Flush 0.9%) 10 mL IVP PRN One Time Meds (1): 08/24/15 (Completed) warfarin (Coumadin) 3 mg PO ONCE Continuous Infusions: None ASSESSMENT and EXAM GENERAL APPEARANCE: Awake, alert, oriented x 3. Resting comfortably, denies pain at this time. HEENT: Normocephalic and atraumatic. Pupils equal, reactive to light. Conjunctiva is clear. NECK: Supple. No jugular venous distention. LUNGS: Clear to auscultation bilaterally without rales, rhonchi or wheezes. CARDIOVASCULAR: S1, S2, regular rate and rhythm. ABDOMEN: Soft, nondistended, nontender. Positive bowel sounds. EXTREMITIES: No cyanosis, clubbing, or edema noted. MUSCULOSKELETAL: Moving all extremities. SKIN: Warm and dry. No rashes noted. Impression: PE dvt right atrial thrombus diastolic CHF, ef 55-60% HTN GERD CKD Plan: PT/INR coumadin for PE, INR therapeutic H/H for home O2, PT/OT d/c home with home health and home O2 arranged Ready for Discharge (Yes/No)? TEACHING ATTESTATION Extracted from:Title: Clinical Document Author: Wade Powell MD Date: 08/21/15 Pulmonary critical care consultation Attending: Sandip Greenwood MD Service: Internal Medicine Code status: Full Code [Ordered] Reason for Admission: ACUTE RENAL FAILURE, CHEST PAIN, DYSPNEA Working DRG: None Documented Isolation: None Documented Consulting Physicians: Sandip Greenwood MD Office: MSO: [id number] Service: Medicine Madhav Mosley MD Office: MSO: [id number] Service: Pulmonary, Medicine Lauren Bowens MD Office: MSO: [id number] Service: Cardiology History of present illness: 80-year-old white male with history of hypertension, gastroesophageal reflux and peptic ulcer disease who is a nonsmoker that came to the emergency department with chest pressure and general malaise some shortness of breath via EMS. He was brought in and evaluated by cardiology as well. He was found to have a left popliteal DVT. He was also found to be hypoxemic. In the evening he was given his atenolol and Lasix dropped his blood pressures to a low 80s over 60s and his heart rate around 58 and he was subsequently transferred to the ICU for closer monitoring. At the time he was feeling diaphoretic and lightheadedness. He denied chest pain at that time. Currently, he feels better he denies shortness of breath chest pain or lightheadedness review of symptoms is notable for constipation which appears to be chronically takes magnesium sulfate at home regularly. There is no other nausea vomiting diarrhea fevers chills or night sweats. Past medical history: Hypertension, gastroesophageal reflux, peptic ulcer disease. He denies prior history of heart or lung disease. Past surgical history: Left knee surgery. Social history: He denies tobacco use ever. He doesn't drink or use drugs. Never has. He is a . Drug allergies: None Medications (18) Active Scheduled Meds (7): 08/20/15 albuterol (albuterol 0.083% inhalation solution) 2.49 mg NEB RQ4H 08/20/15 azithromycin + sodium chloride 0.9% INJ 250 mL 500 mg IVPB [id number] 166.67 ml/hr 08/20/15 cefTRIAXone + sodium chloride 0.9% INJ 100 mL 1 gm IVPB Q24H 200 ml/hr 08/21/15 enoxaparin (Lovenox) 90 mg SUB-Q Daily 08/21/15 pantoprazole (Protonix) 40 mg PO Before Dinner 08/21/15 polyethylene glycol 3350 (MiraLax) 17 gm PO Daily 08/20/15 temazepam (Restoril) 15 mg PO Bedtime Unscheduled Meds: None PRN Meds (8): 08/20/15 acetaminophen 650 mg PLEURODESIS Q4H 08/20/15 albuterol-ipratropium (DuoNeb inhalation solution) 3 ml INHALATION PRN 08/20/15 docusate 100 mg PO BID 08/20/15 magnesium citrate 150 ml PO Daily 08/20/15 magnesium hydroxide (Milk of Magnesia) 30 ml PO Q6H 08/20/15 morphine Sulfate 2 mg IVP Q4H 08/20/15 ondansetron 4 mg IVP Q6H 08/20/15 sodium chloride (Saline Flush 0.9%) 10 mL IVP PRN One Time Meds (2): 08/20/15 (Completed) enoxaparin (Lovenox) 60 mg SUB-Q ONCE 08/20/15 (Completed) furosemide (Lasix) 40 mg IVP ONCE Continuous Infusions (1): 08/20/15 norepinephrine INJ 8 mg + D5W 242 mL 8 mg Titrate Physical examination: General appearance elderly man in non-distress lying in hospital bed. He is awake alert comfortable on nasal cannula. Head normocephalic/atraumatic pupils reactive. Membranes moist. Neck: Supple trachea midline. Chest: Symmetric expansion fairly clear to auscultation a few crackles. Cardiac: Regular rate rhythm borderline bradycardic. No murmurs. Abdomen: Soft nontender nondistended. Bladder scan does not show any urine in the bladder. Extremities: Little bit cool no cyanosis clubbing or edema decreased hair. Scar on left knee. Neurologic: Awake alert nonfocal. Vitals Tmp(F) Pulse BP RR SpO2 FIO2 08/20 03:30 ---- 63 120/73 21 98 --- 08/20 03:15 ---- 63 105/74 22 97 --- 08/20 03:00 ---- 63 94/80 22 97 --- 08/20 02:45 ---- 62 101/72 21 96 --- 08/20 02:30 ---- 62 94/72 24 96 --- 24 Hr Tmax: 97.7F (36.50c) at 08/19 14:10 Vital Signs are the last 5 in the past 48 hours. Labs (Last four charted values) WBC H 16.2 (AUG 16) Hgb 17.5 (AUG 16) Hct H 55.2 (AUG 16) Plt 160 (AUG 16) 163 (ALENA 16) Na 141 (AUG 16) K 4.7 (AUG 16) CO2 L 21 (AUG 16) Cl 109 (AUG 16) Cr H 2.36 (AUG 16) H 2.00 (AUG 16) BUN H 27 (AUG 16) Glucose Random H 215 (AUG 16) Ca L 8.3 (AUG 16) PTT 32.6 (AUG 16) Troponin 0.32 (AUG 16) 0.07 (AUG 16) CK MB 3.5 (AUG 16) 2.7 (ALENA 16) Total CK 110 (AUG 16) 157 (ALENA 16) Doppler of the lower extremities is notable for left popliteal DVT. Chest x-ray shows cardiomegaly and some prominence of pulmonary vasculature to one view. A 2 view is pending. Assessment: Venous thromboembolic disease: Left popliteal DVT. Given the hypoxemia there is a high likelihood that he has a pulmonary embolism as well. Hypotension: Probably medication induced, currently he is hemodynamically stable his diastolics in his maps are all above 60 so far and he is asymptomatic therefore we will continue to monitor him here. Renal failure: Chronic kidney disease with possible acute kidney disease burst all acute kidney injury. Polycythemia Constipation Recommendations and plan Continue anticoagulation. Continue oxygen therapy. Agree with echocardiogram. Agree with ventilation perfusion scan. He may also benefit from a noncontrast CT of the chest depending on what his his 2 view chest x-ray actually looks like. He is refusing IV fluids at this time, I would attempt to give him some see if his creatinine lowers he may need an evaluation by nephrology as well. And possibly even hematology if there is no chronic hypoxemia as her cause for his polycythemia. We will give him an enema for his chronic constipation Dr. Madhav Mosley was previously consult for pulmonary will continue to follow the patient. Addendum by Wade Powell MD on 08/21/2015 05:14 Patient's follow-up creatinine has come back more elevated at 2.9. I have discussed the worsening renal failure with the patient and his daughter at the bedside initially he is refusing IV fluids through discussion he has agreed to let me give him a liter at 100 cc an hour. He is also agree for a Hahn catheter. I have ordered ultrasound of the abdomen to evaluate his kidneys and collecting system as well. 08/25/2015 [facility] Plan of Care No Data Provided for This Section Social History Social History Date Source Social History TypeResponse Smoking Status Never smoker; Previous treatment: None; Ready to change: No; Concerns about tobacco use in household: No; Exposure to Tobacco Smoke None; Cigarette Smoking Last 365 Days No; Reg Smoking Cessation Counseling No 08/20/2015 [facility] Social History TypeResponse Smoking Status Never smoker; Previous treatment: None; Ready to change: No; Concerns about tobacco use in household: No; Exposure to Tobacco Smoke None; Cigarette Smoking Last 365 Days No; Reg Smoking Cessation Counseling No 08/20/[address] [facility] Social History TypeResponse Smoking Status Never smoker; Previous treatment: None; Ready to change: No; Concerns about tobacco use in household: No; Exposure to Tobacco Smoke None; Cigarette Smoking Last 365 Days No; Reg Smoking Cessation Counseling No 08/20/2015 [facility] Family History No Data Provided for This Section Advance Directives No Data Provided for This Section Functional Status No Data Provided for This Section
[2018-10-09] MEDS ORDERED: IPRATROPIUM BROMIDE 0.02% 2.5 ML NEB NEB STA (08:34)
[2018-10-09] MEDS ORDERED: ALBUTEROL SULF 0.083% NEB SOLN 3 ML NEB NEB STA (08:34)
[2018-10-09] MEDS ORDERED: SODIUM CHLORIDE FLUSH 10 ML SYR INJ PRN (08:45)
--- OUTSIDE RECORDS SUMMARY | 2018-10-09 09:06 | XMS REPORT | Continuity of Care Document ---
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 SOB Active 08/20/2015 [facility] ACUTE RENAL FAILURE, CHEST PAIN, DYSPNEA Active 08/20/2015 [facility] HTN (Confirmed) Resolved Problem 06/05/2016 [facility] Hyperlipemia Resolved Problem 06/05/2016 [facility] UNSPECIFIED KIDNEY FAILURE Active [facility] Medications Medication Details Route Status Patient Instructions Ordering Provider Order Date Source warfarin 3 mg oral tablet 3 mg=1 tab, PO, Daily, # 30 tab, 0 Refill(s) Active 08/25/2015 [facility] temazepam 15 mg oral capsule 15 mg=1 cap, PO, Bedtime, X 30 day, # 30 cap, 0 Refill(s) Active 08/25/2015 [facility] levofloxacin 750 mg oral tablet 750 mg=1 tab, PO, Daily, X 7 day, # 7 tab, 0 Refill(s) Active 08/25/2015 [facility] Nebulizer Mask Adult Misc/Other 1 ea, MISC, PRN, PRN As directed by physician, # 1 ea, 0 Refill(s) Active 08/25/2015 [facility] Nebulizer 1 ea, MISC, ONCALL, # 1 ea, 0 Refill(s) Active 08/25/2015 [facility] Albuterol 0.83 MG/ML Inhalant Solution 2.5 mg=3 mL, NEB, RQ4H, PRN as needed for shortness of breath, Pediatric Dosing, # 180 mL, 0 Refill(s) Active 08/25/2015 [facility] Atenolol 50 MG Oral Tablet 50 mg=1 tab, PO, BID, # 60 tab, 0 Refill(s) Active 08/25/2015 [facility] Coumadin 3 mg, 3 tab, Route: PO, Drug form: TAB, ONCE, Dosing Weight 94.2, kg, Start date: 08/24/15 13:35:00 CDT, Stop date: 08/24/15 13:35:00 CDTNotes: Nurse to ensure documentation of patient education per ant icoagulation policy. Avoid large intake of vitamin-K containing foods diet. (Same As: Coumadin) WASTE: F/P - P Waste Black; E - P Waste Black Inactive 08/24/2015 [facility] nitroglycerin 0.4 mg sublingual tablet 0.4 mg, 1 tab, Route: SL, Drug form: TAB, Q5Min, PRN Chest Pain, Start date: 08/23/15 21:11:00 CDT, Duration: 30 day, Stop date: 09/22/15 21:10:00 CDTNotes: (Same as:Nitroquick, Nitrostat) "Do Not Crush" Sublingual tablet No Longer Active 08/24/2015 [facility] atropine 0.5 mg, 5 mL, Route: IVP, Drug form: INJ, PRN, PRN Bradycardia, Start date: 08/23/15 21:10:00 CDT, Duration: 30 day, Stop date: 09/22/15 21:09:00 CDT No Longer Active 08/24/2015 [facility] Warfarin 3 mg, 3 tab, Route: [...] E - P Waste Black Inactive 08/23/2015 [facility] Hydralazine Hydrochloride 25 MG Oral Tablet 25 mg, 1 tab, Route: PO, Drug form: TAB, Q4H, Dosing Weight 94.2, kg, PRN Elevated BP, Start date: 08/23/15 14:18:00 CDT, Duration: 30 day, Stop date: 09/22/15 14:17:00 CDTNotes: (Same as: Apresoline) May interfere w/enteral feedings Take With Food. No Longer Active 08/23/2015 [facility] Atenolol 50 MG Oral Tablet 50 mg, 1 tab, Route: PO, Drug form: TAB, BID, Dosing Weight 94.2, kg, Priority: NOW, Start date: 08/23/15 14:17:00 CDT, Duration: 30 day, Stop date: 09/22/15 9:00:00 CDTNotes: (Same As:Tenormin) No Longer Active 08/23/2015 [facility] Warfarin 7.5 mg, 1 tab, Route: [...] (Same As: Coumadin) No Longer Active 08/22/2015 [facility] Lovenox 90 mg, 0.9 mL, Route: SUB-Q, Drug form: INJ, [id number], Dosing Weight 90.909, kg, Start date: 08/21/15 21:00:00 CDT, Duration: 30 day, Stop date: 09/19/15 21:00:00 CDTNotes: Nurse to ensure documentation of patient education per anticoagulation policy. (Same as: Lovenox) Inactive 08/22/2015 [facility] heparin additive 25,000 unit [18 unit/kg/hr] + Premix Diluent Dextrose 5% 500 mL 500 mL, Rate: 28.33 ml/hr, Infuse over: 17.6 hr, Route: IV, Dosing Weight 78.7 kg, Total Volume: 500 mL, Start date: 08/21/15 18:09:00 CDT, Duration: 30 day, Stop date: 09/20/15 18:08:00 CDT No Longer Active 08/21/2015 [facility] Heparin 80 unit/kg Bolus (Heparin Dosing Weight) Route: IVP, PRN, 6,300 unit, 6.3 mL, Drug form: INJ, PRN, Heparin Protocol, Start date: 08/21/15 18:09:00 CDT Stop date: 09/20/15 18:08:00 CDT, 30 day No Longer Active 08/21/2015 [facility] Heparin 40 unit/kg Bolus (Heparin Dosing Weight) Route: IVP, PRN, 3,100 unit, 3.1 mL, Drug form: INJ, PRN, Heparin Protocol, Start date: 08/21/15 18:09:00 CDT Stop date: 09/20/15 18:08:00 CDT, 30 day No Longer Active 08/21/2015 [facility] Heparin - one time bolus for DVT/PE Route: IV, Drug form: INJ, ONCE, Dosing Weight 90.909, kg, Priority: STAT, Start date: 08/21/15 17:59:00 CDT, Stop date: 08/21/15 17:59:00 CDT Inactive 08/21/2015 [facility] Heparin 80 unit/kg Bolus (Heparin Dosing Weight) Pharmacy To Manage, Route: IVP, PRN, Drug form: INJ, PRN, Heparin Protocol, Start date: 08/21/15 17:59:00 CDT Stop date: 09/20/15 17:58:00 CDT, 30 day Inactive 08/21/2015 [facility] Coumadin 7.5 mg, 1 tab, Route: [...] Waste Black (Same As: Coumadin) Inactive 08/21/2015 [facility] Protonix 40 mg, 1 tab, Route: PO, Drug form: ECTAB, Before Dinner, Dosing Weight 90.909, kg, Start date: 08/21/15 16:30:00 CDT, Duration: 30 day, Stop date: 09/19/15 16:30:00 CDTNotes: Tablet should not be chewed or crushed. (Same as: Protonix) No Longer Active 08/21/2015 [facility] sodium chloride 0.9% 1000 ml INJ 1,000 mL 1,000 mL, Rate: 50 ml/hr, Infuse over: 20 hr, Route: IV, Dosing Weight 90.909 kg, Total Volume: 1,000, Start date: 08/21/15 15:00:00 CDT, Duration: 30 day, Stop date: 09/20/15 14:59:00 CDT No Longer Active 08/21/2015 [facility] Atenolol 100 MG Oral Tablet 100 mg, Route: PO, Drug form: TAB, BID, Dosing Weight 90.909, kg, Start date: 08/21/15 9:00:00 CDT, Duration: 30 day, Stop date: 09/19/15 21:00:00 CDT No Longer Active 08/21/2015 [facility] Verapamil 240 mg, 1 tab, Route: PO, Drug form: ERTAB, Daily, Dosing Weight 90.909, kg, Start date: 08/21/15 9:00:00 CDT, Duration: 30 day, Stop date: 09/19/15 9:00:00 CDTNotes: Do not crush or chew.; "Avoid grapefruit and grapefruit juice" (Same As: Calan SR, Isoptin SR) No Longer Active 08/21/2015 [facility] Lisinopril 20 mg, 1 tab, Route: PO, Drug form: TAB, Daily, Dosing Weight 90.909, kg, Start date: 08/21/15 9:00:00 CDT, Duration: 30 day, Stop date: 09/19/15 9:00:00 CDTNotes: (Same as: Prinivil, Zestril) No Longer Active 08/21/2015 [facility] Miralax 17 gm, 1 pkt, Route: PO, Drug form: PWDR, Daily, Dosing Weight 90.909, kg, Start date: 08/21/15 9:00:00 CDT, Duration: 30 day, Stop date: 09/19/15 9:00:00 CDTNotes: Dissolve in 8 oz of water or juice. (Same as: Miralax) No Longer Active 08/21/2015 [facility] Sodium Chloride 0.154 MEQ/ML Injectable Solution 1,000 mL, Rate: 100 ml/hr, Infuse over: 10 hr, Route: IV, Dosing Weight 90.909 kg, Total Volume: 1,000, Start date: 08/21/15 5:11:00 CDT, Duration: 1 doses or times, Stop date: 08/21/15 15:10:00 CDT Inactive 08/21/2015 [facility] Lactulose 1,000 ml, Route: GA, Drug Form: MUNIRA, Dosing Weight 90.909, kg, ONCE, PRN Constipation, Start date: 08/21/15 3:29:00 CDT, Duration: 1 doses or times, Stop date: Limited # of times, 300 mL lactulose + 70 0 mL waterNotes: Lactulose 300ml, Water for Irrigation 700ml - total [id number] Inactive 08/21/2015 [facility] Norepinephrine 8 mg, 8 mL, Rate: [...] catheter (PICC) line. No Longer Active 08/21/2015 [facility] Flurazepam 30 mg, Route: PO, Drug form: CAP, Bedtime, Dosing Weight 90.909, kg, Start date: 08/20/15 21:00:00 CDT, Duration: 30 day, Stop date: 09/18/15 21:00:00 CDT Inactive 08/21/2015 [facility] Atenolol 100 MG Oral Tablet 100 mg, 2 tab, Route: PO, Drug form: TAB, BID, Dosing Weight 90.909, kg, Start date: 08/20/15 21:00:00 CDT, Duration: 30 day, Stop date: 09/19/15 9:00:00 CDTNotes: (Same As:Tenormin) Inactive 08/21/2015 [facility] Restoril 15 mg, 1 cap, Route: PO, Drug form: CAP, Bedtime, Start date: 08/20/15 21:00:00 CDT, Duration: 30 day, Stop date: 09/18/15 21:00:00 CDTNotes: (Same As: Restoril) No Longer Active 08/21/2015 [facility] Lasix 40 mg, 4 mL, Route: IVP, Drug form: INJ, ONCE, Dosing Weight 90.909, kg, Priority: NOW, Start date: 08/20/15 20:12:00 CDT, Stop date: 08/20/15 20:12:00 CDTNotes: (Same as: Lasix) MEDICATION WASTE Product Size: 40 mg Product Wasted: ___ mg Inactive 08/21/2015 [facility] Lovenox 60 mg, 0.6 mL, Route: SUB-Q, Drug form: INJ, ONCE, Dosing Weight 90.909, kg, Priority: STAT, Start date: 08/20/15 20:11:00 CDT, Stop date: 08/20/15 20:11:00 CDTNotes: Nurse to ensure documentation of patient education per anticoagulation policy. (Same as: Lovenox) Inactive 08/21/2015 [facility] Albuterol 0.83 MG/ML Inhalant Solution 2.49 mg, 3 mL, Route: NEB, Drug form: SOLN, RQ4H, Dosing Weight 90.909, kg, Start date: 08/20/15 19:00:00 CDT, Duration: 30 day, Stop date: 09/19/15 15:00:00 CDT, Pediatric DosingNotes: SEE RT DOCUMENTATION (Same as: Proventil) No Longer Active 08/21/2015 [facility] magnesium citrate 150 ml, Route: PO, Drug Form: LIQ, Dosing Weight 90.909, kg, Daily, PRN Constipation, Start date: 08/20/15 18:33:00 CDT, Duration: 30 day, Stop date: 09/19/15 18:32:00 CDTNotes: (Same as: Citrate of Magnesia) No Longer Active 08/20/2015 [facility] Milk of Magnesia 30 ml, Route: PO, Drug Form: SUSP, Dosing Weight 90.909, kg, Q6H, PRN Constipation, Start date: 08/20/15 18:33:00 CDT, Duration: 30 day, Stop date: 09/19/15 18:32:00 CDTNotes: (Same as: Milk of Freddie hester, MOM) No Longer Active 08/20/2015 [facility] sodium chloride 0.9% 1000 ml INJ 1,000 mL 1,000 mL, Rate: 25 ml/hr, Infuse over: 40 hr, Route: IV, Dosing Weight 90.909 kg, Total Volume: 1,000, Start date: 08/20/15 18:05:00 CDT, Duration: 30 day, Stop date: 09/19/15 18:04:00 CDT Inactive 08/20/2015 [facility] Azithromycin 500 mg, Route: IVPB, [id number], Dosing Weight 90.909, kg, Priority: STAT, Start date: 08/20/15 17:08:00 CDT, Duration: 30 day, Stop date: 09/18/15 18:00:00 CDTNotes: (Same As: Zithromax IV) No Longer Active 08/20/2015 [facility] Ceftriaxone 1 gm, Route: IVPB, Q24H, Dosing Weight 90.909, kg, Priority: STAT, Start date: 08/20/15 17:08:00 CDT, Duration: 30 day, Stop date: 09/18/15 17:00:00 CDTNotes: (Same As: Rocephin). Use with 100 mL NS and infuse over 30 min MEDICATION WASTE Product Size: 1000 mg Product Wasted: ___ mg No Longer Active 08/20/2015 [facility] Albuterol 0.833 MG/ML / Ipratropium Sunset 0.167 MG/ML Inhalant Solution [DuoNeb] 3 ml, Route: INHALATION, Drug Form: SOLN, Dosing Weight 90.909, kg, PRN, PRN Respiratory Protocol, Start date: 08/20/15 17:08:00 CDT, Duration: 30 day, Stop date: 09/19/15 17:07:00 CDTNotes: (Same as: Duoneb) No Longer Active 08/20/2015 [facility] Ondansetron 4 mg, 2 mL, Route: IVP, Drug form: INJ, Q6H, Dosing Weight 90.909, kg, PRN Nausea & Vomiting, Start date: 08/20/15 17:08:00 CDT, Duration: 30 day, Stop date: 09/19/15 17:07:00 CDTNotes: (Same as: Zofran) MEDICATION WASTE Product Size: 4 mg Product Wasted: ___ mg No Longer Active 08/20/2015 [facility] Docusate 100 mg, 1 cap, Route: PO, Drug form: CAP, BID, Dosing Weight 90.909, kg, PRN Constipation, Start date: 08/20/15 17:08:00 CDT, Duration: 30 day, Stop date: 09/19/15 17:07:00 CDTNotes: (Same as: Colace) (Do Not Crush) No Longer Active 08/20/2015 [facility] Morphine 2 mg, 1 mL, Route: IVP, Drug form: INJ, Q4H, Dosing Weight 90.909, kg, PRN Pain Score 7-10, Start date: 08/20/15 17:08:00 CDT, Duration: 30 day, Stop date: 09/19/15 17:07:00 CDTNotes: (Same as:MORPhine Sulfate) No Longer Active 08/20/2015 [facility] Acetaminophen 650 mg, 2 tab, Route: PLEURODESIS, Drug form: TAB, Q4H, Dosing Weight 90.909, kg, PRN Pain 1-3/Temp > 100.4 F, Start date: 08/20/15 17:08:00 CDT, Duration: 30 day, Stop date: 09/19/15 17:07:00 CDTNotes: Do not exceed 4 gm/day. (Same as: Tylenol) No Longer Active 08/20/2015 [facility] Enoxaparin 30 mg, 0.3 mL, Route: SUB-Q, Drug form: INJ, [id number], Dosing Weight 90.909, kg, Start date: 08/20/15 17:00:00 CDT, Duration: 30 day, Stop date: 09/18/15 17:00:00 CDTNotes: (Same as: Lovenox) Inactive 08/20/2015 [facility] Protonix 40 mg, PO, Daily, # 30 tab, 0 Refill(s) Active 08/20/2015 [facility] lisinopril 20 mg oral tablet 20 mg=1 tab, PO, Daily, # 30 tab, 0 Refill(s) No Longer Active 08/20/2015 [facility] Atenolol 100 MG Oral Tablet 100 mg=1 tab, PO, BID, 0 Refill(s) No Longer Active 08/20/2015 [facility] diclofenac sodium 100 mg oral tablet, extended release 100 mg=1 tab, PO, Daily, # 30 tab, 0 Refill(s) No Longer Active 08/20/2015 [facility] verapamil 240 mg oral tablet, extended release 240 mg=1 tab, PO, Daily, # 30 tab, 0 Refill(s) No Longer Active 08/20/2015 [facility] atorvastatin 20 mg oral tablet 20 mg=1 tab, PO, Bedtime, # 30 tab, 0 Refill(s) Active 08/20/2015 [facility] Saline Flush 0.9% 10 mL, Route: IVP, Drug Form: INJ, Dosing Weight 90.909, kg, PRN, PRN Line Flush, Start date: 08/20/15 14:16:00 CDT, Duration: 30 day, Stop date: 09/19/15 14:15:00 CDTNotes: (Same as: BD Posiflush) No Longer Active 08/20/2015 [facility] Allergies, Adverse Reactions, Alerts No Known Medication Allergies Immunizations No Data Provided for This Section Results Order Name Results Value Reference Range Date Interpretation Comments Source HEMATOLOGY INR 2.50 0.85 - 1.17 08/25/2015 [facility] HEMATOLOGY PT 27.3 12.0 - 14.7 08/25/2015 [facility] HEMATOLOGY PT 26.9 12.0 - 14.7 08/24/2015 [facility] HEMATOLOGY INR 2.45 0.85 - 1.17 08/24/2015 [facility] CHEM PANEL B/C Ratio 22 6 - 25 08/23/2015 [facility] CHEM PANEL Globulin 4.2 2.0 - 4.0 08/23/2015 [facility] CHEM PANEL A/G Ratio 0.8 0.7 - 1.6 08/23/2015 [facility] CHEM PANEL AGAP 15.5 10.0 - 20.0 08/23/2015 [facility] CHEM PANEL Alk Phos 86 39 - 136 08/23/2015 [facility] CHEM PANEL Bili Total 0.4 0.2 - 1.3 08/23/2015 [facility] CHEM PANEL eGFR 30 08/23/2015 Result [...] should be multiplied by the estimated BMI. [facility] CHEM PANEL Potassium Lvl 4.5 3.5 - 5.1 08/23/2015 [facility] CHEM PANEL Chloride Lvl 108 95 - 109 08/23/2015 [facility] CHEM PANEL CO2 22 24 - 32 08/23/2015 [facility] CHEM PANEL BUN 44 7 - 22 08/23/2015 [facility] CHEM PANEL Creatinine Lvl 2.03 0.50 - 1.40 08/23/2015 [facility] CHEM PANEL Sodium Lvl 141 135 - 145 08/23/2015 [facility] CHEM PANEL ALT 125 0 - 65 08/23/2015 [facility] CHEM PANEL AST 46 0 - 37 08/23/2015 [facility] CHEM PANEL Calcium Lvl 8.4 8.5 - 10.5 08/23/2015 [facility] CHEM PANEL Total Protein 7.5 6.4 - 8.4 08/23/2015 [facility] CHEM PANEL Albumin Lvl 3.3 3.5 - 5.0 08/23/2015 [facility] CHEM PANEL Glucose Lvl 184 70 - 99 08/23/2015 [facility] HEMATOLOGY PTT 87.2 22.9 - 35.8 08/23/2015 [facility] HEMATOLOGY Basophils # 0.1 0.0 - 0.2 08/23/2015 [facility] HEMATOLOGY Monocytes 8.8 2.0 - 12.0 08/23/2015 [facility] HEMATOLOGY Lymphocytes 32.4 20.0 - 40.0 08/23/2015 [facility] HEMATOLOGY Segs-Bands # 8.1 1.5 - 8.1 08/23/2015 [facility] HEMATOLOGY Segs 57.5 45.0 - 75.0 08/23/2015 [facility] HEMATOLOGY Basophils 0.6 0.0 - 1.0 08/23/2015 [facility] HEMATOLOGY Eosinophils 0.7 0.0 - 4.0 08/23/2015 [facility] HEMATOLOGY Eosinophils # 0.1 0.0 - 0.5 08/23/2015 [facility] Monocytes # 1.2 0.0 - 0.8 08/23/2015 [facility] Lymphocytes # 4.6 1.0 - 5.5 08/23/2015 [facility] MCH 27.9 27.0 - 31.0 08/23/2015 [facility] Platelet 129 133 - 450 08/23/2015 [facility] MCHC 31.4 32.0 - 36.0 08/23/2015 [facility] MPV 9.4 7.4 - 10.4 08/23/2015 [facility] RDW 15.4 11.5 - 14.5 08/23/2015 [facility] Hgb 15.6 14.0 - 18.0 08/23/2015 [facility] WBC 14.1 3.7 - 10.4 08/23/2015 [facility] RBC 5.59 4.70 - 6.10 08/23/2015 [facility] Hct 49.6 42.0 - 54.0 08/23/2015 [facility] MCV 88.7 80.0 - 94.0 08/23/2015 [facility] INR 2.06 0.85 - 1.17 08/23/2015 [facility] PT 23.5 12.0 - 14.7 08/23/2015 [facility] PTT 68.3 22.9 - 35.8 08/23/2015 [facility] PTT 103.1 22.9 - 35.8 08/22/2015 Result Comment: Critical Result(s) called to Alicia Mcclain at 08/22/2015 18:22 by Alicia Omer. Read back OK. [facility] CHEM PANEL eGFR 24 08/22/2015 Result [...] should be multiplied by the estimated BMI. [facility] CHEM PANEL Bili Total 0.3 0.2 - 1.3 08/22/2015 [facility] CHEM PANEL Alk Phos 82 39 - 136 08/22/2015 [facility] CHEM PANEL Sodium Lvl 137 135 - 145 08/22/2015 [facility] CHEM PANEL Potassium Lvl 4.4 3.5 - 5.1 08/22/2015 [facility] CHEM PANEL BUN 47 7 - 22 08/22/2015 [facility] CHEM PANEL Creatinine Lvl 2.46 0.50 - 1.40 08/22/2015 [facility] CHEM PANEL Glucose Lvl 198 70 - 99 08/22/2015 [facility] CHEM PANEL Calcium Lvl 7.8 8.5 - 10.5 08/22/2015 [facility] CHEM PANEL B/C Ratio 19 6 - 25 08/22/2015 [facility] CHEM PANEL CO2 19 24 - 32 08/22/2015 [facility] CHEM PANEL AGAP 14.4 10.0 - 20.0 08/22/2015 [facility] CHEM PANEL Chloride Lvl 108 95 - 109 08/22/2015 [facility] CHEM PANEL ALT 122 0 - 65 08/22/2015 [facility] CHEM PANEL AST 93 0 - 37 08/22/2015 [facility] CHEM PANEL Globulin 3.8 2.0 - 4.0 08/22/2015 [facility] CHEM PANEL A/G Ratio 0.8 0.7 - 1.6 08/22/2015 [facility] CHEM PANEL Total Protein 6.7 6.4 - 8.4 08/22/2015 [facility] CHEM PANEL Albumin Lvl 2.9 3.5 - 5.0 08/22/2015 [facility] HEMATOLOGY Monocytes # 1.6 0.0 - 0.8 08/22/2015 [facility] HEMATOLOGY Segs-Bands # 7.8 1.5 - 8.1 08/22/2015 [facility] HEMATOLOGY Lymphocytes # 5.7 1.0 - 5.5 08/22/2015 [facility] HEMATOLOGY Basophils 0.9 0.0 - 1.0 08/22/2015 [facility] HEMATOLOGY Basophils # 0.1 0.0 - 0.2 08/22/2015 [facility] HEMATOLOGY Eosinophils # 0.1 0.0 - 0.5 08/22/2015 [facility] HEMATOLOGY Segs 50.9 45.0 - 75.0 08/22/2015 [facility] HEMATOLOGY Eosinophils 0.5 0.0 - 4.0 08/22/2015 [facility] HEMATOLOGY Monocytes 10.5 2.0 - 12.0 08/22/2015 [facility] HEMATOLOGY Lymphocytes 37.2 20.0 - 40.0 08/22/2015 [facility] HEMATOLOGY MPV 9.2 7.4 - 10.4 08/22/2015 [facility] HEMATOLOGY MCH 28.0 27.0 - 31.0 08/22/2015 [facility] HEMATOLOGY MCHC 31.4 32.0 - 36.0 08/22/2015 [facility] HEMATOLOGY RDW 15.3 11.5 - 14.5 08/22/2015 [facility] HEMATOLOGY Platelet 107 133 - 450 08/22/2015 [facility] HEMATOLOGY RBC 5.69 4.70 - 6.10 08/22/2015 [facility] HEMATOLOGY Hgb 16.0 14.0 - 18.0 08/22/2015 [facility] HEMATOLOGY Hct 50.9 42.0 - 54.0 08/22/2015 [facility] HEMATOLOGY MCV 89.4 80.0 - 94.0 08/22/2015 [facility] HEMATOLOGY WBC 15.3 3.7 - 10.4 08/22/2015 [facility] HEMATOLOGY Basophils 0.3 0.0 - 1.0 08/22/2015 [facility] HEMATOLOGY Eosinophils 0.1 0.0 - 4.0 08/22/2015 [facility] HEMATOLOGY Lymphocytes # 4.7 1.0 - 5.5 08/22/2015 [facility] HEMATOLOGY Segs-Bands # 11.5 1.5 - 8.1 08/22/2015 [facility] HEMATOLOGY Monocytes # 1.8 0.0 - 0.8 08/22/2015 [facility] HEMATOLOGY Basophils # 0.1 0.0 - 0.2 08/22/2015 [facility] HEMATOLOGY Monocytes 9.8 2.0 - 12.0 08/22/2015 [facility] HEMATOLOGY Lymphocytes 26.2 20.0 - 40.0 08/22/2015 [facility] HEMATOLOGY Segs 63.6 45.0 - 75.0 08/22/2015 [facility] RDW 15.0 11.5 - 14.5 08/22/2015 [facility] Platelet 148 133 - 450 08/22/2015 [facility] MPV 9.2 7.4 - 10.4 08/22/2015 [facility] RBC 5.88 4.70 - 6.10 08/22/2015 [facility] Hgb 16.4 14.0 - 18.0 08/22/2015 [facility] WBC 18.1 3.7 - 10.4 08/22/2015 [facility] Hct 52.2 42.0 - 54.0 08/22/2015 [facility] MCV 88.7 80.0 - 94.0 08/22/2015 [facility] MCHC 31.5 32.0 - 36.0 08/22/2015 [facility] MCH 27.9 27.0 - 31.0 08/22/2015 [facility] BACTERIAL - SEROLOGY MRSA by PCR Negative (08/21/15 4:18 AM) 08/21/2015 [facility] CARDIAC ENZYMES CK MB Index 3.7 0.0 - 2.5 08/21/2015 [facility] CARDIAC ENZYMES Total CK 101 12 - 191 08/21/2015 [facility] CARDIAC ENZYMES Troponin-I 0.36 0.00 - 0.40 08/21/2015 [facility] CARDIAC ENZYMES CK MB 3.7 0.5 - 3.6 08/21/2015 [facility] CARDIAC ENZYMES BNP 1159 <=100 pg/mL 08/21/2015 [facility] CHEM PANEL eGFR 20 08/21/2015 Result [...] should be multiplied by the estimated BMI. [facility] CHEM PANEL Calcium Lvl 8.4 8.5 [...] PANEL BUN 36 7 - 22 08/21/2015 [facility] CHEM PANEL Creatinine Lvl 2.92 0.50 - 1.40 08/21/2015 [facility] CHEM PANEL Chloride Lvl 107 95 - 109 08/21/2015 [facility] CHEM PANEL CO2 23 24 - 32 08/21/2015 [facility] CHEM PANEL Glucose Lvl 213 70 - 99 08/21/2015 [facility] CHEM PANEL Sodium Lvl 139 135 - 145 08/21/2015 [facility] CHEM PANEL Potassium Lvl 4.9 3.5 - 5.1 08/21/2015 [facility] CHEM PANEL A/G Ratio 0.8 0.7 - 1.6 08/21/2015 [facility] CHEM PANEL Globulin 4.6 2.0 - 4.0 08/21/2015 [facility] CHEM PANEL B/C Ratio 12 6 - 25 08/21/2015 [facility] CHEM PANEL AGAP 13.9 10.0 - 20.0 08/21/2015 [facility] CHEM PANEL Magnesium Lvl 2.8 1.8 - 2.4 08/21/2015 [facility] CHEM PANEL Phosphorus 2.2 2.5 - 4.5 08/21/2015 [facility] HEMATOLOGY RBC Morph Normal (08/21/15 3:55 AM) 08/21/2015 [facility] HEMATOLOGY Plt Morph Normal (08/21/15 3:55 AM) 08/21/2015 [facility] LIPIDS VLDL 36 08/21/2015 [facility] LIPIDS LDL (Calculated) 101 <=99 mg/dL 08/21/2015 [facility] LIPIDS Trig 179 <=149 mg/dL 08/21/2015 [facility] LIPIDS HDL 50 >=61 mg/dL 08/21/2015 [facility] LIPIDS Chol 187 <=199 mg/dL 08/21/2015 [facility] LIPIDS CHD Risk 3.74 4.00 - 7.30 08/21/2015 [facility] CARDIAC ENZYMES CK MB Index 3.2 0.0 - 2.5 08/21/2015 [facility] CARDIAC ENZYMES Troponin-I 0.32 0.00 - 0.40 08/21/2015 [facility] CARDIAC ENZYMES CK MB 3.5 0.5 - 3.6 08/21/2015 [facility] CARDIAC ENZYMES Total CK 110 12 - 191 08/21/2015 [facility] CARDIAC ENZYMES CK MB Index 1.7 0.0 - 2.5 08/20/2015 [facility] CARDIAC ENZYMES Total CK 157 12 - 191 08/20/2015 [facility] CARDIAC ENZYMES CK MB 2.7 0.5 - 3.6 08/20/2015 [facility] CARDIAC ENZYMES Troponin-I 0.07 0.00 - 0.40 08/20/2015 [facility] HEMATOLOGY Eosinophils # 0.2 0.0 - 0.5 08/20/2015 [facility] Pathology Reports No Data Provided for This Section Diagnostic Reports Report Value Date Source Chest 1view DX Study: Chest 1view DX Clinical Indication: Abnormal chest sounds Comparison: 08/21/2015 FINDINGS: Cardiac silhouette is mildly prominent. Mild right basilar atelectasis is seen. There is no pleural effusion or pneumothorax. Osseous structures are stable. IMPRESSION: No acute cardiopulmonary disease. SL: [id number] 08/22/2015 [facility] Lung ventilation/perfusion scan [place] Lung ventilation/perfusion scan [place] CLINICAL HX: Dyspnea on exertion. COMPARISON: Chest [...] Tammy, on 08/21/2015 1:01 PM CDT. SL: [id number] 08/21/2015 [facility] Chest 2 views DX Chest 2 views DX CLINICAL HISTORY:Abnormal chest sounds COMPARISON: none FINDINGS: The lungs are poorly inflated. No infiltrate pleural effusion or pneumothorax otherwise. Heart size top normal. No overt congestive heart failure or pulmonary edema. Calcified lymph nodes are noted within the hilar regions. IMPRESSION: Hypoventilation, poor inspiration. No acute findings, otherwise. SL: [id number] 08/21/2015 [facility] Abdomen complete US Clinical Indication: Abnormal [...] or biliary ductal dilatation. Hepatic steatosis. SL: [id number] 08/21/2015 [facility] Ext Lower Venous Doppler Bilat US [...] called to the floor. SL: KAYLA 08/20/2015 [facility] Chest 1view DX Chest 1view DX CLINICAL HISTORY:Chest pain COMPARISON: 04/01/2011 FINDINGS: Limited AP portable study. Lungs are reasonably well inflated. No consolidation, effusion or pneumothorax. Trachea is midline. Cardiomediastinal silhouette is within normal limits. No pulmonary edema. No significant bony abnormality is noted. Calcified lymph nodes in left hilum as before. IMPRESSION: No acute abnormality is noted in the chest. SL: [id number] 08/20/2015 [facility] Consultation Notes No Data Provided for This Section Discharge Summaries No Data Provided for This Section History and Physicals No Data Provided for This Section Vital Signs Vital Sign Value Date Comments Source Heart Rate 64 08/25/2015 [facility] Systolic (mm Hg) 142 08/25/2015 [facility] Diastolic (mm Hg) 93 08/25/2015 [facility] Temperature Oral (F) 98.0 F 08/25/2015 [facility] Respitory Rate 18 08/25/2015 [facility] Systolic (mm Hg) 160 08/25/2015 [facility] Diastolic (mm Hg) 93 08/25/2015 [facility] Respitory Rate 18 08/25/2015 [facility] Heart Rate 74 08/25/2015 [facility] Temperature Oral (F) 97.9 F 08/25/2015 [facility] Respitory Rate 18 08/25/2015 [facility] Temperature Oral (F) 97.5 F 08/25/2015 [facility] Systolic (mm Hg) 149 08/25/2015 [facility] Diastolic (mm Hg) 90 08/25/2015 [facility] Heart Rate 61 08/25/2015 [facility] Weight 94.2 08/21/2015 [facility] Height 172.72 cm 08/21/2015 [facility] Weight 90.909 08/21/2015 [facility] BMI Calculated 30.47 08/21/2015 [facility] Height 172.72 cm 08/20/2015 [facility] Weight 90.909 08/20/2015 [facility] BMI Calculated 30.47 08/20/2015 [facility] Encounters Location Location Details Encounter Type Encounter Number Reason For Visit Attending Provider ADM Date DC Date Status Source [facility] Inpatient [id number] Sandip Timo 08/20/2015 08/25/2015 [facility] [place] OP Therapy Patients [id number] Miguel DiTommaso 03/08/2016 04/07/2016 [facility] [place] OP Therapy Patients [id number] Miguel DiTommaso 04/04/2016 05/04/2016 [facility] [place] [facility] [place] OP Therapy Patients [id number] Miguel DiTommaso 05/04/2016 06/03/2016 [facility] [place] Procedures Procedure Code Date Perfomer Comments Source Arthroplasty of knee<sup>1</sup> 75134809 bilateral replacment [facility] [place] Arthroplasty of knee<sup>1</sup> [id number] bilateral replacment [facility] [place] Arthroplasty of knee<sup>1</sup> [id number] bilateral replacment [facility] Assessment and Plan Assessment and Plan Date Source Extracted from:Title: Clinical Document Author: Brianna Bravo NP Date: 08/25/15 Progress Note - Daily [facility] Completed: Aug, 12:04 by Brianna Bravo NP [...] 0.9% INJ 250 mL 500 mg IVPB [id number] 166.67 ml/hr 08/20/15 cefTRIAXone + sodium chloride [...] Consulting Physicians: Sandip Greenwood MD Office: MSO: [id number] Service: Medicine Madhav Mosley MD Office: MSO: [id number] Service: Pulmonary, Medicine Lauren Bowens MD Office: MSO: [id number] Service: Cardiology History of present illness: 80-year-old [...] 0.9% INJ 250 mL 500 mg IVPB [id number] 166.67 ml/hr 08/20/15 cefTRIAXone + sodium chloride [...] kidneys and collecting system as well. 08/25/2015 [facility] Plan of Care No Data Provided for This Section Social History Social History Date Source Social History TypeResponse Smoking Status Never smoker; Previous treatment: None; Ready to change: No; Concerns about tobacco use in household: No; Exposure to Tobacco Smoke None; Cigarette Smoking Last 365 Days No; Reg Smoking Cessation Counseling No 08/20/[address] [facility] Social History TypeResponse Smoking Status Never smoker; Previous treatment: None; Ready to change: No; Concerns about tobacco use in household: No; Exposure to Tobacco Smoke None; Cigarette Smoking Last 365 Days No; Reg Smoking Cessation Counseling No 08/20/2015 [facility] Social History TypeResponse Smoking Status Never smoker; Previous treatment: None; Ready to change: No; Concerns about tobacco use in household: No; Exposure to Tobacco Smoke None; Cigarette Smoking Last 365 Days No; Reg Smoking Cessation Counseling No 08/20/2015 [facility] Family History No Data Provided for This Section Advance Directives No Data Provided for This Section Functional Status No Data Provided for This Section
[2018-10-09 09:30] LABS: BASOPHILS % 0.4 % (0.0-1.0); EOSINOPHILS # (AUTO) 0.1 (0.0-0.4); EOSINOPHILS % 1.3 % (0.0-6.0); HEMATOCRIT 36.9 % (38.2-49.6); HEMOGLOBIN 11.2 g/dL (14.0-18.0); LYMPHOCYTES # (AUTO) 1.6 (1.0-3.2); LYMPHOCYTES % 15.1 % (18.0-39.1); MEAN CORPUSCULAR HEMOGLOBIN 24.6 pg (28-32); MEAN CORPUSCULAR HGB CONC 30.4 g/dL (31-35); MEAN CORPUSCULAR VOLUME 81.1 fL (81-99); MONOCYTES # (AUTO) 0.8 (0.2-0.8); MONOCYTES % 7.3 % (4.4-11.3); NEUTROPHILS # (AUTO) 8.1 (2.1-6.9); NEUTROPHILS % 75.2 % (38.7-80.0); PLATELET COUNT 232 x10e3/uL (140-360); RED BLOOD COUNT 4.55 x10e6/uL (4.3-5.7); RED CELL DISTRIBUTION WIDTH 18.2 % (11.7-14.4)
[2018-10-09 09:44] LABS: INR 1.33; PROTHROMBIN TIME 17.1 seconds (11.9-14.5)
[2018-10-09 09:45] LABS: PARTIAL THROMBOPLASTIN TIME 32.1 seconds (23.8-35.5)
[2018-10-09 09:52] LABS: ALBUMIN 2.7 g/dL (3.5-5.0); ALBUMIN/GLOBULIN RATIO 0.5 (0.8-2.0); ANION GAP 18.3 mmol/L (8-16); CALCIUM 9.3 mg/dL (8.4-10.2); CREATININE, SERUM 1.54 mg/dL (0.72-1.25); POTASSIUM 4.3 mmol/L (3.5-5.1)
[2018-10-09 09:58] LABS: CREATINE KINASE MB 2.1 ng/mL (0-5.0)
--- NOTE | 2018-10-09 10:13 | NUR ---
UPDATED PLAN OF CARE. PENDING RESULTS
--- NOTE | 2018-10-09 11:43 | Diagnostic Imaging Report ---
EXAMINATION: CHEST SINGLE (PORTABLE) INDICATION: Shortness of breath COMPARISON: Chest radiograph of 05/20/2018, chest CT of 05/20/2018 FINDINGS: LINES/TUBES:Neck EKG LUNGS:The left lung volume is low. The right lung is moderately inflated. There is perihilar fullness and indistinctness of the pulmonary vasculature. There is left basilar opacity silhouetting the left sarah diaphragm. PLEURA:Unchanged left pleural effusion. No pneumothorax. MEDIASTINUM:Cardiomediastinal silhouette is stably enlarged. Atherosclerotic calcifications of the thoracic aorta. Unchanged calcified enlarged left hilar lymph node. BONES/SOFT TISSUES:No acute osseous injury. ABDOMEN:No free air under the diaphragm. IMPRESSION: Mild pulmonary edema. Unchanged cardiomegaly. Unchanged left pleural effusion. Unchanged opacity in the left lung base silhouetting the left hemidiaphragm most likely represents atelectasis. Signed by: Zo Beltre MD on 10/09/2018 11:39 AM
[2018-10-09 13:13] VITALS: BP 133/82
[2018-10-09 13:39] VITALS: BP 133/82
[2018-10-09] MEDS ORDERED: FUROSEMIDE INJ 10 MG/ML 4 ML VIAL IV SCH (13:45)
[2018-10-09] MEDS ORDERED: FUROSEMIDE10 MG/1 M1 IV (13:58)
[2018-10-09] MEDS: LISINOPRIL 2.5 MG TAB PO SCH (14:49)
[2018-10-09 16:00] VITALS: BP 116/78
[2018-10-09] MEDS ORDERED: ENOXAPARIN SOD INJ 40 MG/0.4 ML SYR SC SCH (17:00)
[2018-10-09 18:02] LABS: CREATINE KINASE 35 IU/L (30-200)
[2018-10-09 20:45] VITALS: BP 116/73
[2018-10-09 21:00] VITALS: BP 116/73
[2018-10-10 00:19] VITALS: BP 124/61
--- NOTE | 2018-10-10 00:23 | NUR ---
Started new IV on left AC 20g. Will continue to monitor.
[2018-10-10] MEDS: FUROSEMIDE INJ 10 MG/ML 4 ML VIAL IV SCH ×2 (00:50→14:00)
[2018-10-10 00:59] LABS: CREATINE KINASE 27 IU/L (30-200)
--- NOTE | 2018-10-10 01:17 | Consultation ---
DATE OF CONSULTATION: 10/09/2018 Cardiology Consult Note REASON FOR CONSULT: Shortness of breath. CHIEF COMPLAINT: Shortness of breath. HISTORY OF PRESENT ILLNESS: The patient is an 83-year-old man, who is known to our service. He has history of extensive DVT and PE on Coumadin, history of chronic atrial fibrillation, who presents with worsening shortness of breath starting yesterday. Denies any chest pain. No previous history of IL or CAD. REVIEW OF SYSTEMS: As above, otherwise negative. FAMILY HISTORY: Noncontributory. SOCIAL HISTORY: The patient does not smoke, drink, or abuse drugs. OUTPATIENT MEDICATIONS: Reviewed. ALLERGIES: NO KNOWN DRUG ALLERGIES. OBJECTIVE: VITAL SIGNS: Temperature afebrile, pulse 80, respiratory rate 18, blood pressure 126/78, and saturating 100% on 3 L nasal cannula. GENERAL: Elderly white man, in no acute distress. CARDIOVASCULAR: Irregular rate and rhythm. No murmurs, rubs, or gallops. LUNGS: Bibasilar rales. ABDOMEN: Soft, nontender, nondistended, and obese. NEURO AND PSYCH: Alert and oriented to person, place, and time. Normal affect. EXTREMITIES: He has 3+ pitting edema bilateral lower extremities. INPATIENT MEDICATIONS: Reviewed. LABORATORY DATA: Reviewed. TELEMETRY DATA: Reviewed, shows chronic atrial fibrillation. ASSESSMENT: 1. Chronic atrial fibrillation. 2. 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 3. History of hemorrhagic stroke. 4. Chronic atrial fibrillation. 5. Chronic systolic heart failure. PLAN: Agree with IV diuresis. Please resume his warfarin. INR is subtherapeutic. We will slowly resume home blood pressure medications as tolerated. Thank you for this consult. We will continue to follow. MD KAYLEE KurtzP/MODL /[id number]
[2018-10-10] MEDS ORDERED: ACETAMINOPHEN/CODEINE 300MG - 30MG TAB PO PRN (04:00)
[2018-10-10] MEDS ORDERED: TRAMADOL HCL 50 MG TAB PO PRN (04:00)
[2018-10-10 04:38] VITALS: BP 117/61
[2018-10-10 06:05] LABS: ANION GAP 12.9 mmol/L (8-16); CALCIUM 8.6 mg/dL (8.4-10.2); CREATININE, SERUM 1.31 mg/dL (0.72-1.25); POTASSIUM 3.9 mmol/L (3.5-5.1)
[2018-10-10 06:06] LABS: CREATINE KINASE 26 IU/L (30-200)
--- NOTE | 2018-10-10 07:32 | NUR ---
Report given to oncoming nurse,walking round done.
[2018-10-10 07:46] VITALS: BP 155/85
[2018-10-10] MEDS ORDERED: TAMSULOSIN HCL 0.4 MG CAP PO SCH (09:00)
[2018-10-10] MEDS ORDERED: ASPIRIN 81 MG CHEW TAB PO SCH (09:00)
[2018-10-10] MEDS: LISINOPRIL 2.5 MG TAB PO SCH (09:00)
[2018-10-10] MEDS ORDERED: FLUOXETINE HCL 20 MG CAP PO SCH (09:00)
[2018-10-10] MEDS ORDERED: NEBIVOLOL 10 MG TAB PO SCH (09:00)
[2018-10-10] MEDS ORDERED: FINASTERIDE 5 MG TAB PO SCH (09:00)
[2018-10-10] MEDS ORDERED: PANTOPRAZOLE SOD 40 MG TABEC PO SCH (09:00)
[2018-10-10] MEDS ORDERED: LEVOFLOXACIN 500 MG TAB PO SCH (09:00)
[2018-10-10] MEDS ORDERED: TRIAMTERENE/HCTZ 37.5-25 MG TAB PO SCH (09:00)
[2018-10-10] MEDS ORDERED: GLIMEPIRIDE 2 MG TAB PO SCH (09:00)
[2018-10-10] MEDS ORDERED: WARFARIN SOD 3 MG TAB PO SCH (09:00)
[2018-10-10] MEDS ORDERED: DILTIAZEM HCL 180 MG CAP ER PO SCH (09:00)
[2018-10-10] MEDS: FUROSEMIDE INJ 10 MG/ML 2 ML VIAL IV SCH ×2 (10:22→16:36)
[2018-10-10 10:54] VITALS: BP 97/68
[2018-10-10 11:25] VITALS: BP 104/57
--- NOTE | 2018-10-10 15:30 | Progress Note ---
DATE: 10/10/2018 Cardiology Progress Note SUBJECTIVE: Feels much better today. Shortness of breath is back to baseline. OBJECTIVE: VITAL SIGNS: Temperature afebrile, pulse 75, respiratory rate 18, blood pressure 104/57, saturating 97% on nasal cannula. GENERAL: Elderly white man, in no acute distress. CARDIOVASCULAR: Irregular rate and rhythm. No murmurs, rubs, or gallops. LUNGS: Decreased breath sounds at the bases, otherwise clear. ABDOMEN: Obese, soft, nontender, nondistended. NEURO AND PSYCH: Alert and oriented to person, place, and time. Normal affect. INPATIENT MEDICATIONS: Reviewed. LABORATORY DATA: Reviewed. TELEMETRY DATA: Reviewed. Remains in atrial fibrillation. ASSESSMENT: 1. Chronic atrial fibrillation. 2. History of deep venous thrombosis and pulmonary embolism, status post IVC filter in the past, filter is known to be occluded, resulting in chronic lower extremity edema. 3. History of hemorrhagic stroke. 4. Chronic systolic heart failure. PLAN: Feels much better after IV diuresis and oxygen. We have resumed his warfarin as INR was subtherapeutic, would likely need his dose increased as an outpatient. From cardiovascular standpoint, he is back to his baseline. Okay to be discharged once home oxygen was arranged. He already has a followup appointment coming this Monday with his primary transit department clerk, Dr. Canseco. Thank you for this consult. We will continue to follow. MD TOMASZ Kurtz/SOBEIDA /[id number]
[2018-10-10 15:33] VITALS: BP 108/52
--- NOTE | 2018-10-10 16:51 | NUR ---
ORDERS FOR HOME 02 SATS ON ROOM AIR SPOKE WITH PT; CHOICE LETTER SIGNED FOR [facility] NOTIFIED [facility] WITH [facility] OF CONSULT DELIVERED PORTABLE 02 TO PT'S ROOM [facility] RAN BENEFITS AND WILL NOT BE ABLE TO ACCEPT PT BECAUSE PT WAS PREVIOUSLY ON SERVICE WITH [facility] EXPLAINED TO PT CHOICE LETTER SIGNED FOR [facility] PH: [phone] FAX:[phone] CALLED AND SPOKE WITH COLLEEN AT [facility] SHE STATES THEY WILL BE ABLE TO DELIVER CONCENTRATOR TO PT
[2018-10-10] MEDS ORDERED: ATORVASTATIN 20 MG TAB PO SCH (21:00)
--- NOTE | 2018-10-11 05:18 | Discharge Summary ---
REASON FOR DISCHARGE: 1. Shortness of breath. 2. Acute respiratory failure with hypoxia. 3. Hypertension. 4. Diabetes. 5. Chronic kidney disease, stage 3. 6. History of deep vein thrombosis, benign prostatic hypertrophy. HISTORY OF PRESENT ILLNESS AND HOSPITAL COURSE: See hospital chart for full details. The patient presented with a 2-day complaint of just increasing shortness of breath even at rest, where he was brought in. He was placed on O2, which made a significant improvement in his overall symptoms. His chest x-ray was unremarkable from previous x-rays. By the following morning, he was back at his baseline and felt great. He really wanted to go home. He did not want to stay for any type of further workup, discussions were made with the daughter. He did qualify for home O2. They did want to go ahead and go home and do outpatient workup since he was at his baseline with the oxygen. He was therapeutic on his Coumadin, he was on his anticoagulant. So, the patient was discharged home with improved condition and will follow up in 1 to 2 weeks with me. He is to return to the emergency room if he worsens. Please see hospital chart for details. MD NATY Mcdonald/SOBEIDA /[id number]
--- NOTE | 2018-10-11 08:09 | NUR ---
DC SUMMARY FAXED TO [facility] AT [phone]; CONFIRMATION REC'D
== END 2018-10-10 17:29 | disposition home or self-care (01) ==
LOC: EDBD → ER 08:09 → ERHOLD 09:03 → IMCU 12:58
PROVIDERS: ADMIT Internal Medicine; ATTEND Internal Medicine
DX: J96.01 Acute respiratory failure with hypoxia (principal); I13.0 Hypertensive heart and chronic kidney disease with heart failure and stage 1 through stage 4 chronic kidney disease, or unspecified chronic kidney disease; I50.23 Acute on chronic systolic (congestive) heart failure; N17.9 Acute kidney failure, unspecified; E11.22 Type 2 diabetes mellitus with diabetic chronic kidney disease; N18.3 Chronic kidney disease, stage 3 (moderate); T82.515A Breakdown (mechanical) of umbrella device, initial encounter; I48.2 Chronic atrial fibrillation; Z79.01 Long term (current) use of anticoagulants; Z96.653 Presence of artificial knee joint, bilateral; Z86.73 Personal history of transient ischemic attack (TIA), and cerebral infarction without residual deficits; Z86.718 Personal history of other venous thrombosis and embolism; Z86.711 Personal history of pulmonary embolism; Z79.84 Long term (current) use of oral hypoglycemic drugs
CPT/HCPCS: 36415; 71045; 80048; 80053; 82550 ×2; 82553 ×2; 82948 ×2; 83880; 84484 ×2; 85025; 85610; 85730; 93005; 93306; 94640; 99284; G0378 ×2; J1940 ×3; S0164

== ENCOUNTER 2018-11-13 11:24 | Inpatient (IN) | payer MEDICARE, OTHER ==
[~2018-11-13] VITALS: Ht 174 cm; Wt 94.8 kg
[~2018-11-13 11:24] MED LIST changes: +FUROSEMIDE10 MG/1 M1 IV
--- OUTSIDE RECORDS SUMMARY | 2018-11-13 11:27 | XMS REPORT | Continuity of Care Document ---
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 [facility] Active 08/20/2015 [facility] ACUTE RENAL FAILURE, CHEST PAIN, DYSPNEA Active 08/20/2015 [facility] HTN (Confirmed) Resolved Problem 06/05/2016 [facility] Hyperlipemia Resolved Problem 06/05/2016 [facility] UNSPECIFIED KIDNEY FAILURE Active [facility] Medications Medication Details Route Status Patient Instructions Ordering Provider Order Date Source warfarin 3 mg oral tablet 3 mg=1 tab, PO, Daily, # 30 tab, 0 Refill(s) Active 08/25/2015 [facility] temazepam 15 mg oral capsule 15 mg=1 cap, PO, Bedtime, X 30 day, # 30 cap, 0 Refill(s) Active 08/25/2015 [facility] levofloxacin 750 mg oral tablet 750 mg=1 tab, PO, Daily, X 7 day, # 7 tab, 0 Refill(s) Active 08/25/2015 [facility] Nebulizer Mask Adult Misc/Other 1 ea, MISC, PRN, PRN As directed by physician, # 1 ea, 0 Refill(s) Active 08/25/2015 [facility] Nebulizer 1 ea, MISC, ONCALL, # 1 ea, 0 Refill(s) Active 08/25/2015 [facility] Albuterol 0.83 MG/ML Inhalant Solution 2.5 mg=3 mL, NEB, RQ4H, PRN as needed for shortness of breath, Pediatric Dosing, # 180 mL, 0 Refill(s) Active 08/25/2015 [facility] Atenolol 50 MG Oral Tablet 50 mg=1 tab, PO, BID, # 60 tab, 0 Refill(s) Active 08/25/2015 [facility] Coumadin 3 mg, 3 tab, Route: PO, Drug form: TAB, ONCE, Dosing Weight 94.2, kg, Start date: 08/24/15 13:35:00 CDT, Stop date: 08/24/15 13:35:00 CDTNotes: Nurse to ensure documentation of patient education per ant icoagulation policy. Avoid large intake of vitamin-K containing foods diet. (Same As: Coumadin) WASTE: F/P - P Waste Black; E - P Waste Black Inactive 08/24/2015 [facility] nitroglycerin 0.4 mg sublingual tablet 0.4 mg, 1 tab, Route: SL, Drug form: TAB, Q5Min, PRN Chest Pain, Start date: 08/23/15 21:11:00 CDT, Duration: 30 day, Stop date: 09/22/15 21:10:00 CDTNotes: (Same as:Nitroquick, Nitrostat) "Do Not Crush" Sublingual tablet No Longer Active 08/24/2015 [facility] atropine 0.5 mg, 5 mL, Route: IVP, Drug form: INJ, PRN, PRN Bradycardia, Start date: 08/23/15 21:10:00 CDT, Duration: 30 day, Stop date: 09/22/15 21:09:00 CDT No Longer Active 08/24/2015 [facility] Warfarin 3 mg, 3 tab, Route: PO, [...] E - P Waste Black Inactive 08/23/2015 [facility] Hydralazine Hydrochloride 25 MG Oral Tablet 25 mg, 1 tab, Route: PO, Drug form: TAB, Q4H, Dosing Weight 94.2, kg, PRN Elevated BP, Start date: 08/23/15 14:18:00 CDT, Duration: 30 day, Stop date: 09/22/15 14:17:00 CDTNotes: (Same as: Apresoline) May interfere w/enteral feedings Take With Food. No Longer Active 08/23/2015 [facility] Atenolol 50 MG Oral Tablet 50 mg, 1 tab, Route: PO, Drug form: TAB, BID, Dosing Weight 94.2, kg, Priority: NOW, Start date: 08/23/15 14:17:00 CDT, Duration: 30 day, Stop date: 09/22/15 9:00:00 CDTNotes: (Same As:Tenormin) No Longer Active 08/23/2015 [facility] Warfarin 7.5 mg, 1 tab, Route: PO, [...] (Same As: Coumadin) No Longer Active 08/22/2015 [facility] Lovenox 90 mg, 0.9 mL, Route: SUB-Q, Drug form: INJ, [id number], Dosing Weight 90.909, kg, Start date: 08/21/15 21:00:00 CDT, Duration: 30 day, Stop date: 09/19/15 21:00:00 CDTNotes: Nurse to ensure documentation of patient education per anticoagulation policy. (Same as: Lovenox) Inactive 08/22/2015 [facility] heparin additive 25,000 unit [18 unit/kg/hr] + Premix Diluent Dextrose 5% 500 mL 500 mL, Rate: 28.33 ml/hr, Infuse over: 17.6 hr, Route: IV, Dosing Weight 78.7 kg, Total Volume: 500 mL, Start date: 08/21/15 18:09:00 CDT, Duration: 30 day, Stop date: 09/20/15 18:08:00 CDT No Longer Active 08/21/2015 [facility] Heparin 80 unit/kg Bolus (Heparin Dosing Weight) Route: IVP, PRN, 6,300 unit, 6.3 mL, Drug form: INJ, PRN, Heparin Protocol, Start date: 08/21/15 18:09:00 CDT Stop date: 09/20/15 18:08:00 CDT, 30 day No Longer Active 08/21/2015 [facility] Heparin 40 unit/kg Bolus (Heparin Dosing Weight) Route: IVP, PRN, 3,100 unit, 3.1 mL, Drug form: INJ, PRN, Heparin Protocol, Start date: 08/21/15 18:09:00 CDT Stop date: 09/20/15 18:08:00 CDT, 30 day No Longer Active 08/21/2015 [facility] Heparin - one time bolus for DVT/PE Route: IV, Drug form: INJ, ONCE, Dosing Weight 90.909, kg, Priority: STAT, Start date: 08/21/15 17:59:00 CDT, Stop date: 08/21/15 17:59:00 CDT Inactive 08/21/2015 [facility] Heparin 80 unit/kg Bolus (Heparin Dosing Weight) Pharmacy To Manage, Route: IVP, PRN, Drug form: INJ, PRN, Heparin Protocol, Start date: 08/21/15 17:59:00 CDT Stop date: 09/20/15 17:58:00 CDT, 30 day Inactive 08/21/2015 [facility] Coumadin 7.5 mg, 1 tab, Route: PO, [...] Waste Black (Same As: Coumadin) Inactive 08/21/2015 [facility] Protonix 40 mg, 1 tab, Route: PO, Drug form: ECTAB, Before Dinner, Dosing Weight 90.909, kg, Start date: 08/21/15 16:30:00 CDT, Duration: 30 day, Stop date: 09/19/15 16:30:00 CDTNotes: Tablet should not be chewed or crushed. (Same as: Protonix) No Longer Active 08/21/2015 [facility] sodium chloride 0.9% 1000 ml INJ 1,000 mL 1,000 mL, Rate: 50 ml/hr, Infuse over: 20 hr, Route: IV, Dosing Weight 90.909 kg, Total Volume: 1,000, Start date: 08/21/15 15:00:00 CDT, Duration: 30 day, Stop date: 09/20/15 14:59:00 CDT No Longer Active 08/21/2015 [facility] Atenolol 100 MG Oral Tablet 100 mg, Route: PO, Drug form: TAB, BID, Dosing Weight 90.909, kg, Start date: 08/21/15 9:00:00 CDT, Duration: 30 day, Stop date: 09/19/15 21:00:00 CDT No Longer Active 08/21/2015 [facility] Verapamil 240 mg, 1 tab, Route: PO, Drug form: ERTAB, Daily, Dosing Weight 90.909, kg, Start date: 08/21/15 9:00:00 CDT, Duration: 30 day, Stop date: 09/19/15 9:00:00 CDTNotes: Do not crush or chew.; "Avoid grapefruit and grapefruit juice" (Same As: Calan SR, Isoptin SR) No Longer Active 08/21/2015 [facility] Lisinopril 20 mg, 1 tab, Route: PO, Drug form: TAB, Daily, Dosing Weight 90.909, kg, Start date: 08/21/15 9:00:00 CDT, Duration: 30 day, Stop date: 09/19/15 9:00:00 CDTNotes: (Same as: Prinivil, Zestril) No Longer Active 08/21/2015 [facility] Miralax 17 gm, 1 pkt, Route: PO, Drug form: PWDR, Daily, Dosing Weight 90.909, kg, Start date: 08/21/15 9:00:00 CDT, Duration: 30 day, Stop date: 09/19/15 9:00:00 CDTNotes: Dissolve in 8 oz of water or juice. (Same as: Miralax) No Longer Active 08/21/2015 [facility] Sodium Chloride 0.154 MEQ/ML Injectable Solution 1,000 mL, Rate: 100 ml/hr, Infuse over: 10 hr, Route: IV, Dosing Weight 90.909 kg, Total Volume: 1,000, Start date: 08/21/15 5:11:00 CDT, Duration: 1 doses or times, Stop date: 08/21/15 15:10:00 CDT Inactive 08/21/2015 [facility] Lactulose 1,000 ml, Route: NH, Drug Form: MUNIRA, Dosing Weight 90.909, kg, ONCE, PRN Constipation, Start date: 08/21/15 3:29:00 CDT, Duration: 1 doses or times, Stop date: Limited # of times, 300 mL lactulose + 70 0 mL waterNotes: Lactulose 300ml, Water for Irrigation 700ml - total [id number] Inactive 08/21/2015 [facility] Norepinephrine 8 mg, 8 mL, Rate: Titrate, [...] catheter (PICC) line. No Longer Active 08/21/2015 [facility] Flurazepam 30 mg, Route: PO, Drug form: CAP, Bedtime, Dosing Weight 90.909, kg, Start date: 08/20/15 21:00:00 CDT, Duration: 30 day, Stop date: 09/18/15 21:00:00 CDT Inactive 08/21/2015 [facility] Atenolol 100 MG Oral Tablet 100 mg, 2 tab, Route: PO, Drug form: TAB, BID, Dosing Weight 90.909, kg, Start date: 08/20/15 21:00:00 CDT, Duration: 30 day, Stop date: 09/19/15 9:00:00 CDTNotes: (Same As:Tenormin) Inactive 08/21/2015 [facility] Restoril 15 mg, 1 cap, Route: PO, Drug form: CAP, Bedtime, Start date: 08/20/15 21:00:00 CDT, Duration: 30 day, Stop date: 09/18/15 21:00:00 CDTNotes: (Same As: Restoril) No Longer Active 08/21/2015 [facility] Lasix 40 mg, 4 mL, Route: IVP, Drug form: INJ, ONCE, Dosing Weight 90.909, kg, Priority: NOW, Start date: 08/20/15 20:12:00 CDT, Stop date: 08/20/15 20:12:00 CDTNotes: (Same as: Lasix) MEDICATION WASTE Product Size: 40 mg Product Wasted: ___ mg Inactive 08/21/2015 [facility] Lovenox 60 mg, 0.6 mL, Route: SUB-Q, Drug form: INJ, ONCE, Dosing Weight 90.909, kg, Priority: STAT, Start date: 08/20/15 20:11:00 CDT, Stop date: 08/20/15 20:11:00 CDTNotes: Nurse to ensure documentation of patient education per anticoagulation policy. (Same as: Lovenox) Inactive 08/21/2015 [facility] Albuterol 0.83 MG/ML Inhalant Solution 2.49 mg, 3 mL, Route: NEB, Drug form: SOLN, RQ4H, Dosing Weight 90.909, kg, Start date: 08/20/15 19:00:00 CDT, Duration: 30 day, Stop date: 09/19/15 15:00:00 CDT, Pediatric DosingNotes: SEE RT DOCUMENTATION (Same as: Proventil) No Longer Active 08/21/2015 [facility] magnesium citrate 150 ml, Route: PO, Drug Form: LIQ, Dosing Weight 90.909, kg, Daily, PRN Constipation, Start date: 08/20/15 18:33:00 CDT, Duration: 30 day, Stop date: 09/19/15 18:32:00 CDTNotes: (Same as: Citrate of Magnesia) No Longer Active 08/20/2015 [facility] Milk of Magnesia 30 ml, Route: PO, Drug Form: SUSP, Dosing Weight 90.909, kg, Q6H, PRN Constipation, Start date: 08/20/15 18:33:00 CDT, Duration: 30 day, Stop date: 09/19/15 18:32:00 CDTNotes: (Same as: Milk of Freddie hester, MOM) No Longer Active 08/20/2015 [facility] sodium chloride 0.9% 1000 ml INJ 1,000 mL 1,000 mL, Rate: 25 ml/hr, Infuse over: 40 hr, Route: IV, Dosing Weight 90.909 kg, Total Volume: 1,000, Start date: 08/20/15 18:05:00 CDT, Duration: 30 day, Stop date: 09/19/15 18:04:00 CDT Inactive 08/20/2015 [facility] Azithromycin 500 mg, Route: IVPB, [id number], Dosing Weight 90.909, kg, Priority: STAT, Start date: 08/20/15 17:08:00 CDT, Duration: 30 day, Stop date: 09/18/15 18:00:00 CDTNotes: (Same As: Zithromax IV) No Longer Active 08/20/2015 [facility] Ceftriaxone 1 gm, Route: IVPB, Q24H, Dosing Weight 90.909, kg, Priority: STAT, Start date: 08/20/15 17:08:00 CDT, Duration: 30 day, Stop date: 09/18/15 17:00:00 CDTNotes: (Same As: Rocephin). Use with 100 mL NS and infuse over 30 min MEDICATION WASTE Product Size: 1000 mg Product Wasted: ___ mg No Longer Active 08/20/2015 [facility] Albuterol 0.833 MG/ML / Ipratropium Eden 0.167 MG/ML Inhalant Solution [DuoNeb] 3 ml, Route: INHALATION, Drug Form: SOLN, Dosing Weight 90.909, kg, PRN, PRN Respiratory Protocol, Start date: 08/20/15 17:08:00 CDT, Duration: 30 day, Stop date: 09/19/15 17:07:00 CDTNotes: (Same as: Duoneb) No Longer Active 08/20/2015 [facility] Ondansetron 4 mg, 2 mL, Route: IVP, Drug form: INJ, Q6H, Dosing Weight 90.909, kg, PRN Nausea & Vomiting, Start date: 08/20/15 17:08:00 CDT, Duration: 30 day, Stop date: 09/19/15 17:07:00 CDTNotes: (Same as: Zofran) MEDICATION WASTE Product Size: 4 mg Product Wasted: ___ mg No Longer Active 08/20/2015 [facility] Docusate 100 mg, 1 cap, Route: PO, Drug form: CAP, BID, Dosing Weight 90.909, kg, PRN Constipation, Start date: 08/20/15 17:08:00 CDT, Duration: 30 day, Stop date: 09/19/15 17:07:00 CDTNotes: (Same as: Colace) (Do Not Crush) No Longer Active 08/20/2015 [facility] Morphine 2 mg, 1 mL, Route: IVP, Drug form: INJ, Q4H, Dosing Weight 90.909, kg, PRN Pain Score 7-10, Start date: 08/20/15 17:08:00 CDT, Duration: 30 day, Stop date: 09/19/15 17:07:00 CDTNotes: (Same as:MORPhine Sulfate) No Longer Active 08/20/2015 [facility] Acetaminophen 650 mg, 2 tab, Route: PLEURODESIS, Drug form: TAB, Q4H, Dosing Weight 90.909, kg, PRN Pain 1-3/Temp > 100.4 F, Start date: 08/20/15 17:08:00 CDT, Duration: 30 day, Stop date: 09/19/15 17:07:00 CDTNotes: Do not exceed 4 gm/day. (Same as: Tylenol) No Longer Active 08/20/2015 [facility] Enoxaparin 30 mg, 0.3 mL, Route: SUB-Q, Drug form: INJ, [id number], Dosing Weight 90.909, kg, Start date: 08/20/15 17:00:00 CDT, Duration: 30 day, Stop date: 09/18/15 17:00:00 CDTNotes: (Same as: Lovenox) Inactive 08/20/2015 [facility] Protonix 40 mg, PO, Daily, # 30 tab, 0 Refill(s) Active 08/20/2015 [facility] lisinopril 20 mg oral tablet 20 mg=1 tab, PO, Daily, # 30 tab, 0 Refill(s) No Longer Active 08/20/2015 [facility] Atenolol 100 MG Oral Tablet 100 mg=1 tab, PO, BID, 0 Refill(s) No Longer Active 08/20/2015 [facility] diclofenac sodium 100 mg oral tablet, extended release 100 mg=1 tab, PO, Daily, # 30 tab, 0 Refill(s) No Longer Active 08/20/2015 [facility] verapamil 240 mg oral tablet, extended release 240 mg=1 tab, PO, Daily, # 30 tab, 0 Refill(s) No Longer Active 08/20/2015 [facility] atorvastatin 20 mg oral tablet 20 mg=1 tab, PO, Bedtime, # 30 tab, 0 Refill(s) Active 08/20/2015 [facility] Saline Flush 0.9% 10 mL, Route: IVP, Drug Form: INJ, Dosing Weight 90.909, kg, PRN, PRN Line Flush, Start date: 08/20/15 14:16:00 CDT, Duration: 30 day, Stop date: 09/19/15 14:15:00 CDTNotes: (Same as: BD Posiflush) No Longer Active 08/20/2015 [facility] Allergies, Adverse Reactions, Alerts No Known Medication Allergies Immunizations No Data Provided for This Section Results Order Name Results Value Reference Range Date Interpretation Comments Source HEMATOLOGY INR 2.50 0.85 - 1.17 08/25/2015 [facility] HEMATOLOGY PT 27.3 12.0 - 14.7 08/25/2015 [facility] HEMATOLOGY PT 26.9 12.0 - 14.7 08/24/2015 [facility] HEMATOLOGY INR 2.45 0.85 - 1.17 08/24/2015 [facility] CHEM PANEL B/C Ratio 22 6 - 25 08/23/2015 [facility] CHEM PANEL Globulin 4.2 2.0 - 4.0 08/23/2015 [facility] CHEM PANEL A/G Ratio 0.8 0.7 - 1.6 08/23/2015 [facility] CHEM PANEL AGAP 15.5 10.0 - 20.0 08/23/2015 [facility] CHEM PANEL Alk Phos 86 39 - 136 08/23/2015 [facility] CHEM PANEL Bili Total 0.4 0.2 - 1.3 08/23/2015 [facility] CHEM PANEL eGFR 30 08/23/2015 Result Comment: [...] should be multiplied by the estimated BMI. [facility] CHEM PANEL Potassium Lvl 4.5 3.5 - 5.1 08/23/2015 [facility] CHEM PANEL Chloride Lvl 108 95 - 109 08/23/2015 [facility] CHEM PANEL CO2 22 24 - 32 08/23/2015 [facility] CHEM PANEL BUN 44 7 - 22 08/23/2015 [facility] CHEM PANEL Creatinine Lvl 2.03 0.50 - 1.40 08/23/2015 [facility] CHEM PANEL Sodium Lvl 141 135 - 145 08/23/2015 [facility] CHEM PANEL ALT 125 0 - 65 08/23/2015 [facility] CHEM PANEL AST 46 0 - 37 08/23/2015 [facility] CHEM PANEL Calcium Lvl 8.4 8.5 - 10.5 08/23/2015 [facility] CHEM PANEL Total Protein 7.5 6.4 - 8.4 08/23/2015 [facility] CHEM PANEL Albumin Lvl 3.3 3.5 - 5.0 08/23/2015 [facility] CHEM PANEL Glucose Lvl 184 70 - 99 08/23/2015 [facility] HEMATOLOGY PTT 87.2 22.9 - 35.8 08/23/2015 [facility] HEMATOLOGY Basophils # 0.1 0.0 - 0.2 08/23/2015 [facility] HEMATOLOGY Monocytes 8.8 2.0 - 12.0 08/23/2015 [facility] HEMATOLOGY Lymphocytes 32.4 20.0 - 40.0 08/23/2015 [facility] HEMATOLOGY Segs-Bands # 8.1 1.5 - 8.1 08/23/2015 [facility] HEMATOLOGY Segs 57.5 45.0 - 75.0 08/23/2015 [facility] HEMATOLOGY Basophils 0.6 0.0 - 1.0 08/23/2015 [facility] HEMATOLOGY Eosinophils 0.7 0.0 - 4.0 08/23/2015 [facility] HEMATOLOGY Eosinophils # 0.1 0.0 - 0.5 08/23/2015 [facility] Monocytes # 1.2 0.0 - 0.8 08/23/2015 [facility] Lymphocytes # 4.6 1.0 - 5.5 08/23/2015 [facility] MCH 27.9 27.0 - 31.0 08/23/2015 [facility] Platelet 129 133 - 450 08/23/2015 [facility] MCHC 31.4 32.0 - 36.0 08/23/2015 [facility] MPV 9.4 7.4 - 10.4 08/23/2015 [facility] RDW 15.4 11.5 - 14.5 08/23/2015 [facility] Hgb 15.6 14.0 - 18.0 08/23/2015 [facility] WBC 14.1 3.7 - 10.4 08/23/2015 [facility] RBC 5.59 4.70 - 6.10 08/23/2015 [facility] Hct 49.6 42.0 - 54.0 08/23/2015 [facility] MCV 88.7 80.0 - 94.0 08/23/2015 [facility] INR 2.06 0.85 - 1.17 08/23/2015 [facility] PT 23.5 12.0 - 14.7 08/23/2015 [facility] PTT 68.3 22.9 - 35.8 08/23/2015 [facility] PTT 103.1 22.9 - 35.8 08/22/2015 Result Comment: Critical Result(s) called to Alicia Mcclain at 08/22/2015 18:22 by Alicia Omer. Read back OK. [facility] CHEM PANEL eGFR 24 08/22/2015 Result Comment: [...] should be multiplied by the estimated BMI. [facility] CHEM PANEL Bili Total 0.3 0.2 - 1.3 08/22/2015 [facility] CHEM PANEL Alk Phos 82 39 - 136 08/22/2015 [facility] CHEM PANEL Sodium Lvl 137 135 - 145 08/22/2015 [facility] CHEM PANEL Potassium Lvl 4.4 3.5 - 5.1 08/22/2015 [facility] CHEM PANEL BUN 47 7 - 22 08/22/2015 [facility] CHEM PANEL Creatinine Lvl 2.46 0.50 - 1.40 08/22/2015 [facility] CHEM PANEL Glucose Lvl 198 70 - 99 08/22/2015 [facility] CHEM PANEL Calcium Lvl 7.8 8.5 - 10.5 08/22/2015 [facility] CHEM PANEL B/C Ratio 19 6 - 25 08/22/2015 [facility] CHEM PANEL CO2 19 24 - 32 08/22/2015 [facility] CHEM PANEL AGAP 14.4 10.0 - 20.0 08/22/2015 [facility] CHEM PANEL Chloride Lvl 108 95 - 109 08/22/2015 [facility] CHEM PANEL ALT 122 0 - 65 08/22/2015 [facility] CHEM PANEL AST 93 0 - 37 08/22/2015 [facility] CHEM PANEL Globulin 3.8 2.0 - 4.0 08/22/2015 [facility] CHEM PANEL A/G Ratio 0.8 0.7 - 1.6 08/22/2015 [facility] CHEM PANEL Total Protein 6.7 6.4 - 8.4 08/22/2015 [facility] CHEM PANEL Albumin Lvl 2.9 3.5 - 5.0 08/22/2015 [facility] HEMATOLOGY Monocytes # 1.6 0.0 - 0.8 08/22/2015 [facility] HEMATOLOGY Segs-Bands # 7.8 1.5 - 8.1 08/22/2015 [facility] HEMATOLOGY Lymphocytes # 5.7 1.0 - 5.5 08/22/2015 [facility] HEMATOLOGY Basophils 0.9 0.0 - 1.0 08/22/2015 [facility] HEMATOLOGY Basophils # 0.1 0.0 - 0.2 08/22/2015 [facility] HEMATOLOGY Eosinophils # 0.1 0.0 - 0.5 08/22/2015 [facility] HEMATOLOGY Segs 50.9 45.0 - 75.0 08/22/2015 [facility] HEMATOLOGY Eosinophils 0.5 0.0 - 4.0 08/22/2015 [facility] HEMATOLOGY Monocytes 10.5 2.0 - 12.0 08/22/2015 [facility] HEMATOLOGY Lymphocytes 37.2 20.0 - 40.0 08/22/2015 [facility] HEMATOLOGY MPV 9.2 7.4 - 10.4 08/22/2015 [facility] HEMATOLOGY MCH 28.0 27.0 - 31.0 08/22/2015 [facility] HEMATOLOGY MCHC 31.4 32.0 - 36.0 08/22/2015 [facility] HEMATOLOGY RDW 15.3 11.5 - 14.5 08/22/2015 [facility] HEMATOLOGY Platelet 107 133 - 450 08/22/2015 [facility] HEMATOLOGY RBC 5.69 4.70 - 6.10 08/22/2015 [facility] HEMATOLOGY Hgb 16.0 14.0 - 18.0 08/22/2015 [facility] HEMATOLOGY Hct 50.9 42.0 - 54.0 08/22/2015 [facility] HEMATOLOGY MCV 89.4 80.0 - 94.0 08/22/2015 [facility] HEMATOLOGY WBC 15.3 3.7 - 10.4 08/22/2015 [facility] HEMATOLOGY Basophils 0.3 0.0 - 1.0 08/22/2015 [facility] HEMATOLOGY Eosinophils 0.1 0.0 - 4.0 08/22/2015 [facility] HEMATOLOGY Lymphocytes # 4.7 1.0 - 5.5 08/22/2015 [facility] HEMATOLOGY Segs-Bands # 11.5 1.5 - 8.1 08/22/2015 [facility] HEMATOLOGY Monocytes # 1.8 0.0 - 0.8 08/22/2015 [facility] HEMATOLOGY Basophils # 0.1 0.0 - 0.2 08/22/2015 [facility] HEMATOLOGY Monocytes 9.8 2.0 - 12.0 08/22/2015 [facility] HEMATOLOGY Lymphocytes 26.2 20.0 - 40.0 08/22/2015 [facility] HEMATOLOGY Segs 63.6 45.0 - 75.0 08/22/2015 [facility] RDW 15.0 11.5 - 14.5 08/22/2015 [facility] Platelet 148 133 - 450 08/22/2015 [facility] MPV 9.2 7.4 - 10.4 08/22/2015 [facility] RBC 5.88 4.70 - 6.10 08/22/2015 [facility] Hgb 16.4 14.0 - 18.0 08/22/2015 [facility] WBC 18.1 3.7 - 10.4 08/22/2015 [facility] Hct 52.2 42.0 - 54.0 08/22/2015 [facility] MCV 88.7 80.0 - 94.0 08/22/2015 [facility] MCHC 31.5 32.0 - 36.0 08/22/2015 [facility] MCH 27.9 27.0 - 31.0 08/22/2015 [facility] BACTERIAL - SEROLOGY MRSA by PCR Negative (08/21/15 4:18 AM) 08/21/2015 [facility] CARDIAC ENZYMES CK MB Index 3.7 0.0 - 2.5 08/21/2015 [facility] CARDIAC ENZYMES Total CK 101 12 - 191 08/21/2015 [facility] CARDIAC ENZYMES Troponin-I 0.36 0.00 - 0.40 08/21/2015 [facility] CARDIAC ENZYMES CK MB 3.7 0.5 - 3.6 08/21/2015 [facility] CARDIAC ENZYMES BNP 1159 <=100 pg/mL 08/21/2015 [facility] CHEM PANEL eGFR 20 08/21/2015 Result Comment: [...] should be multiplied by the estimated BMI. [facility] CHEM PANEL Calcium Lvl 8.4 8.5 - [...] PANEL BUN 36 7 - 22 08/21/2015 [facility] CHEM PANEL Creatinine Lvl 2.92 0.50 - 1.40 08/21/2015 [facility] CHEM PANEL Chloride Lvl 107 95 - 109 08/21/2015 [facility] CHEM PANEL CO2 23 24 - 32 08/21/2015 [facility] CHEM PANEL Glucose Lvl 213 70 - 99 08/21/2015 [facility] CHEM PANEL Sodium Lvl 139 135 - 145 08/21/2015 [facility] CHEM PANEL Potassium Lvl 4.9 3.5 - 5.1 08/21/2015 [facility] CHEM PANEL A/G Ratio 0.8 0.7 - 1.6 08/21/2015 [facility] CHEM PANEL Globulin 4.6 2.0 - 4.0 08/21/2015 [facility] CHEM PANEL B/C Ratio 12 6 - 25 08/21/2015 [facility] CHEM PANEL AGAP 13.9 10.0 - 20.0 08/21/2015 [facility] CHEM PANEL Magnesium Lvl 2.8 1.8 - 2.4 08/21/2015 [facility] CHEM PANEL Phosphorus 2.2 2.5 - 4.5 08/21/2015 [facility] HEMATOLOGY RBC Morph Normal (08/21/15 3:55 AM) 08/21/2015 [facility] HEMATOLOGY Plt Morph Normal (08/21/15 3:55 AM) 08/21/2015 [facility] LIPIDS VLDL 36 08/21/2015 [facility] LIPIDS LDL (Calculated) 101 <=99 mg/dL 08/21/2015 [facility] LIPIDS Trig 179 <=149 mg/dL 08/21/2015 [facility] LIPIDS HDL 50 >=61 mg/dL 08/21/2015 [facility] LIPIDS Chol 187 <=199 mg/dL 08/21/2015 [facility] LIPIDS CHD Risk 3.74 4.00 - 7.30 08/21/2015 [facility] CARDIAC ENZYMES CK MB Index 3.2 0.0 - 2.5 08/21/2015 [facility] CARDIAC ENZYMES Troponin-I 0.32 0.00 - 0.40 08/21/2015 [facility] CARDIAC ENZYMES CK MB 3.5 0.5 - 3.6 08/21/2015 [facility] CARDIAC ENZYMES Total CK 110 12 - 191 08/21/2015 [facility] CARDIAC ENZYMES CK MB Index 1.7 0.0 - 2.5 08/20/2015 [facility] CARDIAC ENZYMES Total CK 157 12 - 191 08/20/2015 [facility] CARDIAC ENZYMES CK MB 2.7 0.5 - 3.6 08/20/2015 [facility] CARDIAC ENZYMES Troponin-I 0.07 0.00 - 0.40 08/20/2015 [facility] HEMATOLOGY Eosinophils # 0.2 0.0 - 0.5 08/20/2015 [facility] Pathology Reports No Data Provided for This Section Diagnostic Reports Report Value Date Source Chest 1view DX Study: Chest 1view DX Clinical Indication: Abnormal chest sounds Comparison: 08/21/2015 FINDINGS: Cardiac silhouette is mildly prominent. Mild right basilar atelectasis is seen. There is no pleural effusion or pneumothorax. Osseous structures are stable. IMPRESSION: No acute cardiopulmonary disease. SL: [id number] 08/22/2015 [facility] Lung ventilation/perfusion scan MS Lung ventilation/perfusion scan MS CLINICAL HX: Dyspnea on exertion. COMPARISON: Chest [...] Tammy, on 08/21/2015 1:01 PM CDT. SL: [id number] 08/21/2015 [facility] Chest 2 views DX Chest 2 views DX CLINICAL HISTORY:Abnormal chest sounds COMPARISON: none FINDINGS: The lungs are poorly inflated. No infiltrate pleural effusion or pneumothorax otherwise. Heart size top normal. No overt congestive heart failure or pulmonary edema. Calcified lymph nodes are noted within the hilar regions. IMPRESSION: Hypoventilation, poor inspiration. No acute findings, otherwise. SL: [id number] 08/21/2015 [facility] Abdomen complete US Clinical Indication: Abnormal Lab [...] or biliary ductal dilatation. Hepatic steatosis. SL: [id number] 08/21/2015 [facility] Ext Lower Venous Doppler Bilat US Study: [...] called to the floor. SL: KAYLA 08/20/2015 [facility] Chest 1view DX Chest 1view DX CLINICAL HISTORY:Chest pain COMPARISON: 04/01/2011 FINDINGS: Limited AP portable study. Lungs are reasonably well inflated. No consolidation, effusion or pneumothorax. Trachea is midline. Cardiomediastinal silhouette is within normal limits. No pulmonary edema. No significant bony abnormality is noted. Calcified lymph nodes in left hilum as before. IMPRESSION: No acute abnormality is noted in the chest. SL: [id number] 08/20/2015 [facility] Consultation Notes No Data Provided for This Section Discharge Summaries No Data Provided for This Section History and Physicals No Data Provided for This Section Vital Signs Vital Sign Value Date Comments Source Heart Rate 64 08/25/2015 [facility] Systolic (mm Hg) 142 08/25/2015 [facility] Diastolic (mm Hg) 93 08/25/2015 [facility] Temperature Oral (F) 98.0 F 08/25/2015 [facility] Respitory Rate 18 08/25/2015 [facility] Systolic (mm Hg) 160 08/25/2015 [facility] Diastolic (mm Hg) 93 08/25/2015 [facility] Respitory Rate 18 08/25/2015 [facility] Heart Rate 74 08/25/2015 [facility] Temperature Oral (F) 97.9 F 08/25/2015 [facility] Respitory Rate 18 08/25/2015 [facility] Temperature Oral (F) 97.5 F 08/25/2015 [facility] Systolic (mm Hg) 149 08/25/2015 [facility] Diastolic (mm Hg) 90 08/25/2015 [facility] Heart Rate 61 08/25/2015 [facility] Weight 94.2 08/21/2015 [facility] Height 172.72 cm 08/21/2015 [facility] Weight 90.909 08/21/2015 [facility] BMI Calculated 30.47 08/21/2015 [facility] Height 172.72 cm 08/20/2015 [facility] Weight 90.909 08/20/2015 [facility] BMI Calculated 30.47 08/20/2015 [facility] Encounters Location Location Details Encounter Type Encounter Number Reason For Visit Attending Provider ADM Date DC Date Status Source [facility] Inpatient [id number] Sandip Timo 08/20/2015 08/25/2015 [facility] [place] [facility] [id number] Miguel DiTommaso 03/08/2016 04/07/2016 [facility] [place] [facility] [id number] Miguel DiTommaso 04/04/2016 05/04/2016 [facility] [facility] [id number] Miguel DiTommaso 05/04/2016 06/03/2016 [facility] [place] Procedures Procedure Code Date Perfomer Comments Source Arthroplasty of knee<sup>1</sup> 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 Completed: Aug, 12:04 by Brianna Bravo PRODUCTION HELPER RM: 134 - 2W, SE C1A KANDI [...] 0.9% INJ 250 mL 500 mg IVPB [id number] 166.67 ml/hr 08/20/15 cefTRIAXone + sodium chloride [...] Consulting Physicians: Sandip Greenwood MD Office: MSO: [id number] Service: Medicine Madhav Mosley MD Office: MSO: [id number] Service: Pulmonary, Medicine Lauren Bowens MD Office: MSO: [id number] Service: Cardiology History of present illness: 80-year-old [...] 0.9% INJ 250 mL 500 mg IVPB [id number] 166.67 ml/hr 08/20/15 cefTRIAXone + sodium chloride [...] four charted values) WBC H 16.2 (AUG 19) Hgb 17.5 (AUG 19) Hct H 55.2 (AUG 19) Plt 160 (AUG 16) 163 (AUG 16) Na 141 (AUG 16) K 4.7 (AUG 16) CO2 L 21 (AUG 16) Cl 109 (AUG 16) Cr H 2.36 (AUG 16) H 2.00 (AUG 16) BUN H 27 (AUG 16) Glucose Random H 215 (AUG 16) Ca L 8.3 (ALENA 16) PTT 32.6 (AUG 16) Troponin 0.32 (AUG 16) 0.07 (ALENA 16) CK MB 3.5 (AUG 16) 2.7 (AUG 16) Total CK 110 (AUG 19) 157 (AUG 16) Doppler of the lower extremities is [...] kidneys and collecting system as well. 08/25/2015 [facility] Plan of Care No Data Provided for This Section Social History Social History Date Source Social History TypeResponse Smoking Status Never smoker; Previous treatment: None; Ready to change: No; Concerns about tobacco use in household: No; Exposure to Tobacco Smoke None; Cigarette Smoking Last 365 Days No; Reg Smoking Cessation Counseling No 08/20/2015 [facility] Social History TypeResponse Smoking Status Never smoker; Previous treatment: None; Ready to change: No; Concerns about tobacco use in household: No; Exposure to Tobacco Smoke None; Cigarette Smoking Last 365 Days No; Reg Smoking Cessation Counseling No 08/20/2015 [facility] Social History TypeResponse Smoking Status Never smoker; Previous treatment: None; Ready to change: No; Concerns about tobacco use in household: No; Exposure to Tobacco Smoke None; Cigarette Smoking Last 365 Days No; Reg Smoking Cessation Counseling No 08/20/2015 [facility] Family History No Data Provided for This Section Advance Directives No Data Provided for This Section Functional Status No Data Provided for This Section
--- OUTSIDE RECORDS SUMMARY | 2018-11-13 11:27 | XMS REPORT | Clinical Summary ---
Author Author [facility] Center[facility] [employer] [facility] Organization [facility] Address Unknown Phone Unavailable Care Team Providers Care Administrative Professional Name Role Phone Sharpless PCP Allergies Comments Active Allergy Reactions Severity Noted Date query Furosemide 01/22/2016 Medications End Date Status Medication Sig Dispensed Refills Start Date Active melatonin 3 mg Tab Take 1 tablet 30 tablet 0 (3 mg total) 6 by mouth nightly. Active nebivolol (BYSTOLIC) 5 MG Take 1 tablet 30 tablet 0 201 tablet (5 mg total) 6 by mouth [...] Not on file Results Not on fileafter 11/12/2017 Insurance Payer Benefit Subscriber ID Type Phone Address Plan / Group MEDICARE MEDICARE A xxxxxxxxxx Medicare B CIGNA - MGD CARE CIGNA xxxxxxxxxxx HMO/POS HMO/POS/OP EN ACCESS Advance Directives For more information, please contact: [facility] [address] [place] [address] Date Inactivated Comments Code Status Date Activated 02/24/2016 11:52 AM Full Code 02/01/2016 5:35 PM This code status was determined by: Patient 02/01/2016 5:35 PM Full Code 02/01/2016 5:32 PM This code status was determined by: Patient 02/01/2016 5:32 PM Full Code 01/22/2016 9:39 PM This code status was determined by: Patient
[2018-11-13] MEDS ORDERED: FAMOTIDINE 20 MG/2 ML VIAL IV STA (11:40)
[2018-11-13] MEDS ORDERED: IPRATROPIUM BROMIDE 0.02% 2.5 ML NEB NEB STA (11:40)
[2018-11-13] MEDS ORDERED: PIPER-TAZ 3.375 GM 50 ML IV STA (11:40)
[2018-11-13] MEDS ORDERED: SODIUM CHLORIDE 0.9% 1000ML 1,000 ML IV STA (11:40)
[2018-11-13] MEDS ORDERED: VANCOMYCIN 1GM/NS 250 ML 250 ML IV ONE (11:45)
[2018-11-13] MEDS ORDERED: FUROSEMIDE INJ 10 MG/ML 2 ML VIAL IV ONE (11:45)
[2018-11-13] MEDS ORDERED: LEVALBUTEROL HCL SOLN NEBU 1.25 MG/3 ML NEB INH ONE (11:45)
[2018-11-13] MEDS ORDERED: DEXTROSE 50% SYRINGE 50 ML IV PRN (12:00)
[2018-11-13] MEDS ORDERED: VANCOMYCIN 1GM/NS 250 ML 250 ML IV SCH (12:30)
[2018-11-13 12:41] LABS: BASOPHILS % 0.5 % (0.0-1.0); EOSINOPHILS # (AUTO) 0.1 (0.0-0.4); EOSINOPHILS % 1.2 % (0.0-6.0); HEMATOCRIT 34.4 % (38.2-49.6); HEMOGLOBIN 10.1 g/dL (14.0-18.0); LYMPHOCYTES # (AUTO) 1.4 (1.0-3.2); LYMPHOCYTES % 16.8 % (18.0-39.1); MEAN CORPUSCULAR HEMOGLOBIN 23.7 pg (28-32); MEAN CORPUSCULAR HGB CONC 29.4 g/dL (31-35); MEAN CORPUSCULAR VOLUME 80.8 fL (81-99); MONOCYTES # (AUTO) 0.6 (0.2-0.8); MONOCYTES % 7.1 % (4.4-11.3); NEUTROPHILS # (AUTO) 6.1 (2.1-6.9); NEUTROPHILS % 73.9 % (38.7-80.0); PLATELET COUNT 223 x10e3/uL (140-360); RED BLOOD COUNT 4.26 x10e6/uL (4.3-5.7)
[2018-11-13 12:51] LABS: INR 1.95; PROTHROMBIN TIME 22.9 seconds (11.9-14.5)
[2018-11-13 12:52] LABS: PARTIAL THROMBOPLASTIN TIME 34.2 seconds (23.8-35.5)
--- OUTSIDE RECORDS SUMMARY | 2018-11-13 12:57 | XMS REPORT | Clinical Summary ---
Author Author [facility] Center[facility] Organization [facility] Address Unknown Phone Unavailable Care Team Providers Care Seasoning Sprayer Name Role Phone Sharpless PCP Allergies Comments [...] [facility] [address] [place] [address] Date Inactivated Comments Code Status Date Activated 02/24/2016 11:52 AM Full Code 02/01/2016 5:35 PM This code status was determined by: Patient 02/01/2016 5:35 PM Full Code 02/01/2016 5:32 PM This code status was determined by: Patient 02/01/2016 5:32 PM Full Code 01/22/2016 9:39 PM This code status was determined by: Patient
--- OUTSIDE RECORDS SUMMARY | 2018-11-13 12:57 | XMS REPORT | Continuity of Care Document ---
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 Role Phone [employer] Unavailable Unavailable Problems Problem Status Onset Date Classification Date Reported Comments Source STROKE Active 02/22/2016 [facility] SOB Active 08/20/2015 [facility] ACUTE RENAL FAILURE, CHEST PAIN, DYSPNEA Active 08/20/2015 [facility] HTN (Confirmed) Resolved Problem 06/05/2016 [facility] Hyperlipemia Resolved Problem 06/05/2016 [facility] UNSPECIFIED KIDNEY FAILURE Active [facility] Medications Medication Details Route Status Patient Instructions Ordering Provider Order Date Source warfarin 3 mg oral tablet 3 mg=1 tab, PO, Daily, # 30 tab, 0 Refill(s) Active 08/25/2015 [facility] temazepam 15 mg oral capsule 15 mg=1 cap, PO, Bedtime, X 30 day, # 30 cap, 0 Refill(s) Active 08/25/2015 [facility] levofloxacin 750 mg oral tablet 750 mg=1 tab, PO, Daily, X 7 day, # 7 tab, 0 Refill(s) Active 08/25/2015 [facility] Nebulizer Mask Adult Misc/Other 1 ea, MISC, PRN, PRN As directed by physician, # 1 ea, 0 Refill(s) Active 08/25/2015 [facility] Nebulizer 1 ea, MISC, ONCALL, # 1 ea, 0 Refill(s) Active 08/25/2015 [facility] Albuterol 0.83 MG/ML Inhalant Solution 2.5 mg=3 mL, NEB, RQ4H, PRN as needed for shortness of breath, Pediatric Dosing, # 180 mL, 0 Refill(s) Active 08/25/2015 [facility] Atenolol 50 MG Oral Tablet 50 mg=1 tab, PO, BID, # 60 tab, 0 Refill(s) Active 08/25/2015 [facility] Coumadin 3 mg, 3 tab, Route: PO, Drug form: TAB, ONCE, Dosing Weight 94.2, kg, Start date: 08/24/15 13:35:00 CDT, Stop date: 08/24/15 13:35:00 CDTNotes: Nurse to ensure documentation of patient education per ant icoagulation policy. Avoid large intake of vitamin-K containing foods diet. (Same As: Coumadin) WASTE: F/P - P Waste Black; E - P Waste Black Inactive 08/24/2015 [facility] nitroglycerin 0.4 mg sublingual tablet 0.4 mg, 1 tab, Route: SL, Drug form: TAB, Q5Min, PRN Chest Pain, Start date: 08/23/15 21:11:00 CDT, Duration: 30 day, Stop date: 09/22/15 21:10:00 CDTNotes: (Same as:Nitroquick, Nitrostat) "Do Not Crush" Sublingual tablet No Longer Active 08/24/2015 [facility] atropine 0.5 mg, 5 mL, Route: IVP, Drug form: INJ, PRN, PRN Bradycardia, Start date: 08/23/15 21:10:00 CDT, Duration: 30 day, Stop date: 09/22/15 21:09:00 CDT No Longer Active 08/24/2015 [facility] Warfarin 3 mg, 3 tab, Route: PO, [...] E - P Waste Black Inactive 08/23/2015 [facility] Hydralazine Hydrochloride 25 MG Oral Tablet 25 mg, 1 tab, Route: PO, Drug form: TAB, Q4H, Dosing Weight 94.2, kg, PRN Elevated BP, Start date: 08/23/15 14:18:00 CDT, Duration: 30 day, Stop date: 09/22/15 14:17:00 CDTNotes: (Same as: Apresoline) May interfere w/enteral feedings Take With Food. No Longer Active 08/23/2015 [facility] Atenolol 50 MG Oral Tablet 50 mg, 1 tab, Route: PO, Drug form: TAB, BID, Dosing Weight 94.2, kg, Priority: NOW, Start date: 08/23/15 14:17:00 CDT, Duration: 30 day, Stop date: 09/22/15 9:00:00 CDTNotes: (Same As:Tenormin) No Longer Active 08/23/2015 [facility] Warfarin 7.5 mg, 1 tab, Route: PO, [...] (Same As: Coumadin) No Longer Active 08/22/2015 [facility] Lovenox 90 mg, 0.9 mL, Route: SUB-Q, Drug form: INJ, [id number], Dosing Weight 90.909, kg, Start date: 08/21/15 21:00:00 CDT, Duration: 30 day, Stop date: 09/19/15 21:00:00 CDTNotes: Nurse to ensure documentation of patient education per anticoagulation policy. (Same as: Lovenox) Inactive 08/22/2015 [facility] heparin additive 25,000 unit [18 unit/kg/hr] + Premix Diluent Dextrose 5% 500 mL 500 mL, Rate: 28.33 ml/hr, Infuse over: 17.6 hr, Route: IV, Dosing Weight 78.7 kg, Total Volume: 500 mL, Start date: 08/21/15 18:09:00 CDT, Duration: 30 day, Stop date: 09/20/15 18:08:00 CDT No Longer Active 08/21/2015 [facility] Heparin 80 unit/kg Bolus (Heparin Dosing Weight) Route: IVP, PRN, 6,300 unit, 6.3 mL, Drug form: INJ, PRN, Heparin Protocol, Start date: 08/21/15 18:09:00 CDT Stop date: 09/20/15 18:08:00 CDT, 30 day No Longer Active 08/21/2015 [facility] Heparin 40 unit/kg Bolus (Heparin Dosing Weight) Route: IVP, PRN, 3,100 unit, 3.1 mL, Drug form: INJ, PRN, Heparin Protocol, Start date: 08/21/15 18:09:00 CDT Stop date: 09/20/15 18:08:00 CDT, 30 day No Longer Active 08/21/2015 [facility] Heparin - one time bolus for DVT/PE Route: IV, Drug form: INJ, ONCE, Dosing Weight 90.909, kg, Priority: STAT, Start date: 08/21/15 17:59:00 CDT, Stop date: 08/21/15 17:59:00 CDT Inactive 08/21/2015 [facility] Heparin 80 unit/kg Bolus (Heparin Dosing Weight) Pharmacy To Manage, Route: IVP, PRN, Drug form: INJ, PRN, Heparin Protocol, Start date: 08/21/15 17:59:00 CDT Stop date: 09/20/15 17:58:00 CDT, 30 day Inactive 08/21/2015 [facility] Coumadin 7.5 mg, 1 tab, Route: PO, [...] Waste Black (Same As: Coumadin) Inactive 08/21/2015 [facility] Protonix 40 mg, 1 tab, Route: PO, Drug form: ECTAB, Before Dinner, Dosing Weight 90.909, kg, Start date: 08/21/15 16:30:00 CDT, Duration: 30 day, Stop date: 09/19/15 16:30:00 CDTNotes: Tablet should not be chewed or crushed. (Same as: Protonix) No Longer Active 08/21/2015 [facility] sodium chloride 0.9% 1000 ml INJ 1,000 mL 1,000 mL, Rate: 50 ml/hr, Infuse over: 20 hr, Route: IV, Dosing Weight 90.909 kg, Total Volume: 1,000, Start date: 08/21/15 15:00:00 CDT, Duration: 30 day, Stop date: 09/20/15 14:59:00 CDT No Longer Active 08/21/2015 [facility] Atenolol 100 MG Oral Tablet 100 mg, Route: PO, Drug form: TAB, BID, Dosing Weight 90.909, kg, Start date: 08/21/15 9:00:00 CDT, Duration: 30 day, Stop date: 09/19/15 21:00:00 CDT No Longer Active 08/21/2015 [facility] Verapamil 240 mg, 1 tab, Route: PO, Drug form: ERTAB, Daily, Dosing Weight 90.909, kg, Start date: 08/21/15 9:00:00 CDT, Duration: 30 day, Stop date: 09/19/15 9:00:00 CDTNotes: Do not crush or chew.; "Avoid grapefruit and grapefruit juice" (Same As: Calan SR, Isoptin SR) No Longer Active 08/21/2015 [facility] Lisinopril 20 mg, 1 tab, Route: PO, Drug form: TAB, Daily, Dosing Weight 90.909, kg, Start date: 08/21/15 9:00:00 CDT, Duration: 30 day, Stop date: 09/19/15 9:00:00 CDTNotes: (Same as: Prinivil, Zestril) No Longer Active 08/21/2015 [facility] Miralax 17 gm, 1 pkt, Route: PO, Drug form: PWDR, Daily, Dosing Weight 90.909, kg, Start date: 08/21/15 9:00:00 CDT, Duration: 30 day, Stop date: 09/19/15 9:00:00 CDTNotes: Dissolve in 8 oz of water or juice. (Same as: Miralax) No Longer Active 08/21/2015 [facility] Sodium Chloride 0.154 MEQ/ML Injectable Solution 1,000 mL, Rate: 100 ml/hr, Infuse over: 10 hr, Route: IV, Dosing Weight 90.909 kg, Total Volume: 1,000, Start date: 08/21/15 5:11:00 CDT, Duration: 1 doses or times, Stop date: 08/21/15 15:10:00 CDT Inactive 08/21/2015 [facility] Lactulose 1,000 ml, Route: ND, Drug Form: MUNIRA, Dosing Weight 90.909, kg, ONCE, PRN Constipation, Start date: 08/21/15 3:29:00 CDT, Duration: 1 doses or times, Stop date: Limited # of times, 300 mL lactulose + 70 0 mL waterNotes: Lactulose 300ml, Water for Irrigation 700ml - total [id number] Inactive 08/21/2015 [facility] Norepinephrine 8 mg, 8 mL, Rate: Titrate, [...] catheter (PICC) line. No Longer Active 08/21/2015 [facility] Flurazepam 30 mg, Route: PO, Drug form: CAP, Bedtime, Dosing Weight 90.909, kg, Start date: 08/20/15 21:00:00 CDT, Duration: 30 day, Stop date: 09/18/15 21:00:00 CDT Inactive 08/21/2015 [facility] Atenolol 100 MG Oral Tablet 100 mg, 2 tab, Route: PO, Drug form: TAB, BID, Dosing Weight 90.909, kg, Start date: 08/20/15 21:00:00 CDT, Duration: 30 day, Stop date: 09/19/15 9:00:00 CDTNotes: (Same As:Tenormin) Inactive 08/21/2015 [facility] Restoril 15 mg, 1 cap, Route: PO, Drug form: CAP, Bedtime, Start date: 08/20/15 21:00:00 CDT, Duration: 30 day, Stop date: 09/18/15 21:00:00 CDTNotes: (Same As: Restoril) No Longer Active 08/21/2015 [facility] Lasix 40 mg, 4 mL, Route: IVP, Drug form: INJ, ONCE, Dosing Weight 90.909, kg, Priority: NOW, Start date: 08/20/15 20:12:00 CDT, Stop date: 08/20/15 20:12:00 CDTNotes: (Same as: Lasix) MEDICATION WASTE Product Size: 40 mg Product Wasted: ___ mg Inactive 08/21/2015 [facility] Lovenox 60 mg, 0.6 mL, Route: SUB-Q, Drug form: INJ, ONCE, Dosing Weight 90.909, kg, Priority: STAT, Start date: 08/20/15 20:11:00 CDT, Stop date: 08/20/15 20:11:00 CDTNotes: Nurse to ensure documentation of patient education per anticoagulation policy. (Same as: Lovenox) Inactive 08/21/2015 [facility] Albuterol 0.83 MG/ML Inhalant Solution 2.49 mg, 3 mL, Route: NEB, Drug form: SOLN, RQ4H, Dosing Weight 90.909, kg, Start date: 08/20/15 19:00:00 CDT, Duration: 30 day, Stop date: 09/19/15 15:00:00 CDT, Pediatric DosingNotes: SEE RT DOCUMENTATION (Same as: Proventil) No Longer Active 08/21/2015 [facility] magnesium citrate 150 ml, Route: PO, Drug Form: LIQ, Dosing Weight 90.909, kg, Daily, PRN Constipation, Start date: 08/20/15 18:33:00 CDT, Duration: 30 day, Stop date: 09/19/15 18:32:00 CDTNotes: (Same as: Citrate of Magnesia) No Longer Active 08/20/2015 [facility] Milk of Magnesia 30 ml, Route: PO, Drug Form: SUSP, Dosing Weight 90.909, kg, Q6H, PRN Constipation, Start date: 08/20/15 18:33:00 CDT, Duration: 30 day, Stop date: 09/19/15 18:32:00 CDTNotes: (Same as: Milk of Freddie hester, MOM) No Longer Active 08/20/2015 [facility] sodium chloride 0.9% 1000 ml INJ 1,000 mL 1,000 mL, Rate: 25 ml/hr, Infuse over: 40 hr, Route: IV, Dosing Weight 90.909 kg, Total Volume: 1,000, Start date: 08/20/15 18:05:00 CDT, Duration: 30 day, Stop date: 09/19/15 18:04:00 CDT Inactive 08/20/2015 [facility] Azithromycin 500 mg, Route: IVPB, [id number], Dosing Weight 90.909, kg, Priority: STAT, Start date: 08/20/15 17:08:00 CDT, Duration: 30 day, Stop date: 09/18/15 18:00:00 CDTNotes: (Same As: Zithromax IV) No Longer Active 08/20/2015 [facility] Ceftriaxone 1 gm, Route: IVPB, Q24H, Dosing Weight 90.909, kg, Priority: STAT, Start date: 08/20/15 17:08:00 CDT, Duration: 30 day, Stop date: 09/18/15 17:00:00 CDTNotes: (Same As: Rocephin). Use with 100 mL NS and infuse over 30 min MEDICATION WASTE Product Size: 1000 mg Product Wasted: ___ mg No Longer Active 08/20/2015 [facility] Albuterol 0.833 MG/ML / Ipratropium Zavalla 0.167 MG/ML Inhalant Solution [DuoNeb] 3 ml, Route: INHALATION, Drug Form: SOLN, Dosing Weight 90.909, kg, PRN, PRN Respiratory Protocol, Start date: 08/20/15 17:08:00 CDT, Duration: 30 day, Stop date: 09/19/15 17:07:00 CDTNotes: (Same as: Duoneb) No Longer Active 08/20/2015 [facility] Ondansetron 4 mg, 2 mL, Route: IVP, Drug form: INJ, Q6H, Dosing Weight 90.909, kg, PRN Nausea & Vomiting, Start date: 08/20/15 17:08:00 CDT, Duration: 30 day, Stop date: 09/19/15 17:07:00 CDTNotes: (Same as: Zofran) MEDICATION WASTE Product Size: 4 mg Product Wasted: ___ mg No Longer Active 08/20/2015 [facility] Docusate 100 mg, 1 cap, Route: PO, Drug form: CAP, BID, Dosing Weight 90.909, kg, PRN Constipation, Start date: 08/20/15 17:08:00 CDT, Duration: 30 day, Stop date: 09/19/15 17:07:00 CDTNotes: (Same as: Colace) (Do Not Crush) No Longer Active 08/20/2015 [facility] Morphine 2 mg, 1 mL, Route: IVP, Drug form: INJ, Q4H, Dosing Weight 90.909, kg, PRN Pain Score 7-10, Start date: 08/20/15 17:08:00 CDT, Duration: 30 day, Stop date: 09/19/15 17:07:00 CDTNotes: (Same as:MORPhine Sulfate) No Longer Active 08/20/2015 [facility] Acetaminophen 650 mg, 2 tab, Route: PLEURODESIS, Drug form: TAB, Q4H, Dosing Weight 90.909, kg, PRN Pain 1-3/Temp > 100.4 F, Start date: 08/20/15 17:08:00 CDT, Duration: 30 day, Stop date: 09/19/15 17:07:00 CDTNotes: Do not exceed 4 gm/day. (Same as: Tylenol) No Longer Active 08/20/2015 [facility] Enoxaparin 30 mg, 0.3 mL, Route: SUB-Q, Drug form: INJ, [id number], Dosing Weight 90.909, kg, Start date: 08/20/15 17:00:00 CDT, Duration: 30 day, Stop date: 09/18/15 17:00:00 CDTNotes: (Same as: Lovenox) Inactive 08/20/2015 [facility] Protonix 40 mg, PO, Daily, # 30 tab, 0 Refill(s) Active 08/20/2015 [facility] lisinopril 20 mg oral tablet 20 mg=1 tab, PO, Daily, # 30 tab, 0 Refill(s) No Longer Active 08/20/2015 [facility] Atenolol 100 MG Oral Tablet 100 mg=1 tab, PO, BID, 0 Refill(s) No Longer Active 08/20/2015 [facility] diclofenac sodium 100 mg oral tablet, extended release 100 mg=1 tab, PO, Daily, # 30 tab, 0 Refill(s) No Longer Active 08/20/2015 [facility] verapamil 240 mg oral tablet, extended release 240 mg=1 tab, PO, Daily, # 30 tab, 0 Refill(s) No Longer Active 08/20/2015 [facility] atorvastatin 20 mg oral tablet 20 mg=1 tab, PO, Bedtime, # 30 tab, 0 Refill(s) Active 08/20/2015 [facility] Saline Flush 0.9% 10 mL, Route: IVP, Drug Form: INJ, Dosing Weight 90.909, kg, PRN, PRN Line Flush, Start date: 08/20/15 14:16:00 CDT, Duration: 30 day, Stop date: 09/19/15 14:15:00 CDTNotes: (Same as: BD Posiflush) No Longer Active 08/20/2015 [facility] Allergies, Adverse Reactions, Alerts No Known Medication Allergies Immunizations No Data Provided for This Section Results Order Name Results Value Reference Range Date Interpretation Comments Source HEMATOLOGY INR 2.50 0.85 - 1.17 08/25/2015 [facility] HEMATOLOGY PT 27.3 12.0 - 14.7 08/25/2015 [facility] HEMATOLOGY PT 26.9 12.0 - 14.7 08/24/2015 [facility] HEMATOLOGY INR 2.45 0.85 - 1.17 08/24/2015 [facility] CHEM PANEL B/C Ratio 22 6 - 25 08/23/2015 [facility] CHEM PANEL Globulin 4.2 2.0 - 4.0 08/23/2015 [facility] CHEM PANEL A/G Ratio 0.8 0.7 - 1.6 08/23/2015 [facility] CHEM PANEL AGAP 15.5 10.0 - 20.0 08/23/2015 [facility] CHEM PANEL Alk Phos 86 39 - 136 08/23/2015 [facility] CHEM PANEL Bili Total 0.4 0.2 - 1.3 08/23/2015 [facility] CHEM PANEL eGFR 30 08/23/2015 Result Comment: [...] should be multiplied by the estimated BMI. [facility] CHEM PANEL Potassium Lvl 4.5 3.5 - 5.1 08/23/2015 [facility] CHEM PANEL Chloride Lvl 108 95 - 109 08/23/2015 [facility] CHEM PANEL CO2 22 24 - 32 08/23/2015 [facility] CHEM PANEL BUN 44 7 - 22 08/23/2015 [facility] CHEM PANEL Creatinine Lvl 2.03 0.50 - 1.40 08/23/2015 [facility] CHEM PANEL Sodium Lvl 141 135 - 145 08/23/2015 [facility] CHEM PANEL ALT 125 0 - 65 08/23/2015 [facility] CHEM PANEL AST 46 0 - 37 08/23/2015 [facility] CHEM PANEL Calcium Lvl 8.4 8.5 - 10.5 08/23/2015 [facility] CHEM PANEL Total Protein 7.5 6.4 - 8.4 08/23/2015 [facility] CHEM PANEL Albumin Lvl 3.3 3.5 - 5.0 08/23/2015 [facility] CHEM PANEL Glucose Lvl 184 70 - 99 08/23/2015 [facility] HEMATOLOGY PTT 87.2 22.9 - 35.8 08/23/2015 [facility] HEMATOLOGY Basophils # 0.1 0.0 - 0.2 08/23/2015 [facility] HEMATOLOGY Monocytes 8.8 2.0 - 12.0 08/23/2015 [facility] HEMATOLOGY Lymphocytes 32.4 20.0 - 40.0 08/23/2015 [facility] HEMATOLOGY Segs-Bands # 8.1 1.5 - 8.1 08/23/2015 [facility] HEMATOLOGY Segs 57.5 45.0 - 75.0 08/23/2015 [facility] HEMATOLOGY Basophils 0.6 0.0 - 1.0 08/23/2015 [facility] HEMATOLOGY Eosinophils 0.7 0.0 - 4.0 08/23/2015 [facility] HEMATOLOGY Eosinophils # 0.1 0.0 - 0.5 08/23/2015 [facility] Monocytes # 1.2 0.0 - 0.8 08/23/2015 [facility] Lymphocytes # 4.6 1.0 - 5.5 08/23/2015 [facility] MCH 27.9 27.0 - 31.0 08/23/2015 [facility] Platelet 129 133 - 450 08/23/2015 [facility] MCHC 31.4 32.0 - 36.0 08/23/2015 [facility] MPV 9.4 7.4 - 10.4 08/23/2015 [facility] RDW 15.4 11.5 - 14.5 08/23/2015 [facility] Hgb 15.6 14.0 - 18.0 08/23/2015 [facility] WBC 14.1 3.7 - 10.4 08/23/2015 [facility] RBC 5.59 4.70 - 6.10 08/23/2015 [facility] Hct 49.6 42.0 - 54.0 08/23/2015 [facility] MCV 88.7 80.0 - 94.0 08/23/2015 [facility] INR 2.06 0.85 - 1.17 08/23/2015 [facility] PT 23.5 12.0 - 14.7 08/23/2015 [facility] PTT 68.3 22.9 - 35.8 08/23/2015 [facility] PTT 103.1 22.9 - 35.8 08/22/2015 Result Comment: Critical Result(s) called to Alicia Mcclain at 08/22/2015 18:22 by Alicia Omer. Read back OK. [facility] CHEM PANEL eGFR 24 08/22/2015 Result Comment: [...] should be multiplied by the estimated BMI. [facility] CHEM PANEL Bili Total 0.3 0.2 - 1.3 08/22/2015 [facility] CHEM PANEL Alk Phos 82 39 - 136 08/22/2015 [facility] CHEM PANEL Sodium Lvl 137 135 - 145 08/22/2015 [facility] CHEM PANEL Potassium Lvl 4.4 3.5 - 5.1 08/22/2015 [facility] CHEM PANEL BUN 47 7 - 22 08/22/2015 [facility] CHEM PANEL Creatinine Lvl 2.46 0.50 - 1.40 08/22/2015 [facility] CHEM PANEL Glucose Lvl 198 70 - 99 08/22/2015 [facility] CHEM PANEL Calcium Lvl 7.8 8.5 - 10.5 08/22/2015 [facility] CHEM PANEL B/C Ratio 19 6 - 25 08/22/2015 [facility] CHEM PANEL CO2 19 24 - 32 08/22/2015 [facility] CHEM PANEL AGAP 14.4 10.0 - 20.0 08/22/2015 [facility] CHEM PANEL Chloride Lvl 108 95 - 109 08/22/2015 [facility] CHEM PANEL ALT 122 0 - 65 08/22/2015 [facility] CHEM PANEL AST 93 0 - 37 08/22/2015 [facility] CHEM PANEL Globulin 3.8 2.0 - 4.0 08/22/2015 [facility] CHEM PANEL A/G Ratio 0.8 0.7 - 1.6 08/22/2015 [facility] CHEM PANEL Total Protein 6.7 6.4 - 8.4 08/22/2015 [facility] CHEM PANEL Albumin Lvl 2.9 3.5 - 5.0 08/22/2015 [facility] HEMATOLOGY Monocytes # 1.6 0.0 - 0.8 08/22/2015 [facility] HEMATOLOGY Segs-Bands # 7.8 1.5 - 8.1 08/22/2015 [facility] HEMATOLOGY Lymphocytes # 5.7 1.0 - 5.5 08/22/2015 [facility] HEMATOLOGY Basophils 0.9 0.0 - 1.0 08/22/2015 [facility] HEMATOLOGY Basophils # 0.1 0.0 - 0.2 08/22/2015 [facility] HEMATOLOGY Eosinophils # 0.1 0.0 - 0.5 08/22/2015 [facility] HEMATOLOGY Segs 50.9 45.0 - 75.0 08/22/2015 [facility] HEMATOLOGY Eosinophils 0.5 0.0 - 4.0 08/22/2015 [facility] HEMATOLOGY Monocytes 10.5 2.0 - 12.0 08/22/2015 [facility] HEMATOLOGY Lymphocytes 37.2 20.0 - 40.0 08/22/2015 [facility] HEMATOLOGY MPV 9.2 7.4 - 10.4 08/22/2015 [facility] HEMATOLOGY MCH 28.0 27.0 - 31.0 08/22/2015 [facility] HEMATOLOGY MCHC 31.4 32.0 - 36.0 08/22/2015 [facility] HEMATOLOGY RDW 15.3 11.5 - 14.5 08/22/2015 [facility] HEMATOLOGY Platelet 107 133 - 450 08/22/2015 [facility] HEMATOLOGY RBC 5.69 4.70 - 6.10 08/22/2015 [facility] HEMATOLOGY Hgb 16.0 14.0 - 18.0 08/22/2015 [facility] HEMATOLOGY Hct 50.9 42.0 - 54.0 08/22/2015 [facility] HEMATOLOGY MCV 89.4 80.0 - 94.0 08/22/2015 [facility] HEMATOLOGY WBC 15.3 3.7 - 10.4 08/22/2015 [facility] HEMATOLOGY Basophils 0.3 0.0 - 1.0 08/22/2015 [facility] HEMATOLOGY Eosinophils 0.1 0.0 - 4.0 08/22/2015 [facility] HEMATOLOGY Lymphocytes # 4.7 1.0 - 5.5 08/22/2015 [facility] HEMATOLOGY Segs-Bands # 11.5 1.5 - 8.1 08/22/2015 [facility] HEMATOLOGY Monocytes # 1.8 0.0 - 0.8 08/22/2015 [facility] HEMATOLOGY Basophils # 0.1 0.0 - 0.2 08/22/2015 [facility] HEMATOLOGY Monocytes 9.8 2.0 - 12.0 08/22/2015 [facility] HEMATOLOGY Lymphocytes 26.2 20.0 - 40.0 08/22/2015 [facility] HEMATOLOGY Segs 63.6 45.0 - 75.0 08/22/2015 [facility] RDW 15.0 11.5 - 14.5 08/22/2015 [facility] Platelet 148 133 - 450 08/22/2015 [facility] MPV 9.2 7.4 - 10.4 08/22/2015 [facility] RBC 5.88 4.70 - 6.10 08/22/2015 [facility] Hgb 16.4 14.0 - 18.0 08/22/2015 [facility] WBC 18.1 3.7 - 10.4 08/22/2015 [facility] Hct 52.2 42.0 - 54.0 08/22/2015 [facility] MCV 88.7 80.0 - 94.0 08/22/2015 [facility] MCHC 31.5 32.0 - 36.0 08/22/2015 [facility] MCH 27.9 27.0 - 31.0 08/22/2015 [facility] BACTERIAL - SEROLOGY MRSA by PCR Negative (08/21/15 4:18 AM) 08/21/2015 [facility] CARDIAC ENZYMES CK MB Index 3.7 0.0 - 2.5 08/21/2015 [facility] CARDIAC ENZYMES Total CK 101 12 - 191 08/21/2015 [facility] CARDIAC ENZYMES Troponin-I 0.36 0.00 - 0.40 08/21/2015 [facility] CARDIAC ENZYMES CK MB 3.7 0.5 - 3.6 08/21/2015 [facility] CARDIAC ENZYMES BNP 1159 <=100 pg/mL 08/21/2015 [facility] CHEM PANEL eGFR 20 08/21/2015 Result Comment: [...] should be multiplied by the estimated BMI. [facility] CHEM PANEL Calcium Lvl 8.4 8.5 - [...] PANEL BUN 36 7 - 22 08/21/2015 [facility] CHEM PANEL Creatinine Lvl 2.92 0.50 - 1.40 08/21/2015 [facility] CHEM PANEL Chloride Lvl 107 95 - 109 08/21/2015 [facility] CHEM PANEL CO2 23 24 - 32 08/21/2015 [facility] CHEM PANEL Glucose Lvl 213 70 - 99 08/21/2015 [facility] CHEM PANEL Sodium Lvl 139 135 - 145 08/21/2015 [facility] CHEM PANEL Potassium Lvl 4.9 3.5 - 5.1 08/21/2015 [facility] CHEM PANEL A/G Ratio 0.8 0.7 - 1.6 08/21/2015 [facility] CHEM PANEL Globulin 4.6 2.0 - 4.0 08/21/2015 [facility] CHEM PANEL B/C Ratio 12 6 - 25 08/21/2015 [facility] CHEM PANEL AGAP 13.9 10.0 - 20.0 08/21/2015 [facility] CHEM PANEL Magnesium Lvl 2.8 1.8 - 2.4 08/21/2015 [facility] CHEM PANEL Phosphorus 2.2 2.5 - 4.5 08/21/2015 [facility] HEMATOLOGY RBC Morph Normal (08/21/15 3:55 AM) 08/21/2015 [facility] HEMATOLOGY Plt Morph Normal (08/21/15 3:55 AM) 08/21/2015 [facility] LIPIDS VLDL 36 08/21/2015 [facility] LIPIDS LDL (Calculated) 101 <=99 mg/dL 08/21/2015 [facility] LIPIDS Trig 179 <=149 mg/dL 08/21/2015 [facility] LIPIDS HDL 50 >=61 mg/dL 08/21/2015 [facility] LIPIDS Chol 187 <=199 mg/dL 08/21/2015 [facility] LIPIDS CHD Risk 3.74 4.00 - 7.30 08/21/2015 [facility] CARDIAC ENZYMES CK MB Index 3.2 0.0 - 2.5 08/21/2015 [facility] CARDIAC ENZYMES Troponin-I 0.32 0.00 - 0.40 08/21/2015 [facility] CARDIAC ENZYMES CK MB 3.5 0.5 - 3.6 08/21/2015 [facility] CARDIAC ENZYMES Total CK 110 12 - 191 08/21/2015 [facility] CARDIAC ENZYMES CK MB Index 1.7 0.0 - 2.5 08/20/2015 [facility] CARDIAC ENZYMES Total CK 157 12 - 191 08/20/2015 [facility] CARDIAC ENZYMES CK MB 2.7 0.5 - 3.6 08/20/2015 [facility] CARDIAC ENZYMES Troponin-I 0.07 0.00 - 0.40 08/20/2015 [facility] HEMATOLOGY Eosinophils # 0.2 0.0 - 0.5 08/20/2015 [facility] Pathology Reports No Data Provided for This Section Diagnostic Reports Report Value Date Source Chest 1view DX Study: Chest 1view DX Clinical Indication: Abnormal chest sounds Comparison: 08/21/2015 FINDINGS: Cardiac silhouette is mildly prominent. Mild right basilar atelectasis is seen. There is no pleural effusion or pneumothorax. Osseous structures are stable. IMPRESSION: No acute cardiopulmonary disease. SL: [id number] 08/22/2015 [facility] Lung ventilation/perfusion scan [place] Lung ventilation/perfusion scan [place] CLINICAL HX: Dyspnea on exertion. COMPARISON: Chest [...] Tammy, on 08/21/2015 1:01 PM CDT. SL: [id number] 08/21/2015 [facility] Chest 2 views DX Chest 2 views DX CLINICAL HISTORY:Abnormal chest sounds COMPARISON: none FINDINGS: The lungs are poorly inflated. No infiltrate pleural effusion or pneumothorax otherwise. Heart size top normal. No overt congestive heart failure or pulmonary edema. Calcified lymph nodes are noted within the hilar regions. IMPRESSION: Hypoventilation, poor inspiration. No acute findings, otherwise. SL: [id number] 08/21/2015 [facility] Abdomen complete US Clinical Indication: Abnormal Lab [...] or biliary ductal dilatation. Hepatic steatosis. SL: [id number] 08/21/2015 [facility] Ext Lower Venous Doppler Bilat US Study: [...] called to the floor. SL: [id number] 08/20/2015 [facility] Chest 1view DX Chest 1view DX CLINICAL HISTORY:Chest pain COMPARISON: 04/01/2011 FINDINGS: Limited AP portable study. Lungs are reasonably well inflated. No consolidation, effusion or pneumothorax. Trachea is midline. Cardiomediastinal silhouette is within normal limits. No pulmonary edema. No significant bony abnormality is noted. Calcified lymph nodes in left hilum as before. IMPRESSION: No acute abnormality is noted in the chest. SL: [id number] 08/20/2015 [facility] Consultation Notes No Data Provided for This Section Discharge Summaries No Data Provided for This Section History and Physicals No Data Provided for This Section Vital Signs Vital Sign Value Date Comments Source Heart Rate 64 08/25/2015 [facility] Systolic (mm Hg) 142 08/25/2015 [facility] Diastolic (mm Hg) 93 08/25/2015 [facility] Temperature Oral (F) 98.0 F 08/25/2015 [facility] Respitory Rate 18 08/25/2015 [facility] Systolic (mm Hg) 160 08/25/2015 [facility] Diastolic (mm Hg) 93 08/25/2015 [facility] Respitory Rate 18 08/25/2015 [facility] Heart Rate 74 08/25/2015 [facility] Temperature Oral (F) 97.9 F 08/25/2015 [facility] Respitory Rate 18 08/25/2015 [facility] Temperature Oral (F) 97.5 F 08/25/2015 [facility] Systolic (mm Hg) 149 08/25/2015 [facility] Diastolic (mm Hg) 90 08/25/2015 [facility] Heart Rate 61 08/25/2015 [facility] Weight 94.2 08/21/2015 [facility] Height 172.72 cm 08/21/2015 [facility] Weight 90.909 08/21/2015 [facility] BMI Calculated 30.47 08/21/2015 [facility] Height 172.72 cm 08/20/2015 [facility] Weight 90.909 08/20/2015 [facility] BMI Calculated 30.47 08/20/2015 [facility] Encounters Location Location Details Encounter Type Encounter Number Reason For Visit Attending Provider ADM Date DC Date Status Source [facility] Inpatient [id number] Sandip Timo 08/20/2015 08/25/2015 [facility] [place] [facility] Therapy Patients [id number] Miguel DiTommaso 03/08/2016 04/07/2016 [facility] [place] [facility] Patients [id number] Miguel DiTommaso 04/04/2016 05/04/2016 [facility] [place] [facility] [place] OP Therapy Patients [id number] Miguel DiTommaso 05/04/2016 06/03/2016 [facility] [place] Procedures Procedure Code Date Perfomer Comments Source Arthroplasty of knee<sup>1</sup> [id number] bilateral replacment [facility] [place],[facility] Assessment and Plan Assessment and Plan Date Source Extracted from:Title: Clinical Document Author: Brianna Bravo NP Date: 08/25/15 Progress Note - Daily [facility] Completed: Aug, 12:04 by Brianna Bravo 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 08/25/2015 [facility] Plan of Care No Data Provided for This Section Social History Social History Date Source Social History TypeResponse Smoking Status Never smoker; Previous treatment: None; Ready to change: No; Concerns about tobacco use in household: No; Exposure to Tobacco Smoke None; Cigarette Smoking Last 365 Days No; Reg Smoking Cessation Counseling No 08/20/2015 [facility] Social History TypeResponse Smoking Status Never smoker; Previous treatment: None; Ready to change: No; Concerns about tobacco use in household: No; Exposure to Tobacco Smoke None; Cigarette Smoking Last 365 Days No; Reg Smoking Cessation Counseling No 08/20/2015 [facility] Social History TypeResponse Smoking Status Never smoker; Previous treatment: None; Ready to change: No; Concerns about tobacco use in household: No; Exposure to Tobacco Smoke None; Cigarette Smoking Last 365 Days No; Reg Smoking Cessation Counseling No 08/20/2015 [facility] Family History No Data Provided for This Section Advance Directives No Data Provided for This Section Functional Status No Data Provided for This Section
[2018-11-13 13:01] LABS: BILIRUBIN,URINE NEGATIVE (NEGATIVE); CLARITY,URINE CLEAR (CLEAR); COLOR,URINE YELLOW (YELLOW); KETONES,URINE NEGATIVE (NEGATIVE); LEUKOCYTE ESTERASE ,URINE NEGATIVE (NEGATIVE); NITRITE,URINE NEGATIVE (NEGATIVE); PROTEIN,URINE DIPSTICK NEGATIVE (NEGATIVE); URINE UROBILINOGEN 0.2 mg/dL (0.2 - 1)
[2018-11-13 13:01] LABS: ALBUMIN 2.8 g/dL (3.5-5.0); ALBUMIN/GLOBULIN RATIO 0.5 (0.8-2.0); CALCIUM 9.2 mg/dL (8.4-10.2); CREATININE, SERUM 1.64 mg/dL (0.72-1.25); MAGNESIUM 1.9 MG/DL (1.3-2.1)
[2018-11-13 13:14] LABS: BACTERIA,URINE RARE /HPF; EPITHELIAL CELLS,URINE RARE /LPF; RBC,URINE 0-5 /HPF (0-5)
[2018-11-13] MEDS: PIPER-TAZ 3.375 GM 50 ML IV SCH ×2 (13:21→19:29)
--- NOTE | 2018-11-13 13:21 | Diagnostic Imaging Report ---
Chest, 1 view, 11/13/2018. History: Shortness of breath. Comparison: 10/09/2018. Findings: The cardiomediastinal silhouette and pulmonary vasculature are prominent. Calcified left hilar node is again seen. Hazy left mid and lower lung opacity remains, obscuring the left heart border and hemidiaphragm. Right lung is clear without evidence of consolidation or effusion. There are no acute osseous or soft tissue abnormalities. Surgical screws are noted in the right humeral head. Impression: Decreased edema with persistence of left mid and lower lung opacity. Signed by: Dayday Wong on 11/13/2018 1:18 PM
[2018-11-13 13:22] LABS: B-TYPE NATRIURETIC PEPTIDE2 288.8 pg/mL (0-100)
[2018-11-13 13:25] LABS: CREATINE KINASE MB 3.7 ng/mL (0-5.0); THYROID STIMULATING HORMONE 1.586 uIU/mL (0.350-4.940)
[2018-11-13] MEDS: INSULIN REGULAR, HUMAN 100 UNIT/1 ML 3ML VIAL SQ SCH ×3 (13:38→21:00)
[2018-11-13] MEDS: FAMOTIDINE 20 MG/2 ML VIAL IV SCH (16:34)
[2018-11-13] MEDS: LEVALBUTEROL HCL SOLN NEBU 1.25 MG/3 ML NEB INH SCH ×2 (16:35→19:40)
[2018-11-13] MEDS: IPRATROPIUM BROMIDE 0.02% 2.5 ML NEB NEB SCH ×2 (16:35→19:40)
[2018-11-13] MEDS ORDERED: FUROSEMIDE INJ 10 MG/ML 4 ML VIAL IV SCH (17:00)
[2018-11-13 18:51] VITALS: BP 148/66
[2018-11-13 19:00] VITALS: BP 159/65
--- NOTE | 2018-11-13 19:00 | NUR ---
patient received awake, alert, lying quietly in bed. respirations even and unlabored. 02/4l/nc in use. patient denies pain at this time. ivf continue to infuse without difficulty. assessment complete. daughter noted at the bedside. patient/daughter instructed to call for assistance when needed.
[2018-11-13 20:00] VITALS: BP 159/65
--- NOTE | 2018-11-13 20:00 | NUR ---
abscess to right upper back with dressing c,d,i. redness noted to buttocks, perineum and back. wound care consult ordered at this time.
[2018-11-13 22:30] LABS: CREATINE KINASE MB 3.3 ng/mL (0-5.0)
[2018-11-14] VITALS (8 sets, daily range): BP systolic 104–118; BP diastolic 58–95
[2018-11-14] MEDS: IPRATROPIUM BROMIDE 0.02% 2.5 ML NEB NEB SCH ×4 (00:45→19:20)
[2018-11-14] MEDS: LEVALBUTEROL HCL SOLN NEBU 1.25 MG/3 ML NEB INH SCH ×4 (00:45→19:20)
[2018-11-14] MEDS: PIPER-TAZ 3.375 GM 50 ML IV SCH ×4 (01:59→17:17)
--- NOTE | 2018-11-14 05:00 | NUR ---
patient appears to be resting quietly. no c/o pain noted throughout the night. ivf continue to infuse without difficulty.
[2018-11-14 05:57] LABS: BASOPHILS # (AUTO) 0.1 (0.0-0.1); BASOPHILS % 0.7 % (0.0-1.0); EOSINOPHILS # (AUTO) 0.1 (0.0-0.4); EOSINOPHILS % 1.6 % (0.0-6.0); HEMATOCRIT 31.1 % (38.2-49.6); HEMOGLOBIN 8.9 g/dL (14.0-18.0); LYMPHOCYTES # (AUTO) 1.4 (1.0-3.2); LYMPHOCYTES % 18.7 % (18.0-39.1); MEAN CORPUSCULAR HEMOGLOBIN 23.1 pg (28-32); MEAN CORPUSCULAR HGB CONC 28.6 g/dL (31-35); MEAN CORPUSCULAR VOLUME 80.6 fL (81-99); MONOCYTES # (AUTO) 0.8 (0.2-0.8); MONOCYTES % 10.5 % (4.4-11.3); NEUTROPHILS # (AUTO) 5.2 (2.1-6.9); NEUTROPHILS % 67.8 % (38.7-80.0); PLATELET COUNT 182 x10e3/uL (140-360); RED BLOOD COUNT 3.86 x10e6/uL (4.3-5.7)
[2018-11-14 06:23] LABS: ALBUMIN 2.4 g/dL (3.5-5.0); ALBUMIN/GLOBULIN RATIO 0.5 (0.8-2.0); ANION GAP 14.6 mmol/L (8-16); CALCIUM 8.7 mg/dL (8.4-10.2); CREATININE, SERUM 1.54 mg/dL (0.72-1.25); POTASSIUM 3.6 mmol/L (3.5-5.1)
[2018-11-14 06:47] LABS: CREATINE KINASE MB 2.6 ng/mL (0-5.0)
[2018-11-14 07:01] LABS: EOSINOPHILS % (MANUAL) 1 % (0-7); LYMPHOCYTES % (MANUAL) 17 % (19-48); MONOCYTES % (MANUAL) 9 % (3.4-9.0); NEUTROPHILS % (MANUAL) 73 % (40-74); PLATELET ESTIMATE SLIGHTLY DECREASED
[2018-11-14 07:02] LABS: RBC MORPHOLOGY COMMENT NORMAL
[2018-11-14] MEDS: INSULIN REGULAR, HUMAN 100 UNIT/1 ML 3ML VIAL SQ SCH ×4 (07:30→21:13)
[2018-11-14] MEDS ORDERED: WARFARIN SOD 3 MG TAB PO SCH (09:00)
[2018-11-14] MEDS: ASPIRIN 81 MG CHEW TAB PO SCH (09:50)
[2018-11-14] MEDS: TAMSULOSIN HCL 0.4 MG CAP PO SCH (09:51)
[2018-11-14] MEDS: NEBIVOLOL 10 MG TAB PO SCH (09:51)
[2018-11-14] MEDS: FINASTERIDE 5 MG TAB PO SCH (09:52)
[2018-11-14] MEDS: PANTOPRAZOLE SOD 40 MG TABEC PO SCH (09:52)
[2018-11-14] MEDS: FLUOXETINE HCL 20 MG CAP PO SCH (09:52)
[2018-11-14] MEDS: FAMOTIDINE 20 MG/2 ML VIAL IV SCH ×2 (09:54→17:17)
[2018-11-14] MEDS: FUROSEMIDE INJ 10 MG/ML 2 ML VIAL IV SCH ×2 (09:55→17:17)
[2018-11-14] MEDS: GLIMEPIRIDE 2 MG TAB PO SCH (10:22)
--- NOTE | 2018-11-14 10:24 | Diagnostic Imaging Report ---
EXAM: Focused Ultrasound Evaluation of right and left chest INDICATION: ^pleural effusion ^[id number] ^[id number] COMPARISON: Chest radiograph of 11/13/2018 TECHNIQUE: Weiner scale, color Doppler images of right and left chest were obtained. FINDINGS: Moderate right pleural effusion. Small left pleural effusion. IMPRESSION: Bilateral pleural effusions as above. Signed by: Zo Beltre MD on 11/14/2018 10:20 AM
--- NOTE | 2018-11-14 11:42 | NUR ---
PATIENT IS AWAKE AND IN STABLE CONDITION WITH NO S/S OF RESPIRATORY DISTRESS. NO PAIN VOICED. BLANCHABLE REDNESS TO GROIN AND BUTTOCK AREA. WOUND NOTED TO UPPER BACK AREA- MINIMUM DRAINAGE NOTED; ABSCESS TO BACK NOTED WITH NO DRAINAGE. TELEMETRY APPLIED. IV FLUIDS INFUSING. CALL LIGHT IS WITHIN REACH, PATIENT INSTRUCTED TO CALL FOR ASSISTANCE NEEDED.
--- NOTE | 2018-11-14 13:49 | NUR ---
WOUNDCARE CONSULT 84 YO MALE ADMITTED TO ER FROM [facility] AND FROM ER TO INPATIENT HX OF SOB AND O2 SAT OF 75 PT HAS DARK BLUISH RAISED DRAINING ABSCESS MID BACK AREA PENDING POSSIBLE INCISION AND DRAINAGE AWAITING CLOTTING FACTORS DUE TO MEDICATIONS PT CURRENTLY TAKES PT HAS DENUDED SKIN SLIME AREA AND SACRO GLUTEAL PT HAS PARTIAL THICKNESS LESION TO UPPER BACK 1CMX1.5CMX.1CM LABS : WBC- 7.96,HGB-8.9, GLUCOSE-137 BLOOD CULTURES PENDING RECOMMENDATIONS: NURSING TO APPLY DAILY NYSTATIN POWDER TO SLIME AREA /GROIN AND BUTTOCKS YEAST DENUDED AREAS NURSING TO APPLY DAILY XEROFORM LISANDRO COVER WITH 4X4 AND PAPER TAPE TO UPPER BACK LESION NURSING TO APPLY DAILY DRY 4X4 DRSNG TO MID BACK ABSCESS COVER WITH PAPER TAPE Addendum: 11/14/18 at 1407 by Juventino Chew RN Amended: Links added.
--- NOTE | 2018-11-14 13:53 | NUR ---
Nutrition Screen Note RD Recommendation for Physician: - Rec adding ADA 1800 to cardiac diet as medically appropriate - Consult speech therapy if risk of aspiration is observed Plan of Care: RD following, monitoring for tolerance and adequacy Nutrition reason for involvement: Diagnosis - CHF Primary Diagnose(s): CHF, back abscess, dyspnea PMH: HTN, DM, CHF, CVA, Afib, CKD, OA Ht: 68.5in Wt: 191.5lb BMI: 28.7kg/m2 IBW: 157lb +/- 10% RD Assessment: (11/14) Chart reviewed. Labs and meds reviewed. 84yo M, who was admitted for CHF, dyspnea and back abscess. Pt with hx of CHF and received prior education on low salt diet. BNP has trend down. Visited pt in the room. Pt reported eating smaller meals for the last few months due to fluid retention. Pt also reported vomiting episode after breakfast today. However, pt tolerated 50% of lunch. LBM - 11/13. Pt reported getting outpatient therapy for dysphagia in the last few months. Pt was given swallow precautions to follow at home. Dysphagia has improved, per pt. Pt would like his food to be chopped due to arm weakness - will notify kitchen. Will continue to monitor and follow. Current Diet: cardiac diet Malnutrition Evaluation (11/14/2018) The patient does not meet criteria for a specified degree of malnutrition at this time. Will re-evaluate at follow-up as appropriate. Diet Education Needs Assessment: Diet education indicated, pt was not interested. Nutrition Care Level: low Signed: Oxana Medina, MS, RD, LD
--- NOTE | 2018-11-14 14:07 | Diagnostic Imaging Report ---
EXAM: CT Chest WITHOUT intravenous contrast 11/14/2018 9:37 AM INDICATION: Abnormal chest radiograph COMPARISON: Chest radiograph of 10/09/2018, chest CT of 05/20/2018 TECHNIQUE: Chest was scanned utilizing a multidetector helical scanner from the lung apex through the level of the adrenal glands without administration of IV contrast. Coronal and sagittal reformations were obtained. Routine protocol was performed. IV CONTRAST: None RADIATION DOSE: Total DLP: 500.3 mGy*cm. Dose modulation, iterative reconstruction, and/or weight based adjustment of the mA/kV was utilized to reduce the radiation dose to as low as reasonably achievable. COMPLICATIONS: None FINDINGS: LINES/ TUBES: None. LUNGS AND AIRWAYS: The central airways are patent. There is debris within the left lower lobe bronchi. Unchanged complete left lower lobe atelectasis. Subsegmental atelectasis involves the lingula and right lower lobe. Mild interlobular septal thickening and lower lobe groundglass opacities compatible with component of mild pulmonary edema. Scattered nodular opacities at the dependent right lower lobe. PLEURA: Small right pleural effusion. Unchanged loculated left pleural effusion with associated pleural thickening. HEART AND MEDIASTINUM: The thyroid gland is incompletely visualized. There is a 7 mm rim calcified and hypodense nodule in the right thyroid lobe. Interval increase in extensive supraclavicular, mediastinal and axillary lymphadenopathy. The largest supraclavicular lymph node measures up to 3.1 x 2.1 cm (series 2 image 1). Enlarged mediastinal lymph nodes, for example the pretracheal lymph node measuring up to 2.6 x 1.9 cm (series 2 image 32) maxillary lymphadenopathy measures up to 1.7 cm short axis on the left (series 2 image 34 and 2.3 x 1.1 cm on the right (series 2 image 44. Unchanged subcarinal lymphadenopathy. Right hilar prominence measuring up to 3 cm may represent a yariel mass versus prominent confluence of pulmonary arteries in the absence of intravenous contrast. Multichamber cardiomegaly. No pericardial effusion. Diffuse atherosclerotic calcifications involve the coronary arteries and thoracic aorta. The main pulmonary artery is enlarged and measures up to 3.6 cm, compatible with pulmonary hypertension. UPPER ABDOMEN: Limited noncontrast views of the upper abdomen demonstrate calcified granulomas of the liver and spleen. The partially visualized pancreas, adrenals and bowel appear unremarkable. Numerous bilateral renal cysts in the partially visualized kidneys. BONES: Mild diffuse osteopenia. Partially healed right ninth and 10th lateral rib fracture and old healed posterior 10th rib fracture. Degenerative changes of the visualized spine. No suspicious lytic or blastic lesions. SOFT TISSUES: Diffuse muscle atrophy. IMPRESSION: 1. Interval increase in extensive supraclavicular and mediastinal lymphadenopathy. Correlation with history of malignancy is recommended. 2. Right hilar masslike prominence measuring up to 3 cm may represent yariel mass versus prominent confluence of pulmonary arteries in the absence of intravenous contrast. 3. Small right pleural effusion. Unchanged loculated left pleural effusion with associated pleural thickening. 4. Scattered nodular opacities at the dependent right lower lobe may represent an infections/inflammatory process such as aspiration. 5. Mild pulmonary edema. Unchanged complete left lower lobe atelectasis. 6. Unchanged multichamber cardiomegaly and enlargement of the pulmonary artery compatible with pulmonary hypertension. Signed by: Zo Beltre MD on 11/14/2018 2:03 PM
--- NOTE | 2018-11-14 15:37 | Consultation ---
DATE OF CONSULTATION: Pulmonary Consultation REASON FOR THE CONSULT: Shortness of breath. HISTORY OF PRESENT ILLNESS: Mr. Smiley is an 84-year-old male, well known to me from previous admission. The patient has history of atrial fibrillation and history of hemorrhagic stroke. He has been advised multiple times to follow up with me for pleural effusion and possibility of pleural biopsy because there is pleural thickening and chronic pleural effusion, but he has not followed up with me. He is having shortness of breath at this time and has pleural effusion. He has the most recent chest x-ray which was done on 11/13, showing left mid and lower lung opacity. He is denying any chest pain. He is having some shortness of breath that has been going on for few weeks. REVIEW OF SYSTEMS: GENERAL: Denies any fever or chills. HEAD: Denies any head trauma. ENT: Denies any earache. CVS: Denies any chest pain. RESPIRATORY: Shortness of breath. Rest of the review of systems are negative except as in HPI. PAST MEDICAL HISTORY: Hypertension, hyperlipidemia, herniography, history of hemorrhagic stroke and was taken off Coumadin because of hemorrhagic stroke almost 2 years ago, now seems to be back on it, and history of atrial fibrillation. FAMILY AND SOCIAL HISTORY: He does not smoke. Does not drink. PHYSICAL EXAMINATION: VITAL SIGNS: Temperature 96, pulse of 76, blood pressure 114/81, respiratory rate 18, and O2 saturation 98%. HEENT: Head is atraumatic and normocephalic. NECK: Supple. CHEST: Decreased air entry in the bases and crackles. HEART: S1 and S2 audible. ABDOMEN: Soft. EXTREMITIES: Pedal edema. NEUROLOGIC: Awake and alert. No focal neurologic deficit. LABORATORY DATA: White count of 7000, hemoglobin 8.9, and platelets 182. Chemistry; creatinine of 1.54, BUN 29, and sodium 143. Blood cultures have been negative. ASSESSMENT/PLAN: Mr. Smiley is an 84-year-old male, came in with shortness of breath. 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 Current problem: 1. Left-sided pleural effusion. It has been chronic effusion in the past and had drainage in the past as well. He had pleural thickening and exudative effusion. 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 I have told him multiple times to follow up with me in the office, however, he has not. I will do a CT of the chest without contrast and ultrasound of the chest. If there is fluid accumulation, thoracentesis will be requested. 2. History of pulmonary embolism, deep venous thrombosis, and atrial fibrillation. The patient is on Coumadin. 3. Chronic kidney disease. The patient's creatinine is 1.54, has been higher in the past. The patient had already been on Lasix, which will be continued. Thank you for this consult. MD GEOVANNI Courtney/SOBEIDA /[id number]
--- NOTE | 2018-11-14 15:47 | Consultation ---
DATE OF CONSULTATION: 11/14/2018 CHIEF COMPLAINT: Back abscess. HISTORY OF PRESENT ILLNESS: This patient is an 84-year-old male with history of swelling and redness and tenderness in the back approximately 5 days ago. The patient's has noted increasing discomfort and size of the infected area on the back. He denies history of trauma or insect bite. He is admitted for shortness of breath. PAST MEDICAL HISTORY: Positive for chronic atrial fibrillation, history of PE and DVT, on Coumadin. ALLERGIES: THE PATIENT HAS NO DRUG ALLERGIES. SOCIAL HABITS: No smoking or alcohol abuse. REVIEW OF SYSTEMS: No chest pain. Mild shortness of breath. No cough. PHYSICAL EXAMINATION: VITAL SIGNS: Stable. The patient is afebrile. GENERAL: He is awake and alert, in mild discomfort. HEENT: Sclera anicteric. NECK: Supple. LUNGS: Clear. HEART: Regular rate and rhythm. ABDOMEN: Soft. BACK: Revealed the area of erythema and swelling with some fluctuance in the upper mid back, measuring 4 cm with tenderness. EXTREMITIES: No cyanosis or edema. LABORATORY DATA: White cell count 7.7, hemoglobin of 9, and platelet count of 182. Creatinine of 1.5. INR is 1.9. ASSESSMENT: Back abscess. PLAN: Incision and drainage of back abscess under local anesthesia. Risks of bleeding discussed in view of coumadinization. MD LUPIS France/SOBEIDA /[id number]
--- NOTE | 2018-11-14 18:08 | Consultation ---
DATE OF CONSULTATION: 11/14/2018 Cardiology Consultation REQUESTING PHYSICIAN: Giancarlo Zambrano MD REASON FOR CONSULTATION: Congestive heart failure. HISTORY OF PRESENT ILLNESS: This is an 84-year-old man with history of chronic right ventricular systolic heart failure, occluded infrarenal IVC, history of right lower extremity DVT, atrial fibrillation, hypertension, hyperlipidemia, history of pulmonary embolism, history of hemorrhagic CVA, and diabetes mellitus, who presents with complaints of shortness of breath. The patient's family at bedside indicates the patient has been more short of breath this last month with increasing lower extremity swelling, he endorses shortness of breath, dizziness and palpitations with exertion and reports gaining 22 pounds in the last three weeks. He otherwise denies chest pain, orthopnea, or PND. Of note, he does have abscesses on his back. REVIEW OF SYSTEMS: Negative except as per HPI. PAST MEDICAL HISTORY: 1. Chronic right ventricular systolic heart failure. 2. Atrial fibrillation. 3. Occluded infrarenal IVC. 4. History of pulmonary embolism and DVT. 5. History of hemorrhagic CVA. 6. Hypertension. 7. Hyperlipidemia. 8. Diabetes mellitus. ALLERGIES: PLEASE SEE EMR. MEDICATIONS: Please see medication list. SOCIAL HISTORY: Denies tobacco or alcohol. FAMILY HISTORY: Noncontributory to current illness. PHYSICAL EXAMINATION: VITAL SIGNS: Temperature 95.3 degrees, pulse 81, respiratory rate 20, blood pressure 118/70, oxygen saturation 98% on 2 L nasal cannula. GENERAL: Elderly man, in no acute distress. Awake and alert. HEENT: Normocephalic, atraumatic. Pupils equal. No scleral icterus. NECK: Supple. No thyromegaly or cervical lymphadenopathy. No carotid bruits. LUNGS: Clear to auscultation bilaterally. No wheeze or crackles. CARDIOVASCULAR: Normal rate, irregularly irregular. Normal S1, S2. ABDOMEN: Soft, nontender. EXTREMITIES: 3+ pitting edema in bilateral lower extremities. NEUROLOGIC: Nonfocal exam. LABORATORY DATA: WBC 7.69, hemoglobin 8.9, hematocrit 31.1, platelets 182. Sodium 143, potassium 3.6, chloride 103, CO2 of 29, BUN 29, creatinine 1.54. Troponin 0.023. BNP 184. CT chest, small right pleural effusion, unchanged loculated left pleural effusion with associated pleural thickening, mild pulmonary edema, unchanged multi chamber cardiomegaly, enlarged of the pulmonary artery compatible with pulmonary hypertension. EKG sinus rhythm with marked sinus arrhythmia and first-degree AV block. Nonspecific ST abnormality. IMPRESSION: 1. Acute on chronic right ventricular systolic heart failure. 2. Chronic atrial fibrillation. 3. Acute on chronic kidney disease. 4. History of pulmonary embolism/deep vein thrombosis. 5. Occluded infrarenal inferior vena cava. 6. Hypertension. 7. Hyperlipidemia. 8. History of hemorrhagic cerebrovascular accident. 9. Diabetes mellitus. RECOMMENDATIONS: Continue current cardiac medications. Strict I's and O's. Monitor daily weights. Follow INR. Warfarin can be held if thoracentesis or I and D are planned. Continue current cardiac medications otherwise. Blood pressure is well controlled. Monitor patient on telemetry while admitted. Thank you for this consult. We will continue to follow. MD DIONE Jane/MODL /[id number]
--- NOTE | 2018-11-14 19:22 | NUR ---
PATIENT IS AWAKE AND IN STABLE CONDITION WITH NO S/S OF RESPIRATORY DISTRESS. PATIENT RECEIVING A BREATHING TREATMENT. NO PAIN VOICED. TELEMETRY APPLIED. BED ALARM APPLIED. SON PRESENT IN THE ROOM. CALL LIGHT IS WITHIN REACH, PATIENT INSTRUCTED TO CALL FOR ASSISTANCE NEEDED. BEDSIDE REPORT GIVEN TO ONCOMING NURSE.
--- NOTE | 2018-11-14 19:38 | NUR ---
PT IS RESTING IN BED. RESPIRATION IS EVEN AND UNEVEN LABORED, NO DISTRESS NOTED. BED IN IN THE LOWEST POSITION, LOCKED, AND CALL LIGHT WITHIN REACH. WILL CONTINUE TO MONITOR.
[2018-11-14] MEDS: ATORVASTATIN 20 MG TAB PO SCH (21:12)
[2018-11-15] VITALS (8 sets, daily range): BP systolic 112–135; BP diastolic 57–75
[2018-11-15] MEDS: IPRATROPIUM BROMIDE 0.02% 2.5 ML NEB NEB SCH ×4 (00:45→18:40)
[2018-11-15] MEDS: LEVALBUTEROL HCL SOLN NEBU 1.25 MG/3 ML NEB INH SCH ×4 (00:45→18:40)
[2018-11-15] MEDS: PIPER-TAZ 3.375 GM 50 ML IV SCH ×4 (00:57→17:02)
[2018-11-15 06:20] LABS: BASOPHILS # (AUTO) 0.1 (0.0-0.1); BASOPHILS % 0.7 % (0.0-1.0); EOSINOPHILS # (AUTO) 0.2 (0.0-0.4); EOSINOPHILS % 2.4 % (0.0-6.0); HEMATOCRIT 31.8 % (38.2-49.6); HEMOGLOBIN 9.1 g/dL (14.0-18.0); LYMPHOCYTES # (AUTO) 1.6 (1.0-3.2); LYMPHOCYTES % 19.4 % (18.0-39.1); MEAN CORPUSCULAR HEMOGLOBIN 23.3 pg (28-32); MEAN CORPUSCULAR HGB CONC 28.6 g/dL (31-35); MEAN CORPUSCULAR VOLUME 81.3 fL (81-99); MONOCYTES # (AUTO) 0.7 (0.2-0.8); MONOCYTES % 8.2 % (4.4-11.3); NEUTROPHILS # (AUTO) 5.7 (2.1-6.9); NEUTROPHILS % 68.8 % (38.7-80.0); PLATELET COUNT 193 x10e3/uL (140-360); RED BLOOD COUNT 3.91 x10e6/uL (4.3-5.7); RED CELL DISTRIBUTION WIDTH 19.3 % (11.7-14.4)
[2018-11-15 06:54] LABS: ALBUMIN 2.4 g/dL (3.5-5.0); ALBUMIN/GLOBULIN RATIO 0.5 (0.8-2.0); ANION GAP 13.4 mmol/L (8-16); CALCIUM 8.7 mg/dL (8.4-10.2); CREATININE, SERUM 1.65 mg/dL (0.72-1.25); MAGNESIUM 1.9 MG/DL (1.3-2.1); POTASSIUM 3.4 mmol/L (3.5-5.1)
--- NOTE | 2018-11-15 07:20 | NUR ---
PATIENT IS AWAKE AND IN STABLE CONDITION WITH NO S/S OF RESPIRATORY DISTRESS. NO PAIN VOICED. WOUND NOTED TO UPPER BACK AREA- MINIMUM DRAINAGE NOTED; ABSCESS TO BACK NOTED WITH NO DRAINAGE. TELEMETRY APPLIED. BED ALARM. CALL LIGHT IS WITHIN REACH, PATIENT INSTRUCTED TO CALL FOR ASSISTANCE NEEDED.
[2018-11-15] MEDS: INSULIN REGULAR, HUMAN 100 UNIT/1 ML 3ML VIAL SQ SCH ×4 (07:30→21:01)
[2018-11-15 08:05] LABS: EOSINOPHILS % (MANUAL) 2 % (0-7); LYMPHOCYTES % (MANUAL) 16 % (19-48); MONOCYTES % (MANUAL) 7 % (3.4-9.0); NEUTROPHILS % (MANUAL) 75 % (40-74); PLATELET ESTIMATE SLIGHTLY DECREASED
[2018-11-15 08:06] LABS: HYPOCHROMASIA SLIGHT; RBC MORPHOLOGY COMMENT ABNORMAL
[2018-11-15] MEDS: ASPIRIN 81 MG CHEW TAB PO SCH (08:24)
[2018-11-15] MEDS: GLIMEPIRIDE 2 MG TAB PO SCH (08:24)
[2018-11-15] MEDS: TAMSULOSIN HCL 0.4 MG CAP PO SCH (08:25)
[2018-11-15] MEDS: NEBIVOLOL 10 MG TAB PO SCH (08:25)
[2018-11-15] MEDS: PANTOPRAZOLE SOD 40 MG TABEC PO SCH (08:25)
[2018-11-15] MEDS: FAMOTIDINE 20 MG/2 ML VIAL IV SCH ×2 (08:25→16:25)
[2018-11-15] MEDS: FINASTERIDE 5 MG TAB PO SCH (08:25)
[2018-11-15] MEDS: FUROSEMIDE INJ 10 MG/ML 2 ML VIAL IV SCH ×2 (08:25→16:25)
[2018-11-15] MEDS: FLUOXETINE HCL 20 MG CAP PO SCH (08:26)
[2018-11-15] MEDS: NYSTATIN 15 GM POWDER UD BTL TOP SCH (08:31)
[2018-11-15] MEDS ORDERED: POTASSIUM CHLORIDE 10MEQ EA PO NR (12:00)
[2018-11-15] MEDS: TRAMADOL HCL 50 MG TAB PO PRN (14:28)
--- NOTE | 2018-11-15 19:31 | NUR ---
PATIENT IS AWAKE AND IN STABLE CONDITION WITH NO S/S OF RESPIRATORY DISTRESS. NO PAIN VOICED. TELEMETRY APPLIED. BED ALARM APPLIED. CALL LIGHT IS WITHIN REACH, PATIENT INSTRUCTED TO CALL FOR ASSISTANCE NEEDED. BEDSIDE REPORT GIVEN TO ONCOMING NURSE.
--- NOTE | 2018-11-15 19:58 | NUR ---
PT IS RESTING IN BED. RESPIRATION IS EVEN AND UNEVEN LABORED, NO DISTRESS NOTED. BED IN IN THE LOWEST POSITION, LOCKED, BED ALARM ON, AND CALL LIGHT WITHIN REACH. WILL CONTINUE TO MONITOR.
[2018-11-15] MEDS: ATORVASTATIN 20 MG TAB PO SCH (21:00)
[2018-11-16] VITALS: BP 120/61
[2018-11-16] MEDS: PIPER-TAZ 3.375 GM 50 ML IV SCH ×4 (00:34→17:37)
[2018-11-16] MEDS: LEVALBUTEROL HCL SOLN NEBU 1.25 MG/3 ML NEB INH SCH ×4 (00:45→20:31)
[2018-11-16] MEDS: IPRATROPIUM BROMIDE 0.02% 2.5 ML NEB NEB SCH ×4 (00:45→20:31)
--- NOTE | 2018-11-16 01:55 | Progress Note ---
DATE: 11/15/2018 Cardiology Progress Note SUBJECTIVE: The patient denies chest pain, however, he is still short of breath. OBJECTIVE: VITAL SIGNS: Temperature 96.9 degrees, pulse 85, respiratory rate 18, blood pressure 119/57, and oxygen saturation 94% on 2 L nasal cannula. GENERAL: Awake, alert, in no acute distress. LUNGS: Clear to auscultation bilaterally. No wheezes or crackles. CARDIOVASCULAR: Normal rate. Irregularly irregular. Normal S1, S2. ABDOMEN: Soft and nontender. EXTREMITIES: 3+ pitting edema to bilateral lower extremities. Compression stockings in place. CARDIAC MEDICATIONS: Atorvastatin 20 mg p.o. at bedtime, furosemide 20 IV t.i.d., nebivolol 5 mg p.o. daily, aspirin 81 mg p.o. daily. LABORATORY DATA: WBC 8.21, hemoglobin 9.1, hematocrit 31.8, platelets 193. Sodium 144, potassium 3.4, chloride 104, CO2 of 30, BUN 28, and creatinine 1.65. TELEMETRY: Atrial fibrillation. IMPRESSION: 1. Acute on chronic right ventricular systolic heart failure. 2. Chronic atrial fibrillation. 3. Acute on chronic kidney disease. 4. History of pulmonary embolism/deep venous thrombosis. 5. Occluded infrarenal inferior vena cava. 6. Hypertension. 7. Hyperlipidemia. 8. History of hemorrhagic cerebrovascular accident. 9. Diabetes mellitus. RECOMMENDATIONS: Continue current cardiac medications. Strict I's and O's. Monitor daily weights. The patient does not appear to have had significant diuresis. We will increase Lasix. Monitor INR. Warfarin can be held if procedures are planned. Continue current cardiac medications otherwise. The patient's blood pressure is well controlled. Monitor the patient on telemetry. Thank you for this consult. We will continue to follow. aRndee Mendoza MD ABS/MODL /[id number]
[2018-11-16 04:00] VITALS: BP 123/77
[2018-11-16 06:06] LABS: BASOPHILS % 0.5 % (0.0-1.0); EOSINOPHILS # (AUTO) 0.3 (0.0-0.4); EOSINOPHILS % 3.3 % (0.0-6.0); HEMATOCRIT 31.7 % (38.2-49.6); HEMOGLOBIN 9.1 g/dL (14.0-18.0); LYMPHOCYTES # (AUTO) 1.2 (1.0-3.2); LYMPHOCYTES % 15.3 % (18.0-39.1); MEAN CORPUSCULAR HEMOGLOBIN 23.3 pg (28-32); MEAN CORPUSCULAR HGB CONC 28.7 g/dL (31-35); MEAN CORPUSCULAR VOLUME 81.1 fL (81-99); MONOCYTES # (AUTO) 0.8 (0.2-0.8); NEUTROPHILS # (AUTO) 5.6 (2.1-6.9); NEUTROPHILS % 70.4 % (38.7-80.0); PLATELET COUNT 196 x10e3/uL (140-360); RED BLOOD COUNT 3.91 x10e6/uL (4.3-5.7); RED CELL DISTRIBUTION WIDTH 19.4 % (11.7-14.4)
[2018-11-16 06:18] LABS: INR 1.93; PROTHROMBIN TIME 22.7 seconds (11.9-14.5)
[2018-11-16 06:42] LABS: ALBUMIN 2.4 g/dL (3.5-5.0); ALBUMIN/GLOBULIN RATIO 0.5 (0.8-2.0); ANION GAP 10.6 mmol/L (8-16); CALCIUM 8.8 mg/dL (8.4-10.2); CREATININE, SERUM 1.71 mg/dL (0.72-1.25); POTASSIUM 3.6 mmol/L (3.5-5.1)
[2018-11-16] MEDS: INSULIN REGULAR, HUMAN 100 UNIT/1 ML 3ML VIAL SQ SCH ×4 (07:30→20:13)
[2018-11-16 08:00] VITALS: BP_SYST 127; BP_SYST 131; BP_DIAS 63; BP_DIAS 69
[2018-11-16] MEDS: FUROSEMIDE INJ 10 MG/ML 2 ML VIAL IV SCH ×2 (09:37→17:37)
[2018-11-16] MEDS: FAMOTIDINE 20 MG/2 ML VIAL IV SCH ×2 (09:39→17:37)
[2018-11-16] MEDS: ASPIRIN 81 MG CHEW TAB PO SCH (09:42)
[2018-11-16] MEDS: GLIMEPIRIDE 2 MG TAB PO SCH (09:42)
[2018-11-16] MEDS: NEBIVOLOL 10 MG TAB PO SCH (09:42)
[2018-11-16] MEDS: FINASTERIDE 5 MG TAB PO SCH (09:43)
[2018-11-16] MEDS: FLUOXETINE HCL 20 MG CAP PO SCH (09:43)
[2018-11-16] MEDS: PANTOPRAZOLE SOD 40 MG TABEC PO SCH (09:43)
[2018-11-16] MEDS: TAMSULOSIN HCL 0.4 MG CAP PO SCH (09:43)
[2018-11-16] MEDS: NYSTATIN 15 GM POWDER UD BTL TOP SCH (09:45)
[2018-11-16 09:52] LABS: EOSINOPHILS % (MANUAL) 3 % (0-7); LYMPHOCYTES % (MANUAL) 16 % (19-48); NEUTROPHILS % (MANUAL) 81 % (40-74); PLATELET ESTIMATE MODERATELY DECREASED; RBC MORPHOLOGY COMMENT ABNORMAL
[2018-11-16 09:53] LABS: HYPOCHROMASIA SLIGHT
[2018-11-16] MEDS: TRAMADOL HCL 50 MG TAB PO PRN ×2 (11:00→20:12)
--- NOTE | 2018-11-16 11:00 | NUR ---
Radiology here to do thoracentesis un pt room. After ultrasound done, radiologist confirmed there was no fluid to be removed. Procedure was cancelled.
[2018-11-16 12:00] VITALS: BP 128/80
--- NOTE | 2018-11-16 12:10 | Diagnostic Imaging Report ---
Exam: Limited right chest ultrasound Clinical history: Pleural effusion Findings: Limited evaluation of the right chest revealed no significant fluid in the pleural space. Thoracentesis was not performed. Signed by: Dr. Marc Rodríguez MD on 11/16/2018 12:06 PM
--- NOTE | 2018-11-16 12:15 | NUR ---
EDUCATED ABOUT IMM, SIGNED, FILED IN CHART, WITH COPY LEFT WITH FAMILY AT BEDSIDE.
[2018-11-16] MEDS ORDERED: LIDOCAINE 1% W/EPINEPHRINE 20 ML VIAL INJ ONE (14:00)
[2018-11-16 16:00] VITALS: BP 130/77
--- NOTE | 2018-11-16 17:00 | NUR ---
Dr. Mcqueen here to see at and do I/D to abscess on left upper back. Specimen was sent for culture. Pressure dressing was applied to sight.
--- NOTE | 2018-11-16 19:00 | NUR ---
patient received awake, alert, lying quietly in bed. no c/o pain noted. dressing to left back adscess site c,d,i. pm assessment complete. family noted at the bedside. patient/family instructed to call for assistance when needed.
[2018-11-16 20:00] VITALS: BP 110/76
[2018-11-16] MEDS: ATORVASTATIN 20 MG TAB PO SCH (20:12)
--- NOTE | 2018-11-16 20:12 | NUR ---
patient medicated with ultram 50mg po for c/o left mid back pain (abscess site) 07/13 at this time per patients request.
--- NOTE | 2018-11-16 22:50 | Operative Report ---
DATE OF PROCEDURE: 11/16/2018 SURGEON: Caden Mcqueen MD PREOPERATIVE DIAGNOSIS: Back abscess. POSTOPERATIVE DIAGNOSIS: Back abscess. OPERATIVE PROCEDURE: Incisional drainage back abscess. ANESTHESIA: Local. INDICATION: The patient is an 84-year-old male with 1-week history of back swelling, redness, and tenderness consistent with abscess formation. The patient consented for I and D of back abscess. Attendant risks of bleeding, infection, organ injury discussed. PROCEDURE FINDING: Purulent fluid drained. DESCRIPTION OF PROCEDURE: The patient was placed in the sitting position at his bedside with back prepped with Betadine and draped in sterile fashion. Local anesthesia of 1% lidocaine and epinephrine was injected into the skin and subdermal tissue at the site of the abscess. A transverse 2 cm incision was made into the abscess cavity and thick purulent material was evacuated along with blood. The cavity was evacuated of all pus and packed with iodoform gauze. Pressure dressing applied with 4 x 4 and tape. The patient tolerated the procedure well. BLOOD LOSS: 5 mL. Caden Mcqueen MD DNL/MODL /[id number]
--- NOTE | 2018-11-16 23:46 | Progress Note ---
DATE: 11/16/2018 Cardiology Progress Note SUBJECTIVE: The patient denies chest pain or shortness of breath. He is planned for thoracentesis today, but upon evaluation by Radiology, no pleural effusion was present. OBJECTIVE: VITAL SIGNS: Temperature 96.3 degrees, pulse 97, respiratory rate 20, blood pressure 128/80, oxygen saturation 96% on 2 L nasal cannula. GENERAL: Awake and alert, in no acute distress. LUNGS: Clear to auscultation bilaterally. No wheezes or crackles. CARDIOVASCULAR: Normal rate. Irregularly irregular. Normal S1 and S2. ABDOMEN: Soft, nontender. EXTREMITIES: Trace 2+ pitting edema in bilateral lower extremity. Compression stockings in place. CARDIAC MEDICATIONS: Atorvastatin 20 mg p.o. daily, furosemide 40 mg IV b.i.d. nebivolol 5 mg p.o. daily, aspirin 81 mg p.o. daily. LABORATORY DATA: WBC 7.92, hemoglobin 9.1, hematocrit 31.7, and platelets 196. Sodium 142, potassium 3.6, chloride 104, CO2 of 31, BUN 25, creatinine 1.71. INR 1.93. TELEMETRY: Atrial fibrillation. IMPRESSION: 1. Amdch-ko-kqmonpo right ventricular systolic heart failure. 2. Chronic atrial fibrillation. 3. Guvgc-we-obtpwkw kidney disease. 4. History of pulmonary embolism/deep vein thrombosis. 5. Occluded infrarenal inferior vena cava. 6. Hypertension. 7. Hyperlipidemia. 8. History of hemorrhagic cerebrovascular accident. 9. Diabetes mellitus. 10. Back abscess. RECOMMENDATIONS: Continue current cardiac medications. Strict I's and O's. Monitor daily weights. Follow creatinine closely. Warfarin can be held for planned procedures. Please resume once hemostasis is achieved. Monitor the patient on telemetry. The patient's blood pressure is acceptable for age. No further cardiac evaluation is indicated at this time. Thank you for this consult. We will continue to follow. Randee Mendoza MD ABS/MODL /[id number]
[2018-11-17] VITALS (7 sets, daily range): BP systolic 94–131; BP diastolic 65–86
[2018-11-17] MEDS: IPRATROPIUM BROMIDE 0.02% 2.5 ML NEB NEB SCH ×4 (01:00→20:02)
[2018-11-17] MEDS: LEVALBUTEROL HCL SOLN NEBU 1.25 MG/3 ML NEB INH SCH ×4 (01:00→20:02)
[2018-11-17] MEDS: PIPER-TAZ 3.375 GM 50 ML IV SCH ×4 (06:00→17:06)
[2018-11-17] MEDS: INSULIN REGULAR, HUMAN 100 UNIT/1 ML 3ML VIAL SQ SCH ×4 (07:30→21:00)
[2018-11-17] MEDS: FUROSEMIDE INJ 10 MG/ML 2 ML VIAL IV SCH ×2 (08:30→17:00)
[2018-11-17] MEDS: FAMOTIDINE 20 MG/2 ML VIAL IV SCH ×2 (08:30→17:06)
[2018-11-17] MEDS: GLIMEPIRIDE 2 MG TAB PO SCH (08:30)
[2018-11-17] MEDS: NEBIVOLOL 10 MG TAB PO SCH (08:31)
[2018-11-17] MEDS: FINASTERIDE 5 MG TAB PO SCH (08:31)
[2018-11-17] MEDS: TAMSULOSIN HCL 0.4 MG CAP PO SCH (08:31)
[2018-11-17] MEDS: ASPIRIN 81 MG CHEW TAB PO SCH (08:31)
[2018-11-17] MEDS: FLUOXETINE HCL 20 MG CAP PO SCH (08:32)
[2018-11-17] MEDS: PANTOPRAZOLE SOD 40 MG TABEC PO SCH (08:32)
[2018-11-17] MEDS: NYSTATIN 15 GM POWDER UD BTL TOP SCH (08:39)
[2018-11-17] MEDS ORDERED: WARFARIN SOD 3 MG TAB PO SCH (17:00)
--- NOTE | 2018-11-17 19:00 | NUR ---
BS report completed with morning nurse. Pt alert to name. Lying in bed HOB 45 degrees. O2 @2L via NC. Denies SOB. Denies pain or discomfort at this time.
[2018-11-17] MEDS: ATORVASTATIN 20 MG TAB PO SCH (21:00)
[2018-11-18] VITALS (8 sets, daily range): BP systolic 113–142; BP diastolic 75–89
[2018-11-18] MEDS: LEVALBUTEROL HCL SOLN NEBU 1.25 MG/3 ML NEB INH SCH ×4 (00:39→19:30)
[2018-11-18] MEDS: IPRATROPIUM BROMIDE 0.02% 2.5 ML NEB NEB SCH ×4 (00:39→19:30)
[2018-11-18] MEDS: TRAMADOL HCL 50 MG TAB PO PRN (02:20)
[2018-11-18] MEDS: PIPER-TAZ 3.375 GM 50 ML IV SCH ×4 (05:30→17:10)
[2018-11-18 06:37] LABS: BASOPHILS # (AUTO) 0.1 (0.0-0.1); BASOPHILS % 0.6 % (0.0-1.0); EOSINOPHILS # (AUTO) 0.2 (0.0-0.4); EOSINOPHILS % 2.5 % (0.0-6.0); HEMATOCRIT 33.5 % (38.2-49.6); HEMOGLOBIN 9.6 g/dL (14.0-18.0); LYMPHOCYTES # (AUTO) 1.6 (1.0-3.2); LYMPHOCYTES % 16.4 % (18.0-39.1); MEAN CORPUSCULAR HEMOGLOBIN 23.4 pg (28-32); MEAN CORPUSCULAR HGB CONC 28.7 g/dL (31-35); MEAN CORPUSCULAR VOLUME 81.5 fL (81-99); MONOCYTES # (AUTO) 0.7 (0.2-0.8); MONOCYTES % 7.2 % (4.4-11.3); NEUTROPHILS % 72.8 % (38.7-80.0); PLATELET COUNT 200 x10e3/uL (140-360); RED BLOOD COUNT 4.11 x10e6/uL (4.3-5.7); RED CELL DISTRIBUTION WIDTH 19.3 % (11.7-14.4)
--- NOTE | 2018-11-18 06:45 | NUR ---
Report given to morning nurse. Pt alert and pleasant. Lying in bed watching TV. denies pain at this time.
[2018-11-18 06:46] LABS: INR 1.53
[2018-11-18 06:58] LABS: ALBUMIN 2.5 g/dL (3.5-5.0); ALBUMIN/GLOBULIN RATIO 0.5 (0.8-2.0); ANION GAP 13.3 mmol/L (8-16); CALCIUM 9.1 mg/dL (8.4-10.2); CREATININE, SERUM 1.75 mg/dL (0.72-1.25); POTASSIUM 3.3 mmol/L (3.5-5.1)
[2018-11-18] MEDS: INSULIN REGULAR, HUMAN 100 UNIT/1 ML 3ML VIAL SQ SCH ×4 (07:30→21:00)
[2018-11-18 08:05] LABS: ANISOCYTOSIS SLIGHT; HYPOCHROMASIA SLIGHT; PLATELET ESTIMATE ADEQUATE; PLATELET MORPHOLOGY COMMENT NORMAL
[2018-11-18] MEDS: FAMOTIDINE 20 MG/2 ML VIAL IV SCH ×2 (08:24→17:10)
[2018-11-18] MEDS: ASPIRIN 81 MG CHEW TAB PO SCH (08:24)
[2018-11-18] MEDS: GLIMEPIRIDE 2 MG TAB PO SCH (08:24)
[2018-11-18] MEDS: FUROSEMIDE INJ 10 MG/ML 2 ML VIAL IV SCH ×2 (08:24→17:10)
[2018-11-18] MEDS: TAMSULOSIN HCL 0.4 MG CAP PO SCH (08:26)
[2018-11-18] MEDS: NEBIVOLOL 10 MG TAB PO SCH (08:26)
[2018-11-18] MEDS: PANTOPRAZOLE SOD 40 MG TABEC PO SCH (08:26)
[2018-11-18] MEDS: NYSTATIN 15 GM POWDER UD BTL TOP SCH (08:26)
[2018-11-18] MEDS: FINASTERIDE 5 MG TAB PO SCH (08:26)
[2018-11-18] MEDS: FLUOXETINE HCL 20 MG CAP PO SCH (08:26)
--- NOTE | 2018-11-18 13:03 | Progress Note ---
DATE: Cardiology Progress Note SUBJECTIVE: The patient is feeling well. Denies any chest pain or shortness of breath. OBJECTIVE: VITAL SIGNS: Temperature is 96.2, heart rate is 86, respirations are 20, blood pressure is 133/89, and oxygen saturation 99% on 2 L nasal cannula. GENERAL: Well appearing, well built, in no apparent distress. CARDIOVASCULAR: Irregularly irregular. Normal rate. LUNGS: Clear to auscultation. ABDOMEN: Soft, nontender, nondistended. EXTREMITIES: Trace edema. LABORATORY DATA: Reviewed. Hemoglobin 9.6, creatinine 1.75, and potassium 3.3. TELEMETRY: Monitoring revealed atrial fibrillation. IMPRESSION: 1. Drmlv-yl-fzathmn right ventricular systolic heart failure. 2. Chronic atrial fibrillation. 3. Milqz-gj-jwqycql kidney disease. 4. History of pulmonary embolism, deep venous thrombosis. 5. Occluded infrarenal inferior vena cava. 6. Hypertension. 7. Hyperlipidemia. 8. History of hemorrhagic cerebrovascular accident. 9. Back abscess, status post I and D. RECOMMENDATIONS: Continue current cardiovascular medications. We will continue to follow telemetry. Follow strict ins and outs and his daily creatinine. His warfarin has been restarted and we will need to check daily INRs. DO OTILIA Rai/MODL /[id number]
[2018-11-18] MEDS: WARFARIN SOD 3 MG TAB PO SCH (17:10)
--- NOTE | 2018-11-18 18:55 | NUR ---
Report received from morning nurse. Pt alert to name. Sitting bed HOB 90 degrees. O2 @2L via NC. Denies SOB. Denies pain or discomfort at this time. Call esparza within reach. Will continue to monitor.
[2018-11-18] MEDS: ATORVASTATIN 20 MG TAB PO SCH (20:59)
[2018-11-19] VITALS (7 sets, daily range): BP systolic 106–141; BP diastolic 62–77
[2018-11-19] MEDS: IPRATROPIUM BROMIDE 0.02% 2.5 ML NEB NEB SCH ×5 (01:08→23:55)
[2018-11-19] MEDS: LEVALBUTEROL HCL SOLN NEBU 1.25 MG/3 ML NEB INH SCH ×5 (01:08→23:55)
[2018-11-19] MEDS: PIPER-TAZ 3.375 GM 50 ML IV SCH ×4 (06:00→18:00)
[2018-11-19 06:05] LABS: INR 1.7; PROTHROMBIN TIME 20.6 seconds (11.9-14.5)
--- NOTE | 2018-11-19 07:00 | NUR ---
received am report from rn and morning rounds done. pt is alert and resting comfortably in bed, no s/s of distress. call light within reach and instructed pt to call for help. side rails are up
[2018-11-19] MEDS: INSULIN REGULAR, HUMAN 100 UNIT/1 ML 3ML VIAL SQ SCH ×4 (07:30→21:00)
[2018-11-19] MEDS: GLIMEPIRIDE 2 MG TAB PO SCH (09:18)
[2018-11-19] MEDS: FUROSEMIDE INJ 10 MG/ML 2 ML VIAL IV SCH ×2 (09:18→16:42)
[2018-11-19] MEDS: ASPIRIN 81 MG CHEW TAB PO SCH (09:18)
[2018-11-19] MEDS: FAMOTIDINE 20 MG/2 ML VIAL IV SCH (09:18)
[2018-11-19] MEDS: NEBIVOLOL 10 MG TAB PO SCH (09:21)
[2018-11-19] MEDS: FINASTERIDE 5 MG TAB PO SCH (09:22)
[2018-11-19] MEDS: TAMSULOSIN HCL 0.4 MG CAP PO SCH (09:22)
[2018-11-19] MEDS: NYSTATIN 15 GM POWDER UD BTL TOP SCH (09:23)
[2018-11-19] MEDS: PANTOPRAZOLE SOD 40 MG TABEC PO SCH (09:23)
[2018-11-19] MEDS: FLUOXETINE HCL 20 MG CAP PO SCH (09:23)
--- NOTE | 2018-11-19 10:23 | NUR ---
Dr. Mcqueen is at the bedside and changed the dressing on the mid back. voiced concern about the redness on the lower left side of flank below the wound, Dr. Mcqueen said he would "keep an eye on it". no new orders
[2018-11-19] MEDS: CLINDAMYCIN PHOS 900MG/ 50ML 50 ML IV SCH ×2 (12:20→16:48)
--- NOTE | 2018-11-19 14:16 | NUR ---
pt complaining of nausea after receiving IV antibiotics, paged Dr. Zambrano for new orders, waiting for response
[2018-11-19] MEDS ORDERED: ONDANSETRON HCL INJ 2MG/ML 2ML 2 MG/ML VIAL IV PRN (14:30)
[2018-11-19] MEDS: FAMOTIDINE 20 MG TAB PO SCH (16:30)
[2018-11-19] MEDS: WARFARIN SOD 3 MG TAB PO SCH (16:41)
--- NOTE | 2018-11-19 20:13 | NUR ---
RECEIVED PT IN BED AOX2 .DENIES PAIN RESPIRATIONS ARE EVEN AND UNLABORED ABCESS AT HE BACK WITH DRESSING TELE SHOWS AFIB RT HAND WITH DELONTE WRAP DUE TO THE BLEEDING FROM CUMADIN SKIN SKIN THIN .REDNESS TO THE BUTT AND GROINS .CALL LIGHT WITH IN REACH .CONTINUE TO MONITOR
[2018-11-19] MEDS: ATORVASTATIN 20 MG TAB PO SCH (21:28)
[2018-11-20] VITALS (8 sets, daily range): BP systolic 101–134; BP diastolic 59–76
--- NOTE | 2018-11-20 04:08 | Progress Note ---
DATE: 11/19/2018 Cardiology Progress Note SUBJECTIVE: The patient denies chest pain or shortness of breath. OBJECTIVE: VITAL SIGNS: Temperature 95.8 degrees, pulse 81, respiratory rate 20, blood pressure 141/70, oxygen saturation 98% on 2 L nasal cannula. GENERAL: Awake and alert, in no acute distress. LUNGS: Clear to auscultation bilaterally. No wheezes or crackles. CARDIOVASCULAR: Normal rate and irregularly irregular. No murmur. ABDOMEN: Soft, nontender. EXTREMITIES: 1+ pitting edema. Compression stockings in place. CARDIAC MEDICATIONS: Atorvastatin 20 mg p.o. at bedtime, furosemide 40 mg IV b.i.d., warfarin 3 mg p.o. daily, nebivolol 5 mg p.o. daily, aspirin 81 mg p.o. daily. LABORATORY DATA: INR 1.7. TELEMETRY: Atrial fibrillation. IMPRESSION: 1. Ifdnp-pp-tvdgtvf right ventricular systolic heart failure. 2. Chronic atrial fibrillation. 3. Luizi-ed-jijhzdc kidney disease. 4. History of pulmonary embolism/deep venous thrombosis. 5. Occluded infrarenal IVC. 6. Hypertension. 7. Hyperlipidemia. 8. History of hemorrhagic cerebrovascular accident. 9. Back abscess, status post I and D next. RECOMMENDATIONS: Continue current cardiac medications. Keep the patient on telemetry. Continue warfarin. Follow INR closely, it is climbing. Continue the patient on diuretics. Strict I's and O's and daily weights. Follow creatinine. Replete electrolytes. No further cardiac evaluation is indicated at this time. His blood pressure is acceptable for age. Thank you for this consult. We will continue to follow. Randee Mendoza MD ABS/MODL /[id number]
--- NOTE | 2018-11-20 05:25 | NUR ---
PT RESTED DURING THE NIGHT .DENIES PAIN CALL LIGHT WITH IN REACH .CONTINUE TO MONITOR
[2018-11-20] MEDS: CLINDAMYCIN PHOS 900MG/ 50ML 50 ML IV SCH ×4 (06:00→18:16)
[2018-11-20] MEDS: PIPER-TAZ 3.375 GM 50 ML IV SCH ×4 (06:00→17:24)
[2018-11-20 06:19] LABS: BASOPHILS % 0.5 % (0.0-1.0); EOSINOPHILS # (AUTO) 0.2 (0.0-0.4); EOSINOPHILS % 2.8 % (0.0-6.0); HEMATOCRIT 30.1 % (38.2-49.6); HEMOGLOBIN 8.8 g/dL (14.0-18.0); LYMPHOCYTES # (AUTO) 1.2 (1.0-3.2); LYMPHOCYTES % 19.7 % (18.0-39.1); MEAN CORPUSCULAR HEMOGLOBIN 23.7 pg (28-32); MEAN CORPUSCULAR HGB CONC 29.2 g/dL (31-35); MEAN CORPUSCULAR VOLUME 80.9 fL (81-99); MONOCYTES # (AUTO) 0.7 (0.2-0.8); MONOCYTES % 11.7 % (4.4-11.3); NEUTROPHILS % 64.8 % (38.7-80.0); PLATELET COUNT 178 x10e3/uL (140-360); RED BLOOD COUNT 3.72 x10e6/uL (4.3-5.7); RED CELL DISTRIBUTION WIDTH 19.4 % (11.7-14.4)
[2018-11-20 06:45] LABS: ALBUMIN 2.3 g/dL (3.5-5.0); ALBUMIN/GLOBULIN RATIO 0.5 (0.8-2.0); ANION GAP 11.7 mmol/L (8-16); CALCIUM 8.6 mg/dL (8.4-10.2); CREATININE, SERUM 1.92 mg/dL (0.72-1.25); POTASSIUM 3.7 mmol/L (3.5-5.1)
--- NOTE | 2018-11-20 06:53 | NUR ---
BEDSIDE REPORT GIVEN TO THE ONCOMING NURSE .NO ACUTE DISTRESS NOTED
--- NOTE | 2018-11-20 07:00 | NUR ---
received am report from nurse and morning rounds done. pt is sleeping comfortably, no s/s of distress. side rails are up and call light within reach
[2018-11-20 07:05] LABS: INR 2.01; PROTHROMBIN TIME 23.4 seconds (11.9-14.5)
[2018-11-20] MEDS: INSULIN REGULAR, HUMAN 100 UNIT/1 ML 3ML VIAL SQ SCH ×3 (07:30→17:25)
[2018-11-20] MEDS: LEVALBUTEROL HCL SOLN NEBU 1.25 MG/3 ML NEB INH SCH ×4 (07:50→19:51)
[2018-11-20] MEDS: IPRATROPIUM BROMIDE 0.02% 2.5 ML NEB NEB SCH ×3 (07:50→19:35)
[2018-11-20] MEDS: FUROSEMIDE INJ 10 MG/ML 2 ML VIAL IV SCH ×2 (09:02→17:24)
[2018-11-20] MEDS: GLIMEPIRIDE 2 MG TAB PO SCH (09:03)
[2018-11-20] MEDS: FAMOTIDINE 20 MG TAB PO SCH ×2 (09:03→17:24)
[2018-11-20] MEDS: ASPIRIN 81 MG CHEW TAB PO SCH (09:03)
[2018-11-20] MEDS: FINASTERIDE 5 MG TAB PO SCH (09:04)
[2018-11-20] MEDS: PANTOPRAZOLE SOD 40 MG TABEC PO SCH (09:04)
[2018-11-20] MEDS: TAMSULOSIN HCL 0.4 MG CAP PO SCH (09:04)
[2018-11-20] MEDS: NEBIVOLOL 10 MG TAB PO SCH (09:04)
[2018-11-20] MEDS: NYSTATIN 15 GM POWDER UD BTL TOP SCH (09:05)
[2018-11-20] MEDS: FLUOXETINE HCL 20 MG CAP PO SCH (09:05)
--- NOTE | 2018-11-20 14:41 | Diagnostic Imaging Report ---
Abdominal ultrasound. History: Abnormal LFTs. Comparison: None available. Discussion: Evaluation is limited due to obscuring bowel gas. Transverse and longitudinal images of the abdomen were obtained demonstrating normal appearance of the right hepatic lobe measuring 14.4 cm in length. Left hepatic lobe was obscured by overlying bowel gas. The portal vein is patent with hepatopetal flow and is within normal limits measuring 10 mm in diameter. The CBD was not visible. The gallbladder is contracted without evidence of stones, wall thickening, or pericholecystic fluid. The sonographic Dumont's sign was negative. The kidneys are normal in echogenicity bilaterally without evidence of hydronephrosis, stones, or mass. The right kidney measures 7.6 cm and the left kidney measures 9.1 cm in length. Multiple simple cysts are present in both kidneys, largest on the right in the lower pole measuring 5.2 x 6.4 x 5.2 cm, and the largest on the left located laterally measuring 4.0 x 4.0 x 3.3 cm. The spleen is normal in size and appearance measuring 13.7 cm in length. The pancreas, IVC, and aorta were obscured by overlying bowel gas. There is no evidence of free fluid. IMPRESSION: Limited exam as noted above. Multiple bilateral simple renal cysts are noted. For complete evaluation of the liver, consider CT or MRI with contrast. Signed by: Dayday Wong on 11/20/2018 2:38 PM
--- NOTE | 2018-11-20 15:33 | NUR ---
called respiratory to check on status of home O2 eval. RT stated that she is aware of the order and that she will see the patient when she can.
--- NOTE | 2018-11-20 16:20 | NUR ---
At 1620 on 2L NC pt resting SpO2 is 98%. At 1630 resting on Room Air pt SpO2 is 94%. Art 1645 Pt SpO2 on exertion on Room Air is 91%.
[2018-11-20] MEDS: WARFARIN SOD 3 MG TAB PO SCH (17:24)
--- NOTE | 2018-11-20 20:30 | NUR ---
RECEIVED PT IN BED AOX2 .NOACUTE DISTRESS NOTED .CALL LIGHT WITH IN REACH .CONTINUE TO MONITOR
[2018-11-20] MEDS: ATORVASTATIN 20 MG TAB PO SCH (21:00)
[2018-11-21] VITALS (7 sets, daily range): BP systolic 80–121; BP diastolic 52–73
[2018-11-21] MEDS: IPRATROPIUM BROMIDE 0.02% 2.5 ML NEB NEB SCH ×4 (01:20→19:51)
[2018-11-21] MEDS: LEVALBUTEROL HCL SOLN NEBU 1.25 MG/3 ML NEB INH SCH ×3 (01:20→13:55)
--- NOTE | 2018-11-21 02:23 | Progress Note ---
DATE: 11/16/2018 Cardiology Progress Note SUBJECTIVE: The patient denies chest pain or shortness of breath. OBJECTIVE: VITAL SIGNS: Temperature 96.8 degrees, pulse 84, respiratory rate 17, blood pressure 118/55, oxygen saturation 100% on 2 L nasal cannula. GENERAL: Awake, alert in no acute distress. LUNGS: Decreased breath sounds at the left base, otherwise clear to auscultation. CARDIOVASCULAR: Normal rate, irregularly irregular. No murmur. ABDOMEN: Soft, nontender. EXTREMITIES: 1+ pitting edema. Compression stockings in place. CARDIAC MEDICATIONS: Atorvastatin 20 mg p.o. at bedtime, warfarin 3 mg p.o. daily, furosemide 40 mg IV b.i.d., nebivolol 5 mg p.o. daily and aspirin 81 mg p.o. daily. LABORATORY DATA: WBC 6.09, hemoglobin 8.8, hematocrit 30.1 and platelets 178. Sodium 134, potassium 3.7, chloride 102, CO2 of 23, creatinine 1.92. INR 2.01. TELEMETRY: Atrial fibrillation. IMPRESSION: 1. Acute on chronic right ventricular systolic heart failure. 2. Chronic atrial fibrillation. 3. Acute on chronic kidney disease. 4. Elevated LFTs. 5. History of pulmonary embolism/deep venous thrombosis. 6. Occluded infrarenal inferior vena cava. 7. Hypertension. 8. Hyperlipidemia. 9. History of hemorrhagic cerebrovascular accident. 10. Back abscess, status post I and D. RECOMMENDATIONS: Check BNP. Follow LFTs. Clinically, patient's volume status is improving. Unclear exact etiology of rising LFTs. Defer further evaluation to primary. Monitor INR closely as the patient is on warfarin at this time. Strict I's and O's and daily weights. Replete electrolytes. No further cardiac evaluation is indicated at this time. The patient's blood pressure is acceptable. Thank you for this consult. We will continue to follow. Randee Mendoza MD ABS/MODL /[id number]
[2018-11-21] MEDS: CLINDAMYCIN PHOS 900MG/ 50ML 50 ML IV SCH ×5 (05:39→23:30)
--- NOTE | 2018-11-21 06:23 | NUR ---
PT RESTED DURING TH NIGHT .DENIES PAIN .CALL LIGHT WITH IN REACH .CONTINUE TO MONITOR
[2018-11-21] MEDS: PIPER-TAZ 3.375 GM 50 ML IV SCH ×4 (06:35→16:27)
--- NOTE | 2018-11-21 07:24 | NUR ---
BEDSIDE REPORT GIVEN TO THE ONCOMING NURSE
[2018-11-21] MEDS: INSULIN REGULAR, HUMAN 100 UNIT/1 ML 3ML VIAL SQ SCH ×4 (07:30→21:01)
--- NOTE | 2018-11-21 07:30 | NUR ---
Pt received in bed. Aox3 and able to verbalize needs. Denies any pain at this time. Right forearm has skin tears with some bleeding noted. Cleaned up and wrapped in kerlix.
[2018-11-21] MEDS: FAMOTIDINE 20 MG TAB PO SCH ×2 (08:45→16:26)
[2018-11-21] MEDS: FINASTERIDE 5 MG TAB PO SCH (08:46)
[2018-11-21] MEDS: GLIMEPIRIDE 2 MG TAB PO SCH (08:46)
[2018-11-21] MEDS: PANTOPRAZOLE SOD 40 MG TABEC PO SCH (08:46)
[2018-11-21] MEDS: ASPIRIN 81 MG CHEW TAB PO SCH (08:46)
[2018-11-21] MEDS: FUROSEMIDE INJ 10 MG/ML 2 ML VIAL IV SCH ×2 (08:46→16:27)
[2018-11-21] MEDS: TAMSULOSIN HCL 0.4 MG CAP PO SCH (08:46)
[2018-11-21] MEDS: FLUOXETINE HCL 20 MG CAP PO SCH (08:46)
[2018-11-21] MEDS: NYSTATIN 15 GM POWDER UD BTL TOP SCH (08:47)
[2018-11-21] MEDS: NEBIVOLOL 10 MG TAB PO SCH (09:00)
[2018-11-21 10:01] LABS: INR 2.85; PROTHROMBIN TIME 30.7 seconds (11.9-14.5)
[2018-11-21 10:30] LABS: ALBUMIN 2.4 g/dL (3.5-5.0); BILIRUBIN,DIRECT 1.1 mg/dL (0.0-0.5)
[2018-11-21] MEDS: WARFARIN SOD 3 MG TAB PO SCH (16:27)
--- NOTE | 2018-11-21 16:55 | NUR ---
Nutrition Screen Note RD Recommendation for Physician: - Rec adding ADA 1800 to cardiac diet as medically appropriate - Consult speech therapy if risk of aspiration is observed Plan of Care: RD following, monitoring for tolerance and adequacy Nutrition reason for involvement: follow up Primary Diagnose(s): CHF, back abscess, dyspnea PMH: HTN, DM, CHF, CVA, Afib, CKD, OA Ht: 68.5in Wt: 191.5lb BMI: 28.7kg/m2 IBW: 157lb +/- 10% RD Assessment: 11/21: Pt seen for follow up, sleeping at time of visits and no family present. Pt discussed during am rounds, RN reports good appetite and intake and that family brings additional food at times. No reported GI distress, LBM today. Labs and meds reviewed, POC Gluc 98-213 noted and currently on insulin. Will monitor and continue to follow. (11/14) Chart reviewed. Labs and meds reviewed. 84yo M, who was admitted for CHF, dyspnea and back abscess. Pt with hx of CHF and received prior education on low salt diet. BNP has trend down. Visited pt in the room. Pt reported eating smaller meals for the last few months due to fluid retention. Pt also reported vomiting episode after breakfast today. However, pt tolerated 50% of lunch. LBM - 11/13. Pt reported getting outpatient therapy for dysphagia in the last few months. Pt was given swallow precautions to follow at home. Dysphagia has improved, per pt. Pt would like his food to be chopped due to arm weakness - will notify kitchen. Will continue to monitor and follow. Current Diet: cardiac diet Malnutrition Evaluation (11/14/2018) The patient does not meet criteria for a specified degree of malnutrition at this time. Will re-evaluate at follow-up as appropriate. Diet Education Needs Assessment: Diet education indicated, pt was not interested- 11/14/18. Nutrition Care Level: low Signed: Lisa San RD, LD, [facility]
[2018-11-21] MEDS ORDERED: TRAMADOL HCL 50 MG TAB PO PRN (17:30)
--- NOTE | 2018-11-21 19:00 | NUR ---
Completed BS report with morning nurse. Pt alert to name. Lying in bed HOB 45 degrees. Denies pain at this time. Call esparza within reach. Bed alarm on. Will continue to monitor.
[2018-11-21] MEDS: ATORVASTATIN 20 MG TAB PO SCH (21:00)
[2018-11-22] VITALS (7 sets, daily range): BP systolic 93–115; BP diastolic 59–68
[2018-11-22] MEDS: LEVALBUTEROL HCL SOLN NEBU 1.25 MG/3 ML NEB INH SCH ×3 (00:15→13:50)
[2018-11-22] MEDS: IPRATROPIUM BROMIDE 0.02% 2.5 ML NEB NEB SCH ×3 (00:15→13:50)
--- NOTE | 2018-11-22 01:04 | Progress Note ---
DATE: 11/21/2018 Cardiology Progress Note SUBJECTIVE: The patient denies chest pain or shortness of breath. OBJECTIVE: VITAL SIGNS: Temperature 96.5 degrees, pulse 76, respiratory rate 20, blood pressure 95/58, oxygen saturation 98% on 2 L nasal cannula. GENERAL: Awake and alert, in no acute distress, elderly man. LUNGS: Decreased breath sounds in the left base, otherwise clear to auscultation. CARDIOVASCULAR: Normal rate, irregularly irregular. No murmur. ABDOMEN: Soft, nontender. EXTREMITIES: 1+ pitting edema with compression stockings present. CARDIAC MEDICATIONS: Atorvastatin 20 mg p.o. at bedtime, warfarin 3 mg p.o. daily, furosemide 40 mg IV b.i.d., nebivolol 5 mg p.o. daily, aspirin 81 mg p.o. daily. LABORATORY DATA: WBC 6.09, hemoglobin 8.8, hematocrit 30.1, and platelets 178. AST 147, ALT 137, alkaline phosphatase 329. TELEMETRY: Atrial fibrillation. IMPRESSION: 1. Cdiir-jc-adrfqnf right ventricular systolic heart failure. 2. Chronic atrial fibrillation. 3. Nfvxx-mo-nvftitm kidney disease. 4. Elevated LFTs. 5. History of pulmonary embolism/deep vein thrombosis. 6. Occluded infrarenal IVC. 7. Hypertension. 8. Hyperlipidemia. 9. History of hemorrhagic cerebrovascular accident. 10. Back abscess, status post I and D. RECOMMENDATIONS: Monitor LFTs. BNP remains elevated. Continue diuresis. Monitor creatinine. Replete electrolytes. The patient's volume status is improving clinically and he is on his baseline home O2 support. Follow INR closely. Strict I's and O's as well as daily weights. The patient's blood pressure is acceptable. No further cardiac evaluation is indicated at this time. Thank you for this consult. We will continue to follow. Randee Mendoza MD ABS/MODL /[id number]
[2018-11-22] MEDS: PIPER-TAZ 3.375 GM 50 ML IV SCH ×4 (06:00→18:00)
[2018-11-22] MEDS: CLINDAMYCIN PHOS 900MG/ 50ML 50 ML IV SCH ×3 (06:00→18:00)
[2018-11-22 06:31] LABS: INR 3.55; PROTHROMBIN TIME 36.3 seconds (11.9-14.5)
--- NOTE | 2018-11-22 06:41 | NUR ---
Patient resting quietly in bed with eyes closed. RR even and unlabored, 20. Call esparza within reach.
[2018-11-22 06:44] LABS: BASOPHILS # (AUTO) 0.1 (0.0-0.1); BASOPHILS % 0.7 % (0.0-1.0); EOSINOPHILS # (AUTO) 0.2 (0.0-0.4); EOSINOPHILS % 2.5 % (0.0-6.0); HEMOGLOBIN 8.7 g/dL (14.0-18.0); LYMPHOCYTES # (AUTO) 1.6 (1.0-3.2); LYMPHOCYTES % 22.5 % (18.0-39.1); MEAN CORPUSCULAR HEMOGLOBIN 23.8 pg (28-32); MEAN CORPUSCULAR VOLUME 79.5 fL (81-99); MONOCYTES # (AUTO) 0.8 (0.2-0.8); MONOCYTES % 10.6 % (4.4-11.3); NEUTROPHILS # (AUTO) 4.6 (2.1-6.9); NEUTROPHILS % 63.1 % (38.7-80.0); PLATELET COUNT 188 x10e3/uL (140-360); RED BLOOD COUNT 3.65 x10e6/uL (4.3-5.7); RED CELL DISTRIBUTION WIDTH 19.7 % (11.7-14.4)
[2018-11-22 06:52] LABS: CALCIUM 8.5 mg/dL (8.4-10.2); CREATININE, SERUM 2.37 mg/dL (0.72-1.25)
[2018-11-22 07:07] LABS: ALBUMIN 2.3 g/dL (3.5-5.0); ALBUMIN/GLOBULIN RATIO 0.5 (0.8-2.0); ANION GAP 15.9 mmol/L (8-16); CALCIUM 8.7 mg/dL (8.4-10.2); CREATININE, SERUM 2.37 mg/dL (0.72-1.25)
[2018-11-22 07:23] LABS: POTASSIUM 2.9 mmol/L (3.5-5.1)
[2018-11-22] MEDS: INSULIN REGULAR, HUMAN 100 UNIT/1 ML 3ML VIAL SQ SCH ×4 (07:30→21:00)
--- NOTE | 2018-11-22 07:36 | NUR ---
Notified Dr. Zambrano of low potassium level and received orders to give Kdur 40MeQ PO times one dose.
[2018-11-22] MEDS ORDERED: POTASSIUM CHLORIDE 20 MEQ TAB CR PO ONE (08:15)
[2018-11-22] MEDS: FAMOTIDINE 20 MG TAB PO SCH ×2 (09:01→16:06)
[2018-11-22] MEDS: GLIMEPIRIDE 2 MG TAB PO SCH (09:02)
[2018-11-22] MEDS: ASPIRIN 81 MG CHEW TAB PO SCH (09:02)
[2018-11-22] MEDS: NEBIVOLOL 10 MG TAB PO SCH (09:02)
[2018-11-22] MEDS: FLUOXETINE HCL 20 MG CAP PO SCH (09:06)
[2018-11-22] MEDS: TAMSULOSIN HCL 0.4 MG CAP PO SCH (09:06)
[2018-11-22] MEDS: PANTOPRAZOLE SOD 40 MG TABEC PO SCH (09:06)
[2018-11-22] MEDS: FINASTERIDE 5 MG TAB PO SCH (09:06)
--- NOTE | 2018-11-22 10:01 | NUR ---
Spoke with Dr. Hendricks and made her aware of elevated INR level of 3.55 and received orders to hold coumadin on 11/22/18 and restart coumadin 2mg 11/23/18.
--- NOTE | 2018-11-22 19:24 | NUR ---
RECEIVED PT IN BED SLEEPING .NO ACUTE DISTRESS NOTED .PT HAS TELE #5 SHOWS AFIB RT FA 20G S/L RT WITH DRESSING DUE TO BLEEDING BY COUMADIN.CALL LIGHT WITH IN REACH .CONTINUE TO MONITOR
[2018-11-22] MEDS: ATORVASTATIN 20 MG TAB PO SCH (21:00)
[2018-11-23] VITALS (7 sets, daily range): BP systolic 107–125; BP diastolic 52–75
[2018-11-23] MEDS: IPRATROPIUM BROMIDE 0.02% 2.5 ML NEB NEB SCH ×4 (00:20→19:40)
[2018-11-23] MEDS: LEVALBUTEROL HCL SOLN NEBU 1.25 MG/3 ML NEB INH SCH ×4 (00:20→19:40)
[2018-11-23] MEDS ORDERED: SODIUM CHLORIDE 0.9% 250ML 250 ML ONE (00:42)
--- NOTE | 2018-11-23 02:52 | Progress Note ---
DATE: 11/22/2018 Cardiology Progress Note SUBJECTIVE: The patient denies chest pain or shortness of breath. OBJECTIVE: VITAL SIGNS: Reviewed. GENERAL: Elderly man, in no acute distress. Awake and alert. LUNGS: Clear to auscultation bilaterally. No wheeze or crackles. CARDIOVASCULAR: Normal rate. Regular rhythm. ABDOMEN: Soft. Nontender. EXTREMITIES: 1+ pitting edema. Compression stockings in place. TELEMETRY: Atrial fibrillation. IMPRESSION: 1. Supratherapeutic INR. 2. Acute on chronic right ventricular dysfunction. 3. Acute kidney injury. RECOMMENDATIONS: The patient's creatinine has risen. Stop diuretics. Warfarin has been adjusted and INR is now supratherapeutic. Continue monitoring the patient on telemetry. Follow creatinine closely. Thank you for this consult. We will continue to follow. Randee Mendoza MD ABS/MODL /[id number]
[2018-11-23] MEDS: PIPER-TAZ 3.375 GM 50 ML IV SCH ×2 (06:00)
[2018-11-23] MEDS: CLINDAMYCIN PHOS 900MG/ 50ML 50 ML IV SCH ×2 (06:00)
[2018-11-23 06:06] LABS: INR 3.26
--- NOTE | 2018-11-23 07:00 | NUR ---
RECEIVED PATIENT RESTING IN BED. NO ACUTE DISTRESS NOTED. NO S/S OF PAIN NOTED AT THIS TIME. PATIENT IS VERY CONFUSED. CALL LIGHT WITHIN REACH. BED IN THE LOWEST POSITION.
[2018-11-23] MEDS: INSULIN REGULAR, HUMAN 100 UNIT/1 ML 3ML VIAL SQ SCH ×4 (07:30→21:00)
--- NOTE | 2018-11-23 07:31 | NUR ---
BEDSIDE REPORT GIVEN TO THE ONCOMING NURSE
--- NOTE | 2018-11-23 08:57 | Diagnostic Imaging Report ---
EXAMINATION: Head CT HISTORY: Alteration of consciousness, CHF, cutaneous abscess COMPARISON: Head CT 05/22/2018 TECHNIQUE: Multidetector axial images were obtained without contrast from the foramen magnum to the vertex . The images were reconstructed using brain and bone algorithms. Thin section brain images were reformatted into coronal and sagittal planes. Image quality: Motion/streaking artifact limits the evaluation of the skull base and posterior cranial fossa. Dose modulation, iterative reconstruction, and/or weight based adjustment of the mA/kV was utilized to reduce the radiation dose to as low as reasonably achievable. FINDINGS: Parenchyma: 1. Persistent mild white matter chronic microvascular ischemic changes. 2. No mass or hemorrhage. No CT evidence of acute territorial vascular insult. Extra-axial spaces:No abnormal density. No extra-axial fluid collections Brain volume: Normal for age. Ventricles: No hydrocephalus or displacement. Arteries: No density suggestive of thrombus. Dural sinuses: No abnormal density. Extra-axial spaces: No abnormal density. Foramen magnum: No mass, Chiari malformation, or basilar invagination. Sella: No obvious mass. Paranasal/mastoid sinuses: Imaged portions unremarkable. Skull/Scalp: No lytic or blastic lesions. No fractures. IMPRESSION: 1. No acute intracranial abnormalities. 2. Mild chronic microvascular ischemic changes, stable compared to head CT of 05/22/2018. Signed by: Dr. Mayelin Prescott M.D. on 11/23/2018 8:54 AM
[2018-11-23] MEDS: CEFAZOLIN SOD 1 GM/NS 50ML 50 ML IV SCH ×2 (09:33→22:30)
[2018-11-23] MEDS: PANTOPRAZOLE SOD 40 MG TABEC PO SCH (09:33)
[2018-11-23] MEDS: FLUOXETINE HCL 20 MG CAP PO SCH (09:33)
[2018-11-23] MEDS: TAMSULOSIN HCL 0.4 MG CAP PO SCH (09:33)
[2018-11-23] MEDS: FINASTERIDE 5 MG TAB PO SCH (09:33)
[2018-11-23] MEDS: FAMOTIDINE 20 MG TAB PO SCH ×2 (09:33→16:39)
[2018-11-23] MEDS: GLIMEPIRIDE 2 MG TAB PO SCH (09:33)
[2018-11-23] MEDS: ASPIRIN 81 MG CHEW TAB PO SCH (09:33)
[2018-11-23] MEDS: NEBIVOLOL 10 MG TAB PO SCH (11:44)
[2018-11-23] MEDS: POTASSIUM CHLORIDE 20 MEQ TAB CR PO PRN (11:44)
--- NOTE | 2018-11-23 14:10 | NUR ---
WOUND TREATMENT TO BACK WOUNDS COMPLETED AT THIS TIME. PATIENT TOLERATED IT WELL.
[2018-11-23] MEDS ORDERED: WARFARIN SOD 1 MG TAB PO SCH (17:00)
[2018-11-23] MEDS ORDERED: WARFARIN SOD 2 MG TAB PO SCH (17:00)
--- NOTE | 2018-11-23 19:26 | NUR ---
REPORT GIVEN TO ONCOMING NURSE. WALKING ROUNDS DONE. PATIENT IS RESTING IN BED. NO ACUTE DISTRESS NOTED. CALL LIGHT WITHIN REACH. BED IN THE LOWEST POSITION.
[2018-11-23] MEDS: ATORVASTATIN 20 MG TAB PO SCH (21:00)
--- NOTE | 2018-11-23 22:30 | NUR ---
PATIENT IS IN STABLE CONDITION, NO DISTRESS NOTED. NASAL CANNULA IS INTACT AND RUNNING AT 2 LITERS. RIGHT FOREARM IV IS PATENT AND FLOWING, BUT RIGHT FOREARM IS ALSO IS ALSO WRAPPED FROM SKIN TEAR AND SWELLING NOTED. BED IS LOCKED AND LOW, BED ALARM ENGAGED, BOTH SIDE RAILS ARE UP, CALL LIGHT WITHIN EASY REACH, WILL CONTINUE TO MONITOR.
--- NOTE | 2018-11-23 22:51 | Progress Note ---
DATE: 11/23/2018 Cardiology Progress Note SUBJECTIVE: The patient denies chest pain or shortness of breath. OBJECTIVE: VITAL SIGNS: Temperature 95.7 degrees, pulse 84, respiratory rate 18, blood pressure 117/67, oxygen saturation 97% on room air. GENERAL: Elderly man, in no acute distress. Awake and alert. LUNGS: Clear to auscultation bilaterally. No wheezes or crackles. CARDIOVASCULAR: Normal rate. Irregularly irregular. No murmur. ABDOMEN: Soft, nontender. EXTREMITIES: 1+ pitting edema with compression stockings in place. CARDIAC MEDICATIONS: Nebivolol 5 mg p.o. daily, aspirin 81 mg p.o. daily. LABORATORY DATA: INR 3.26. TELEMETRY: Atrial fibrillation. IMPRESSION: 1. Acute on chronic right ventricular systolic heart failure. 2. Chronic atrial fibrillation. 3. Acute on chronic kidney disease. 4. Elevated LFTs. 5. History of pulmonary embolism/deep venous thrombosis. 6. Occluded infrarenal IVC. 7. Hypertension. 8. Hyperlipidemia. 9. History of hemorrhagic cerebrovascular accident. 10. Back abscess status post I and D. RECOMMENDATIONS: Continue current cardiac medications. Once INR is therapeutic, resume warfarin at a lower dose. Monitor creatinine. Resume diuretics once creatinine improves. Continue current cardiac medications. Strict I's and O's as well as daily weights. Blood pressure is acceptable. No further cardiac evaluation is indicated at this time. Thank you for this consult. We will continue to follow. Randee Mendoza MD ABS/MODL /[id number]
[2018-11-24] VITALS (8 sets, daily range): BP systolic 117–138; BP diastolic 59–80
[2018-11-24] MEDS: IPRATROPIUM BROMIDE 0.02% 2.5 ML NEB NEB SCH ×4 (00:35→19:35)
[2018-11-24] MEDS: LEVALBUTEROL HCL SOLN NEBU 1.25 MG/3 ML NEB INH SCH ×4 (00:35→19:35)
--- NOTE | 2018-11-24 06:01 | NUR ---
CHANGED DRESSING ON PATIENT NEAR RIGHT ELBOW. SITE IS DRY AND CLEAN.
[2018-11-24 06:46] LABS: ANION GAP 14.3 mmol/L (8-16); CALCIUM 9.2 mg/dL (8.4-10.2); CREATININE, SERUM 2.5 mg/dL (0.72-1.25); POTASSIUM 3.3 mmol/L (3.5-5.1)
--- NOTE | 2018-11-24 06:50 | NUR ---
rounded with restaurant shift leader nurse. patient aware of change and in no distress. call esparza within reach and bed in lowest position.
[2018-11-24] MEDS: INSULIN REGULAR, HUMAN 100 UNIT/1 ML 3ML VIAL SQ SCH ×4 (07:30→21:00)
[2018-11-24] MEDS: FAMOTIDINE 20 MG TAB PO SCH ×2 (08:30→17:30)
[2018-11-24] MEDS: FINASTERIDE 5 MG TAB PO SCH (08:30)
[2018-11-24] MEDS: POTASSIUM CHLORIDE 20 MEQ TAB CR PO PRN (08:30)
[2018-11-24] MEDS: NEBIVOLOL 10 MG TAB PO SCH (08:30)
[2018-11-24] MEDS: GLIMEPIRIDE 2 MG TAB PO SCH (08:30)
[2018-11-24] MEDS: PANTOPRAZOLE SOD 40 MG TABEC PO SCH (08:30)
[2018-11-24] MEDS: CEFAZOLIN SOD 1 GM/NS 50ML 50 ML IV SCH ×2 (08:30→21:00)
[2018-11-24] MEDS: ASPIRIN 81 MG CHEW TAB PO SCH (08:30)
[2018-11-24] MEDS: FLUOXETINE HCL 20 MG CAP PO SCH (08:30)
[2018-11-24] MEDS: TAMSULOSIN HCL 0.4 MG CAP PO SCH (08:30)
--- NOTE | 2018-11-24 10:00 | NUR ---
dressings on back changed at this time, small amounts of drainage noted. new dressing in place, c/d/i. patient in no distress at this time, call esparza within reach and bed in lowest position.
[2018-11-24] MEDS: POTASSIUM CHLORIDE 20 MEQ TAB CR PO SCH (15:55)
--- NOTE | 2018-11-24 18:30 | Progress Note ---
DATE: Cardiology Progress Note SUBJECTIVE: Mr. Smiley endorses some shortness of breath when he is exerting, otherwise at rest he feels well. Denies any chest pain. OBJECTIVE: VITAL SIGNS: Temperature 96.5, pulse 90, respiratory rate 19, blood pressure 122/80, and oxygen saturation 100% on 2 L nasal cannula. GENERAL: Alert and oriented x3. Resting comfortably in bed, does not appear to be in any acute distress. NECK: Mild JVD noted. LUNGS: Diminished breath sounds posterior, anterior lower lobes, otherwise clear to auscultation. No wheezing. No rhonchi or crackles. CARDIOVASCULAR: Irregular rate and rhythm. No murmurs, no gallops. ABDOMEN: Soft, nontender. LOWER EXTREMITIES: 1+ pitting edema with compression stocking noted to be in place. CARDIOVASCULAR MEDICATIONS: Bystolic 5 mg p.o. daily, aspirin 81 mg p.o., atorvastatin 20 mg p.o. at bedtime. LABORATORY DATA: Sodium 142, potassium 3.3, BUN 28, creatinine 2.50, GFR 25, calcium 9.2. TELEMETRY: Atrial flutter. IMPRESSION: 1. Bnfer-fm-kizzxvy right ventricular systolic heart failure. 2. Chronic atrial fibrillation, atrial flutter. 3. Ncvgi-pi-flqjkyv kidney disease. 4. Elevated LFTs. 5. History of pulmonary emboli and deep venous thrombosis. 6. Occluded infrarenal IVC filter. 7. Hypertension. 8. Hyperlipidemia. 9. History of hemorrhagic Cerebrovascular accident. 10. Back abscess, status post I and D. RECOMMENDATIONS: Continue the above-listed medication. Continue to monitor PT/INR closely. One INR is therapeutic. We will resume warfarin. INR yesterday was 3.26. Maintain the patient on telemetry. We will resume diuretic once the patient's kidney function has also improved. Strict I's and Os as well as daily weights at this time. Monitor blood pressure closely. No further cardiac workup is indicated at this time. Dictated by Cass Hong NP MD BHAVNA Kang/SOBEIDA /[id number] cc: Cass Hong, TYRE FITTER
--- NOTE | 2018-11-24 18:50 | NUR ---
rounded with communication arts lecturer nurse, patient aware of change and in no distress. call esparza within reach and bed in lowest position.
[2018-11-24] MEDS: ATORVASTATIN 20 MG TAB PO SCH (21:00)
--- NOTE | 2018-11-24 21:00 | NUR ---
PATIENT IS IN STABLE CONDITION, NO DISTRESS NOTED. NASAL CANNULA IS INTACT AND RUNNING AT 2 LITERS, AND NO COMPLAINTS OF PAIN AT THIS TIME. RIGHT FOREARM IV IS PATENT AND FLOWING, BUT RIGHT FOREARM IS ALSO IS ALSO WRAPPED FROM SKIN TEAR. BED IS LOCKED AND LOW, BED ALARM ENGAGED, BOTH SIDE RAILS ARE UP, CALL LIGHT WITHIN EASY REACH, WILL CONTINUE TO MONITOR.
[2018-11-25] VITALS (8 sets, daily range): BP systolic 103–148; BP diastolic 51–75
[2018-11-25] MEDS ORDERED: POTASSIUM CHLORIDE 10MEQ EA PO ONE (06:30)
--- NOTE | 2018-11-25 06:45 | NUR ---
rounded with film processing shift supervisor nurse, patient aware of change and in no distress. call esparza within reach and bed in lowest position.
[2018-11-25] MEDS: INSULIN REGULAR, HUMAN 100 UNIT/1 ML 3ML VIAL SQ SCH ×4 (07:20→21:10)
[2018-11-25] MEDS: LEVALBUTEROL HCL SOLN NEBU 1.25 MG/3 ML NEB INH SCH ×3 (07:27→19:45)
[2018-11-25] MEDS: IPRATROPIUM BROMIDE 0.02% 2.5 ML NEB NEB SCH ×3 (07:28→19:45)
[2018-11-25 07:35] LABS: BASOPHILS # (AUTO) 0.1 (0.0-0.1); BASOPHILS % 0.6 % (0.0-1.0); EOSINOPHILS # (AUTO) 0.3 (0.0-0.4); EOSINOPHILS % 3.2 % (0.0-6.0); HEMATOCRIT 30.1 % (38.2-49.6); HEMOGLOBIN 8.7 g/dL (14.0-18.0); LYMPHOCYTES # (AUTO) 1.3 (1.0-3.2); LYMPHOCYTES % 16.8 % (18.0-39.1); MEAN CORPUSCULAR HEMOGLOBIN 23.1 pg (28-32); MEAN CORPUSCULAR HGB CONC 28.9 g/dL (31-35); MEAN CORPUSCULAR VOLUME 79.8 fL (81-99); MONOCYTES # (AUTO) 0.7 (0.2-0.8); MONOCYTES % 9.2 % (4.4-11.3); NEUTROPHILS # (AUTO) 5.5 (2.1-6.9); NEUTROPHILS % 69.6 % (38.7-80.0); PLATELET COUNT 176 x10e3/uL (140-360); RED BLOOD COUNT 3.77 x10e6/uL (4.3-5.7); RED CELL DISTRIBUTION WIDTH 20.1 % (11.7-14.4)
[2018-11-25 07:39] LABS: INR 2.01; PROTHROMBIN TIME 23.4 seconds (11.9-14.5)
[2018-11-25 07:47] LABS: ALBUMIN 2.2 g/dL (3.5-5.0); ALBUMIN/GLOBULIN RATIO 0.4 (0.8-2.0); ANION GAP 13.4 mmol/L (8-16); CALCIUM 8.8 mg/dL (8.4-10.2); CREATININE, SERUM 2.18 mg/dL (0.72-1.25); MAGNESIUM 1.9 MG/DL (1.3-2.1); POTASSIUM 3.4 mmol/L (3.5-5.1)
[2018-11-25] MEDS: FINASTERIDE 5 MG TAB PO SCH (08:00)
[2018-11-25] MEDS: FAMOTIDINE 20 MG TAB PO SCH ×2 (08:00→16:30)
[2018-11-25] MEDS: FLUOXETINE HCL 20 MG CAP PO SCH (08:00)
[2018-11-25] MEDS: ASPIRIN 81 MG CHEW TAB PO SCH (08:00)
[2018-11-25] MEDS: PANTOPRAZOLE SOD 40 MG TABEC PO SCH (08:00)
[2018-11-25] MEDS: GLIMEPIRIDE 2 MG TAB PO SCH (08:00)
[2018-11-25] MEDS: TAMSULOSIN HCL 0.4 MG CAP PO SCH (08:00)
[2018-11-25] MEDS: POTASSIUM CHLORIDE 20 MEQ TAB CR PO SCH (08:00)
[2018-11-25] MEDS: NEBIVOLOL 10 MG TAB PO SCH (08:00)
[2018-11-25] MEDS: CEFAZOLIN SOD 1 GM/NS 50ML 50 ML IV SCH ×2 (08:40→21:10)
--- NOTE | 2018-11-25 13:20 | Progress Note ---
DATE: Cardiology Progress Note SUBJECTIVE: The patient denies any chest pain. He does endorse some shortness of breath and also fatigue. OBJECTIVE: VITAL SIGNS: Temperature 96.6, pulse 81, respiratory rate 20, blood pressure 121/75, oxygen saturation 98% on 3 L nasal cannula. GENERAL: Alert and oriented x3. Resting comfortably in his bed, does not appear to be in any acute distress. NECK: Mild JVD noted. LUNGS: Diminished breath sounds anterior, posterior lower lobes otherwise clear to auscultation. No wheezing. No rhonchi or crackles. CARDIOVASCULAR: Irregular rate and rhythm. No murmurs, no gallops. ABDOMEN: Soft, nontender. EXTREMITIES: Lower extremities, 1+ nonpitting edema. CARDIOVASCULAR MEDICATIONS: Bystolic 5 mg p.o. daily, aspirin 81 mg p.o. daily, atorvastatin 20 mg p.o. at bedtime. LABORATORY DATA: WBC 7.89, hemoglobin 8.7, hematocrit 30.1, platelets 176. Sodium 142, potassium 3.4, BUN 27, creatinine 2.18, AST 24, ALT 30, INR 2.01, PTT 23.4. TELEMETRY: Atrial fibrillation. IMPRESSION: 1. Acute on chronic systolic heart failure. 2. Chronic atrial fibrillation, atrial flutter. 3. Acute on chronic kidney disease. 4. Elevated liver function tests. 5. History of pulmonary embolism and also deep vein thrombosis. 6. Occluded infrarenal IVC filter. 7. Hypertension. 8. Hyperlipidemia. 9. History of hemorrhagic cerebrovascular accident. 10. Back abscess, status post I and D. RECOMMENDATIONS: Continue with the above cardiac medication. Continue to monitor PT/INR closely. Once his INR is less than 2, we will go ahead and resume warfarin. Continue to monitor for one more day. Maintain the patient on telemetry. We will also resume patient's diuretics once his kidney function has recovered. For now, we will continue to monitor. Strict I's and O's and daily weights at this time. Monitor his blood pressure closely. No further cardiac workup is indicated at this time. Dictated by Cass Hong NP MD BHAVNA Kang/SOBEIDA /[id number]
--- NOTE | 2018-11-25 17:20 | Progress Note ---
DATE: SUBJECTIVE: The patient did well overnight. No new complaints. OBJECTIVE: VITAL SIGNS: Temperature 96.1, pulse 80, blood pressure 137/73, sats 99%. GENERAL: No apparent distress, lying in bed. NECK: Supple. CARDIOVASCULAR: Regular rate and rhythm. LUNGS: Clear to auscultation bilaterally. ABDOMEN: Good bowel sounds. Soft, nontender. EXTREMITIES: No clubbing, cyanosis. NEUROLOGIC: Nonfocal. ASSESSMENT/PLAN: 1. Cellulitis of the back. Continue with his antibiotics. 2. Diabetes. Continue with current care monitoring. 3. Chronic kidney disease stage 3. Continue to monitor. 4. History of DVT, INR. 5. Anemia. Continue to monitor CBC. 6. Hypertension. Continue with current care. 7. Hyperlipidemia. Continue with his medication. 8. Benign prostatic hypertrophy. Continue with his medication. 9. Obesity. Continue with diet. Please see hospital chart for full details. MD NATY Mcdonald/SOBEIDA /[id number]
--- NOTE | 2018-11-25 18:55 | NUR ---
rounded with awake overnight monitor nurse, patient aware of change and in no distress. call esparza within reach and bed in lowest position.
[2018-11-25] MEDS: ATORVASTATIN 20 MG TAB PO SCH (21:10)
--- NOTE | 2018-11-25 21:10 | NUR ---
PATIENT IS IN STABLE CONDITION, NO RESPIRATORY DISTRESS NOTED. NASAL CANNULA IS INTACT AND RUNNING AT 2 LITERS, WITH UNLABORED BREATHING, AND NO COMPLAINTS OF PAIN AT THIS TIME. RIGHT FOREARM IV IS PATENT AND FLOWING, BUT RIGHT FOREARM IS ALSO IS ALSO WRAPPED FROM SKIN TEAR. BED IS LOCKED AND LOW, BED ALARM ENGAGED, BOTH SIDE RAILS ARE UP, CALL LIGHT WITHIN EASY REACH, WILL CONTINUE TO MONITOR.
[2018-11-26] VITALS (7 sets, daily range): BP systolic 120–135; BP diastolic 60–89
[2018-11-26] MEDS: IPRATROPIUM BROMIDE 0.02% 2.5 ML NEB NEB SCH ×4 (01:00→19:32)
[2018-11-26] MEDS: LEVALBUTEROL HCL SOLN NEBU 1.25 MG/3 ML NEB INH SCH ×4 (01:00→19:32)
[2018-11-26] MEDS: INSULIN REGULAR, HUMAN 100 UNIT/1 ML 3ML VIAL SQ SCH ×4 (07:30→21:00)
[2018-11-26] MEDS: FAMOTIDINE 20 MG TAB PO SCH ×2 (08:19→17:50)
[2018-11-26] MEDS: GLIMEPIRIDE 2 MG TAB PO SCH (08:19)
[2018-11-26] MEDS: ASPIRIN 81 MG CHEW TAB PO SCH (08:19)
[2018-11-26] MEDS: FINASTERIDE 5 MG TAB PO SCH (08:20)
[2018-11-26] MEDS: POTASSIUM CHLORIDE 20 MEQ TAB CR PO SCH (08:20)
[2018-11-26] MEDS: TAMSULOSIN HCL 0.4 MG CAP PO SCH (08:20)
[2018-11-26] MEDS: NEBIVOLOL 10 MG TAB PO SCH (08:20)
[2018-11-26] MEDS: FLUOXETINE HCL 20 MG CAP PO SCH (08:21)
[2018-11-26] MEDS: PANTOPRAZOLE SOD 40 MG TABEC PO SCH (08:21)
[2018-11-26] MEDS: CEFAZOLIN SOD 1 GM/NS 50ML 50 ML IV SCH ×2 (08:21→21:10)
[2018-11-26 08:41] LABS: INR 1.4; PROTHROMBIN TIME 17.7 seconds (11.9-14.5)
--- NOTE | 2018-11-26 16:00 | NUR ---
Paged cardiology to see if warfarin can be resumed. Waiting for call back.
--- NOTE | 2018-11-26 18:04 | Progress Note ---
DATE: 11/26/2018 Cardiology Progress Note SUBJECTIVE: No major events overnight. Continues to complain about shortness of breath, especially when walking. OBJECTIVE: VITAL SIGNS: Temperature afebrile, pulse 75, respiratory rate 16, blood pressure 125/66 saturating 96% on 3 L nasal cannula. GENERAL: Elderly man in no acute distress. CARDIOVASCULAR: Regular rate and rhythm. No murmurs, rubs, or gallops. LUNGS: Diminished breath sounds left lower lobe, otherwise clear to auscultation. ABDOMEN: Soft, nontender, nondistended. NEURO AND PSYCH: Alert and oriented to person, place and time. Normal affect. INPATIENT MEDICATIONS: Reviewed. LABORATORY DATA: Reviewed. TELEMETRY DATA: Reviewed, shows rate controlled atrial fibrillation. ASSESSMENT: 1. Acute on chronic systolic heart failure. 2. Chronic atrial fibrillation. 3. Acute on chronic kidney disease. 4. Elevated LFTs. 5. History of pulmonary embolism and also deep vein thrombosis. 6. Occluded infrarenal IVC filter. 7. Hypertension. 8. Hyperlipidemia. 9. History of hemorrhagic cerebrovascular accident. 10. Back abscess, status post incision and drainage. RECOMMENDATIONS: The patient is stable from cardiovascular standpoint, still has shortness of breath on exertion, which is likely multifactorial, appears euvolemic on exam. INR is now subtherapeutic. Recommend resuming his Coumadin once no more procedures are planned. Antibiotics per primary team. Thank you for this consult. We will continue to follow. MD TOMASZ Kurtz/SOBEIDA /[id number]
--- NOTE | 2018-11-26 19:10 | NUR ---
Patient visited in room during nursing rounds. Patient alert and oriented x2-3. No distress or discomfort noted. Multiple bruises noted on both arms. Pt wearing compression socks on both legs. On 2L NC. Pt denies any discomfort or pain at this time. Call esparza within reach. Will monitor closely.
[2018-11-26] MEDS: ATORVASTATIN 20 MG TAB PO SCH (21:00)
[2018-11-26] MEDS: WARFARIN SOD 2 MG TAB PO SCH (21:00)
[2018-11-27] VITALS (7 sets, daily range): BP systolic 110–130; BP diastolic 58–95
[2018-11-27] MEDS: LEVALBUTEROL HCL SOLN NEBU 1.25 MG/3 ML NEB INH SCH ×4 (01:12→20:00)
[2018-11-27] MEDS: IPRATROPIUM BROMIDE 0.02% 2.5 ML NEB NEB SCH ×4 (01:12→20:00)
[2018-11-27 05:43] LABS: INR 1.34; PROTHROMBIN TIME 17.2 seconds (11.9-14.5)
[2018-11-27] MEDS: FAMOTIDINE 20 MG TAB PO SCH ×2 (07:30→16:30)
[2018-11-27] MEDS: INSULIN REGULAR, HUMAN 100 UNIT/1 ML 3ML VIAL SQ SCH ×4 (07:30→21:00)
[2018-11-27] MEDS: FINASTERIDE 5 MG TAB PO SCH (09:00)
[2018-11-27] MEDS: FLUOXETINE HCL 20 MG CAP PO SCH (09:00)
[2018-11-27] MEDS: GLIMEPIRIDE 2 MG TAB PO SCH (09:00)
[2018-11-27] MEDS: PANTOPRAZOLE SOD 40 MG TABEC PO SCH (09:00)
[2018-11-27] MEDS: TAMSULOSIN HCL 0.4 MG CAP PO SCH (09:00)
[2018-11-27] MEDS: NEBIVOLOL 10 MG TAB PO SCH (09:00)
[2018-11-27] MEDS: POTASSIUM CHLORIDE 20 MEQ TAB CR PO SCH (09:00)
[2018-11-27] MEDS: ASPIRIN 81 MG CHEW TAB PO SCH (09:00)
[2018-11-27] MEDS: CEFAZOLIN SOD 1 GM/NS 50ML 50 ML IV SCH ×2 (09:30→21:50)
[2018-11-27] MEDS ORDERED: WARFARIN SOD 1 MG TAB PO ONE (15:00)
[2018-11-27] MEDS: WARFARIN SOD 2 MG TAB PO SCH (17:00)
--- NOTE | 2018-11-27 17:00 | Progress Note ---
DATE: 11/27/2018 Cardiology Progress Note SUBJECTIVE: No major events overnight. OBJECTIVE: VITAL SIGNS: Temperature afebrile, pulse 88, respiratory rate 19, blood pressure 123/56, and saturating 99% on 2 L nasal cannula. GENERAL: Elderly man in no acute distress. CARDIOVASCULAR: Regular rate and rhythm. No murmurs, rubs, or gallops. LUNGS: Diminished breath sounds left lower lobe, otherwise clear to auscultation. ABDOMEN: Soft, nontender, and distended. NEURO AND PSYCH: Alert and oriented to person, place, and time. Normal affect. INPATIENT MEDICATIONS: Reviewed. LABORATORY DATA: Reviewed. TELEMETRY DATA: Reviewed. Shows rate controlled atrial fibrillation. ASSESSMENT AND PLAN: 1. Acute on chronic systolic heart failure. 2. Chronic atrial fibrillation. 3. Acute on chronic kidney disease. 4. Elevated LFTs. 5. History of pulmonary embolism and deep vein thrombosis. 6. Occluded infrarenal IVC filter. 7. Hypertension. 8. Hyperlipidemia. 9. History of hemorrhagic cerebrovascular accident. 10. Back abscess status post incision and drainage. RECOMMENDATIONS: The patient is doing well from cardiovascular standpoint. Reports some subjective shortness of breath with exertion, which is chronic. Vital signs remained stable. Please resume warfarin as INR is now below 2. We will continue to follow. MD TOMASZ Kurtz/SOBEIDA /[id number]
--- NOTE | 2018-11-27 18:42 | NUR ---
PT RESTING ON BED BED SIDE REPORT GIVEN TO ONCOMING NURSE
--- NOTE | 2018-11-27 21:40 | NUR ---
Patient attempted to get up and out of bed. Pt noticeably confused but easily re-oriented to surroundings. Due to intermittent confusion, patient was transferred to 285 to be closer to nurses' station and for safety reasons.
[2018-11-27] MEDS: ATORVASTATIN 20 MG TAB PO SCH (21:50)
[2018-11-28] VITALS: BP 132/60
[2018-11-28] MEDS: LEVALBUTEROL HCL SOLN NEBU 1.25 MG/3 ML NEB INH SCH ×2 (00:30→06:45)
[2018-11-28] MEDS: IPRATROPIUM BROMIDE 0.02% 2.5 ML NEB NEB SCH ×2 (00:30→06:45)
[2018-11-28 04:00] VITALS: BP 120/68
--- NOTE | 2018-11-28 04:50 | NUR ---
Dr. Zambrano came to the unit and saw pt. aware of patient condition and that patient was transferred from Rm 291 to Rm 285 for safety reasons.
[2018-11-28] MEDS ORDERED: SALINE 0.65% NAS SOLN 1 SPRAY BTL PRN (05:00)
[2018-11-28 06:12] LABS: INR 1.34; PROTHROMBIN TIME 17.2 seconds (11.9-14.5)
[2018-11-28 07:15] VITALS: BP 135/84
--- NOTE | 2018-11-28 07:15 | NUR ---
PATIENT IN BED RESTING WITH HEAD OF BED ELEVATED. O2 IN PLACE VIA N/C, BRUISES TO BODY, SKIN TEAR TO RIGHT ELBOW, COMPRESSION STOCKING IN PLACE. REPOSITIONED IN BED, BY TWO STAFFS, REDNESS TO BUTTOCKS. BED IN LOWER POSITION AND LOCKED. CALL LIGHT AT REACH. BED ALARM ACTIVATED.
[2018-11-28] MEDS: FAMOTIDINE 20 MG TAB PO SCH (07:30)
[2018-11-28] MEDS: INSULIN REGULAR, HUMAN 100 UNIT/1 ML 3ML VIAL SQ SCH (07:30)
[2018-11-28 08:00] VITALS: BP 135/84
[2018-11-28] MEDS ORDERED: KEFLEX500 MG PO (09:27)
--- NOTE | 2018-11-28 09:55 | NUR ---
PATIENT DISCHARGED HOME. DISCHARGE INSTRUCTIONS, PRESCRIPTION, AND FOLLOW UP GIVEN TO PATIENT AND PLASTICS TOOLING ENGINEER, THEY VERBALIZED UNDERSTANDING. IV TO RIGHT AC REMOVED WITH TIP INTACT. ALL PERSONAL ITEMS TAKEN WITH PATIENT. LEFT UNIT PER WHEEL CHAIR TO FRONT LOBBY IN STABLE CONDITION.
== END 2018-11-28 09:56 | disposition home or self-care (01) | DRG 987 ==
LOC: ER 11:24 → ERHOLD 11:46 → MED/SURG3 18:16
PROVIDERS: ADMIT Internal Medicine; ATTEND Internal Medicine
PROC: 0J970ZZ Drainage of Back Subcutaneous Tissue and Fascia, Open Approach (ICD-10-PCS; principal; 2018-11-16)
DX: I13.0 Hypertensive heart and chronic kidney disease with heart failure and stage 1 through stage 4 chronic kidney disease, or unspecified chronic kidney disease (principal); I50.23 Acute on chronic systolic (congestive) heart failure; I82.221 Chronic embolism and thrombosis of inferior vena cava; L02.212 Cutaneous abscess of back [any part, except buttock and flank]; N17.9 Acute kidney failure, unspecified; Z86.718 Personal history of other venous thrombosis and embolism; Z79.01 Long term (current) use of anticoagulants; N18.9 Chronic kidney disease, unspecified; E11.22 Type 2 diabetes mellitus with diabetic chronic kidney disease; Z79.4 Long term (current) use of insulin; Z86.73 Personal history of transient ischemic attack (TIA), and cerebral infarction without residual deficits; Z86.711 Personal history of pulmonary embolism; N18.3 Chronic kidney disease, stage 3 (moderate); R59.1 Generalized enlarged lymph nodes; N40.0 Benign prostatic hyperplasia without lower urinary tract symptoms; E78.00 Pure hypercholesterolemia, unspecified
CPT/HCPCS: 36415; 70450; 71045; 71250; 74470; 76604; 76700; 80048; 80053; 80076; 81001; 82140; 82550; 82553; 82948; 83605; 83690; 83735; 83880; 84132; 84443; 84484; 85025; 85610; 85730; 87040; 87071; 87205; 93005; 94640; 99285; J0690; J1817; J1940; J2405; J2543; J3370; J7030; J7050

== ENCOUNTER 2019-05-10 09:12 | Inpatient (IN) | payer MEDICARE, OTHER ==
[~2019-05-10] VITALS: Ht 172.7 cm; Wt 91.6 kg
[~2019-05-10 09:12] MED LIST changes: +KEFLEX500 MG PO
[2019-05-10] MEDS ORDERED: ALBUTEROL SULF 0.083% NEB SOLN 3 ML NEB NEB STA (09:44)
[2019-05-10] MEDS ORDERED: METHYLPREDNISOLONE SOD SUCC 125 MG/2ML VIAL IV ONE (09:45)
[2019-05-10] MEDS ORDERED: IPRATROPIUM BROMIDE 0.02% 2.5 ML NEB NEB ONE (09:45)
[2019-05-10 09:50] LABS: BASOPHILS % 0.4 % (0.0-1.0); EOSINOPHILS # (AUTO) 0.4 (0.0-0.4); EOSINOPHILS % 5.1 % (0.0-6.0); HEMATOCRIT 34.6 % (38.2-49.6); LYMPHOCYTES # (AUTO) 2.4 (1.0-3.2); LYMPHOCYTES % 30.4 % (18.0-39.1); MEAN CORPUSCULAR HEMOGLOBIN 22.6 pg (28-32); MEAN CORPUSCULAR HGB CONC 28.9 g/dL (31-35); MEAN CORPUSCULAR VOLUME 78.3 fL (81-99); MONOCYTES # (AUTO) 0.5 (0.2-0.8); MONOCYTES % 6.3 % (4.4-11.3); NEUTROPHILS # (AUTO) 4.5 (2.1-6.9); NEUTROPHILS % 56.9 % (38.7-80.0); PLATELET COUNT 248 x10e3/uL (140-360); RED BLOOD COUNT 4.42 x10e6/uL (4.3-5.7); RED CELL DISTRIBUTION WIDTH 22.3 % (11.7-14.4)
[2019-05-10 10:01] LABS: INR 3.01; PARTIAL THROMBOPLASTIN TIME 55.2 seconds (23.8-35.5); PROTHROMBIN TIME 33.6 seconds (11.9-14.5)
--- NOTE | 2019-05-10 10:07 | Diagnostic Imaging Report ---
Examination: Single AP view of the chest. COMPARISON: November 13, 2018 INDICATION: Cough, shortness of breath DISCUSSION: Lines/tubes: None. Lungs: New airspace opacities in the right lower lung. Chronic consolidation in the left lower lung with volume loss and loculated effusion. Heart and mediastinum: The heart and the mediastinum are unremarkable. Bones and soft tissues: No acute bony abnormalities. IMPRESSION: 1. Chronic left lower lung consolidation and effusion. 2. New airspace opacities in the right lower lung may reflect pneumonia Signed by: Dr. Sam Solares M.D. on 05/10/2019 10:04 AM
[2019-05-10 10:12] LABS: ALBUMIN 2.8 g/dL (3.5-5.0); ALBUMIN/GLOBULIN RATIO 0.4 (0.8-2.0); ANION GAP 14.1 mmol/L (8-16); CALCIUM 9.2 mg/dL (8.4-10.2); CREATININE, SERUM 1.61 mg/dL (0.72-1.25); MAGNESIUM 2.2 MG/DL (1.3-2.1); POTASSIUM 4.1 mmol/L (3.5-5.1)
[2019-05-10 10:17] LABS: B-TYPE NATRIURETIC PEPTIDE2 288.7 pg/mL (0-100)
[2019-05-10] MEDS: CEFEPIME 1GM/NS 0.9% 50 ML 50 ML IV SCH ×2 (10:20→22:03)
[2019-05-10 10:25] LABS: INFLUENZAE A&B ANTIGEN (RAPID) NEGATIVE (NEGATIVE); STREPTOCOCCUS GRP A ANTIGEN NEGATIVE (NEGATIVE)
[2019-05-10] MEDS: AZITHROMYCIN 500MG/NS 250 ML 250 ML IV SCH (10:47)
[2019-05-10] MEDS: ALBUTEROL SULF 0.083% NEB SOLN 3 ML NEB NEB SCH ×3 (11:00→20:15)
[2019-05-10] MEDS: IPRATROPIUM BROMIDE 0.02% 2.5 ML NEB NEB SCH ×3 (11:00→20:15)
[2019-05-10] MEDS: ONDANSETRON HCL INJ 2MG/ML 2ML 2 MG/ML VIAL IV PRN (14:00)
[2019-05-10] MEDS: MORPHINE SULFATE 2 MG/ML SYR 1ML IV PRN (14:04)
--- NOTE | 2019-05-10 14:04 | NUR ---
incontinence care provided. Educated patient agin to notify me when he could provide a urine sample. Patient refused straight catheter in order to obtain urine specimen.
--- NOTE | 2019-05-10 14:55 | NUR ---
RCD PT FROM ER BY BED PT IS ALERT AND ORIENTED VITALS CHECKED PT RESTING ON BED VITALS CHECKED ADMISSION ASSESSMENT AND HISTORY DONE ,IV PATENT BY SALINE FLUSH INSTRUCTED THE PT REGARDING HOSPITAL POLICY AND ROUTINE BED LOW AND LOCKED CALL LIGHT IN REACH
[2019-05-10 15:00] VITALS: BP 109/61
[2019-05-10 15:24] VITALS: BP 109/61
[2019-05-10 15:36] VITALS: BP 109/61
--- NOTE | 2019-05-10 16:10 | NUR ---
PAGED DR EGAN AND NOTIFIED THE BLOOD SUGAR LEVEL GOT NEW ORDERS
[2019-05-10] MEDS ORDERED: DEXTROSE 50% SYRINGE 50 ML IV PRN (16:30)
[2019-05-10] MEDS: INSULIN LISPRO 100 UNIT/1 ML 3ML VIAL SQ SCH ×2 (16:30→20:22)
--- NOTE | 2019-05-10 19:10 | NUR ---
PT RESTING ON BED BED SIDE REPORT GIVEN TO ONCOMING NURSE
--- NOTE | 2019-05-10 19:21 | NUR ---
Received bedside report from day nurse. Patient resting in bed, no s/s of distress at this time. All safety measures in place. Family at bedside. Will continue to monitor.
[2019-05-10 19:56] LABS: CREATINE KINASE MB 2.9 ng/mL (0-5.0)
[2019-05-10] MEDS: FAMOTIDINE 20 MG/2 ML VIAL IV SCH (20:22)
[2019-05-10 20:25] VITALS: BP 107/66
[2019-05-10 21:15] VITALS: BP 107/66
[2019-05-10] MEDS ORDERED: SODIUM CHLORIDE 0.9% 250ML 250 ML ONE (22:01)
[2019-05-11] VITALS (8 sets, daily range): BP systolic 113–128; BP diastolic 57–82
[2019-05-11] MEDS: ALBUTEROL SULF 0.083% NEB SOLN 3 ML NEB NEB SCH ×8 (03:00→22:10)
[2019-05-11] MEDS: IPRATROPIUM BROMIDE 0.02% 2.5 ML NEB NEB SCH ×8 (03:00→22:10)
[2019-05-11 03:16] LABS: CREATINE KINASE MB 2.4 ng/mL (0-5.0)
[2019-05-11 05:58] LABS: BASOPHILS % 0.1 % (0.0-1.0); HEMATOCRIT 32.7 % (38.2-49.6); LYMPHOCYTES # (AUTO) 1.1 (1.0-3.2); LYMPHOCYTES % 13.5 % (18.0-39.1); MEAN CORPUSCULAR HGB CONC 27.5 g/dL (31-35); MEAN CORPUSCULAR VOLUME 79.8 fL (81-99); MONOCYTES # (AUTO) 0.5 (0.2-0.8); MONOCYTES % 6.8 % (4.4-11.3); NEUTROPHILS # (AUTO) 6.2 (2.1-6.9); NEUTROPHILS % 78.6 % (38.7-80.0); PLATELET COUNT 239 x10e3/uL (140-360); RED CELL DISTRIBUTION WIDTH 22.4 % (11.7-14.4)
[2019-05-11] MEDS ORDERED: TRAMADOL HCL 50 MG TAB PO PRN (06:00)
[2019-05-11 06:28] LABS: ALBUMIN 2.7 g/dL (3.5-5.0); ALBUMIN/GLOBULIN RATIO 0.4 (0.8-2.0); ANION GAP 12.6 mmol/L (8-16); CALCIUM 9.1 mg/dL (8.4-10.2); CREATININE, SERUM 1.53 mg/dL (0.72-1.25); POTASSIUM 4.6 mmol/L (3.5-5.1)
--- NOTE | 2019-05-11 06:59 | NUR ---
Bedside report given to day nurse. Patient resting in bed, no s/s of distress at this time. All safety measures in place.
--- NOTE | 2019-05-11 07:00 | NUR ---
RCD PT VAT BED PT IS ALERT AND ORIENTED RESTING ON BED ,IV PATENT BY SALINE FLUSH BED LOW AND LOCKED CALL LIGHT IN REACH
[2019-05-11] MEDS: INSULIN LISPRO 100 UNIT/1 ML 3ML VIAL SQ SCH ×4 (07:30→22:11)
[2019-05-11 07:31] LABS: ANISOCYTOSIS SLIGHT; HYPOCHROMASIA SLIGHT; LYMPHOCYTES % (MANUAL) 20 % (19-48); MICROCYTOSIS SLIGHT; MONOCYTES % (MANUAL) 5 % (3.4-9.0); NEUTROPHILS % (MANUAL) 75 % (40-74); NUCLEATED RED BLOOD CELLS 1; PLATELET ESTIMATE ADEQUATE; PLATELET MORPHOLOGY COMMENT NORMAL; RBC MORPHOLOGY COMMENT ABNORMAL
[2019-05-11] MEDS: ASPIRIN 81 MG CHEW TAB PO SCH (09:00)
[2019-05-11] MEDS: WARFARIN SOD 3 MG TAB PO SCH (09:00)
[2019-05-11] MEDS: FAMOTIDINE 20 MG/2 ML VIAL IV SCH ×2 (09:00→22:05)
[2019-05-11] MEDS: NEBIVOLOL 10 MG TAB PO SCH (09:00)
[2019-05-11] MEDS: FINASTERIDE 5 MG TAB PO SCH (09:00)
[2019-05-11] MEDS: FLUOXETINE HCL 20 MG CAP PO SCH (09:00)
[2019-05-11] MEDS: TAMSULOSIN HCL 0.4 MG CAP PO SCH (09:00)
[2019-05-11] MEDS: FUROSEMIDE INJ 10 MG/ML 2 ML VIAL IV SCH ×2 (09:00→18:03)
[2019-05-11] MEDS: PANTOPRAZOLE SOD 40 MG TABEC PO SCH (09:00)
[2019-05-11] MEDS: GLIMEPIRIDE 2 MG TAB PO SCH (09:00)
[2019-05-11] MEDS: CEFEPIME 1GM/NS 0.9% 50 ML 50 ML IV SCH ×2 (10:00→23:07)
[2019-05-11] MEDS: AZITHROMYCIN 500MG/NS 250 ML 250 ML IV SCH (10:28)
--- NOTE | 2019-05-11 13:17 | NUR ---
REPORT GIVEN TO TICO KATHLEEN
--- NOTE | 2019-05-11 13:40 | NUR ---
Received patient transfer from room 203 to room 101. Family member at bedside. 02 at 4L NC in placed. Respiration even and unlabored without SOB.
[2019-05-11] MEDS: ONDANSETRON HCL INJ 2MG/ML 2ML 2 MG/ML VIAL IV PRN (16:10)
[2019-05-11] MEDS: MORPHINE SULFATE 2 MG/ML SYR 1ML IV PRN (16:10)
--- NOTE | 2019-05-11 19:00 | NUR ---
Report given to shift supervisor melting. Respiration even and unlabored without SOB. Call light in reach.
[2019-05-11 19:07] LABS: CLARITY,URINE CLEAR (CLEAR); COLOR,URINE YELLOW (YELLOW)
[2019-05-11 19:08] LABS: BILIRUBIN,URINE NEGATIVE (NEGATIVE); KETONES,URINE NEGATIVE (NEGATIVE); LEUKOCYTE ESTERASE ,URINE NEGATIVE (NEGATIVE); NITRITE,URINE NEGATIVE (NEGATIVE); PROTEIN,URINE DIPSTICK NEGATIVE (NEGATIVE); URINE UROBILINOGEN 0.2 mg/dL (0.2 - 1)
[2019-05-11 19:10] LABS: BACTERIA,URINE FEW /HPF; EPITHELIAL CELLS,URINE FEW /LPF; RBC,URINE 0-5 /HPF (0-5); WBC,URINE (MAN) 0-5 /HPF (0-5)
--- NOTE | 2019-05-11 19:29 | NUR ---
REPORT RECEIVED FROM DAY RN. PT ALERT AND ORIENTED X3. 02 AT 4L PER N/C. PT HAS NONPRODUCTIVE COUGH. TELE ON. 20 G SL IN RT HAND AND 20 G SL IN LEFT HAND. BOTH FLUSH AND SITES HEALTHY. PT DENIES PAIN. PT SOB AT TIMES. RT NOTIFIED TO GIVE NEB TX. PT INCONTINENT OF BLADDER. PERICARE GIVEN. TURN Q 2 HRS. CALL LIGHT WITHIN REACH.BED IN LOW POSITION AND BED LOCKED WILL MONITOR RESP STATUS CLOSELY.
--- NOTE | 2019-05-11 21:00 | NUR ---
PT COUGHING . ATROVASITIN HELD - PT REFUSED.
[2019-05-11] MEDS: ATORVASTATIN 20 MG TAB PO SCH (22:06)
[2019-05-11] MEDS ORDERED: SODIUM CHLORIDE 0.9% 250ML 250 ML ONE (23:06)
[2019-05-12] VITALS (8 sets, daily range): BP systolic 110–119; BP diastolic 58–73
[2019-05-12] MEDS: IPRATROPIUM BROMIDE 0.02% 2.5 ML NEB NEB SCH ×6 (00:20→19:55)
[2019-05-12] MEDS: ALBUTEROL SULF 0.083% NEB SOLN 3 ML NEB NEB SCH ×6 (00:20→19:55)
--- NOTE | 2019-05-12 04:50 | Progress Note ---
DATE: 05/12/2019 SUBJECTIVE: The patient is feeling like he is doing a little bit better, but he still has some cough and congestion. He did have a slight nosebleed, but it was stopped quickly by the nurse. OBJECTIVE: VITAL SIGNS: , pulse 105, blood pressure 119/73, sats 95% on 2 L. GENERAL: No apparent distress. CARDIOVASCULAR: Irregularly irregular. LUNGS: Decreased breath sounds bilaterally with some rhonchi noted bilaterally. ABDOMEN: Good bowel sounds. Soft, nontender. EXTREMITIES: No clubbing, cyanosis. NEUROLOGIC: Nonfocal. ASSESSMENT AND PLAN: 1. Pneumonia. Continue with current care. 2. Acute respiratory failure with hypoxia. Continue with O2. 3. Atrial fibrillation. Continue his medicine. 4. Diabetes. Continue current care. 5. Chronic kidney disease stage 3. Continue to monitor. 6. Anemia. Continue to monitor. 7. Epistaxis. We will continue to monitor p.r.n. Please see hospital chart for full details. MD NATY Mcdonald/SOBEIDA /[id number]
[2019-05-12] MEDS: INSULIN LISPRO 100 UNIT/1 ML 3ML VIAL SQ SCH ×4 (07:30→21:50)
[2019-05-12 08:22] LABS: BASOPHILS % 0.4 % (0.0-1.0); EOSINOPHILS % 0.3 % (0.0-6.0); HEMATOCRIT 32.9 % (38.2-49.6); HEMOGLOBIN 9.4 g/dL (14.0-18.0); LYMPHOCYTES # (AUTO) 1.2 (1.0-3.2); LYMPHOCYTES % 12.5 % (18.0-39.1); MEAN CORPUSCULAR HEMOGLOBIN 22.7 pg (28-32); MEAN CORPUSCULAR HGB CONC 28.6 g/dL (31-35); MEAN CORPUSCULAR VOLUME 79.3 fL (81-99); MONOCYTES # (AUTO) 0.8 (0.2-0.8); MONOCYTES % 8.2 % (4.4-11.3); NEUTROPHILS # (AUTO) 7.5 (2.1-6.9); PLATELET COUNT 245 x10e3/uL (140-360); RED BLOOD COUNT 4.15 x10e6/uL (4.3-5.7); RED CELL DISTRIBUTION WIDTH 22.6 % (11.7-14.4)
[2019-05-12 08:38] LABS: ANION GAP 12.7 mmol/L (8-16); CREATININE, SERUM 1.61 mg/dL (0.72-1.25); POTASSIUM 4.7 mmol/L (3.5-5.1)
[2019-05-12] MEDS: FUROSEMIDE INJ 10 MG/ML 2 ML VIAL IV SCH ×2 (08:41→17:22)
[2019-05-12] MEDS: ASPIRIN 81 MG CHEW TAB PO SCH (08:41)
[2019-05-12] MEDS: GLIMEPIRIDE 2 MG TAB PO SCH (08:41)
[2019-05-12] MEDS: WARFARIN SOD 3 MG TAB PO SCH (08:41)
[2019-05-12] MEDS: FINASTERIDE 5 MG TAB PO SCH (08:41)
[2019-05-12] MEDS: PANTOPRAZOLE SOD 40 MG TABEC PO SCH (08:41)
[2019-05-12] MEDS: FLUOXETINE HCL 20 MG CAP PO SCH (08:41)
[2019-05-12] MEDS: FAMOTIDINE 20 MG/2 ML VIAL IV SCH ×2 (08:41→21:50)
[2019-05-12] MEDS: NEBIVOLOL 10 MG TAB PO SCH (08:41)
[2019-05-12] MEDS: TAMSULOSIN HCL 0.4 MG CAP PO SCH (08:41)
[2019-05-12 08:58] LABS: CREATINE KINASE MB 2.7 ng/mL (0-5.0)
--- NOTE | 2019-05-12 09:46 | NUR ---
Educated on IMM. Verbalized understanding and signed. Copy to patient transition folder and original placed on chart.
[2019-05-12] MEDS: CEFEPIME 1GM/NS 0.9% 50 ML 50 ML IV SCH ×2 (09:48→22:29)
[2019-05-12] MEDS: AZITHROMYCIN 500MG/NS 250 ML 250 ML IV SCH (10:40)
[2019-05-12 11:01] LABS: ANISOCYTOSIS MODERATE; HYPOCHROMASIA SLIGHT
[2019-05-12] MEDS: ONDANSETRON HCL INJ 2MG/ML 2ML 2 MG/ML VIAL IV PRN (17:37)
[2019-05-12] MEDS: MORPHINE SULFATE 2 MG/ML SYR 1ML IV PRN (17:37)
--- NOTE | 2019-05-12 19:15 | NUR ---
REPORT RECEIVED FROM DAY RN. PT IS ALERT AND ORIENTED X3. O2 PER N/C AT 4L . RESPIRATIONS EVEN AND UNLABORED. NONPRODUCTIVE COUGH. TELE ON. VOID PER URINAL 50 ML. URINAL SPILLED AND LINEN CHANGED AND PERICARE GIVEN. 20 G SL RT AND LEFT HAND. LESS CONGESTION THAN YESTERDAY.CALL LIGHT WITHIN REACH. BED LOCKED AND BED IN LOW POSITION.
[2019-05-12] MEDS: ATORVASTATIN 20 MG TAB PO SCH (22:08)
[2019-05-13] VITALS (9 sets, daily range): BP systolic 102–121; BP diastolic 64–83
[2019-05-13] MEDS: ALBUTEROL SULF 0.083% NEB SOLN 3 ML NEB NEB SCH ×6 (03:05→23:00)
[2019-05-13] MEDS: IPRATROPIUM BROMIDE 0.02% 2.5 ML NEB NEB SCH ×6 (03:05→23:00)
[2019-05-13 06:49] LABS: BASOPHILS % 0.4 % (0.0-1.0); EOSINOPHILS # (AUTO) 0.4 (0.0-0.4); EOSINOPHILS % 5.2 % (0.0-6.0); HEMATOCRIT 31.3 % (38.2-49.6); HEMOGLOBIN 8.8 g/dL (14.0-18.0); LYMPHOCYTES # (AUTO) 0.7 (1.0-3.2); LYMPHOCYTES % 8.1 % (18.0-39.1); MEAN CORPUSCULAR HEMOGLOBIN 22.3 pg (28-32); MEAN CORPUSCULAR HGB CONC 28.1 g/dL (31-35); MEAN CORPUSCULAR VOLUME 79.4 fL (81-99); MONOCYTES # (AUTO) 0.6 (0.2-0.8); MONOCYTES % 7.4 % (4.4-11.3); NEUTROPHILS # (AUTO) 6.6 (2.1-6.9); NEUTROPHILS % 77.6 % (38.7-80.0); PLATELET COUNT 243 x10e3/uL (140-360); RED BLOOD COUNT 3.94 x10e6/uL (4.3-5.7); RED CELL DISTRIBUTION WIDTH 22.5 % (11.7-14.4)
[2019-05-13 07:14] LABS: ALBUMIN 2.5 g/dL (3.5-5.0); ALBUMIN/GLOBULIN RATIO 0.5 (0.8-2.0); ANION GAP 10.4 mmol/L (8-16); CALCIUM 8.9 mg/dL (8.4-10.2); CREATININE, SERUM 1.73 mg/dL (0.72-1.25); POTASSIUM 4.4 mmol/L (3.5-5.1)
[2019-05-13 07:25] LABS: INR 3.09; PROTHROMBIN TIME 34.3 seconds (11.9-14.5)
[2019-05-13] MEDS: INSULIN LISPRO 100 UNIT/1 ML 3ML VIAL SQ SCH ×4 (08:30→21:00)
[2019-05-13] MEDS: NEBIVOLOL 10 MG TAB PO SCH (09:00)
[2019-05-13] MEDS: FUROSEMIDE INJ 10 MG/ML 2 ML VIAL IV SCH ×4 (09:00→21:00)
[2019-05-13] MEDS: TAMSULOSIN HCL 0.4 MG CAP PO SCH (09:00)
[2019-05-13] MEDS: FLUOXETINE HCL 20 MG CAP PO SCH (09:00)
[2019-05-13] MEDS: GLIMEPIRIDE 2 MG TAB PO SCH (09:00)
[2019-05-13] MEDS: FINASTERIDE 5 MG TAB PO SCH (09:00)
[2019-05-13] MEDS: ASPIRIN 81 MG CHEW TAB PO SCH (09:00)
[2019-05-13] MEDS: FAMOTIDINE 20 MG/2 ML VIAL IV SCH ×2 (09:00→21:00)
[2019-05-13] MEDS: WARFARIN SOD 3 MG TAB PO SCH (09:00)
[2019-05-13] MEDS: PANTOPRAZOLE SOD 40 MG TABEC PO SCH (09:00)
--- NOTE | 2019-05-13 09:00 | NUR ---
PT TOLERATED AM MEDICATIONS WITH APPLE SAUCE, PT REFUSING TO HAVE WATER THICKENED PER SCANNING COORDINATOR INSTRUCTIONS
[2019-05-13 09:07] LABS: ANISOCYTOSIS SLIGHT; HYPOCHROMASIA SLIGHT; RBC MORPHOLOGY COMMENT ABNORMAL
[2019-05-13] MEDS: CEFEPIME 1GM/NS 0.9% 50 ML 50 ML IV SCH ×2 (09:19→22:00)
--- NOTE | 2019-05-13 11:00 | NUR ---
SPOKE WITH MD EGAN, ORDERS NOTED FOR SPEECH AND WOUND CONSULT
--- NOTE | 2019-05-13 12:02 | NUR ---
Nutrition Intervention Note -Continue current diet per MD, texture per speech. -Recommend FLAVOR MAKER eval to ensure the pt is consuming the correct consistency of food, pt has hx of failing swallow eval at different facility per nurse. -Please consult nutrition services if alternate source of nutrition is recommended. RD Recommendation(s) for Physician: Plan of Care: RD following, monitoring for tolerance and adequacy Nutrition reason for involvement: (RN consult) RD Assessment 05/12: 85 YOM admitted for Afib with PMH listed below. The pt was seen resting in bed, on NC. Pt was somewhat altered at time of visit, could answers most questions. Pt reported his appetite has not been poor. He stated he did have some weight loss, but not a lot. Pt was 209 lbs in Nov 2018, suggesting a 3.3% weight loss within 6 months, which is not significant. The pt denied N/V/C/D/chewing or swallowing issues as well as any food allergies. Pt did deny chewing or swallowing issues, but per nurse and med care manager; the pt consumes thickened liquids (modified diet unknown) and the nurse reported he has been refusing this. Recommend FLAVOR MAKER eval to ensure the pt is consuming the correct consistency of food and if an alternate source of nutrition is recommended. Will continue to monitor. Principal Problems/Diagnoses: Afib PMH:CKD, DM, anemia GI: LBM: not recorded Skin: no pressure ulcer recorded Labs: 05/12: Na 146, Cl 108, CO2 32, BUN 65, Creat 1.73, Gluc 161, POC GM: 164-177 Meds: lasix, abx, protonix, pepcid, insulin, Lipitor, zofran, warfarin Ht:68 in Wt: 202 lbs BMI: 30/7 kg/m^2 IBW:154 lbs Malnutrition Evaluation (05/12) The patient does not meet criteria for a specified degree of malnutrition at this time. Will re-evaluate at follow-up as appropriate. Nutrition Prescription (Diet Order): mod Estimated Nutritional Needs: Calories: 1540-1750kcal/day (22- 25kcal/kg/day) Weight used : IBW (70 kg) Protein : 70-105protein/day (1- 1.5gram/kg/day ) Weight used: IBW Diet Adequacy: Not meeting calorie needs, Not meeting protein needs Diet Education Needs Assessment: Diet education indicated, but patient not appropriate for education at this time. Nutrition Care Level: MOD Nutrition Diagnosis: Inadequate energy intake related to medical condition as evidenced by the nurse reporting the pt is refusing his food and only consuming 15-50% of his meals per meal assessment. Goal: Patient will meet 75-100% of estimated needs by follow up Progress: (N/A) Interventions: -(carb, altered texture modified diet, Prescription medications, Collaboration with other provider Monitoring/Evaluation: -Total energy intake, Total protein intake, Modified diet, Weight change Signed: Julieta Caballero RD, LD
--- NOTE | 2019-05-13 13:09 | NUR ---
PHYSICAL THERAPIST AT BEDSIDE, PT AMBULATED TO BR WITH WALKER AND PHYSICAL THERAPIST, PT SATS DECREASED, PT SOB, "PT HAVING ANXIETY " PER RETAIL BANKER, ASSISTED BACK TO BED, O2 SATS IMPROVED AT 95%, SPEECH NOW AT BEDSIDE,
--- NOTE | 2019-05-13 18:05 | NUR ---
PT REFUSING PO INTAKE, STATES " I DON'T LIKE THIS FOOD", CAFE NOTIFIED, BRINGING PT YOGURT PER PT REQUEST, FAMILY AT SIDE, MADE AWARE PT IS TRANSFERRING TO ROOM 209
--- NOTE | 2019-05-13 18:34 | NUR ---
REPORT TO HEVER COLLIER TAKING OVER CARE OF PT, PT TO TRANSFER TO ROOM 209
--- NOTE | 2019-05-13 19:10 | NUR ---
Bedside nursing shift report completed with morning nurse. Pt lying in bed, HOB 60 degrees. Denies pain at this time. Call light within reach. Bed low and locked. Family at bedside. Will continue to monitor.
[2019-05-13] MEDS: ATORVASTATIN 20 MG TAB PO SCH (21:00)
[2019-05-13] MEDS: AZITHROMYCIN 500MG/NS 250 ML 250 ML IV SCH (21:00)
[2019-05-14] VITALS (8 sets, daily range): BP systolic 115–139; BP diastolic 60–84
[2019-05-14] MEDS: ALBUTEROL SULF 0.083% NEB SOLN 3 ML NEB NEB SCH ×6 (01:45→22:40)
[2019-05-14] MEDS: IPRATROPIUM BROMIDE 0.02% 2.5 ML NEB NEB SCH ×6 (01:45→22:42)
[2019-05-14 06:45] LABS: INR 3.19; PROTHROMBIN TIME 35.2 seconds (11.9-14.5)
--- NOTE | 2019-05-14 07:08 | NUR ---
BS shift report completed. Pt no acute distress noted.
[2019-05-14] MEDS: INSULIN LISPRO 100 UNIT/1 ML 3ML VIAL SQ SCH ×4 (07:56→21:00)
[2019-05-14] MEDS ORDERED: BENZONATATE 100 MG CAP PO PRN (08:15)
[2019-05-14] MEDS: WARFARIN SOD 3 MG TAB PO SCH (09:00)
[2019-05-14] MEDS: CEFEPIME 1GM/NS 0.9% 50 ML 50 ML IV SCH ×2 (09:19→22:00)
[2019-05-14] MEDS: TAMSULOSIN HCL 0.4 MG CAP PO SCH (09:19)
[2019-05-14] MEDS: FAMOTIDINE 20 MG/2 ML VIAL IV SCH ×2 (09:19→21:00)
[2019-05-14] MEDS: PANTOPRAZOLE SOD 40 MG TABEC PO SCH (09:19)
[2019-05-14] MEDS: ASPIRIN 81 MG CHEW TAB PO SCH (09:19)
[2019-05-14] MEDS: FLUOXETINE HCL 20 MG CAP PO SCH (09:19)
[2019-05-14] MEDS: FUROSEMIDE INJ 10 MG/ML 2 ML VIAL IV SCH ×2 (09:19→21:00)
[2019-05-14] MEDS: GLIMEPIRIDE 2 MG TAB PO SCH (09:19)
[2019-05-14] MEDS: NEBIVOLOL 10 MG TAB PO SCH (09:41)
[2019-05-14] MEDS: FINASTERIDE 5 MG TAB PO SCH (09:44)
[2019-05-14] MEDS: MORPHINE SULFATE 2 MG/ML SYR 1ML IV PRN (09:55)
--- NOTE | 2019-05-14 14:10 | NUR ---
ST Note: Attempted to complete MBS but pt too sleepy. Did not wake up with vigorous sternal rub. Will return to complete MBS as able.
--- NOTE | 2019-05-14 15:50 | NUR ---
Pt is currently on service with [facility] P [phone] / F [phone]
--- NOTE | 2019-05-14 16:19 | NUR ---
Notified Dr Zambrano that INR is 3.19 AND WE'VE been holding his Coumadin for 2 days, new order recvd to 'still hold it'.
--- NOTE | 2019-05-14 16:44 | NUR ---
ST Note: Pt remains too lethargic to participate in modified barium swallow study. Will complete tomorrow 05/15/19 as able. Handoff to HEVER Mckeon.
--- NOTE | 2019-05-14 17:40 | NUR ---
Patient resting in bed, Alert with no distress, bed alarm ON, Keep monitoring
--- NOTE | 2019-05-14 19:15 | NUR ---
Completed bedside reporting with morning nurse. Pt alert and oriented to name. Denies pain at this time. Call light within reach. Bed low and locked. Will continue to monitor.
[2019-05-14] MEDS: AZITHROMYCIN 500MG/NS 250 ML 250 ML IV SCH (20:00)
[2019-05-14] MEDS: ATORVASTATIN 20 MG TAB PO SCH (21:00)
[2019-05-15] VITALS (8 sets, daily range): BP systolic 112–139; BP diastolic 62–78
[2019-05-15] MEDS: IPRATROPIUM BROMIDE 0.02% 2.5 ML NEB NEB SCH ×6 (01:40→23:30)
[2019-05-15] MEDS: ALBUTEROL SULF 0.083% NEB SOLN 3 ML NEB NEB SCH ×5 (01:40→20:30)
[2019-05-15] MEDS: MORPHINE SULFATE 2 MG/ML SYR 1ML IV PRN ×4 (04:00→21:18)
[2019-05-15 06:32] LABS: BASOPHILS % 0.5 % (0.0-1.0); EOSINOPHILS # (AUTO) 0.8 (0.0-0.4); EOSINOPHILS % 8.8 % (0.0-6.0); HEMATOCRIT 34.1 % (38.2-49.6); HEMOGLOBIN 9.5 g/dL (14.0-18.0); LYMPHOCYTES # (AUTO) 0.7 (1.0-3.2); LYMPHOCYTES % 8.4 % (18.0-39.1); MEAN CORPUSCULAR HEMOGLOBIN 22.4 pg (28-32); MEAN CORPUSCULAR HGB CONC 27.9 g/dL (31-35); MEAN CORPUSCULAR VOLUME 80.4 fL (81-99); MONOCYTES # (AUTO) 0.5 (0.2-0.8); MONOCYTES % 5.7 % (4.4-11.3); NEUTROPHILS # (AUTO) 6.5 (2.1-6.9); NEUTROPHILS % 74.7 % (38.7-80.0); PLATELET COUNT 289 x10e3/uL (140-360); RED BLOOD COUNT 4.24 x10e6/uL (4.3-5.7); RED CELL DISTRIBUTION WIDTH 22.6 % (11.7-14.4)
[2019-05-15 07:13] LABS: ALBUMIN 2.7 g/dL (3.5-5.0); ALBUMIN/GLOBULIN RATIO 0.5 (0.8-2.0); CALCIUM 9.4 mg/dL (8.4-10.2); CREATININE, SERUM 1.81 mg/dL (0.72-1.25)
[2019-05-15] MEDS: FUROSEMIDE INJ 10 MG/ML 2 ML VIAL IV SCH ×2 (09:00→20:13)
[2019-05-15] MEDS: WARFARIN SOD 3 MG TAB PO SCH (09:00)
[2019-05-15 09:34] LABS: ANISOCYTOSIS MODERATE; HYPOCHROMASIA SLIGHT; MICROCYTOSIS SLIGHT
[2019-05-15 09:36] LABS: POLYCHROMASIA FEW; RBC MORPHOLOGY COMMENT NORMAL
[2019-05-15] MEDS: ASPIRIN 81 MG CHEW TAB PO SCH (09:58)
[2019-05-15] MEDS: GLIMEPIRIDE 2 MG TAB PO SCH (09:58)
[2019-05-15] MEDS: FAMOTIDINE 20 MG/2 ML VIAL IV SCH ×2 (09:58→20:21)
[2019-05-15] MEDS: FLUOXETINE HCL 20 MG CAP PO SCH (09:59)
[2019-05-15] MEDS: CEFEPIME 1GM/NS 0.9% 50 ML 50 ML IV SCH ×2 (09:59→21:40)
[2019-05-15] MEDS: PANTOPRAZOLE SOD 40 MG TABEC PO SCH (09:59)
[2019-05-15] MEDS: TAMSULOSIN HCL 0.4 MG CAP PO SCH (09:59)
[2019-05-15] MEDS: INSULIN LISPRO 100 UNIT/1 ML 3ML VIAL SQ SCH ×4 (09:59→20:17)
[2019-05-15] MEDS: FINASTERIDE 5 MG TAB PO SCH (09:59)
[2019-05-15] MEDS: NEBIVOLOL 10 MG TAB PO SCH (09:59)
[2019-05-15 10:35] LABS: INR 2.91; PROTHROMBIN TIME 32.7 seconds (11.9-14.5)
--- NOTE | 2019-05-15 12:14 | Diagnostic Imaging Report ---
PROCEDURE: X-RAY MODIFIED BARIUM SWALLOW COMPARISON: None. INDICATION: Aspiration Radiation Details: Fluoroscopy time: 2.9 minutes Cumulative dose: 9.2 mGy DISCUSSION: Fluoroscopic examination was performed in conjunction with speech pathology during swallowing a variety of thin and thick liquid consistencies. Provided images demonstrate laryngeal penetration and aspiration. CONCLUSION: Modified barium swallow demonstrating laryngeal penetration and aspiration. Please refer to the speech pathology report for further details. Signed by: Zo Beltre MD on 05/15/2019 12:11 PM
--- NOTE | 2019-05-15 17:55 | NUR ---
Notified Nancy, patient's daughter, patient to be moved to 114. Voiced understanding.
--- NOTE | 2019-05-15 18:23 | NUR ---
Report given to Vita Ambrocio RN of patient's status. Patient transferred to 114 via bed.
--- NOTE | 2019-05-15 18:57 | NUR ---
WALKING ROUNDS PERFORMED, RECEIVED PT LAYING FOWLERS IN BED, AAOX2, RR EVEN AND NON-LABORED, O2 BY NC AT 4L. NO S/SX OF DISTRESS NOTED. LEFT PT SITTING FOWLERS IN BED, BED IN LOW LOCKED POSITION, SIDE RAILS UPX2, CALL LIGHT AND PHONE WITHIN REACH.
[2019-05-15] MEDS ORDERED: SODIUM CHLORIDE 0.9% 250ML 250 ML ONE (19:33)
[2019-05-15] MEDS: AZITHROMYCIN 500MG/NS 250 ML 250 ML IV SCH (20:13)
--- NOTE | 2019-05-15 20:20 | NUR ---
APPLIED ALTERNATING AIR PUMP TO MATTRESS FOR PUP.
[2019-05-15] MEDS: ATORVASTATIN 20 MG TAB PO SCH (20:23)
[2019-05-16] VITALS (10 sets, daily range): BP systolic 110–153; BP diastolic 65–95
[2019-05-16] MEDS: IPRATROPIUM BROMIDE 0.02% 2.5 ML NEB NEB SCH ×5 (02:35→20:15)
[2019-05-16] MEDS: ALBUTEROL SULF 0.083% NEB SOLN 3 ML NEB NEB SCH ×6 (02:35→23:35)
[2019-05-16 05:55] LABS: BASOPHILS % 0.2 % (0.0-1.0); EOSINOPHILS # (AUTO) 0.8 (0.0-0.4); EOSINOPHILS % 4.8 % (0.0-6.0); HEMATOCRIT 32.2 % (38.2-49.6); HEMOGLOBIN 9.1 g/dL (14.0-18.0); LYMPHOCYTES # (AUTO) 1.1 (1.0-3.2); LYMPHOCYTES % 6.1 % (18.0-39.1); MEAN CORPUSCULAR HEMOGLOBIN 22.1 pg (28-32); MEAN CORPUSCULAR HGB CONC 28.3 g/dL (31-35); MEAN CORPUSCULAR VOLUME 78.2 fL (81-99); MONOCYTES # (AUTO) 0.7 (0.2-0.8); MONOCYTES % 4.1 % (4.4-11.3); NEUTROPHILS # (AUTO) 14.5 (2.1-6.9); NEUTROPHILS % 83.6 % (38.7-80.0); PLATELET COUNT 301 x10e3/uL (140-360); RED BLOOD COUNT 4.12 x10e6/uL (4.3-5.7); RED CELL DISTRIBUTION WIDTH 22.8 % (11.7-14.4)
[2019-05-16 06:09] LABS: INR 2.86; PROTHROMBIN TIME 32.2 seconds (11.9-14.5)
[2019-05-16 06:19] LABS: ALBUMIN 2.5 g/dL (3.5-5.0); ALBUMIN/GLOBULIN RATIO 0.5 (0.8-2.0); CALCIUM 9.3 mg/dL (8.4-10.2); CREATININE, SERUM 1.81 mg/dL (0.72-1.25)
[2019-05-16] MEDS: INSULIN LISPRO 100 UNIT/1 ML 3ML VIAL SQ SCH ×4 (07:30→21:00)
[2019-05-16] MEDS: FAMOTIDINE 20 MG/2 ML VIAL IV SCH ×2 (07:49→21:17)
[2019-05-16] MEDS: FUROSEMIDE INJ 10 MG/ML 2 ML VIAL IV SCH ×2 (07:49→21:34)
[2019-05-16] MEDS: GLIMEPIRIDE 2 MG TAB PO SCH (07:52)
[2019-05-16] MEDS: ASPIRIN 81 MG CHEW TAB PO SCH (07:52)
[2019-05-16] MEDS: TAMSULOSIN HCL 0.4 MG CAP PO SCH (07:53)
[2019-05-16] MEDS: NEBIVOLOL 10 MG TAB PO SCH (07:53)
[2019-05-16] MEDS: PANTOPRAZOLE SOD 40 MG TABEC PO SCH (07:54)
[2019-05-16] MEDS: FINASTERIDE 5 MG TAB PO SCH (07:54)
[2019-05-16] MEDS: FLUOXETINE HCL 20 MG CAP PO SCH (07:54)
[2019-05-16 08:14] LABS: MICROCYTOSIS SLIGHT
[2019-05-16 08:15] LABS: HYPOCHROMASIA SLIGHT
[2019-05-16 08:16] LABS: PLATELET ESTIMATE ADEQUATE; PLATELET MORPHOLOGY COMMENT NORMAL
[2019-05-16] MEDS: CEFEPIME 1GM/NS 0.9% 50 ML 50 ML IV SCH ×2 (09:09→22:00)
--- NOTE | 2019-05-16 11:34 | NUR ---
DISCUSSED IN MDR'S PT CONFUSED GETTING IV MORPHINE
--- NOTE | 2019-05-16 12:24 | NUR ---
CM SPOKE WITH PT'S DTR AMY BALLARD [phone] REGARDING PLANS WHEN READY FOR DISCHARGE JOVANY STATES HER FATHER HAS BEEN DECLINING IN HEALTH FOR PAST 5 YEARS (SINCE HIS 'S ) STATES THEY HAVE DISCUSSED DNR STATUS AND PT AGREED TO DNR BUT WHEN HE GETS SOB WANTS THE AMBULANCE CALLED JOVANY STATES SHE KNOWS IT'S THE END OF HIS LIFE DISCUSSED OPTIONS SUCH PALLIATIVE CARE AND OR HOSPICE DTR STATES THAT IF HE HEARS THE WORD "HOSPICE" HE WILL "FLIP OUT" DTR HAS BEEN SICK AT HOME AND HAS BEEN UNABLE TO COME TO THE HOSPITAL OR SPEAK WITH DR EGAN ENCOURAGE HER TO CALL DR EGAN'S OFFICE TODAY AND SPEAK WITH HIM REGARDING PT'S CONDITION SHE AGREES AND WILL CALL ME BACK FOR ANY QUESTIONS/CONCERNS
--- NOTE | 2019-05-16 19:10 | NUR ---
received patient in bed with eyes closed. Resp even and unlabored. O2 @ 4L/NC. No SOB/Resp. distress noted at this time. No c/o pain or discomfort at this time. IV to Lt arm without any redness or swelling. Bed in locked and low position. Call light in reach.
[2019-05-16] MEDS: ATORVASTATIN 20 MG TAB PO SCH (21:00)
[2019-05-16] MEDS: AZITHROMYCIN 500MG/NS 250 ML 250 ML IV SCH (21:16)
[2019-05-17] VITALS (9 sets, daily range): BP systolic 110–146; BP diastolic 74–95
[2019-05-17] MEDS: MORPHINE SULFATE 2 MG/ML SYR 1ML IV PRN ×2 (01:55→14:14)
[2019-05-17] MEDS: IPRATROPIUM BROMIDE 0.02% 2.5 ML NEB NEB SCH ×6 (03:05→23:20)
[2019-05-17] MEDS: ALBUTEROL SULF 0.083% NEB SOLN 3 ML NEB NEB SCH ×6 (03:05→23:20)
[2019-05-17 05:12] LABS: BASOPHILS # (AUTO) 0.1 (0.0-0.1); BASOPHILS % 0.4 % (0.0-1.0); EOSINOPHILS % 7.8 % (0.0-6.0); HEMATOCRIT 32.9 % (38.2-49.6); HEMOGLOBIN 9.3 g/dL (14.0-18.0); LYMPHOCYTES # (AUTO) 1.2 (1.0-3.2); LYMPHOCYTES % 9.8 % (18.0-39.1); MEAN CORPUSCULAR HEMOGLOBIN 22.3 pg (28-32); MEAN CORPUSCULAR HGB CONC 28.3 g/dL (31-35); MEAN CORPUSCULAR VOLUME 78.9 fL (81-99); MONOCYTES # (AUTO) 0.7 (0.2-0.8); NEUTROPHILS % 74.1 % (38.7-80.0); PLATELET COUNT 288 x10e3/uL (140-360); RED BLOOD COUNT 4.17 x10e6/uL (4.3-5.7); RED CELL DISTRIBUTION WIDTH 23.4 % (11.7-14.4)
[2019-05-17 05:32] LABS: ALBUMIN 2.6 g/dL (3.5-5.0); ALBUMIN/GLOBULIN RATIO 0.5 (0.8-2.0); ANION GAP 12.5 mmol/L (8-16); CALCIUM 9.4 mg/dL (8.4-10.2); CREATININE, SERUM 1.96 mg/dL (0.72-1.25); MAGNESIUM 2.2 MG/DL (1.3-2.1); POTASSIUM 3.5 mmol/L (3.5-5.1)
[2019-05-17 05:43] LABS: INR 2.21; PROTHROMBIN TIME 26.2 seconds (11.9-14.5)
[2019-05-17] MEDS: INSULIN LISPRO 100 UNIT/1 ML 3ML VIAL SQ SCH ×4 (07:30→21:00)
[2019-05-17] MEDS ORDERED: FUROSEMIDE INJ 10 MG/ML 4 ML VIAL ONE (07:32)
[2019-05-17] MEDS: FLUOXETINE HCL 20 MG CAP PO SCH (09:00)
[2019-05-17] MEDS: FUROSEMIDE INJ 10 MG/ML 2 ML VIAL IV SCH ×2 (09:00→20:58)
[2019-05-17] MEDS: TAMSULOSIN HCL 0.4 MG CAP PO SCH (09:00)
[2019-05-17] MEDS: FINASTERIDE 5 MG TAB PO SCH (09:00)
[2019-05-17] MEDS: ASPIRIN 81 MG CHEW TAB PO SCH (09:00)
[2019-05-17] MEDS: PANTOPRAZOLE SOD 40 MG TABEC PO SCH (09:00)
[2019-05-17] MEDS: GLIMEPIRIDE 2 MG TAB PO SCH (09:00)
[2019-05-17] MEDS: DEXTROSE 5% 1,000 ML IV SCH ×2 (10:10→17:53)
[2019-05-17] MEDS: FAMOTIDINE 20 MG/2 ML VIAL IV SCH ×2 (10:12→20:58)
[2019-05-17] MEDS: CEFEPIME 1GM/NS 0.9% 50 ML 50 ML IV SCH (10:12)
[2019-05-17] MEDS: NEBIVOLOL 10 MG TAB PO SCH (10:29)
--- NOTE | 2019-05-17 11:04 | NUR ---
ST NOTE: Attempted to see pt for dysphagia therapy at 10:20, pt with PT, will return later today. Handoff to HEVER Gorman
[2019-05-17] MEDS ORDERED: ONDANSETRON HCL 4 MG ORAL DISINTEGRATING TAB PO PRN (13:45)
--- NOTE | 2019-05-17 18:12 | NUR ---
Nutrition Intervention Note RD Recommendation(s) for Physician: - Continue current diet order and consistency per ST - Glucerna nutrition supplement BID for added nutrition Plan of Care: RD following, monitoring for tolerance and adequacy Nutrition reason for involvement: follow up RD Assessment 05/16: Follow up. Attempted to speak to pt, but he did not respond to questions asked and there were no family members at bedside. It is recorded that pt consumed 50% of meals today. Recommend Glucerna nutrition supplement BID for added nutrition. Will continue to monitor. 05/12: 85 YOM admitted for Afib with PMH listed below. The pt was seen resting in bed, on NC. Pt was somewhat altered at time of visit, could answers most questions. Pt reported his appetite has not been poor. He stated he did have some weight loss, but not a lot. Pt was 209 lbs in Nov 2018, suggesting a 3.3% weight loss within 6 months, which is not significant. The pt denied N/V/C/D/chewing or swallowing issues as well as any food allergies. Pt did deny chewing or swallowing issues, but per nurse and senior caregiver; the pt consumes thickened liquids (modified diet unknown) and the nurse reported he has been refusing this. Recommend POUNCING MACHINE OPERATOR eval to ensure the pt is consuming the correct consistency of food and if an alternate source of nutrition is recommended. Will continue to monitor. Principal Problems/Diagnoses: Afib PMH:CKD, DM, anemia GI: LBM: not recorded Skin: no pressure ulcer recorded Labs: 05/16: Na 155, BUN 63, Creat 1.96, Glu 195 05/12: Na 146, Cl 108, CO2 32, BUN 65, Creat 1.73, Gluc 161, POC GM: 164-177 Meds: insulin, pepcid, lasix, protonix, azithromycin, zofran Ht:68 in Wt: 202 lbs BMI: 30/7 kg/m^2 IBW: 154 lbs Malnutrition Evaluation (05/12) The patient does not meet criteria for a specified degree of malnutrition at this time. Will re-evaluate at follow-up as appropriate. Nutrition Prescription (Diet Order): ADA 1800 kcal with mechanical soft consistency and nectar thick liquids Estimated Nutritional Needs: Calories: 7958-9460 kcal/day (22- 25kcal/kg/day) Weight used : IBW (70 kg) Protein : 70-105 protein/day (1- 1.5gram/kg/day ) Weight used: IBW Diet Adequacy: Not meeting calorie needs, Not meeting protein needs Diet Education Needs Assessment: patient not appropriate for education at this time. Nutrition Care Level: moderate Nutrition Diagnosis: Inadequate energy intake related to medical condition as evidenced by the nurse reporting the pt is refusing his food and only consuming 15-50% of his meals per meal assessment. Goal: Patient will meet 75-100% of estimated needs by follow up Progress: progressing Interventions: -carb altered texture modified diet, commercial beverage, Collaboration with other provider Monitoring/Evaluation: -Total energy intake, Total protein intake, liquid supplement, Modified diet, Weight change Signed: Tomasa Hawthorne RD, LD
[2019-05-17] MEDS: AZITHROMYCIN 500MG/NS 250 ML 250 ML IV SCH (20:58)
[2019-05-17] MEDS: ATORVASTATIN 20 MG TAB PO SCH (20:58)
[2019-05-18] VITALS (8 sets, daily range): BP systolic 98–142; BP diastolic 65–83
[2019-05-18] MEDS: MORPHINE SULFATE 2 MG/ML SYR 1ML IV PRN ×2 (00:40→10:52)
[2019-05-18] MEDS: CEFEPIME 1GM/NS 0.9% 50 ML 50 ML IV SCH ×3 (00:46→22:02)
[2019-05-18] MEDS: DEXTROSE 5% 1,000 ML IV SCH ×2 (00:46→14:24)
[2019-05-18] MEDS: ALBUTEROL SULF 0.083% NEB SOLN 3 ML NEB NEB SCH ×6 (03:05→23:35)
[2019-05-18] MEDS: IPRATROPIUM BROMIDE 0.02% 2.5 ML NEB NEB SCH ×6 (03:05→23:35)
[2019-05-18 05:47] LABS: INR 1.86; PROTHROMBIN TIME 22.8 seconds (11.9-14.5)
--- NOTE | 2019-05-18 07:10 | NUR ---
Received patient lying in bed with eyes open. Respiration even and unlabored without SOB. Call light in reach.
[2019-05-18 07:15] LABS: BASOPHILS # (AUTO) 0.1 (0.0-0.1); BASOPHILS % 0.4 % (0.0-1.0); EOSINOPHILS # (AUTO) 1.1 (0.0-0.4); EOSINOPHILS % 7.8 % (0.0-6.0); HEMATOCRIT 36.6 % (38.2-49.6); HEMOGLOBIN 10.4 g/dL (14.0-18.0); LYMPHOCYTES # (AUTO) 1.2 (1.0-3.2); LYMPHOCYTES % 8.3 % (18.0-39.1); MEAN CORPUSCULAR HEMOGLOBIN 22.6 pg (28-32); MEAN CORPUSCULAR HGB CONC 28.4 g/dL (31-35); MEAN CORPUSCULAR VOLUME 79.6 fL (81-99); MONOCYTES # (AUTO) 0.9 (0.2-0.8); MONOCYTES % 6.2 % (4.4-11.3); NEUTROPHILS # (AUTO) 11.1 (2.1-6.9); NEUTROPHILS % 75.8 % (38.7-80.0); PLATELET COUNT 284 x10e3/uL (140-360); RED CELL DISTRIBUTION WIDTH 23.5 % (11.7-14.4)
[2019-05-18 07:30] LABS: ALBUMIN 2.6 g/dL (3.5-5.0); ALBUMIN/GLOBULIN RATIO 0.5 (0.8-2.0); ANION GAP 12.3 mmol/L (8-16); CALCIUM 9.3 mg/dL (8.4-10.2); CREATININE, SERUM 2.16 mg/dL (0.72-1.25); MAGNESIUM 2.1 MG/DL (1.3-2.1); POTASSIUM 3.3 mmol/L (3.5-5.1)
[2019-05-18] MEDS: INSULIN LISPRO 100 UNIT/1 ML 3ML VIAL SQ SCH ×4 (07:30→21:59)
[2019-05-18 09:00] LABS: ANISOCYTOSIS MODERATE; HYPOCHROMASIA MODERATE; RBC MORPHOLOGY COMMENT ABNORMAL
[2019-05-18] MEDS: ASPIRIN 81 MG CHEW TAB PO SCH (09:49)
[2019-05-18] MEDS: GLIMEPIRIDE 2 MG TAB PO SCH (09:49)
[2019-05-18] MEDS: FUROSEMIDE INJ 10 MG/ML 2 ML VIAL IV SCH ×2 (09:49→22:02)
[2019-05-18] MEDS: FAMOTIDINE 20 MG/2 ML VIAL IV SCH ×2 (09:49→22:02)
[2019-05-18] MEDS: TAMSULOSIN HCL 0.4 MG CAP PO SCH (09:52)
[2019-05-18] MEDS: PANTOPRAZOLE SOD 40 MG TABEC PO SCH (09:52)
[2019-05-18] MEDS: NEBIVOLOL 10 MG TAB PO SCH (09:52)
[2019-05-18] MEDS: FINASTERIDE 5 MG TAB PO SCH (09:52)
[2019-05-18] MEDS: FLUOXETINE HCL 20 MG CAP PO SCH (09:53)
[2019-05-18] MEDS: WARFARIN SOD 3 MG TAB PO SCH (18:15)
--- NOTE | 2019-05-18 18:50 | NUR ---
Report given to maintenance technician 3rd shift. Respiration even and unlabored without SOB. Call light in reach.
--- NOTE | 2019-05-18 19:06 | NUR ---
Received bedside report from day nurse. Patient resting in bed, no s/s of distress at this time. All safety measures in place. Will continue to monitor.
[2019-05-18] MEDS: AZITHROMYCIN 500MG/NS 250 ML 250 ML IV SCH (20:02)
[2019-05-18] MEDS: ATORVASTATIN 20 MG TAB PO SCH (22:02)
[2019-05-19] VITALS (8 sets, daily range): BP systolic 95–116; BP diastolic 56–76
[2019-05-19] MEDS: ALBUTEROL SULF 0.083% NEB SOLN 3 ML NEB NEB SCH ×6 (03:19→23:55)
[2019-05-19] MEDS: IPRATROPIUM BROMIDE 0.02% 2.5 ML NEB NEB SCH ×6 (03:19→23:55)
[2019-05-19] MEDS: DEXTROSE 5% 1,000 ML IV SCH (04:44)
[2019-05-19 05:40] LABS: INR 2.32; PROTHROMBIN TIME 27.2 seconds (11.9-14.5)
--- NOTE | 2019-05-19 06:48 | NUR ---
Dr. Saldana here to see patient. Received orders for portable chest x-ray, and to keep HOB elevated to at least 30 degrees.
--- NOTE | 2019-05-19 07:05 | NUR ---
Bedside report given to day nurse. Patient resting in bed, no s/s of distress at this time. All safety measures in place.
[2019-05-19] MEDS: INSULIN LISPRO 100 UNIT/1 ML 3ML VIAL SQ SCH ×4 (07:30→20:19)
--- NOTE | 2019-05-19 07:54 | Diagnostic Imaging Report ---
EXAMINATION: CHEST SINGLE (PORTABLE) COMPARISON: Chest x-ray 05/10/2019 INDICATION: Shortness of breath, cough, pneumonia ^Pneumonia ^[id number] ^0710 ^Y DISCUSSION: Frontal view of the chest obtained at 0719 hours. HEART AND MEDIASTINUM: Stable cardiomegaly LINES: None. LUNGS: Volume loss of the left hemithorax is redemonstrated with airspace opacities in the lingula and lower lobe. Worsening airspace opacities in the right mid and lower lung zones. PLEURA: No large right pleural effusion or pneumothorax. No left pneumothorax. Left pleural effusion cannot be excluded BONES AND SOFT TISSUES: Surgical anchors in the right humeral head are stable. A nondisplaced fracture of the distal right clavicle is incompletely imaged. There is enteric contrast in the transverse colon from previous radiographic procedure without dilatation. IMPRESSION: 1. Worsening airspace opacities in the right lung suggestive of pneumonia or atelectasis. 2. Stable volume loss of the left hemithorax with underlying atelectasis or pneumonia. Small left pleural effusion is suspected. Signed by: Dr. Joselyn Machado MD on 05/19/2019 7:50 AM
--- NOTE | 2019-05-19 08:10 | Progress Note ---
DATE: 05/19/2019 SUBJECTIVE: An 85-year-old gentleman comes in with pneumonia. The patient has also been deemed to have aspiration. The patient apparently had a bad night, a lot of coughing. No chest pain. Very congested. OBJECTIVE: VITAL SIGNS: Temperature is 98.4, pulse of 111, respirations of 22, blood pressure is 116/76, pulse oximetry is 97% on 3 L of oxygen. HEENT: Normocephalic and atraumatic. Pupils are reactive. The patient sounds confused, baseline not known. CVS: S1 and S2 irregularly irregular. LUNGS: Decreased breath sound with bilateral rhonchi. ABDOMEN: Soft, nontender. EXTREMITIES: Positive for edema. No clubbing. LABORATORY VALUES: Were done showed a white count of 14,000 yesterday, hemoglobin of 10.4, hematocrit of 36.6. Chemistry shows sodium of 152, BUN of 71, creatinine of 2.16, glucose have been running in the 280s to 290s. ASSESSMENT: 1. Pneumonia. Continue current albuterol and Atrovent treatment. 2. Respiratory failure. Continue with O2. 3. Atrial fibrillation. Continue warfarin. Check his INRs on a regular basis. 4. Diabetes. Continue with current medication. 5. Chronic kidney disease stage 3. 6. Anemia. PLAN: To repeat chest x-ray today. The patient has been running NS at 75 mL an hour. Probably, we will change that to D5 and around 70 mL an hour for hypernatremia. Continue on current medications. The patient is on cefepime and azithromycin. We will change cefepime to q.24 for his renal coverage. Continue other medications. Medicines reviewed. Further recommendation per clinical course. We will continue to monitor the patient and we will also repeat a chest x-ray. MD LEROY Rome/MODL /[id number]
[2019-05-19] MEDS: ASPIRIN 81 MG CHEW TAB PO SCH (09:50)
[2019-05-19] MEDS: PANTOPRAZOLE SOD 40 MG TABEC PO SCH (09:50)
[2019-05-19] MEDS: TAMSULOSIN HCL 0.4 MG CAP PO SCH (09:50)
[2019-05-19] MEDS: FAMOTIDINE 20 MG/2 ML VIAL IV SCH ×2 (09:50→20:18)
[2019-05-19] MEDS: FLUOXETINE HCL 20 MG CAP PO SCH (09:50)
[2019-05-19] MEDS: NEBIVOLOL 10 MG TAB PO SCH (09:50)
[2019-05-19] MEDS: GLIMEPIRIDE 2 MG TAB PO SCH (09:50)
[2019-05-19] MEDS: FINASTERIDE 5 MG TAB PO SCH (09:50)
[2019-05-19] MEDS: FUROSEMIDE INJ 10 MG/ML 2 ML VIAL IV SCH ×2 (09:50→20:18)
[2019-05-19] MEDS: CEFEPIME 1GM/NS 0.9% 50 ML 50 ML IV SCH (10:15)
[2019-05-19] MEDS: WARFARIN SOD 3 MG TAB PO SCH (17:00)
--- NOTE | 2019-05-19 19:04 | NUR ---
WALKING ROUNDS COMPLETE, PT STABLE AT THIS TIME, WALKING ROUNDS COMPLETE.
--- NOTE | 2019-05-19 19:13 | NUR ---
Received bedside report from day nurse. Patient awake and resting in bed, no s/s of distress at this time. All safety measures in place. Will continue to monitor.
[2019-05-19] MEDS: AZITHROMYCIN 500MG/NS 250 ML 250 ML IV SCH (20:18)
[2019-05-19] MEDS: ATORVASTATIN 20 MG TAB PO SCH (20:18)
[2019-05-20] VITALS (8 sets, daily range): BP systolic 98–118; BP diastolic 61–79
[2019-05-20] MEDS: ALBUTEROL SULF 0.083% NEB SOLN 3 ML NEB NEB SCH ×6 (00:30→21:15)
[2019-05-20] MEDS: IPRATROPIUM BROMIDE 0.02% 2.5 ML NEB NEB SCH ×6 (00:30→21:15)
--- NOTE | 2019-05-20 03:46 | NUR ---
Patient awake and resting in bed. Currently running afib @ 102 on tele monitor, no changes from baseline. No s/s of distress, denies needs at this time. All safety measures in place. Will continue to monitor.
--- NOTE | 2019-05-20 04:53 | NUR ---
Informed by tele that patient had 7 beat run of v-tach. Informed Dr. Zambrano who is here to see patient. No new orders received at this time. Per Dr. Zambrano, continue D5 and check labs today.
[2019-05-20] MEDS: DEXTROSE 5% 1,000 ML IV SCH ×3 (05:20→22:48)
[2019-05-20 05:48] LABS: BASOPHILS % 0.2 % (0.0-1.0); EOSINOPHILS # (AUTO) 0.8 (0.0-0.4); EOSINOPHILS % 4.5 % (0.0-6.0); HEMATOCRIT 27.7 % (38.2-49.6); HEMOGLOBIN 7.8 g/dL (14.0-18.0); LYMPHOCYTES # (AUTO) 1.3 (1.0-3.2); LYMPHOCYTES % 8.1 % (18.0-39.1); MEAN CORPUSCULAR HEMOGLOBIN 22.7 pg (28-32); MEAN CORPUSCULAR HGB CONC 28.2 g/dL (31-35); MEAN CORPUSCULAR VOLUME 80.5 fL (81-99); MONOCYTES # (AUTO) 0.8 (0.2-0.8); MONOCYTES % 4.9 % (4.4-11.3); NEUTROPHILS # (AUTO) 13.4 (2.1-6.9); PLATELET COUNT 250 x10e3/uL (140-360); RED BLOOD COUNT 3.44 x10e6/uL (4.3-5.7); RED CELL DISTRIBUTION WIDTH 22.7 % (11.7-14.4)
[2019-05-20 06:10] LABS: INR 2.21; PROTHROMBIN TIME 26.2 seconds (11.9-14.5)
[2019-05-20 06:13] LABS: ALBUMIN 2.1 g/dL (3.5-5.0); ALBUMIN/GLOBULIN RATIO 0.4 (0.8-2.0); ANION GAP 11.7 mmol/L (8-16); CALCIUM 8.3 mg/dL (8.4-10.2); CREATININE, SERUM 3.11 mg/dL (0.72-1.25); POTASSIUM 3.7 mmol/L (3.5-5.1)
--- NOTE | 2019-05-20 07:03 | NUR ---
Received patient lying in bed with eyes open. Respiration even and unlabored without SOB. Call light in reach.
--- NOTE | 2019-05-20 07:23 | NUR ---
Bedside report given to day nurse. Patient awake and resting in bed, no s/s of distress at this time. All safety measures in place.
[2019-05-20] MEDS: CEFEPIME 1GM/NS 0.9% 50 ML 50 ML IV SCH (08:11)
[2019-05-20] MEDS: FUROSEMIDE INJ 10 MG/ML 2 ML VIAL IV SCH ×2 (08:13→21:15)
[2019-05-20] MEDS: FLUOXETINE HCL 20 MG CAP PO SCH (08:14)
[2019-05-20] MEDS: GLIMEPIRIDE 2 MG TAB PO SCH (08:14)
[2019-05-20] MEDS: ASPIRIN 81 MG CHEW TAB PO SCH (08:14)
[2019-05-20] MEDS: PANTOPRAZOLE SOD 40 MG TABEC PO SCH (08:14)
[2019-05-20] MEDS: FAMOTIDINE 20 MG/2 ML VIAL IV SCH ×2 (08:14→21:15)
[2019-05-20] MEDS: TAMSULOSIN HCL 0.4 MG CAP PO SCH (08:14)
[2019-05-20] MEDS: FINASTERIDE 5 MG TAB PO SCH (08:14)
[2019-05-20] MEDS: NEBIVOLOL 10 MG TAB PO SCH (08:23)
[2019-05-20] MEDS: MORPHINE SULFATE 2 MG/ML SYR 1ML IV PRN (08:24)
[2019-05-20] MEDS: INSULIN LISPRO 100 UNIT/1 ML 3ML VIAL SQ SCH ×4 (08:28→21:00)
[2019-05-20 09:11] LABS: HYPOCHROMASIA MODERATE
[2019-05-20 09:12] LABS: ANISOCYTOSIS MODERATE; MICROCYTOSIS MODERATE; RBC MORPHOLOGY COMMENT ABNORMAL
[2019-05-20 09:28] LABS: % IRON SATURATION 9 % (15-50); IRON 19 ug/dL (65-175); TOTAL IRON BINDING CAPACITY 216 ug/dL (261-478); TRANSFERRIN 154 mg/dL (174-364)
[2019-05-20] MEDS: CLINDAMYCIN PHOS 900MG/ 50ML 50 ML IV SCH ×3 (12:18→21:15)
[2019-05-20] MEDS ORDERED: BISACODYL 10 MG SUPP PR ONE (13:10)
--- NOTE | 2019-05-20 16:46 | Consultation ---
DATE OF CONSULTATION: 05/20/2019 Pulmonary [address] Patient of Dr. Zambrano and Dr. Melton. HISTORY OF PRESENT ILLNESS: Charming, but unfortunate 85-year-old gentleman, well known to the Pulmonary Service over several years. History of chronic pleural effusion, evaluation negative for malignancy. He was admitted with shortness of breath, wheezing, and cough, felt to be a failure of outpatient therapy for pneumonia. He was living at home with the help of his caregivers. History of hypertension, history of old stroke, intracerebral bleed, chronic atrial fibrillation, heart failure, BPH, diabetes mellitus. He is a poor historian. HOME MEDICATIONS: His home medications have included Keflex, aspirin, , Amaryl, labetalol, Protonix, and Flomax. PAST SURGICAL HISTORY: He has had knee surgery replacement, hernia surgery, IVC filter placed. PHYSICAL EXAMINATION: GENERAL: Pleasant elderly white male, but unable to relate his history. VITAL SIGNS: Temperature 97.3, respirations 19, pulse 100 and regular, and blood pressure 118/72. HEAD: Normocephalic, atraumatic. LUNGS: Rhonchi, right. Diminished breath sounds, left. HEART: Irregular rhythm. ABDOMEN: Soft. EXTREMITIES: Nonedematous. IMPRESSION: 1. Probable aspiration pneumonia, right lower lobe. 2. Anemia of chronic disease and possible iron deficiency. 3. Chronic kidney disease. 4. Diabetes mellitus. 5. Malnutrition. PLAN: Support. Define code status. Empiric antibiotics. We will add anaerobic cover. Continue speech therapy and follow their recommendations. Thank you for this kind referral. Caden Duggan MD DS/MODL /[id number]
[2019-05-20] MEDS: WARFARIN SOD 3 MG TAB PO SCH (16:55)
--- NOTE | 2019-05-20 19:10 | NUR ---
Report given to machinist 2nd shift. Respiration even and unlabored without SOB. Call light in reach.
--- NOTE | 2019-05-20 19:20 | NUR ---
Received patient awake, not in distress, on semi fowlers, call light within reach, bed alarm on, will continue to monitor closely
[2019-05-20] MEDS: ATORVASTATIN 20 MG TAB PO SCH (21:15)
[2019-05-21] VITALS (9 sets, daily range): BP systolic 90–119; BP diastolic 56–73
[2019-05-21] MEDS: ALBUTEROL SULF 0.083% NEB SOLN 3 ML NEB NEB SCH ×6 (03:40→23:00)
[2019-05-21] MEDS: IPRATROPIUM BROMIDE 0.02% 2.5 ML NEB NEB SCH ×6 (03:40→23:00)
[2019-05-21] MEDS: CLINDAMYCIN PHOS 900MG/ 50ML 50 ML IV SCH ×4 (03:48→21:08)
[2019-05-21 05:59] LABS: BASOPHILS % 0.2 % (0.0-1.0); EOSINOPHILS # (AUTO) 0.5 (0.0-0.4); EOSINOPHILS % 3.5 % (0.0-6.0); HEMOGLOBIN 7.9 g/dL (14.0-18.0); LYMPHOCYTES # (AUTO) 0.9 (1.0-3.2); LYMPHOCYTES % 6.9 % (18.0-39.1); MEAN CORPUSCULAR HEMOGLOBIN 22.5 pg (28-32); MEAN CORPUSCULAR HGB CONC 29.3 g/dL (31-35); MEAN CORPUSCULAR VOLUME 76.9 fL (81-99); MONOCYTES # (AUTO) 0.9 (0.2-0.8); MONOCYTES % 6.9 % (4.4-11.3); NEUTROPHILS # (AUTO) 10.8 (2.1-6.9); NEUTROPHILS % 80.8 % (38.7-80.0); PLATELET COUNT 260 x10e3/uL (140-360); RED BLOOD COUNT 3.51 x10e6/uL (4.3-5.7); RED CELL DISTRIBUTION WIDTH 22.5 % (11.7-14.4)
[2019-05-21 06:18] LABS: INR 2.38; PROTHROMBIN TIME 27.8 seconds (11.9-14.5)
[2019-05-21 06:28] LABS: ALBUMIN 2.1 g/dL (3.5-5.0); ALBUMIN/GLOBULIN RATIO 0.4 (0.8-2.0); ANION GAP 11.8 mmol/L (8-16); CALCIUM 8.2 mg/dL (8.4-10.2); CREATININE, SERUM 3.14 mg/dL (0.72-1.25); POTASSIUM 3.8 mmol/L (3.5-5.1)
--- NOTE | 2019-05-21 07:00 | NUR ---
RECEIVED PATIENT AWAKE RESTING IN BED NO S/S OF DISTRESS. BED LOW, WHEELS LOCKED, SIDE RAILS X2, CALL LIGHT IN REACH WILL CONTINUE TO MONITOR PATIENT.
--- NOTE | 2019-05-21 07:03 | NUR ---
walking rounds done with roque RN, call light within reach
[2019-05-21] MEDS: INSULIN LISPRO 100 UNIT/1 ML 3ML VIAL SQ SCH ×4 (07:30→21:00)
[2019-05-21] MEDS: NEBIVOLOL 10 MG TAB PO SCH (08:09)
[2019-05-21] MEDS: ASPIRIN 81 MG CHEW TAB PO SCH (08:29)
[2019-05-21] MEDS: FUROSEMIDE INJ 10 MG/ML 2 ML VIAL IV SCH ×2 (08:29→20:59)
[2019-05-21] MEDS: FINASTERIDE 5 MG TAB PO SCH (08:29)
[2019-05-21] MEDS: TAMSULOSIN HCL 0.4 MG CAP PO SCH (08:29)
[2019-05-21] MEDS: GLIMEPIRIDE 2 MG TAB PO SCH (08:29)
[2019-05-21] MEDS: PANTOPRAZOLE SOD 40 MG TABEC PO SCH (08:29)
[2019-05-21] MEDS: FAMOTIDINE 20 MG/2 ML VIAL IV SCH ×2 (08:29→20:59)
[2019-05-21] MEDS: FLUOXETINE HCL 20 MG CAP PO SCH (08:29)
[2019-05-21 09:29] LABS: HYPOCHROMASIA SLIGHT
[2019-05-21 09:30] LABS: ANISOCYTOSIS SLIGHT; MICROCYTOSIS SLIG; PLATELET ESTIMATE ADEQUATE
[2019-05-21 09:31] LABS: PLATELET MORPHOLOGY COMMENT FEW LARGE
[2019-05-21] MEDS: MORPHINE SULFATE 2 MG/ML SYR 1ML IV PRN (12:04)
--- NOTE | 2019-05-21 12:50 | NUR ---
Pt sleeping soundly and no family present. Network Operations Specialist left a card describing availability of heat and frost insulator and instructions on how to contact a heat and frost insulator. OVIDIO GALLOWAY Network Operations Specialist Spiritual Care Department O: [phone]
[2019-05-21] MEDS: DEXTROSE 5% 1,000 ML IV SCH (14:46)
[2019-05-21] MEDS: WARFARIN SOD 3 MG TAB PO SCH (16:27)
[2019-05-21] MEDS: ATORVASTATIN 20 MG TAB PO SCH (20:59)
--- NOTE | 2019-05-22 02:00 | NUR ---
RECEIVED REPORT FROM MALOU KATHLEEN. PT IS ALERT AND ORIENTED X3. O2 ON 4-4.5L PER N/C. RESPIRATIONS ARE EVEN AND UNLABORED. NONPRODUCTIVE COUGH. RT UPPER ARM PIV PATENT. TELE ON- AFIB. B/P LOW AT 0400. DR EGAN HERE- NEW ORDERS RECEIVED- NS BOLUS 500ML NOW. B/P IMPROVE 110/70.MAP 83. CALL LIGHT WITHIN REACH. HOB ELEVATED.
[2019-05-22] MEDS: ALBUTEROL SULF 0.083% NEB SOLN 3 ML NEB NEB SCH ×5 (04:00→20:00)
[2019-05-22] MEDS: IPRATROPIUM BROMIDE 0.02% 2.5 ML NEB NEB SCH ×5 (04:00→20:00)
[2019-05-22] MEDS: CLINDAMYCIN PHOS 900MG/ 50ML 50 ML IV SCH ×4 (04:17→22:20)
[2019-05-22] MEDS ORDERED: SODIUM CHLORIDE 0.9% 500ML 500 ML ONE (04:51)
[2019-05-22 05:35] LABS: BASOPHILS % 0.3 % (0.0-1.0); EOSINOPHILS # (AUTO) 0.3 (0.0-0.4); EOSINOPHILS % 2.4 % (0.0-6.0); HEMATOCRIT 24.9 % (38.2-49.6); HEMOGLOBIN 7.4 g/dL (14.0-18.0); LYMPHOCYTES # (AUTO) 1.2 (1.0-3.2); LYMPHOCYTES % 9.2 % (18.0-39.1); MEAN CORPUSCULAR HEMOGLOBIN 22.9 pg (28-32); MEAN CORPUSCULAR HGB CONC 29.7 g/dL (31-35); MEAN CORPUSCULAR VOLUME 77.1 fL (81-99); MONOCYTES # (AUTO) 0.8 (0.2-0.8); MONOCYTES % 5.7 % (4.4-11.3); NEUTROPHILS % 81.3 % (38.7-80.0); PLATELET COUNT 252 x10e3/uL (140-360); RED BLOOD COUNT 3.23 x10e6/uL (4.3-5.7); RED CELL DISTRIBUTION WIDTH 22.6 % (11.7-14.4)
[2019-05-22 05:49] LABS: INR 3.52; PROTHROMBIN TIME 38.1 seconds (11.9-14.5)
[2019-05-22 06:02] LABS: ALBUMIN/GLOBULIN RATIO 0.4 (0.8-2.0); ANION GAP 13.8 mmol/L (8-16); CREATININE, SERUM 3.43 mg/dL (0.72-1.25); POTASSIUM 3.8 mmol/L (3.5-5.1)
[2019-05-22 07:55] LABS: ANISOCYTOSIS SLIGHT; MICROCYTOSIS SLIGHT
[2019-05-22 07:56] LABS: PLATELET ESTIMATE ADEQUATE; PLATELET MORPHOLOGY COMMENT NORMAL
[2019-05-22] MEDS: DEXTROSE 5%/0.9% SOD CHL 1,000 ML IV SCH ×3 (08:00→18:00)
[2019-05-22] MEDS ORDERED: ACETAMINOPHEN 1000 MG/100 ML 100 ML IV ONE (08:29)
[2019-05-22] MEDS ORDERED: ACETAMINOPHEN 1000 MG/100 ML IV PRN (08:30)
[2019-05-22] MEDS: INSULIN LISPRO 100 UNIT/1 ML 3ML VIAL SQ SCH ×4 (08:30→21:30)
[2019-05-22] MEDS: GLIMEPIRIDE 2 MG TAB PO SCH (09:00)
[2019-05-22] MEDS: TAMSULOSIN HCL 0.4 MG CAP PO SCH (09:00)
[2019-05-22] MEDS: ASPIRIN 81 MG CHEW TAB PO SCH (09:00)
[2019-05-22] MEDS: FINASTERIDE 5 MG TAB PO SCH (09:00)
[2019-05-22] MEDS: FAMOTIDINE 20 MG/2 ML VIAL IV SCH ×2 (09:00→21:30)
[2019-05-22] MEDS: NEBIVOLOL 10 MG TAB PO SCH (09:00)
[2019-05-22] MEDS: PANTOPRAZOLE 40 MG 10ML VIAL IV SCH ×2 (09:00→10:55)
[2019-05-22] MEDS: FLUOXETINE HCL 20 MG CAP PO SCH (09:00)
[2019-05-22 09:15] VITALS: BP 94/55
--- NOTE | 2019-05-22 09:17 | Diagnostic Imaging Report ---
EXAMINATION: CHEST SINGLE (PORTABLE) INDICATION: Cough, shortness of breath COMPARISON: Chest radiograph 05/19/2019, 05/10/2019 FINDINGS: LINES/TUBES:EKG leads overlie the chest. LUNGS:The left lung volume is low. The right lung is moderately inflated. There is perihilar fullness and indistinctness of the pulmonary vasculature. There are left greater than right basilar opacities silhouetting the left sarah diaphragm. PLEURA:Unchanged left pleural effusion. No pneumothorax. MEDIASTINUM:Cardiomediastinal silhouette is stably enlarged. Atherosclerotic calcifications of the thoracic aorta. BONES/SOFT TISSUES:No acute osseous injury. ABDOMEN:No free air under the diaphragm. Residual oral contrast in the colon. IMPRESSION: Unchanged cardiomegaly and pulmonary interstitial edema. Unchanged left pleural effusion. Left greater than right bibasilar opacities may reflect atelectasis however superimposed aspiration or pneumonia could also have this appearance. Signed by: Zo Beltre MD on 05/22/2019 9:13 AM
[2019-05-22] MEDS ORDERED: IRON SUCROSE 100 MG in SODIUM CHLORIDE 0.9% 100 ML 100 ML IV SCH (09:30)
--- NOTE | 2019-05-22 12:11 | NUR ---
TELEPHONED MD EGAN TO MAKE AWARE OF BP 80/61, HR 97, ORDERS NOTED FOR BOLUS X1
[2019-05-22] MEDS ORDERED: SODIUM CHLORIDE 0.9% 1000ML 500 ML IV ONE ×2 (12:15→17:00)
[2019-05-22 12:20] VITALS: BP 80/61
--- NOTE | 2019-05-22 14:56 | NUR ---
Nutrition Intervention Note RD Recommendation(s) for Physician: - Continue current diet order and consistency per ST - Glucerna nutrition supplement BID for added nutrition as appropriate Plan of Care: RD following, monitoring for tolerance and adequacy Nutrition reason for involvement: follow up RD Assessment 05/21: Follow up. Attempted to speak to pt, but he was sleeping at time of visit and there were no family members at bedside. Per chart, pt has varied PO intake with recent intake of 0-50% of meals. RN reports pt does not like the thickened liquids. Will continue to monitor. 05/16: Follow up. Attempted to speak to pt, but he did not respond to questions asked and there were no family members at bedside. It is recorded that pt consumed 50% of meals today. Recommend Glucerna nutrition supplement BID for added nutrition. Will continue to monitor. 05/12: 85 YOM admitted for Afib with PMH listed below. The pt was seen resting in bed, on NC. Pt was somewhat altered at time of visit, could answers most questions. Pt reported his appetite has not been poor. He stated he did have some weight loss, but not a lot. Pt was 209 lbs in Nov 2018, suggesting a 3.3% weight loss within 6 months, which is not significant. The pt denied N/V/C/D/chewing or swallowing issues as well as any food allergies. Pt did deny chewing or swallowing issues, but per nurse and home care giver; the pt consumes thickened liquids (modified diet unknown) and the nurse reported he has been refusing this. Recommend OIL PUMP STATION OPERATOR CHIEF eval to ensure the pt is consuming the correct consistency of food and if an alternate source of nutrition is recommended. Will continue to monitor. Principal Problems/Diagnoses: Afib PMH:CKD, DM, anemia GI: LBM: not recorded Skin: no pressure ulcer recorded Labs: 05/21: BUN 94, Creat 3.43, Glu 200 05/16: Na 155, BUN 63, Creat 1.96, Glu 195 05/12: Na 146, Cl 108, CO2 32, BUN 65, Creat 1.73, Gluc 161, POC GM: 164-177 Meds: clindamycin, protonix, pepcid, Lipitor, zofran, insulin, Ht:68 in Wt: 202 lbs BMI: 30.7 kg/m^2 IBW: 154 lbs Malnutrition Evaluation (05/12) The patient does not meet criteria for a specified degree of malnutrition at this time. Will re-evaluate at follow-up as appropriate. Nutrition Prescription (Diet Order): ADA 1800 kcal with mechanical soft consistency and nectar thick liquids Estimated Nutritional Needs: Calories: 3270-0092 kcal/day (22-25kcal/kg/day) Weight used : IBW (70 kg) Protein : 70-105 g protein/day (1- 1.5gram/kg/day ) Weight used: IBW Diet Adequacy: Not meeting calorie needs, Not meeting protein needs Diet Education Needs Assessment: patient not appropriate for education at this time. Nutrition Care Level: moderate Nutrition Diagnosis: Inadequate energy intake related to medical condition as evidenced pt only consuming 0-50% of his meals per meal assessment. Goal: Patient will meet 75-100% of estimated needs by follow up Progress: goal not met Interventions: -carb altered texture modified diet, commercial beverage Monitoring/Evaluation: -Total energy intake, Total protein intake, liquid supplement, Modified diet, Weight change Signed: Tomasa Hawthorne RD, LD
[2019-05-22 16:21] VITALS: BP 86/72
[2019-05-22 20:00] VITALS: BP 103/71
[2019-05-22] MEDS: IRON SUCROSE 100 MG in SODIUM CHLORIDE 0.9% 100 ML 100 ML IV SCH (20:11)
[2019-05-22] MEDS: ATORVASTATIN 20 MG TAB PO SCH (21:30)
[2019-05-22 22:00] VITALS: BP 103/71
[2019-05-23] VITALS (9 sets, daily range): BP systolic 89–115; BP diastolic 57–72
--- NOTE | 2019-05-23 00:30 | NUR ---
REPOSITIONED.RESTING WELL DURING NIGHT.VOIDED.DIAPER CHANGED.BED LOCKED AND IN LOWEST POSITION.PHONE AND CALL LIGHT WITHIN REACH.INSTRUCTED TO CALL FOR ASSISTANCE NEEDED.
[2019-05-23] MEDS: IPRATROPIUM BROMIDE 0.02% 2.5 ML NEB NEB SCH ×7 (03:00→23:55)
[2019-05-23] MEDS: ALBUTEROL SULF 0.083% NEB SOLN 3 ML NEB NEB SCH ×7 (03:00→23:55)
[2019-05-23] MEDS: DEXTROSE 5%/0.9% SOD CHL 1,000 ML IV SCH ×2 (03:58→11:55)
[2019-05-23] MEDS: CLINDAMYCIN PHOS 900MG/ 50ML 50 ML IV SCH ×3 (03:58→20:30)
[2019-05-23 05:46] LABS: BASOPHILS % 0.2 % (0.0-1.0); EOSINOPHILS # (AUTO) 0.5 (0.0-0.4); EOSINOPHILS % 3.6 % (0.0-6.0); HEMATOCRIT 26.9 % (38.2-49.6); HEMOGLOBIN 7.9 g/dL (14.0-18.0); LYMPHOCYTES # (AUTO) 1.3 (1.0-3.2); LYMPHOCYTES % 10.6 % (18.0-39.1); MEAN CORPUSCULAR HEMOGLOBIN 23.1 pg (28-32); MEAN CORPUSCULAR HGB CONC 29.4 g/dL (31-35); MEAN CORPUSCULAR VOLUME 78.7 fL (81-99); MONOCYTES # (AUTO) 0.7 (0.2-0.8); MONOCYTES % 5.9 % (4.4-11.3); NEUTROPHILS # (AUTO) 9.8 (2.1-6.9); NEUTROPHILS % 78.3 % (38.7-80.0); PLATELET COUNT 292 x10e3/uL (140-360); RED BLOOD COUNT 3.42 x10e6/uL (4.3-5.7); RED CELL DISTRIBUTION WIDTH 23.2 % (11.7-14.4)
[2019-05-23 06:11] LABS: ANION GAP 14.7 mmol/L (8-16); CALCIUM 7.9 mg/dL (8.4-10.2); CREATININE, SERUM 3.34 mg/dL (0.72-1.25); POTASSIUM 3.7 mmol/L (3.5-5.1)
--- NOTE | 2019-05-23 07:00 | NUR ---
BED SIDE SHIFT REPORT GIVEN TO ONCOMING RN.STABLE CONDITION.
[2019-05-23] MEDS: INSULIN LISPRO 100 UNIT/1 ML 3ML VIAL SQ SCH ×4 (08:30→21:15)
[2019-05-23] MEDS: NEBIVOLOL 10 MG TAB PO SCH (09:00)
[2019-05-23] MEDS: PANTOPRAZOLE 40 MG 10ML VIAL IV SCH (09:00)
[2019-05-23] MEDS: FINASTERIDE 5 MG TAB PO SCH (09:00)
[2019-05-23] MEDS: GLIMEPIRIDE 2 MG TAB PO SCH (09:00)
[2019-05-23] MEDS: FAMOTIDINE 20 MG/2 ML VIAL IV SCH ×2 (09:00→21:42)
[2019-05-23] MEDS: TAMSULOSIN HCL 0.4 MG CAP PO SCH (09:00)
[2019-05-23] MEDS: ASPIRIN 81 MG CHEW TAB PO SCH (09:00)
[2019-05-23] MEDS: FLUOXETINE HCL 20 MG CAP PO SCH (09:00)
--- NOTE | 2019-05-23 10:29 | NUR ---
SPOKE WITH DAUGHTER JOVANY SHE CHOSE [facility] AND WILL DISCHARGE TOMORROW HOME, HOSPICE WILL TRANSPORT HOME.
--- NOTE | 2019-05-23 10:30 | NUR ---
EDUCATED ABOUT IMM, SIGNED, FILED IN CHART, WITH COPY LEFT WITH FAMILY AT BEDSIDE.
--- NOTE | 2019-05-23 16:28 | NUR ---
RECEIVED OOH DNR AND FILED IN CHART AND OUT COPIES IN PACKET TO TAKE HOME WITH PATIENT, MEDICATIONS WILL BE DELIVERED IN MORNING AND HOSPICE WILL LET ME KNOW WHAT TIME HONING MACHINE TRY OUT SETTER WILL BE.
[2019-05-23] MEDS: IRON SUCROSE 100 MG in SODIUM CHLORIDE 0.9% 100 ML 100 ML IV SCH (21:00)
[2019-05-23] MEDS: ATORVASTATIN 20 MG TAB PO SCH (21:42)
[2019-05-24] VITALS: BP 91/68
[2019-05-24] MEDS: DEXTROSE 5%/0.9% SOD CHL 1,000 ML IV SCH ×2 (00:30→10:09)
[2019-05-24] MEDS: ALBUTEROL SULF 0.083% NEB SOLN 3 ML NEB NEB SCH ×2 (03:50→07:00)
[2019-05-24] MEDS: IPRATROPIUM BROMIDE 0.02% 2.5 ML NEB NEB SCH ×2 (03:50→07:00)
[2019-05-24 04:00] VITALS: BP 106/69
[2019-05-24] MEDS: CLINDAMYCIN PHOS 900MG/ 50ML 50 ML IV SCH (04:18)
--- NOTE | 2019-05-24 05:41 | Discharge Summary ---
DISCHARGE DIAGNOSIS: The patient has been discharged home to hospice. HISTORY OF PRESENT ILLNESS AND HOSPITAL COURSE: See hospital chart for full details. The patient is a gentleman, who has had multiple comorbidities including diabetes, chronic kidney disease, hypertension, atrial fibrillation, and history of CVA, who presented with worsening shortness of breath, where he was found to have pneumonia and is seen on modified barium swallow to have significant aspiration, so his pneumonia is secondary to aspiration. He was placed on antibiotics, where he has some initial improvements, his cough, thus the patient was insistent that he still wanted to eat as do the family. They did not want a PEG tube, even though this was discussed on couple of occasions, but they figured that would worsen his quality of life knowing that continued eating would make his pneumonia worse. The patient started having decreased p.o. intake and water intake, so he started having hypernatremia and worsening of his chronic kidney disease to the point of acute renal failure. He was seen by Renal, but at that time, when I started having discussions with the daughter, she decided that she wanted to go ahead and make the patient DNR and then she decided the following day to go ahead and take him home with hospice, so he can have quality of life, which I believe is an appropriate choice. So, the patient is being discharged home to hospice. Please see hospital chart for full details. MD NATY Mcdonald/SOBEIDA /[id number]
[2019-05-24 06:01] LABS: INR 3.24; PROTHROMBIN TIME 35.6 seconds (11.9-14.5)
--- NOTE | 2019-05-24 07:00 | NUR ---
Received patient lying in bed with eyes open. Respiration even and unlabored without SOB. Call light in reach.
[2019-05-24] MEDS: INSULIN LISPRO 100 UNIT/1 ML 3ML VIAL SQ SCH (07:30)
[2019-05-24 08:03] VITALS: BP 154/64
[2019-05-24 08:33] VITALS: BP 154/64
--- NOTE | 2019-05-24 08:33 | NUR ---
ST Note: Recent events noted. Dysphagia tx no longer indicated. Will discharge from services.
[2019-05-24] MEDS: FAMOTIDINE 20 MG/2 ML VIAL IV SCH (08:40)
[2019-05-24] MEDS: ASPIRIN 81 MG CHEW TAB PO SCH (08:41)
[2019-05-24] MEDS: PANTOPRAZOLE 40 MG 10ML VIAL IV SCH (08:41)
[2019-05-24] MEDS: GLIMEPIRIDE 2 MG TAB PO SCH (08:41)
[2019-05-24] MEDS: NEBIVOLOL 10 MG TAB PO SCH (08:42)
[2019-05-24] MEDS: FINASTERIDE 5 MG TAB PO SCH (08:42)
[2019-05-24] MEDS: TAMSULOSIN HCL 0.4 MG CAP PO SCH (08:42)
[2019-05-24] MEDS: FLUOXETINE HCL 20 MG CAP PO SCH (08:43)
--- NOTE | 2019-05-24 12:06 | NUR ---
PIV to left AC discontinued, catheter tip intact, occlusive dressing applied, no bleeding noted. Respiration even unlabored without SOB. Patient is transported via stretcher with ambulance. All personal belongings are packed and taken.
== END 2019-05-24 12:19 | disposition hospice, home (50) | DRG 177 ==
LOC: ER 09:12 → ERHOLD 10:25 → MED/SURG2 14:55 → MED/SURG 05-11 13:33 → MED/SURG2 05-13 18:07 → MED/SURG 05-15 18:16
PROVIDERS: ADMIT Internal Medicine; ATTEND Internal Medicine
DX: J69.0 Pneumonitis due to inhalation of food and vomit (principal); J96.01 Acute respiratory failure with hypoxia; I13.0 Hypertensive heart and chronic kidney disease with heart failure and stage 1 through stage 4 chronic kidney disease, or unspecified chronic kidney disease; E46 Unspecified protein-calorie malnutrition; E87.0 Hyperosmolality and hypernatremia; I48.20 Chronic atrial fibrillation, unspecified; J90 Pleural effusion, not elsewhere classified; N17.9 Acute kidney failure, unspecified; N18.3 Chronic kidney disease, stage 3 (moderate); E11.22 Type 2 diabetes mellitus with diabetic chronic kidney disease; I50.9 Heart failure, unspecified; D64.9 Anemia, unspecified; E78.5 Hyperlipidemia, unspecified; E66.9 Obesity, unspecified; Z68.30 Body mass index [BMI] 30.0-30.9, adult; D50.9 Iron deficiency anemia, unspecified; R04.0 Epistaxis; E86.0 Dehydration; Z82.49 Family history of ischemic heart disease and other diseases of the circulatory system; Z86.718 Personal history of other venous thrombosis and embolism; Z86.73 Personal history of transient ischemic attack (TIA), and cerebral infarction without residual deficits; N40.0 Benign prostatic hyperplasia without lower urinary tract symptoms; K21.9 Gastro-esophageal reflux disease without esophagitis; Z66 Do not resuscitate
CPT/HCPCS: 36415; 71045; 74230; 80048; 80053; 81001; 82550; 82553; 82948; 83518; 83540; 83605; 83735; 83880; 84466; 84484; 85025; 85610; 85730; 87040; 87070; 87086; 87400; 93005; 94640; 94667; 94668; 96361; 96372; 97139; 99251; 99284; J0456; J0692; J1756; J1940; J2270; J2405; J2930; J7030; J7040; J7042; J7050; J7070; Q0162